=== PATIENT | female | born 1965 | race African-American/Black ===

== ENCOUNTER 2017-07-25 21:14 | Inpatient (IN) | payer MEDICARE, MEDICAID ==
[~2017-07-25] VITALS: Ht 170.2 cm; Wt 97.5 kg
[2017-07-25] MEDS ORDERED: AMIODARONE HCL (50 MG/ ML) 3 ML VIAL IV ONE (21:22)
[2017-07-25] MEDS ORDERED: LORazepam 2MG/ML-1ML VIAL ONE (21:22)
[2017-07-25] MEDS ORDERED: AMIODARONE HCL 150 MG in D5W 5% 100 ML IV ONE ×4 (21:30)
[2017-07-25] MEDS ORDERED: LORazepam 2MG/ML-1ML VIAL IV ONE ×2 (21:30)
[2017-07-25] MEDS ORDERED: AMIODARONE HCL 900 MG in DEXTROSE 500 ML IV SCH (21:32)
[2017-07-25] MEDS ORDERED: SODIUM CHLORIDE 0.9% 500 ML IV ONE ×2 (21:45)
[2017-07-25 21:57] LABS: Hemoglobin 12.7 g/dL (12.2-16.2); Mean Corpuscular Hgb Conc. 33.4 g/dL (32.0-36.0); Mean Corpuscular Volume 92.8 fL (80.0-100.0); Platelet Count (auto) 204 10^3/uL (140-450); Red Cell Distribution Width 15.1 % (11.8-14.3); White Blood Cell 7.1 10^3/uL (4.4-10.8)
[2017-07-25 22:01] LABS: Band Neutrophils % (manual) 0; Basophils % (manual) 0 (0.0-2.0); Blast Cells 0; Metamyelocytes % 0; Myelocytes % 0; Promyelocytes % 0; Reactive Lymphocytes 0
[2017-07-25 22:08] LABS: INR 0.96 (0.9-1.15); Partial Thromboplastin Time 20.9 sec (23.78-33.04); Prothrombin Time 10.3 sec (9.27-12.13)
[2017-07-25 22:09] LABS: Albumin 3.1 g/dL (3.4-5.0); BUN/Creatinine Ratio 14.1; Calcium 9.6 mg/dL (8.5-10.1); Magnesium 1.9 mg/dL (1.6-2.6); Potassium 4.1 mmol/L (3.5-5.1)
[2017-07-25 22:19] LABS: Eosinophils % (manual) 2 (0-7); Lymphocytes % (manual) 32 (10.0-50.0); Monocytes % (manual) 3 (0-12)
[2017-07-25 22:25] LABS: Bilirubin, Total 0.4 mg/dL (0.2-1.0); Total Protein 7.2 g/dL (6.4-8.2)
[2017-07-25] MEDS ORDERED: ASPirin-EC 325mg tab PO ONE (22:45)
[2017-07-26] MEDS ORDERED: MORPHINE SULFATE 4 MG/ML SYR/VIAL IV PRN (02:45)
[2017-07-26] MEDS ORDERED: FUROSEMIDE 20 MG/2 ML VIAL IV ONE (02:45)
[2017-07-26] MEDS ORDERED: ENOXAPARIN SOD 100 MG/1 ML SYRINGE SC ONE (02:45)
[2017-07-26] MEDS ORDERED: NITROGLYCERIN 0.4 MG SL TAB SL PRN (02:45)
[2017-07-26] MEDS ORDERED: ATORVASTATIN 20 MG TAB PO ONE (02:45)
[2017-07-26] MEDS ORDERED: ENOXAPARIN SOD 40 MG/0.4 ML SYRINGE SC SCH (10:00)
[2017-07-26] MEDS: FAMOTIDINE 20 MG TAB PO SCH ×2 (10:43→22:21)
[2017-07-26] MEDS: FUROSEMIDE 40 MG TAB PO SCH (10:43)
[2017-07-26] MEDS: CARVEDILOL 12.5 MG TAB PO SCH ×2 (10:43→22:20)
[2017-07-26] MEDS: ENOXAPARIN SOD 100 MG/1 ML SYRINGE SC SCH ×2 (10:44→22:22)
[2017-07-26] MEDS ORDERED: AMIODARONE HCL 200 MG TAB PO ONE (14:45)
[2017-07-26 15:19] LABS: Alcohol, Urine < 3.0 mg/dL (0-5); Amphetamine Screen, Urine NEGATIVE (NEGATIVE); Barbiturate Scree,Urine NEGATIVE (NEGATIVE); Benzodiazephine Screen, Urine NEGATIVE (NEGATIVE); Cannabinoid Screen, Urine POSITIVE (NEGATIVE); Cocaine Screen, Urine NEGATIVE (NEGATIVE); Opiate Scree,Urine NEGATIVE (NEGATIVE); Phencyclidine Screen, Urine NEGATIVE (NEGATIVE)
[2017-07-26] MEDS: DOXYCYCLINE 100MG/250ML 250 ML IV SCH (16:35)
[2017-07-26 20:00] VITALS: BP 148/96
[2017-07-26 20:29] VITALS: BP 148/96
[2017-07-26] MEDS ORDERED: SPIR25TA89 PO (21:04)
[2017-07-26] MEDS ORDERED: SACU1TAB PO (21:04)
[2017-07-26] MEDS ORDERED: CARV25TA55 PO (21:04)
[2017-07-26] MEDS ORDERED: ALBUAER3 IN (21:10)
[2017-07-26 21:22] LABS: Urine Bacteria NONE SEEN /hpf (None Seen); Urine Blood TRACE /uL (Negative); Urine Mucus FEW (None Seen); Urine Specific Gravity 1.011 (1.001-1.035); Urine WBC 1 /hpf (0 - 5)
[2017-07-26] MEDS: ATORVASTATIN 20 MG TAB PO SCH (22:21)
[2017-07-26] MEDS: MAGNESIUM OXIDE 400 MG TAB PO SCH (22:21)
[2017-07-26 23:00] VITALS: BP 158/101
[2017-07-26 23:30] VITALS: BP 150/101
[2017-07-26] MEDS: ACETAMINOPHEN 325 MG TAB PO PRN (23:42)
[2017-07-26] MEDS ORDERED: AMIO200T33 PO (23:44)
[2017-07-27] VITALS: BP 153/99
[2017-07-27] MEDS ORDERED: cloNIDine HCL 0.1 MG TAB PO PRN (00:45)
[2017-07-27] MEDS: DOXYCYCLINE 100MG/250ML 250 ML IV SCH (03:59)
[2017-07-27 05:17] LABS: Basophils # (auto) 0 uL; Basophils % (auto) 1.5 % (0.0-2.0); Eosinophils # (auto) 0.1 uL; Eosinophils % (auto) 3.8 % (0.0-7.0); Hematocrit 37.8 % (36.0-46.0); Hemoglobin 12.3 g/dL (12.2-16.2); Lymphocytes # (auto) 1.4 uL; Lymphocytes % (auto) 42.7 % (10.0-50.0); Mean Corpuscular Hemoglobin 30.4 pg (28.0-32.0); Mean Corpuscular Hgb Conc. 32.6 g/dL (32.0-36.0); Mean Corpuscular Volume 93.3 fL (80.0-100.0); Monocytes # (auto) 0.5 uL; Monocytes % (auto) 14.4 % (0.0-12.0); Neutrophils # (auto) 1.2 uL; Neutrophils % (auto) 37.6 % (37.0-80.0); Platelet Count (auto) 217 10^3/uL (140-450); Red Blood Cells 4.05 10^6/uL (4.0-5.20); Red Cell Distribution Width 14.7 % (11.8-14.3); White Blood Cell 3.3 10^3/uL (4.4-10.8)
[2017-07-27 05:30] LABS: Albumin 2.8 g/dL (3.4-5.0); Calcium 10.3 mg/dL (8.5-10.1); Potassium 3.8 mmol/L (3.5-5.1)
[2017-07-27 05:32] LABS: BUN/Creatinine Ratio 15.6
[2017-07-27 05:35] LABS: Bilirubin, Total 0.6 mg/dL (0.2-1.0); Total Protein 6.8 g/dL (6.4-8.2)
[2017-07-27 08:00] VITALS: BP 151/96
[2017-07-27] MEDS: cefTRIAXone 1GM/10ml IVPUSH 10 ML IV SCH (09:03)
[2017-07-27] MEDS: FAMOTIDINE 20 MG TAB PO SCH ×2 (09:43→22:23)
[2017-07-27] MEDS: FUROSEMIDE 40 MG TAB PO SCH (09:44)
[2017-07-27] MEDS: MAGNESIUM OXIDE 400 MG TAB PO SCH ×2 (09:44→22:24)
[2017-07-27] MEDS: CARVEDILOL 12.5 MG TAB PO SCH ×2 (09:45→22:25)
[2017-07-27] MEDS ORDERED: LIDOCAINE 2% (LOCAL ANESTH.) PF 5ml SDV ONE (10:17)
[2017-07-27 11:54] VITALS: BP 133/96
[2017-07-27] MEDS ORDERED: ZOLPIDEM TARTRATE 5 MG TAB PO PRN (14:45)
[2017-07-27] MEDS ORDERED: MORPHINE SULFATE 8mg/ml INJ SDV IV PRN (15:00)
[2017-07-27 16:00] VITALS: BP 164/104
[2017-07-27] MEDS: ALPRAZolam 0.25 MG TAB PO PRN (16:38)
[2017-07-27 20:00] VITALS: BP 120/80
[2017-07-27] MEDS: DOXYCYCLINE 100 MG TAB/CAP PO SCH (22:24)
[2017-07-27] MEDS: ATORVASTATIN 20 MG TAB PO SCH (22:24)
[2017-07-27] MEDS: ENALAPRIL MALEATE 2.5 MG TAB PO SCH (22:25)
[2017-07-27 22:49] VITALS: BP 136/98
[2017-07-28 05:39] VITALS: BP 132/84
[2017-07-28 06:01] LABS: Basophils # (auto) 0 uL; Basophils % (auto) 0.1 % (0.0-2.0); Eosinophils # (auto) 0.1 uL; Eosinophils % (auto) 3.3 % (0.0-7.0); Hematocrit 36.6 % (36.0-46.0); Hemoglobin 11.8 g/dL (12.2-16.2); Lymphocytes # (auto) 1.1 uL; Lymphocytes % (auto) 35.5 % (10.0-50.0); Mean Corpuscular Hemoglobin 29.9 pg (28.0-32.0); Mean Corpuscular Hgb Conc. 32.3 g/dL (32.0-36.0); Mean Corpuscular Volume 92.4 fL (80.0-100.0); Monocytes # (auto) 0.4 uL; Monocytes % (auto) 11.3 % (0.0-12.0); Neutrophils # (auto) 1.6 uL; Neutrophils % (auto) 49.8 % (37.0-80.0); Nucleated Red Blood Cells % 0.1 %; Platelet Count (auto) 222 10^3/uL (140-450); Red Blood Cells 3.96 10^6/uL (4.0-5.20); Red Cell Distribution Width 14.9 % (11.8-14.3); White Blood Cell 3.1 10^3/uL (4.4-10.8)
[2017-07-28 06:16] LABS: Potassium 3.6 mmol/L (3.5-5.1)
[2017-07-28 06:23] LABS: Calcium 10.5 mg/dL (8.5-10.1)
[2017-07-28 09:00] VITALS: BP 125/77
[2017-07-28] MEDS: cefTRIAXone 1GM/10ml IVPUSH 10 ML IV SCH (09:34)
[2017-07-28] MEDS: FAMOTIDINE 20 MG TAB PO SCH ×2 (09:35→21:44)
[2017-07-28] MEDS: DOXYCYCLINE 100 MG TAB/CAP PO SCH ×2 (09:36→21:45)
[2017-07-28] MEDS: MAGNESIUM OXIDE 400 MG TAB PO SCH ×2 (09:38→21:44)
[2017-07-28] MEDS: ENOXAPARIN SOD 40 MG/0.4 ML SYRINGE SC SCH (09:39)
[2017-07-28] MEDS: SPIRONOLACTONE 25 MG TAB PO SCH (09:39)
[2017-07-28] MEDS: CARVEDILOL 12.5 MG TAB PO SCH ×2 (09:41→21:44)
[2017-07-28] MEDS: ENALAPRIL MALEATE 2.5 MG TAB PO SCH ×2 (10:00→21:45)
[2017-07-28] MEDS: FUROSEMIDE 40 MG TAB PO SCH (10:00)
[2017-07-28 13:00] VITALS: BP 115/84
[2017-07-28 17:05] VITALS: BP 122/72
[2017-07-28] MEDS: ATORVASTATIN 20 MG TAB PO SCH (21:44)
[2017-07-28] MEDS: ACETAMINOPHEN 325 MG TAB PO PRN (21:45)
[2017-07-28 22:19] VITALS: BP 111/75
[2017-07-29 05:35] VITALS: BP 139/81
[2017-07-29 08:00] VITALS: BP 124/82
[2017-07-29 08:10] LABS: Basophils # (auto) 0 uL; Basophils % (auto) 1.7 % (0.0-2.0); Eosinophils # (auto) 0.1 uL; Eosinophils % (auto) 4.1 % (0.0-7.0); Hematocrit 37.2 % (36.0-46.0); Hemoglobin 12.1 g/dL (12.2-16.2); Lymphocytes # (auto) 1.1 uL; Lymphocytes % (auto) 38.3 % (10.0-50.0); Mean Corpuscular Hgb Conc. 32.5 g/dL (32.0-36.0); Mean Corpuscular Volume 92.3 fL (80.0-100.0); Monocytes # (auto) 0.4 uL; Monocytes % (auto) 12.9 % (0.0-12.0); Neutrophils # (auto) 1.3 uL; Platelet Count (auto) 236 10^3/uL (140-450); Red Blood Cells 4.03 10^6/uL (4.0-5.20)
[2017-07-29 08:28] LABS: BUN/Creatinine Ratio 20.8; Calcium 10.5 mg/dL (8.5-10.1); Potassium 3.8 mmol/L (3.5-5.1)
[2017-07-29] MEDS: cefTRIAXone 1GM/10ml IVPUSH 10 ML IV SCH (09:51)
[2017-07-29] MEDS: SPIRONOLACTONE 25 MG TAB PO SCH (09:56)
[2017-07-29] MEDS: CARVEDILOL 12.5 MG TAB PO SCH ×2 (09:56→22:31)
[2017-07-29] MEDS: MAGNESIUM OXIDE 400 MG TAB PO SCH ×2 (09:56→22:33)
[2017-07-29] MEDS: DOXYCYCLINE 100 MG TAB/CAP PO SCH ×2 (09:56→22:28)
[2017-07-29] MEDS: FAMOTIDINE 20 MG TAB PO SCH ×2 (09:56→22:28)
[2017-07-29] MEDS: ENOXAPARIN SOD 40 MG/0.4 ML SYRINGE SC SCH (09:57)
[2017-07-29] MEDS: ENALAPRIL MALEATE 2.5 MG TAB PO SCH ×2 (10:00→22:32)
[2017-07-29] MEDS: FUROSEMIDE 40 MG TAB PO SCH (10:00)
[2017-07-29 13:09] VITALS: BP 110/82
[2017-07-29 16:43] VITALS: BP 117/79
[2017-07-29 21:51] VITALS: BP 144/88
[2017-07-29] MEDS: ATORVASTATIN 20 MG TAB PO SCH (22:27)
[2017-07-29] MEDS: ALPRAZolam 0.25 MG TAB PO PRN (22:46)
[2017-07-30 04:42] VITALS: BP 137/80
[2017-07-30] MEDS: cefTRIAXone 1GM/10ml IVPUSH 10 ML IV SCH (08:54)
[2017-07-30] MEDS: ENALAPRIL MALEATE 2.5 MG TAB PO SCH ×2 (08:55→22:38)
[2017-07-30] MEDS: DOXYCYCLINE 100 MG TAB/CAP PO SCH ×2 (08:55→22:31)
[2017-07-30] MEDS: FAMOTIDINE 20 MG TAB PO SCH ×2 (08:55→22:30)
[2017-07-30] MEDS: ENOXAPARIN SOD 40 MG/0.4 ML SYRINGE SC SCH (08:55)
[2017-07-30] MEDS: MAGNESIUM OXIDE 400 MG TAB PO SCH ×2 (08:56→22:29)
[2017-07-30] MEDS: FUROSEMIDE 40 MG TAB PO SCH (08:56)
[2017-07-30] MEDS: SPIRONOLACTONE 25 MG TAB PO SCH (08:56)
[2017-07-30] MEDS: CARVEDILOL 12.5 MG TAB PO SCH ×2 (08:56→22:00)
[2017-07-30 09:00] VITALS: BP 132/83
[2017-07-30 13:00] VITALS: BP 106/75
[2017-07-30 17:00] VITALS: BP 125/86
[2017-07-30 21:30] VITALS: BP 111/67
[2017-07-30] MEDS: ATORVASTATIN 20 MG TAB PO SCH (22:31)
[2017-07-31] MEDS: ACETAMINOPHEN 325 MG TAB PO PRN (04:00)
[2017-07-31 04:49] VITALS: BP 109/50
[2017-07-31 09:00] VITALS: BP 135/95
[2017-07-31] MEDS: SPIRONOLACTONE 25 MG TAB PO SCH (09:25)
[2017-07-31] MEDS: FUROSEMIDE 40 MG TAB PO SCH (09:26)
[2017-07-31] MEDS: CARVEDILOL 12.5 MG TAB PO SCH ×2 (09:26→21:37)
[2017-07-31] MEDS: ENALAPRIL MALEATE 2.5 MG TAB PO SCH ×2 (09:27→21:39)
[2017-07-31] MEDS: DOXYCYCLINE 100 MG TAB/CAP PO SCH ×2 (10:00→21:39)
[2017-07-31] MEDS: FAMOTIDINE 20 MG TAB PO SCH ×2 (10:00→21:38)
[2017-07-31] MEDS: MAGNESIUM OXIDE 400 MG TAB PO SCH ×2 (10:00→21:38)
[2017-07-31] MEDS: ENOXAPARIN SOD 40 MG/0.4 ML SYRINGE SC SCH (10:00)
[2017-07-31] MEDS ORDERED: LIDOCAINE 2%HCL (LOCAL ANESTH.) INJ 20ML MDV ONE (10:16)
[2017-07-31] MEDS: cefTRIAXone 1GM/10ml IVPUSH 10 ML IV SCH (10:55)
[2017-07-31] MEDS ORDERED: fentaNYL CITRATE 100 MCG/2 ML VL ONE (11:21)
[2017-07-31] MEDS ORDERED: MIDAZOLAM HCL 1MG/1ML-2 ML VIAL ONE ×3 (11:21→13:08)
[2017-07-31] MEDS ORDERED: VANCOMYCIN 1GM/250ML 250 ML IV ONE (11:53)
[2017-07-31] MEDS ORDERED: VANCOMYCIN HCL 1000 MG VL ONE ×4 (11:53→13:12)
[2017-07-31] MEDS ORDERED: IOHEXOL 350 MG/ML 100ML IJ ONE (12:08)
[2017-07-31] MEDS ORDERED: ONDANSETRON HCL 4 MG/2 ML VIAL IV PRN (14:30)
[2017-07-31] MEDS: MORPHINE SULFATE 8mg/ml INJ SDV IV PRN ×3 (15:00→21:04)
[2017-07-31 17:00] VITALS: BP 123/60
[2017-07-31] MEDS: HYDROcodone-ACET 5/325MG TAB PO PRN ×2 (17:32→21:36)
[2017-07-31] MEDS: ATORVASTATIN 20 MG TAB PO SCH (21:37)
[2017-07-31 22:08] VITALS: BP 117/81
[2017-08-01] MEDS: VANCOMYCIN 1GM/250ML 250 ML IV SCH ×2 (00:16→12:01)
[2017-08-01] MEDS: MORPHINE SULFATE 8mg/ml INJ SDV IV PRN ×2 (00:16→05:25)
[2017-08-01] MEDS: ALPRAZolam 0.25 MG TAB PO PRN (02:15)
[2017-08-01] MEDS: HYDROcodone-ACET 5/325MG TAB PO PRN ×5 (03:36→21:58)
[2017-08-01 05:00] VITALS: BP 94/64
[2017-08-01 06:56] LABS: Calcium 9.9 mg/dL (8.5-10.1); Potassium 4.1 mmol/L (3.5-5.1)
[2017-08-01 06:58] LABS: BUN/Creatinine Ratio 20.9
[2017-08-01 07:24] VITALS: BP 120/79
[2017-08-01] MEDS: MAGNESIUM OXIDE 400 MG TAB PO SCH ×2 (09:03→21:56)
[2017-08-01] MEDS: FAMOTIDINE 20 MG TAB PO SCH ×2 (09:03→21:56)
[2017-08-01] MEDS: cefTRIAXone 1GM/10ml IVPUSH 10 ML IV SCH (09:03)
[2017-08-01] MEDS: DOXYCYCLINE 100 MG TAB/CAP PO SCH ×2 (09:04→21:56)
[2017-08-01] MEDS: ENOXAPARIN SOD 40 MG/0.4 ML SYRINGE SC SCH (10:00)
[2017-08-01] MEDS: FUROSEMIDE 40 MG TAB PO SCH (10:00)
[2017-08-01] MEDS: SPIRONOLACTONE 25 MG TAB PO SCH (10:00)
[2017-08-01] MEDS: CARVEDILOL 12.5 MG TAB PO SCH ×2 (10:00→21:55)
[2017-08-01] MEDS: ENALAPRIL MALEATE 2.5 MG TAB PO SCH ×2 (10:00→21:56)
[2017-08-01] MEDS ORDERED: FURO40TA4 PO (11:27)
[2017-08-01] MEDS ORDERED: DOXY-216 PO (11:27)
[2017-08-01] MEDS ORDERED: ATOR20TA50 PO (11:27)
[2017-08-01 11:53] VITALS: BP 118/72
[2017-08-01 16:15] VITALS: BP 134/78
[2017-08-01] MEDS: ATORVASTATIN 20 MG TAB PO SCH (21:55)
[2017-08-01 22:00] VITALS: BP 122/73
[2017-08-02] MEDS: VANCOMYCIN 1GM/250ML 250 ML IV SCH (00:04)
[2017-08-02] MEDS: HYDROcodone-ACET 5/325MG TAB PO PRN ×2 (02:20→06:28)
[2017-08-02 05:39] VITALS: BP 93/63
[2017-08-02 07:42] LABS: Albumin 3.1 g/dL (3.4-5.0); BUN/Creatinine Ratio 19.4; Bilirubin, Total 0.4 mg/dL (0.2-1.0); Calcium 10.5 mg/dL (8.5-10.1); Potassium 4.1 mmol/L (3.5-5.1); Total Protein 7.1 g/dL (6.4-8.2)
[2017-08-02 08:31] VITALS: BP 104/68
[2017-08-02] MEDS ORDERED: HYDROcodone-ACET 5/325MG TAB PO PRN (08:45)
[2017-08-02] MEDS: DOXYCYCLINE 100 MG TAB/CAP PO SCH (09:49)
[2017-08-02] MEDS: FUROSEMIDE 40 MG TAB PO SCH (09:50)
[2017-08-02] MEDS: FAMOTIDINE 20 MG TAB PO SCH (09:51)
[2017-08-02] MEDS: MAGNESIUM OXIDE 400 MG TAB PO SCH (09:51)
[2017-08-02] MEDS: SPIRONOLACTONE 25 MG TAB PO SCH (09:51)
[2017-08-02] MEDS: ENALAPRIL MALEATE 2.5 MG TAB PO SCH (09:54)
[2017-08-02] MEDS: CARVEDILOL 12.5 MG TAB PO SCH (09:54)
[2017-08-02] MEDS ORDERED: ENOXAPARIN SOD 60 MG/0.6 ML SYRINGE SC SCH (10:00)
[2017-08-02 12:45] VITALS: BP 138/71
== END 2017-08-02 15:10 | disposition home health service (06) | DRG 226 ==
LOC: ER 21:14 → EDBD 21:14 → TELE 21:15 → DOU IN ICU 07-26 19:50 → WEST WING 07-27 21:40 → TELE-WESTW 07-27 21:40
PROVIDERS: ADMIT Nurse Practitioner; ATTEND Internal Medicine
PROC: 0W9B3ZZ Drainage of Left Pleural Cavity, Percutaneous Approach (ICD-10-PCS; 2017-07-27)
PROC: 4B02XTZ Measurement of Cardiac Defibrillator, External Approach (ICD-10-PCS; 2017-07-27)
PROC: 02HK3KZ Insertion of Defibrillator Lead into Right Ventricle, Percutaneous Approach (ICD-10-PCS; principal; 2017-07-31)
PROC: 0JH609Z Insertion of Cardiac Resynchronization Defibrillator Pulse Generator into Chest Subcutaneous Tissue and Fascia, Open Approach (ICD-10-PCS; 2017-07-31)
PROC: 0JPT0PZ Removal of Cardiac Rhythm Related Device from Trunk Subcutaneous Tissue and Fascia, Open Approach (ICD-10-PCS; 2017-07-31)
PROC: 02PA3MZ Removal of Cardiac Lead from Heart, Percutaneous Approach (ICD-10-PCS; 2017-07-31)
DX: T82.111A Breakdown (mechanical) of cardiac pulse generator (battery), initial encounter (principal); I50.43 Acute on chronic combined systolic (congestive) and diastolic (congestive) heart failure; I21.A1 Myocardial infarction type 2; J18.9 Pneumonia, unspecified organism; I47.2 Ventricular tachycardia; J90 Pleural effusion, not elsewhere classified; I42.9 Cardiomyopathy, unspecified; I11.0 Hypertensive heart disease with heart failure; E44.1 Mild protein-calorie malnutrition; T81.30XA Disruption of wound, unspecified, initial encounter; T82.7XXA Infection and inflammatory reaction due to other cardiac and vascular devices, implants and grafts, initial encounter; F12.90 Cannabis use, unspecified, uncomplicated; D72.819 Decreased white blood cell count, unspecified; F17.210 Nicotine dependence, cigarettes, uncomplicated; Y83.8 Other surgical procedures as the cause of abnormal reaction of the patient, or of later complication, without mention of misadventure at the time of the procedure; R79.89 Other specified abnormal findings of blood chemistry; I25.10 Atherosclerotic heart disease of native coronary artery without angina pectoris; I25.2 Old myocardial infarction; Z68.33 Body mass index [BMI] 33.0-33.9, adult; Z95.810 Presence of automatic (implantable) cardiac defibrillator; Y92.89 Other specified places as the place of occurrence of the external cause
CPT/HCPCS: 10022; 36415; 51702; 71045; 76604; 76942; 80048; 80053; 80307; 81001; 83735; 83880; 84443; 84484; 85007; 85025; 85027; 85610; 85730; 87040; 87070; 87081; 87205; 89051; 93005; 93306; 94761; 96365; 96367; 96375; 99152; 99153; 99291; 99292; J2250; J2270; J2405; J3490; J7060

== ENCOUNTER 2017-08-07 07:20 | Emergency (ER) | payer MEDICARE, MEDICAID ==
[~2017-08-07] VITALS: Ht 170.2 cm; Wt 90.7 kg
[~2017-08-07 07:20] MED LIST: ALBUAER3 IN; AMIO200T33 PO; ATOR20TA50 PO; CARV25TA55 PO; DOXY-216 PO; FURO40TA4 PO; SACU1TAB PO; SPIR25TA89 PO
[2017-08-07 14:44] LABS: Basophils # (auto) 0 uL; Basophils % (auto) 0.7 % (0.0-2.0); Eosinophils # (auto) 0.2 uL; Eosinophils % (auto) 2.3 % (0.0-7.0); Hemoglobin 13.4 g/dL (12.2-16.2); Lymphocytes # (auto) 1.1 uL; Lymphocytes % (auto) 16.3 % (10.0-50.0); Mean Corpuscular Hemoglobin 29.8 pg (28.0-32.0); Mean Corpuscular Hgb Conc. 31.9 g/dL (32.0-36.0); Mean Corpuscular Volume 93.4 fL (80.0-100.0); Monocytes # (auto) 0.8 uL; Monocytes % (auto) 11.5 % (0.0-12.0); Neutrophils # (auto) 4.7 uL; Neutrophils % (auto) 69.2 % (37.0-80.0); Nucleated Red Blood Cells % 0.1 %; Platelet Count (auto) 264 10^3/uL (140-450); Red Blood Cells 4.49 10^6/uL (4.0-5.20); Red Cell Distribution Width 14.5 % (11.8-14.3); White Blood Cell 6.7 10^3/uL (4.4-10.8)
[2017-08-07 15:05] LABS: INR 1.01 (0.9-1.15); Partial Thromboplastin Time 27.8 sec (23.78-33.04); Prothrombin Time 10.8 sec (9.27-12.13)
[2017-08-07 15:09] VITALS: BP 154/98
[2017-08-07] MEDS: LIDOCAINE 1% (LOCAL ANESTH.) PF 5ml SDV ID ONE (17:10)
[2017-08-07] MEDS: SODIUM CHLOR 0.9% PF (SALINE LOCK) 10ML VIAL/SYR IV SCH (17:10)
== END 2017-08-07 17:11 | disposition home or self-care (01) ==
LOC: ER 07:20
DX: T82.49XA Other complication of vascular dialysis catheter, initial encounter (principal); I10 Essential (primary) hypertension; I25.2 Old myocardial infarction; F17.210 Nicotine dependence, cigarettes, uncomplicated; Y92.89 Other specified places as the place of occurrence of the external cause
CPT/HCPCS: 36415; 36569; 71045; 85025; 85610; 85730; 99285; C1751; J7050

== ENCOUNTER → 2017-12-05 | Outpatient (CLI) | payer MEDICARE, MEDICAID ==
[~2017-12-05] MED LIST changes: +SPIR25TA8 PO; -SPIR25TA89 PO
== END | disposition home or self-care (01) ==
LOC: Rad HDHVI 09:12
PROVIDERS: ATTEND Internal Medicine Cardiovascular Disease
DX: I31.3 Pericardial effusion (noninflammatory) (principal); I11.0 Hypertensive heart disease with heart failure; I50.9 Heart failure, unspecified; I42.0 Dilated cardiomyopathy
CPT/HCPCS: 93306

== ENCOUNTER → 2018-02-23 | Outpatient (CLI) | payer MEDICARE, MEDICAID ==
[~2018-02-23] VITALS: Ht 170.2 cm; Wt 105.2 kg
[2018-02-23 12:56] LABS: Basophils # (auto) 0.1 uL; Basophils % (auto) 1.3 % (0.0-2.0); Eosinophils # (auto) 0.1 uL; Hematocrit 39.9 % (36.0-46.0); Hemoglobin 12.9 g/dL (12.2-16.2); Lymphocytes # (auto) 1.7 uL; Lymphocytes % (auto) 35.7 % (10.0-50.0); Mean Corpuscular Hemoglobin 30.1 pg (28.0-32.0); Mean Corpuscular Hgb Conc. 32.2 g/dL (32.0-36.0); Mean Corpuscular Volume 93.3 fL (80.0-100.0); Monocytes # (auto) 0.4 uL; Monocytes % (auto) 8.9 % (0.0-12.0); Neutrophils # (auto) 2.4 uL; Neutrophils % (auto) 51.1 % (37.0-80.0); Nucleated Red Blood Cells % 0.2 %; Platelet Count (auto) 153 10^3/uL (140-450); Red Blood Cells 4.28 10^6/uL (4.0-5.20); Red Cell Distribution Width 14.8 % (11.8-14.3); White Blood Cell 4.7 10^3/uL (4.4-10.8)
[2018-02-23 13:05] LABS: Albumin 3.8 g/dL (3.4-5.0); Potassium 4.4 mmol/L (3.5-5.1)
[2018-02-23 13:10] LABS: BUN/Creatinine Ratio 22.1; Bilirubin, Total 0.6 mg/dL (0.2-1.0); Total Protein 7.6 g/dL (6.4-8.2)
[2018-02-23 13:20] LABS: Free T4 (Free Thyroxine) 1.12 ng/dL (0.89-1.76)
[2018-02-23 16:58] LABS: Urine Blood Negative /uL (Negative); Urine Specific Gravity 1.012 (1.001-1.035)
== END | disposition home or self-care (01) ==
LOC: Rad HDHVI 09:29
PROVIDERS: ATTEND Internal Medicine Cardiovascular Disease
DX: I42.0 Dilated cardiomyopathy (principal); I50.23 Acute on chronic systolic (congestive) heart failure; E03.9 Hypothyroidism, unspecified; E55.9 Vitamin D deficiency, unspecified; E11.9 Type 2 diabetes mellitus without complications; D51.9 Vitamin B12 deficiency anemia, unspecified; N39.0 Urinary tract infection, site not specified
CPT/HCPCS: 36415; 78472; 80053; 80061; 81003; 82306; 82607; 83036; 84439; 84443; 85025; 87086; 96374; 96375; A9505

== ENCOUNTER → 2018-06-22 | Outpatient (CLI) | payer MEDICARE, MEDICAID ==
[~2018-06-22] MED LIST changes: +READI-CAT 2 (BARIUM SULF)(VANILLA SMOOTHIE) 450ML ONE
[2018-06-22 12:36] LABS: Basophils # (auto) 0.1 uL; Eosinophils # (auto) 0.1 uL; Eosinophils % (auto) 1.5 % (0.0-7.0); Hematocrit 35.7 % (36.0-46.0); Hemoglobin 11.3 g/dL (12.2-16.2); Lymphocytes # (auto) 0.9 uL; Lymphocytes % (auto) 13.1 % (10.0-50.0); Mean Corpuscular Hemoglobin 29.5 pg (28.0-32.0); Mean Corpuscular Hgb Conc. 31.7 g/dL (32.0-36.0); Monocytes # (auto) 0.3 uL; Monocytes % (auto) 4.5 % (0.0-12.0); Neutrophils # (auto) 5.6 uL; Neutrophils % (auto) 79.9 % (37.0-80.0); Nucleated Red Blood Cells % 0.1 %; Platelet Count (auto) 183 10^3/uL (140-450); Red Blood Cells 3.84 10^6/uL (4.0-5.20); Red Cell Distribution Width 14.6 % (11.8-14.3); White Blood Cell 7.1 10^3/uL (4.4-10.8)
[2018-06-22 12:47] LABS: Potassium 4.4 mmol/L (3.5-5.1); Urine Blood Negative /uL (Negative); Urine Specific Gravity 1.006 (1.001-1.035)
[2018-06-22 12:52] LABS: Albumin 3.6 g/dL (3.4-5.0); Calcium 10.6 mg/dL (8.5-10.1)
[2018-06-22 12:58] LABS: BUN/Creatinine Ratio 22.1; Bilirubin, Total 0.6 mg/dL (0.2-1.0); Total Protein 7.5 g/dL (6.4-8.2)
[2018-06-22 13:17] LABS: Free T4 (Free Thyroxine) 1.32 ng/dL (0.89-1.76)
== END | disposition home or self-care (01) ==
LOC: Rad HDHVI 09:07
PROVIDERS: ATTEND Internal Medicine Cardiovascular Disease
DX: N39.0 Urinary tract infection, site not specified (principal); E03.9 Hypothyroidism, unspecified; E55.9 Vitamin D deficiency, unspecified; D51.9 Vitamin B12 deficiency anemia, unspecified; R07.89 Other chest pain; I11.0 Hypertensive heart disease with heart failure; I50.22 Chronic systolic (congestive) heart failure; I70.0 Atherosclerosis of aorta; Z79.899 Other long term (current) drug therapy
CPT/HCPCS: 36415; 74176; 80053; 80061; 81003; 82306; 82607; 83036; 84439; 84443; 85025; 93306

== ENCOUNTER → 2018-11-09 | Outpatient (CLI) | payer MEDICARE, MEDICAID ==
[~2018-11-09] MED LIST changes: -READI-CAT 2 (BARIUM SULF)(VANILLA SMOOTHIE) 450ML ONE
--- NOTE | 2018-11-09 10:40 | NUR ---
PATIENT SENT FROM DR CHENG A NEW CHF CLINIC PATIENT, NEW PATIENT CHART STARTED. PATIENT EDUCATED ON INFUSION TREATMENT AND BASELINE TESTS, PATIENT VERBALIZED UNDERSTANDING.
[2018-11-09 11:35] VITALS: BP 160/87
--- NOTE | 2018-11-09 11:35 | NUR ---
Discharge Instructions See e-MAR for any mediations given with this visit. Patient education given on disease process. Patient verbalized understanding. Previous labs reviewed. Patient discharged in stable condition with after care instructions and follow up appointment ON MONDAY. NOTE CARDIODYNAMICS PERFORMED BY MIRIAM CASANOVA REVIEWED BY SANKET VALDEZ EKG PERFORMED MIRIAM CASANOVA AND REVIEWED BY SANKET VALDEZ LABS DRAWN
[2018-11-09 15:43] LABS: Basophils # (auto) 0.1 uL; Basophils % (auto) 1.1 % (0.0-2.0); Eosinophils # (auto) 0.1 uL; Eosinophils % (auto) 2.7 % (0.0-7.0); Hemoglobin 13.5 g/dL (12.2-16.2); Lymphocytes # (auto) 1.7 uL; Mean Corpuscular Hemoglobin 29.1 pg (28.0-32.0); Mean Corpuscular Hgb Conc. 31.3 g/dL (32.0-36.0); Mean Corpuscular Volume 92.7 fL (80.0-100.0); Monocytes # (auto) 0.4 uL; Monocytes % (auto) 8.7 % (0.0-12.0); Neutrophils # (auto) 2.8 uL; Neutrophils % (auto) 54.5 % (37.0-80.0); Platelet Count (auto) 236 10^3/uL (140-450); Red Blood Cells 4.64 10^6/uL (4.0-5.20); Red Cell Distribution Width 15.2 % (11.8-14.3); White Blood Cell 5.1 10^3/uL (4.4-10.8)
[2018-11-09 15:56] LABS: Albumin 4.1 g/dL (3.4-5.0); BUN/Creatinine Ratio 21.2; Calcium 9.9 mg/dL (8.5-10.1); Magnesium 2.4 mg/dL (1.6-2.6); Potassium 4.5 mmol/L (3.5-5.1)
[2018-11-09 15:58] LABS: Bilirubin, Total 0.3 mg/dL (0.2-1.0); Total Protein 8.7 g/dL (6.4-8.2)
== END | disposition home or self-care (01) ==
LOC: CHF HDHVI 10:44
PROVIDERS: ATTEND Internal Medicine Cardiovascular Disease
DX: I11.0 Hypertensive heart disease with heart failure (principal); I50.9 Heart failure, unspecified; E83.40 Disorders of magnesium metabolism, unspecified; D64.9 Anemia, unspecified; R94.31 Abnormal electrocardiogram [ECG] [EKG]
CPT/HCPCS: 36415; 80053; 83735; 83880; 85025; 93005; 93701; G0463

== ENCOUNTER → 2018-11-20 | Outpatient (CLI) | payer MEDICARE, MEDICAID ==
[2018-11-20 12:33] LABS: Urine Blood Negative /uL (Negative); Urine Specific Gravity 1.014 (1.001-1.035)
== END | disposition home or self-care (01) ==
LOC: Rad HDHVI 08:42
PROVIDERS: ATTEND Internal Medicine Cardiovascular Disease
DX: I34.0 Nonrheumatic mitral (valve) insufficiency (principal); N39.0 Urinary tract infection, site not specified; I42.0 Dilated cardiomyopathy; I31.3 Pericardial effusion (noninflammatory)
CPT/HCPCS: 81003; 93306

== ENCOUNTER → 2018-12-12 | Outpatient (CLI) | payer MEDICARE, MEDICAID ==
[2018-12-12 09:00] VITALS: BP 172/67
--- NOTE | 2018-12-12 09:00 | NUR ---
IN FOR SCHEDULED INFUSION. PT IS S/P PORT A CATH PLACEMENT. DRSG TO RIGHT NECK DRY AND INTACT, SMALL NOTED 2X2 WITH OCCULSIVE DRESSING ON TOP. RIGHT ANTERIOR CHEST WALL WITH WELL HEALED SURGICAL INCISION AND SLIGHT BRUISE LINE. RIGHT CHEST WALL VERY FLESHY AND PT HAS LARGE BREASTS. ABLE TO PALPATE PORT BUT A LOT OF MOVEMENT NOTED ALSO.
[2018-12-12 09:20] VITALS: BP 113/62
--- NOTE | 2018-12-12 09:30 | NUR ---
RIGHT CHEST PORT ACCESSED WITH STERIL TECHNIQUE ACCORDING TO PROTOCOL. INITIALLY VERY GOOD BLOOD RETURN WITH DARK REGULAR COLOR BLOOD RETURN, AT SAME TIME I WAS HOLDING HUMPHREY NEEDLE IN PLACE WITH STERILE GLOVE. DRESSING APPLIED, ATTEMPTING TO MAINTAIN SAME PLACEMENT AND PRESSURE ON HUMPHREY NEEDLE. ONCE DRESSING IN PLAVE BLOOD RETURN DECREASED AND CHANGED TO LIGHT PINK COLOR.
--- NOTE | 2018-12-12 09:40 | NUR ---
DRESSING REMOVED. ATTEMPT TO DRAW FROM SAME HUMPHREY, UNABLE TO VERIFY PLACEMENT. HUMPHREY REMOVED (20 GAUGE 3/4 INCH). NO OTHER HUMPHREY AVAILABLE AT THIS TIME. RE-ACCESS AND PLACEMENT CONFIRMED. HEPARINIZED. DEFER TREATMENT UNTIL A LONGER HUMPHREY IS AVAILABLE FOR INFUSION. PT TO RETURN IN 2 DAYS FOR DOBUTAMINE INFUSION. DISCHARGED TO SELF CARE IN NO DISTRESS OR DISCOMFORT.
[2018-12-12 09:50] VITALS: BP 113/60
--- NOTE | 2018-12-12 10:00 | NUR ---
educated in office by callie light rn on vitamin d deficiency and given vitamin d spray to start taking. repeat back instructions obtained.
== END | disposition home or self-care (01) ==
LOC: CHF HDHVI 08:37
PROVIDERS: ATTEND Internal Medicine Cardiovascular Disease
DX: Z45.2 Encounter for adjustment and management of vascular access device (principal); I11.0 Hypertensive heart disease with heart failure; I50.22 Chronic systolic (congestive) heart failure; I48.91 Unspecified atrial fibrillation; Z79.899 Other long term (current) drug therapy
CPT/HCPCS: G0463; J1642; 96523

== ENCOUNTER → 2018-12-14 | Outpatient (CLI) | payer MEDICARE, MEDICAID ==
[2018-12-14] VITALS (8 sets, daily range): BP systolic 124–148; BP diastolic 51–78
[~2018-12-14] MED LIST changes: +DOBUTamine 1000MCG/ML 250 ML IV ONE
--- NOTE | 2018-12-14 09:00 | NUR ---
ATTEMPTED TO ACCESS RIGHT CHEST PORT. UNABLE TO ACCESS DUE TO FLIMSY MOVEMENT AND FLESHY AREA AROUND PORT. 2 HUMPHREY NEEDLES USED AND STERILE TECHNIQUE MAINTAINED. REFER TO A SECOND RN FOR ACCESS.
--- NOTE | 2018-12-14 09:10 | NUR ---
Kenia Cath Insertion 20 gauge Kenia Cath inserted using sterile technique in the R upper chest with occlusive dressing over laureano needle. Patient tolerated procedure well. Ordered labs drawn and sent. See e-MAR for medications given during this visit.
--- NOTE | 2018-12-14 10:45 | NUR ---
RETURNED FROM DR APPOINTMENT. AMBULATED WELL. RIGHT CHEST PORT HUMPHREY NEEDEL FLUSHED WITH SALINE AND BLOOD RETURN AND PLACEMENT VERIFIED. RESUME DOBUTAMINE GTT.
[2018-12-14 12:04] LABS: Basophils # (auto) 0.1 uL; Basophils % (auto) 1.1 % (0.0-2.0); Eosinophils # (auto) 0.1 uL; Eosinophils % (auto) 3.1 % (0.0-7.0); Hematocrit 34.2 % (36.0-46.0); Hemoglobin 11.1 g/dL (12.2-16.2); Lymphocytes # (auto) 1.2 uL; Lymphocytes % (auto) 24.7 % (10.0-50.0); Mean Corpuscular Hemoglobin 29.9 pg (28.0-32.0); Mean Corpuscular Hgb Conc. 32.3 g/dL (32.0-36.0); Mean Corpuscular Volume 92.5 fL (80.0-100.0); Monocytes # (auto) 0.4 uL; Monocytes % (auto) 8.4 % (0.0-12.0); Neutrophils # (auto) 2.9 uL; Neutrophils % (auto) 62.7 % (37.0-80.0); Platelet Count (auto) 188 10^3/uL (140-450); Red Cell Distribution Width 16.1 % (11.8-14.3); White Blood Cell 4.7 10^3/uL (4.4-10.8)
[2018-12-14 12:09] LABS: Albumin 3.2 g/dL (3.4-5.0); Calcium 9.7 mg/dL (8.5-10.1); Potassium 4.4 mmol/L (3.5-5.1)
[2018-12-14 12:13] LABS: BUN/Creatinine Ratio 16.7; Bilirubin, Total 0.3 mg/dL (0.2-1.0); Total Protein 6.9 g/dL (6.4-8.2)
--- NOTE | 2018-12-14 13:10 | NUR ---
Kenia Cath Removal Fernandez needle D/C'd after Heparin flush per protocol. See e-MAR for medications given during this visit. Sterile occlusive dressing to site. Patient tolerated procedure well. Site benign post infusion.
--- NOTE | 2018-12-14 13:13 | NUR ---
CHF CLINIC Discharge Instructions See e-MAR for any mediations given with this visit. Patient education given on disease process. Patient verbalized understanding. Previous labs reviewed. Patient discharged in stable condition with after care instructions and follow up appointment. NOTE DOBUTAMINE [id number] APPT [id number] ADMIN BY SANKET VALDEZ HEPARIN ADMIN BY SANKET VALDEZ
== END | disposition home or self-care (01) ==
LOC: CHF HDHVI 08:34
PROVIDERS: ATTEND Internal Medicine Cardiovascular Disease
DX: I11.0 Hypertensive heart disease with heart failure (principal); I50.22 Chronic systolic (congestive) heart failure; I48.91 Unspecified atrial fibrillation; D64.9 Anemia, unspecified; K90.9 Intestinal malabsorption, unspecified; Z79.899 Other long term (current) drug therapy
CPT/HCPCS: 36415; 80053; 82306; 83036; 83735; 83880; 84439; 85025; 96365; 96366; G0463; J1250; J1642

== ENCOUNTER → 2018-12-26 | Outpatient (CLI) | payer MEDICARE, MEDICAID ==
[2018-12-26] VITALS (9 sets, daily range): BP systolic 117–134; BP diastolic 47–73
[~2018-12-26] VITALS: Ht 30.5 cm; Wt 124.7 kg
--- NOTE | 2018-12-26 08:15 | NUR ---
Clinic Provider Clinic Provider UPDATED with PT STATUS ORDERS received and carried out. Dobutamine gtt started at {3}mcg/kg/hr per MD order.
--- NOTE | 2018-12-26 08:15 | NUR ---
CHF PT ARRIVED AT [facility] FOR WEEKLY DOBUTAMINE THERAPY , A/O X4 0 DISTRESS VSS
--- NOTE | 2018-12-26 08:50 | NUR ---
Kenia Cath Insertion 20 gauge Kenia Cath inserted using sterile technique in the upper chest with occlusive dressing over laureano needle. Patient tolerated procedure well. Ordered labs drawn and sent. See e-MAR for medications given during this visit.
[2018-12-26 11:50] LABS: Basophils # (auto) 0.1 uL; Basophils % (auto) 1.3 % (0.0-2.0); Eosinophils # (auto) 0.1 uL; Eosinophils % (auto) 3.2 % (0.0-7.0); Hemoglobin 11.1 g/dL (12.2-16.2); Lymphocytes # (auto) 1.4 uL; Lymphocytes % (auto) 36.7 % (10.0-50.0); Mean Corpuscular Hemoglobin 29.1 pg (28.0-32.0); Mean Corpuscular Hgb Conc. 31.6 g/dL (32.0-36.0); Mean Corpuscular Volume 92.1 fL (80.0-100.0); Monocytes # (auto) 0.4 uL; Monocytes % (auto) 9.8 % (0.0-12.0); Neutrophils # (auto) 1.8 uL; Nucleated Red Blood Cells % 0.1 %; Platelet Count (auto) 209 10^3/uL (140-450); Red Cell Distribution Width 16.2 % (11.8-14.3); White Blood Cell 3.7 10^3/uL (4.4-10.8)
[2018-12-26 12:12] LABS: Albumin 3.3 g/dL (3.4-5.0); Calcium 10.1 mg/dL (8.5-10.1); Magnesium 2.2 mg/dL (1.6-2.6); Potassium 4.4 mmol/L (3.5-5.1)
--- NOTE | 2018-12-26 12:12 | NUR ---
Discharge Instructions See e-MAR for any mediations given with this visit. Patient education given on disease process. Patient verbalized understanding. Previous labs reviewed. Patient discharged in stable condition with after care instructions and follow up appointment. medications DOBUTAMINE DRIP [id number] HEPARIN IVP
[2018-12-26 12:21] LABS: BUN/Creatinine Ratio 17.7; Bilirubin, Total 0.3 mg/dL (0.2-1.0)
== END | disposition home or self-care (01) ==
LOC: CHF HDHVI 08:19
PROVIDERS: ATTEND Internal Medicine Cardiovascular Disease
DX: I11.0 Hypertensive heart disease with heart failure (principal); I50.22 Chronic systolic (congestive) heart failure; I48.91 Unspecified atrial fibrillation; E83.40 Disorders of magnesium metabolism, unspecified; D64.9 Anemia, unspecified; Z79.899 Other long term (current) drug therapy
CPT/HCPCS: 36415; 80053; 83735; 83880; 85025; 96365; 96366; G0463; J1250; J1642

== ENCOUNTER → 2018-12-28 | Outpatient (CLI) | payer MEDICARE, MEDICAID ==
[2018-12-28] MEDS: DOBUTamine 1000MCG/ML 250 ML IV SCH ×2 (08:20→08:50)
--- NOTE | 2018-12-28 08:30 | NUR ---
Kenia Cath Insertion 20 gauge Kenia Cath inserted by Sean VALDEZ using sterile technique in the upper chest with occlusive dressing over laureano needle . Patient tolerated procedure well. Ordered labs drawn and sent. See e-MAR for medications given during this visit.
[2018-12-28 12:13] VITALS: BP 107/60
--- NOTE | 2018-12-28 12:13 | NUR ---
CHF CLINIC Discharge Instructions See e-MAR for any mediations given with this visit. Patient education given on disease process. Patient verbalized understanding. Previous labs reviewed. Patient discharged in stable condition with after care instructions and follow up appointment. NOTE DOBUTAMINE [id number] ADMIN BY ENEDINA VALDEZ. HEPARIN ADMIN BY SANKET VALDEZ.
== END | disposition home or self-care (01) ==
LOC: CHF HDHVI 08:18
PROVIDERS: ATTEND Internal Medicine Cardiovascular Disease
DX: I11.0 Hypertensive heart disease with heart failure (principal); I50.9 Heart failure, unspecified; I48.91 Unspecified atrial fibrillation; I25.10 Atherosclerotic heart disease of native coronary artery without angina pectoris; J45.909 Unspecified asthma, uncomplicated; I50.22 Chronic systolic (congestive) heart failure; Z79.899 Other long term (current) drug therapy
CPT/HCPCS: 96365; 96366; G0463; J1250; J1642

== ENCOUNTER → 2019-01-02 | Outpatient (CLI) | payer MEDICARE, MEDICAID ==
[2019-01-02] VITALS (9 sets, daily range): BP systolic 91–125; BP diastolic 44–80
--- NOTE | 2019-01-02 11:57 | NUR ---
Discharge Instructions See e-MAR for any mediations given with this visit. Patient education given on disease process. Patient verbalized understanding. Previous labs reviewed. Patient discharged in stable condition with after care instructions and follow up appointment. MEDICATIONS DOBUTAMINE DRIP [id number] HEPARIN IVP
[2019-01-02 12:39] LABS: Basophils # (auto) 0 uL; Basophils % (auto) 1.1 % (0.0-2.0); Eosinophils # (auto) 0.2 uL; Eosinophils % (auto) 4.4 % (0.0-7.0); Hematocrit 34.1 % (36.0-46.0); Hemoglobin 11.3 g/dL (12.2-16.2); Lymphocytes # (auto) 1.3 uL; Lymphocytes % (auto) 35.6 % (10.0-50.0); Mean Corpuscular Hemoglobin 30.3 pg (28.0-32.0); Mean Corpuscular Hgb Conc. 33.1 g/dL (32.0-36.0); Mean Corpuscular Volume 91.4 fL (80.0-100.0); Monocytes # (auto) 0.3 uL; Monocytes % (auto) 9.5 % (0.0-12.0); Neutrophils # (auto) 1.8 uL; Neutrophils % (auto) 49.4 % (37.0-80.0); Platelet Count (auto) 181 10^3/uL (140-450); Red Blood Cells 3.73 10^6/uL (4.0-5.20); Red Cell Distribution Width 16.3 % (11.8-14.3); White Blood Cell 3.6 10^3/uL (4.4-10.8)
[2019-01-02 12:52] LABS: Albumin 3.4 g/dL (3.4-5.0); BUN/Creatinine Ratio 17.7; Calcium 9.4 mg/dL (8.5-10.1); Potassium 4.1 mmol/L (3.5-5.1)
[2019-01-02 13:08] LABS: Bilirubin, Total 0.2 mg/dL (0.2-1.0)
== END | disposition home or self-care (01) ==
LOC: CHF HDHVI 08:27
PROVIDERS: ATTEND Internal Medicine Cardiovascular Disease
DX: I11.0 Hypertensive heart disease with heart failure (principal); I50.22 Chronic systolic (congestive) heart failure; I25.10 Atherosclerotic heart disease of native coronary artery without angina pectoris; I48.91 Unspecified atrial fibrillation; D64.9 Anemia, unspecified; J45.909 Unspecified asthma, uncomplicated; Z79.899 Other long term (current) drug therapy
CPT/HCPCS: 36415; 80053; 83735; 83880; 85025; 96365; 96366; G0463; J1250; J1642

== ENCOUNTER → 2019-01-09 | Outpatient (CLI) | payer MEDICARE, MEDICAID ==
[2019-01-09] VITALS (9 sets, daily range): BP systolic 99–123; BP diastolic 47–65
[~2019-01-09] VITALS: Ht 30.5 cm; Wt 125.2 kg
[~2019-01-09] MED LIST changes: +BUMETANIDE 1mg/4ml VIAL (0.25mg/ml) ONE; +BUMETANIDE 2.5mg/10ml (0.25 mg/ml) INJ IV ONE; +POTASSIUM CHL 10 Meq TABLET PO ONE
--- NOTE | 2019-01-09 08:30 | NUR ---
Kenia Cath Insertion 20 gauge Kenia Cath inserted BY VENKATA VALDEZ using sterile technique in the R upper chest with occlusive dressing over laureano needle. Patient tolerated procedure well. Ordered labs drawn and sent. See e-MAR for medications given during this visit.
--- NOTE | 2019-01-09 12:10 | NUR ---
Discharge Instructions See e-MAR for any mediations given with this visit. Patient education given on disease process. Patient verbalized understanding. Previous labs reviewed. Patient discharged in stable condition with after care instructions and follow up appointment. NOTE DOBUTAMINE DRIP 4MCG/KG/MIN 0900-1201PM. TOLERATED BY PATIENT WELL. ADMINISTERED BUMEX IVP AND P.O. POTASSIUM BY VENKATA VALDEZ. PORT-A-CATH D/C' D PER PROTOCOL HEPARIN FLUSHED PRIOR TO NEEDLE REMOVAL. APPLIED GAUZE AND TEGADERM TO SITE. NO BLEEDING NOTED AT THIS TIME.
[2019-01-09 12:15] LABS: Potassium 4.6 mmol/L (3.5-5.1)
== END | disposition home or self-care (01) ==
LOC: CHF HDHVI 08:32
PROVIDERS: ATTEND Internal Medicine Cardiovascular Disease
DX: I11.0 Hypertensive heart disease with heart failure (principal); I50.22 Chronic systolic (congestive) heart failure; I25.10 Atherosclerotic heart disease of native coronary artery without angina pectoris; I48.91 Unspecified atrial fibrillation; E87.6 Hypokalemia; R94.4 Abnormal results of kidney function studies; R60.9 Edema, unspecified; J45.909 Unspecified asthma, uncomplicated; Z79.899 Other long term (current) drug therapy
CPT/HCPCS: 36415; 82565; 83880; 84132; 84520; 96365; 96366; 96375; G0463; J1250; J1642; J3490

== ENCOUNTER → 2019-01-11 | Outpatient (CLI) | payer MEDICARE, MEDICAID ==
[2019-01-11] VITALS (9 sets, daily range): BP systolic 110–133; BP diastolic 47–71
[~2019-01-11] MED LIST changes: -BUMETANIDE 1mg/4ml VIAL (0.25mg/ml) ONE; -BUMETANIDE 2.5mg/10ml (0.25 mg/ml) INJ IV ONE; -POTASSIUM CHL 10 Meq TABLET PO ONE
--- NOTE | 2019-01-11 08:45 | NUR ---
IV insertion IV access obtained, via clean sterile technique by inserting 20 gauge catheter at after attempt(s). IV secured properly. No trauma to site. Patient tolerated procedure well. IV ACCESS STARTED BY SANKET VALDEZ. Addendum: 01/11/19 at 1207 by MIRIAM ALEJANDRO RN port-a-cath insertion
--- NOTE | 2019-01-11 08:45 | NUR ---
Kenia Cath Insertion 20 gauge Kenia Cath inserted by Savannah VALDEZ using sterile technique in the upper chest with occlusive dressing over laureano needle. Patient tolerated procedure well. Ordered labs drawn and sent. See e-MAR for medications given during this visit.
--- NOTE | 2019-01-11 11:55 | NUR ---
Kenia Cath Removal Fernandez needle D/C'd BY MIRIAM VALDEZ after Heparin flush per protocol. See e-MAR for medications given during this visit. Sterile occlusive dressing to site. Patient tolerated procedure well. Site benign post infusion.
--- NOTE | 2019-01-11 12:00 | NUR ---
CHF Clinic Discharge Instructions See e-MAR for any mediations given with this visit. Patient education given on disease process. Patient verbalized understanding. Previous labs reviewed. Patient discharged in stable condition with after care instructions and follow up appointment. NOTE DOBUTAMINE [id number] ADMIN BY SANKET VALDEZ HEPARIN ADMIN BY MIRIAM VALDEZ
== END | disposition home or self-care (01) ==
LOC: CHF HDHVI 08:34
PROVIDERS: ATTEND Internal Medicine Cardiovascular Disease
DX: I11.0 Hypertensive heart disease with heart failure (principal); I50.22 Chronic systolic (congestive) heart failure; I25.10 Atherosclerotic heart disease of native coronary artery without angina pectoris; I25.2 Old myocardial infarction; I48.91 Unspecified atrial fibrillation; F17.210 Nicotine dependence, cigarettes, uncomplicated; E78.00 Pure hypercholesterolemia, unspecified; J45.909 Unspecified asthma, uncomplicated; R60.9 Edema, unspecified; Z79.899 Other long term (current) drug therapy; Z95.0 Presence of cardiac pacemaker
CPT/HCPCS: 96365; 96366; G0463; J1250; J1642

== ENCOUNTER → 2019-01-18 | Outpatient (CLI) | payer MEDICARE, MEDICAID ==
[2019-01-18 08:40] VITALS: BP 110/59
[2019-01-18 09:30] VITALS: BP 110/48
[2019-01-18 10:20] VITALS: BP 102/57
[2019-01-18 11:00] VITALS: BP 109/63
[2019-01-18 11:50] VITALS: BP 109/63
--- NOTE | 2019-01-18 11:50 | NUR ---
CHF CLINIC Discharge Instructions See e-MAR for any mediations given with this visit. Patient education given on disease process. Patient verbalized understanding. Previous labs reviewed. Patient discharged in stable condition with after care instructions and follow up appointment. NOTE DOBUTAMINE [id number] ADMIN BY SANKET VALDEZ. HEPARIN ADMIN BY SANKET VALDEZ.
== END | disposition home or self-care (01) ==
LOC: CHF HDHVI 08:22
PROVIDERS: ATTEND Internal Medicine Cardiovascular Disease
DX: I11.0 Hypertensive heart disease with heart failure (principal); I50.22 Chronic systolic (congestive) heart failure; R53.83 Other fatigue; I25.10 Atherosclerotic heart disease of native coronary artery without angina pectoris; I48.91 Unspecified atrial fibrillation; I25.2 Old myocardial infarction; J45.909 Unspecified asthma, uncomplicated; F17.200 Nicotine dependence, unspecified, uncomplicated; E78.00 Pure hypercholesterolemia, unspecified; Z95.0 Presence of cardiac pacemaker; Z79.899 Other long term (current) drug therapy
CPT/HCPCS: 93701; 96365; 96366; G0463; J1250; J1642

== ENCOUNTER → 2019-01-23 | Outpatient (CLI) | payer MEDICARE, MEDICAID ==
[2019-01-23] VITALS (8 sets, daily range): BP systolic 106–145; BP diastolic 53–66
[2019-01-23 10:07] LABS: Basophils # (auto) 0.1 uL; Basophils % (auto) 1.4 % (0.0-2.0); Eosinophils # (auto) 0.2 uL; Eosinophils % (auto) 4.6 % (0.0-7.0); Hematocrit 32.6 % (36.0-46.0); Hemoglobin 10.5 g/dL (12.2-16.2); Lymphocytes # (auto) 1.1 uL; Lymphocytes % (auto) 24.2 % (10.0-50.0); Mean Corpuscular Hemoglobin 29.4 pg (28.0-32.0); Mean Corpuscular Hgb Conc. 32.3 g/dL (32.0-36.0); Mean Corpuscular Volume 90.9 fL (80.0-100.0); Monocytes # (auto) 0.5 uL; Monocytes % (auto) 10.9 % (0.0-12.0); Neutrophils # (auto) 2.7 uL; Neutrophils % (auto) 58.9 % (37.0-80.0); Platelet Count (auto) 178 10^3/uL (140-450); Red Blood Cells 3.59 10^6/uL (4.0-5.20); Red Cell Distribution Width 16.1 % (11.8-14.3); White Blood Cell 4.7 10^3/uL (4.4-10.8)
[2019-01-23 10:12] LABS: BUN/Creatinine Ratio 21.5; Calcium 9.2 mg/dL (8.5-10.1); Magnesium 2.1 mg/dL (1.6-2.6); Potassium 4.5 mmol/L (3.5-5.1)
--- NOTE | 2019-01-23 12:10 | NUR ---
CHF CLINIC Discharge Instructions See e-MAR for any mediations given with this visit. Patient education given on disease process. Patient verbalized understanding. Previous labs reviewed. Patient discharged in stable condition with after care instructions and follow up appointment. NOTE DOBUTAMINE [id number] ADMIN BY SANKET VALDEZ. HEPARIN ADMIN BY CRISTÓBAL VALDEZ.
== END | disposition home or self-care (01) ==
LOC: CHF HDHVI 08:17
PROVIDERS: ATTEND Internal Medicine Cardiovascular Disease
DX: I11.0 Hypertensive heart disease with heart failure (principal); I50.22 Chronic systolic (congestive) heart failure; I25.10 Atherosclerotic heart disease of native coronary artery without angina pectoris; I25.2 Old myocardial infarction; I48.91 Unspecified atrial fibrillation; E78.5 Hyperlipidemia, unspecified; D64.9 Anemia, unspecified; E78.00 Pure hypercholesterolemia, unspecified; J45.909 Unspecified asthma, uncomplicated; F17.210 Nicotine dependence, cigarettes, uncomplicated; Z79.899 Other long term (current) drug therapy
CPT/HCPCS: 36415; 80048; 83735; 83880; 85025; 96365; 96366; G0463; J1250; J1642

== ENCOUNTER → 2019-01-25 | Outpatient (CLI) | payer MEDICARE, MEDICAID ==
[2019-01-25] VITALS (8 sets, daily range): BP systolic 98–142; BP diastolic 50–65
[~2019-01-25] VITALS: Ht 170.2 cm; Wt 128.6 kg
[~2019-01-25] MED LIST changes: +BUMETANIDE 1mg/4ml VIAL (0.25mg/ml) ONE; +BUMETANIDE 2.5mg/10ml (0.25 mg/ml) INJ IV ONE; +CYANOCOBALAMIN (B-12) 1000 MCG/1 ML VIAL IM ONE; +CYANOCOBALAMIN (B-12) 1000 MCG/1 ML VIAL ONE; +POTASSIUM CHL 10 Meq TABLET PO ONE
--- NOTE | 2019-01-25 12:40 | NUR ---
Discharge Instructions See e-MAR for any mediations given with this visit. Patient education given on disease process. Patient verbalized understanding. Previous labs reviewed. Patient discharged in stable condition with after care instructions and follow up appointment. Note DOBUTAMINE [id number] ADMIN BY SANKET VALDEZ. BUMEX IVP ADMIN BY SANKET VALDEZ.. B12 IM L DELTOID ADMIN BY MIRIAM CASANOVA. HEPARIN ADMIN BY SANKET VALDEZ. POTASSIUM PO ADMIN BY SANKET VALDEZ.
== END | disposition home or self-care (01) ==
LOC: CHF HDHVI 08:34
PROVIDERS: ATTEND Internal Medicine Cardiovascular Disease
DX: I11.0 Hypertensive heart disease with heart failure (principal); I50.22 Chronic systolic (congestive) heart failure; I25.10 Atherosclerotic heart disease of native coronary artery without angina pectoris; I48.91 Unspecified atrial fibrillation; I25.2 Old myocardial infarction; E78.5 Hyperlipidemia, unspecified; F17.210 Nicotine dependence, cigarettes, uncomplicated; E66.01 Morbid (severe) obesity due to excess calories; E78.00 Pure hypercholesterolemia, unspecified; J45.909 Unspecified asthma, uncomplicated; Z79.899 Other long term (current) drug therapy
CPT/HCPCS: 96365; 96366; 96372; 96375; G0463; J1250; J1642; J3420; J3490

== ENCOUNTER → 2019-01-30 | Outpatient (CLI) | payer MEDICARE, MEDICAID ==
[2019-01-30] VITALS (9 sets, daily range): BP systolic 100–136; BP diastolic 51–73
[~2019-01-30] MED LIST changes: -BUMETANIDE 1mg/4ml VIAL (0.25mg/ml) ONE; -BUMETANIDE 2.5mg/10ml (0.25 mg/ml) INJ IV ONE; -CYANOCOBALAMIN (B-12) 1000 MCG/1 ML VIAL IM ONE; -CYANOCOBALAMIN (B-12) 1000 MCG/1 ML VIAL ONE; -POTASSIUM CHL 10 Meq TABLET PO ONE
--- NOTE | 2019-01-30 08:49 | NUR ---
CHF PT ARRIVED AT THE CHF CLINIC FOR TX AND EVAL. PT A/O X 3 0 DISTRESS VSS.
--- NOTE | 2019-01-30 12:20 | NUR ---
Discharge Instructions See e-MAR for any mediations given with this visit. Patient education given on disease process. Patient verbalized understanding. Previous labs reviewed. Patient discharged in stable condition with after care instructions and follow up appointment. MEDICATIONS DOBUTAMINE DRIP [id number] HEPARIN IVP
== END | disposition home or self-care (01) ==
LOC: CHF HDHVI 08:51
PROVIDERS: ATTEND Internal Medicine Cardiovascular Disease
DX: I11.0 Hypertensive heart disease with heart failure (principal); I50.22 Chronic systolic (congestive) heart failure; I25.10 Atherosclerotic heart disease of native coronary artery without angina pectoris; I25.2 Old myocardial infarction; I48.91 Unspecified atrial fibrillation; E78.00 Pure hypercholesterolemia, unspecified; E78.5 Hyperlipidemia, unspecified; J45.909 Unspecified asthma, uncomplicated; E66.01 Morbid (severe) obesity due to excess calories; Z79.899 Other long term (current) drug therapy; Z87.891 Personal history of nicotine dependence
CPT/HCPCS: 96365; 96366; G0463; J1250; J1642

== ENCOUNTER → 2019-02-08 | Outpatient (CLI) | payer MEDICARE, MEDICAID ==
[~2019-02-08] VITALS: Ht 30.5 cm; Wt 127.8 kg
[2019-02-08] VITALS (11 sets, daily range): BP systolic 97–142; BP diastolic 48–57
[~2019-02-08] MED LIST changes: +DOBUTamine 1000MCG/ML 250 ML IV SCH
--- NOTE | 2019-02-08 08:30 | NUR ---
Kenia Cath Insertion [20] gauge Kenia Cath inserted using sterile technique in the [R] upper chest with occlusive dressing over laureano needle. Patient tolerated procedure well. Ordered labs drawn and sent. See e-MAR for medications given during this visit.
[2019-02-08 11:40] LABS: Basophils # (auto) 0 uL; Basophils % (auto) 1.3 % (0.0-2.0); Eosinophils # (auto) 0.2 uL; Eosinophils % (auto) 4.3 % (0.0-7.0); Hematocrit 33.6 % (36.0-46.0); Hemoglobin 10.8 g/dL (12.2-16.2); Lymphocytes # (auto) 1.3 uL; Mean Corpuscular Hemoglobin 29.6 pg (28.0-32.0); Mean Corpuscular Hgb Conc. 32.2 g/dL (32.0-36.0); Mean Corpuscular Volume 91.8 fL (80.0-100.0); Monocytes # (auto) 0.4 uL; Neutrophils # (auto) 1.8 uL; Neutrophils % (auto) 48.4 % (37.0-80.0); Platelet Count (auto) 182 10^3/uL (140-450); Red Blood Cells 3.65 10^6/uL (4.0-5.20); White Blood Cell 3.6 10^3/uL (4.4-10.8)
[2019-02-08 11:49] LABS: BUN/Creatinine Ratio 21.3; Magnesium 2.3 mg/dL (1.6-2.6); Potassium 4.5 mmol/L (3.5-5.1)
--- NOTE | 2019-02-08 12:05 | NUR ---
CHF CLINIC Discharge Instructions See e-MAR for any mediations given with this visit. Patient education given on disease process. Patient verbalized understanding. Previous labs reviewed. Patient discharged in stable condition with after care instructions and follow up appointment. NOTE DOBUTAMINE [id number] ADMIN BY MIRIAM VALDEZ HEPARIN IVP X1 ADMIN BY MIRIAM VALDEZ
== END | disposition home or self-care (01) ==
LOC: CHF HDHVI 08:21
PROVIDERS: ATTEND Internal Medicine Cardiovascular Disease
DX: I11.0 Hypertensive heart disease with heart failure (principal); I50.22 Chronic systolic (congestive) heart failure; R53.83 Other fatigue; I25.10 Atherosclerotic heart disease of native coronary artery without angina pectoris; I48.91 Unspecified atrial fibrillation; I25.2 Old myocardial infarction; J45.909 Unspecified asthma, uncomplicated; E83.40 Disorders of magnesium metabolism, unspecified; E78.5 Hyperlipidemia, unspecified; E66.01 Morbid (severe) obesity due to excess calories; E78.00 Pure hypercholesterolemia, unspecified; Z79.899 Other long term (current) drug therapy; Z87.891 Personal history of nicotine dependence
CPT/HCPCS: 36415; 80048; 83735; 83880; 85025; 96365; 96366; G0463; J1250; J1642

== ENCOUNTER → 2019-02-13 | Outpatient (CLI) | payer MEDICARE, MEDICAID ==
[~2019-02-13] VITALS: Ht 30.5 cm; Wt 127.9 kg
[2019-02-13] VITALS (9 sets, daily range): BP systolic 86–117; BP diastolic 41–64
[~2019-02-13] MED LIST changes: -DOBUTamine 1000MCG/ML 250 ML IV SCH
--- NOTE | 2019-02-13 08:05 | NUR ---
Clinic Provider Clinic Provider UPDATED ON pt STATUS new orders received and carried out. Dobutamine gtt started at {4}mcg/kg/hr per MD order.
--- NOTE | 2019-02-13 08:20 | NUR ---
Kenia Cath Insertion 2O gauge Kenia Cath inserted using sterile technique in the upper chest with occlusive dressing over laureano needle. Patient tolerated procedure well. Ordered labs drawn and sent. See e-MAR for medications given during this visit. STARTED BY ENEDINA VALDEZ
--- NOTE | 2019-02-13 08:30 | NUR ---
CHF PT A/O X 4 0 DISTRESS VSS. PT HERE FOR TX AND WEEKLY FOLLOW UP. Addendum: 02/13/19 at 0915 by FLYNN STOUT RN [place] PT ARRIVED TO THE CLINIC AT 0805
--- NOTE | 2019-02-13 11:35 | NUR ---
Kenia Cath Removal Fernandez needle D/C'd after Heparin flush per protocol. See e-MAR for medications given during this visit. Sterile occlusive dressing to site. Patient tolerated procedure well. Site benign post infusion. MEDICATIONS DOBUTAMINE DRIP [id number] HEPARIN IVP
[2019-02-13 14:55] LABS: Basophils # (auto) 0 uL; Basophils % (auto) 1.1 % (0.0-2.0); Eosinophils # (auto) 0.1 uL; Eosinophils % (auto) 3.8 % (0.0-7.0); Hematocrit 32.7 % (36.0-46.0); Hemoglobin 10.8 g/dL (12.2-16.2); Lymphocytes # (auto) 1.4 uL; Lymphocytes % (auto) 36.7 % (10.0-50.0); Mean Corpuscular Hemoglobin 30.3 pg (28.0-32.0); Mean Corpuscular Volume 91.8 fL (80.0-100.0); Monocytes # (auto) 0.4 uL; Monocytes % (auto) 9.2 % (0.0-12.0); Neutrophils # (auto) 1.9 uL; Neutrophils % (auto) 49.2 % (37.0-80.0); Nucleated Red Blood Cells % 0.3 %; Platelet Count (auto) 172 10^3/uL (140-450); Red Blood Cells 3.56 10^6/uL (4.0-5.20); Red Cell Distribution Width 15.5 % (11.8-14.3); White Blood Cell 3.8 10^3/uL (4.4-10.8)
[2019-02-13 15:01] LABS: Magnesium 2.1 mg/dL (1.6-2.6); Potassium 4.8 mmol/L (3.5-5.1)
== END | disposition home or self-care (01) ==
LOC: CHF HDHVI 08:10
PROVIDERS: ATTEND Internal Medicine Cardiovascular Disease
DX: I11.0 Hypertensive heart disease with heart failure (principal); I50.22 Chronic systolic (congestive) heart failure; I25.10 Atherosclerotic heart disease of native coronary artery without angina pectoris; I25.2 Old myocardial infarction; D64.9 Anemia, unspecified; I48.91 Unspecified atrial fibrillation; J44.9 Chronic obstructive pulmonary disease, unspecified; E78.00 Pure hypercholesterolemia, unspecified; E83.40 Disorders of magnesium metabolism, unspecified; E78.5 Hyperlipidemia, unspecified; E66.01 Morbid (severe) obesity due to excess calories; Z79.899 Other long term (current) drug therapy; Z87.891 Personal history of nicotine dependence
CPT/HCPCS: 36415; 82565; 83735; 83880; 84132; 84520; 85025; 96365; 96366; G0463; J1250; J1642

== ENCOUNTER → 2019-02-15 | Outpatient (CLI) | payer MEDICARE, MEDICAID ==
[2019-02-15] VITALS (10 sets, daily range): BP systolic 91–137; BP diastolic 37–81
[~2019-02-15] MED LIST changes: -DOXY-216 PO; +DOXY-286 PO
--- NOTE | 2019-02-15 11:58 | NUR ---
Kenia Cath Removal Fernandez needle D/C'd after Heparin flush per protocol. See e-MAR for medications given during this visit. Sterile occlusive dressing to site. Patient tolerated procedure well. Site benign post infusion. Addendum: 02/15/19 at 1218 by MIRIAM ALEJANDRO RN D/C'D BY ENEDINA VALDEZ
--- NOTE | 2019-02-15 12:00 | NUR ---
[facility] Discharge Instructions See e-MAR for any mediations given with this visit. Patient education given on disease process. Patient verbalized understanding. Previous labs reviewed. Patient discharged in stable condition with after care instructions and follow up appointment. NOTES DOBUTAMINE [id number] ADMIN BY MIRIAM VALDEZ HEPARIN IVP X1 ADMIN BY ENEDINA VALDEZ PT PROVIDED WITH VIT D PLUS SPRAY AND INSTRUCTED REGARDING PROPER USE/SPRAYS PER DAY BY SANKET VALDEZ.
== END | disposition home or self-care (01) ==
LOC: CHF HDHVI 08:16
PROVIDERS: ATTEND Internal Medicine Cardiovascular Disease
DX: I11.0 Hypertensive heart disease with heart failure (principal); I50.22 Chronic systolic (congestive) heart failure; I25.10 Atherosclerotic heart disease of native coronary artery without angina pectoris; J44.9 Chronic obstructive pulmonary disease, unspecified; E78.5 Hyperlipidemia, unspecified; E66.01 Morbid (severe) obesity due to excess calories; E78.00 Pure hypercholesterolemia, unspecified; Z95.0 Presence of cardiac pacemaker; Z79.899 Other long term (current) drug therapy; Z87.891 Personal history of nicotine dependence
CPT/HCPCS: 96365; 96366; G0463; J1250; J1642

== ENCOUNTER → 2019-02-20 | Outpatient (CLI) | payer MEDICARE, MEDICAID ==
[~2019-02-20] VITALS: Ht 30.5 cm; Wt 130.2 kg
[2019-02-20] VITALS (9 sets, daily range): BP systolic 115–128; BP diastolic 50–77
--- NOTE | 2019-02-20 08:38 | NUR ---
Kenia Cath Insertion [20] gauge Kenia Cath inserted by Savannah VALDEZ using sterile technique in the [R] upper chest with occlusive dressing over laureano needle. Patient tolerated procedure well. Ordered labs drawn and sent. See e-MAR for medications given during this visit.
[2019-02-20 11:56] LABS: Basophils # (auto) 0.1 uL; Basophils % (auto) 1.2 % (0.0-2.0); Eosinophils # (auto) 0.2 uL; Eosinophils % (auto) 3.4 % (0.0-7.0); Hematocrit 33.6 % (36.0-46.0); Hemoglobin 10.8 g/dL (12.2-16.2); Lymphocytes # (auto) 1.5 uL; Lymphocytes % (auto) 31.4 % (10.0-50.0); Mean Corpuscular Hemoglobin 29.2 pg (28.0-32.0); Mean Corpuscular Hgb Conc. 32.1 g/dL (32.0-36.0); Mean Corpuscular Volume 91.1 fL (80.0-100.0); Monocytes # (auto) 0.4 uL; Monocytes % (auto) 8.2 % (0.0-12.0); Neutrophils # (auto) 2.7 uL; Neutrophils % (auto) 55.8 % (37.0-80.0); Nucleated Red Blood Cells % 0.1 %; Platelet Count (auto) 189 10^3/uL (140-450); Red Blood Cells 3.69 10^6/uL (4.0-5.20); Red Cell Distribution Width 15.7 % (11.8-14.3); White Blood Cell 4.9 10^3/uL (4.4-10.8)
--- NOTE | 2019-02-20 11:58 | NUR ---
Kenia Cath Removal Fernandez needle D/C'd by this RN after Heparin flush per protocol. See e-MAR for medications given during this visit. Sterile occlusive dressing to site. Patient tolerated procedure well. Site benign post infusion.
--- NOTE | 2019-02-20 12:00 | NUR ---
CHF CLINIC Discharge Instructions See e-MAR for any mediations given with this visit. Patient education given on disease process. Patient verbalized understanding. Previous labs reviewed. Patient discharged in stable condition with after care instructions and follow up appointment. NOTES DOBUTAMINE [id number] ADMIN BY SANKET VALDEZ HEPARIN IVP VIA PORT-A-CATH ADMIN BY MIRIAM VALDEZ
[2019-02-20 12:18] LABS: BUN/Creatinine Ratio 19.5; Calcium 9.3 mg/dL (8.5-10.1); Magnesium 2.1 mg/dL (1.6-2.6)
== END | disposition home or self-care (01) ==
LOC: CHF HDHVI 08:37
PROVIDERS: ATTEND Internal Medicine Cardiovascular Disease
DX: I11.0 Hypertensive heart disease with heart failure (principal); I50.22 Chronic systolic (congestive) heart failure; I48.91 Unspecified atrial fibrillation; I25.10 Atherosclerotic heart disease of native coronary artery without angina pectoris; I25.2 Old myocardial infarction; D64.9 Anemia, unspecified; J44.9 Chronic obstructive pulmonary disease, unspecified; E78.5 Hyperlipidemia, unspecified; E66.01 Morbid (severe) obesity due to excess calories; Z79.899 Other long term (current) drug therapy; Z87.891 Personal history of nicotine dependence
CPT/HCPCS: 36415; 80048; 83735; 83880; 85025; 96365; 96366; G0463; J1250; J1642

== ENCOUNTER → 2019-02-22 | Outpatient (CLI) | payer MEDICARE, MEDICAID ==
[2019-02-22] VITALS (10 sets, daily range): BP systolic 112–150; BP diastolic 43–63
[~2019-02-22] MED LIST changes: +CYANOCOBALAMIN (B-12) 1000 MCG/1 ML VIAL IM ONE; +CYANOCOBALAMIN (B-12) 1000 MCG/1 ML VIAL ONE
--- NOTE | 2019-02-22 09:00 | NUR ---
Kenia Cath Insertion [20] gauge Kenia Cath inserted using sterile technique in the [R] upper chest after 3 attempts. Site covered with occlusive dressing over laureano needle. Patient tolerated procedure well. Ordered labs drawn and sent. See e-MAR for medications given during this visit.
--- NOTE | 2019-02-22 13:10 | NUR ---
[facility]F CLINIC Discharge Instructions See e-MAR for any mediations given with this visit. Patient education given on disease process. Patient verbalized understanding. Previous labs reviewed. Patient discharged in stable condition with after care instructions and follow up appointment. NOTES DOBUTAMINE IV [id number] ADMIN BY SANKET VALDEZ VITAMIN B12 IM RIGHT DELTOID ADMIN BY MIRIAM VALDEZ HEPARIN IVP VIA PORT-A-CATH ADMIN BY MIRIAM VALDEZ
== END | disposition home or self-care (01) ==
LOC: CHF HDHVI 08:56
PROVIDERS: ATTEND Internal Medicine Cardiovascular Disease
DX: I11.0 Hypertensive heart disease with heart failure (principal); I50.22 Chronic systolic (congestive) heart failure; I48.91 Unspecified atrial fibrillation; I25.10 Atherosclerotic heart disease of native coronary artery without angina pectoris; I25.2 Old myocardial infarction; R53.83 Other fatigue; J44.9 Chronic obstructive pulmonary disease, unspecified; E78.5 Hyperlipidemia, unspecified; E66.01 Morbid (severe) obesity due to excess calories; E78.00 Pure hypercholesterolemia, unspecified; Z87.891 Personal history of nicotine dependence; Z79.899 Other long term (current) drug therapy
CPT/HCPCS: 96365; 96366; 96372; G0463; J1250; J1642; J3420

== ENCOUNTER → 2019-03-05 | Outpatient (CLI) | payer MEDICARE, MEDICAID ==
[2019-03-05] VITALS (8 sets, daily range): BP systolic 96–134; BP diastolic 49–83
[~2019-03-05] MED LIST changes: -CYANOCOBALAMIN (B-12) 1000 MCG/1 ML VIAL IM ONE; -CYANOCOBALAMIN (B-12) 1000 MCG/1 ML VIAL ONE
--- NOTE | 2019-03-05 08:00 | NUR ---
CHF CHF WEEKLY THERAPY, VSS 0 DISTRESS, A/O X 4 0 DISTRESS
--- NOTE | 2019-03-05 08:06 | NUR ---
ECHO PT TO BACK OFFICE FOR ECHOCARDIOGRAM
--- NOTE | 2019-03-05 08:45 | NUR ---
Kenia Cath Insertion 20 gauge Kenia Cath inserted using sterile technique in the upper chest with occlusive dressing over laureano needle. Patient tolerated procedure well. Ordered labs drawn and sent. See e-MAR for medications given during this visit. PLACED BY NISREEN VALDEZ
--- NOTE | 2019-03-05 12:06 | NUR ---
Discharge Instructions See e-MAR for any mediations given with this visit. Patient education given on disease process. Patient verbalized understanding. Previous labs reviewed. Patient discharged in stable condition with after care instructions and follow up appointment. MEDICATIONS DOBUTAMINE DRIP [id number] HEPARIN IVP
[2019-03-05 12:08] LABS: Calcium 10.3 mg/dL (8.5-10.1); Potassium 4.5 mmol/L (3.5-5.1)
[2019-03-05 12:11] LABS: BUN/Creatinine Ratio 22.6; Magnesium 1.9 mg/dL (1.6-2.6)
== END | disposition home or self-care (01) ==
LOC: Rad HDHVI 08:04
PROVIDERS: ATTEND Internal Medicine Cardiovascular Disease
DX: I11.0 Hypertensive heart disease with heart failure (principal); I50.33 Acute on chronic diastolic (congestive) heart failure; I25.10 Atherosclerotic heart disease of native coronary artery without angina pectoris; I48.91 Unspecified atrial fibrillation; I42.0 Dilated cardiomyopathy; I25.2 Old myocardial infarction; J44.9 Chronic obstructive pulmonary disease, unspecified; E78.5 Hyperlipidemia, unspecified; E66.01 Morbid (severe) obesity due to excess calories; E78.00 Pure hypercholesterolemia, unspecified; Z79.899 Other long term (current) drug therapy; Z87.891 Personal history of nicotine dependence
CPT/HCPCS: 36415; 80048; 83735; 83880; 93306; 96365; 96366; G0463; J1250; J1642

== ENCOUNTER → 2019-03-13 | Outpatient (CLI) | payer MEDICARE, MEDICAID ==
[~2019-03-13] VITALS: Ht 30.5 cm; Wt 128.8 kg
[2019-03-13] VITALS (9 sets, daily range): BP systolic 100–149; BP diastolic 50–77
[2019-03-13 12:13] LABS: Potassium 4.3 mmol/L (3.5-5.1)
[2019-03-13 12:21] LABS: Albumin 3.5 g/dL (3.4-5.0); Bilirubin, Total 0.3 mg/dL (0.2-1.0); Calcium 9.9 mg/dL (8.5-10.1); Total Protein 7.5 g/dL (6.4-8.2)
== END | disposition home or self-care (01) ==
LOC: CHF HDHVI 08:16
PROVIDERS: ATTEND Internal Medicine Cardiovascular Disease
DX: I11.0 Hypertensive heart disease with heart failure (principal); I50.42 Chronic combined systolic (congestive) and diastolic (congestive) heart failure; I25.10 Atherosclerotic heart disease of native coronary artery without angina pectoris; J44.9 Chronic obstructive pulmonary disease, unspecified; I25.2 Old myocardial infarction; I42.0 Dilated cardiomyopathy; I48.91 Unspecified atrial fibrillation; R53.83 Other fatigue; E78.00 Pure hypercholesterolemia, unspecified; E78.5 Hyperlipidemia, unspecified; E66.01 Morbid (severe) obesity due to excess calories; Z79.899 Other long term (current) drug therapy; Z87.891 Personal history of nicotine dependence
CPT/HCPCS: 36415; 80053; 83735; 83880; 96365; 96366; G0463; J1250; J1642

== ENCOUNTER → 2019-03-20 | Outpatient (CLI) | payer MEDICARE, MEDICAID ==
[2019-03-20] VITALS (9 sets, daily range): BP systolic 101–122; BP diastolic 46–69
[~2019-03-20] VITALS: Ht 30.5 cm; Wt 130.7 kg
[~2019-03-20] MED LIST changes: +CYANOCOBALAMIN (B-12) 1000 MCG/1 ML VIAL ONE; +DOBUTamine 1000MCG/ML 250 ML IV SCH
[2019-03-20 12:17] LABS: Basophils # (auto) 0 uL; Basophils % (auto) 0.8 % (0.0-2.0); Eosinophils # (auto) 0.2 uL; Eosinophils % (auto) 3.7 % (0.0-7.0); Hematocrit 32.4 % (36.0-46.0); Hemoglobin 10.6 g/dL (12.2-16.2); Lymphocytes # (auto) 1.3 uL; Lymphocytes % (auto) 30.8 % (10.0-50.0); Mean Corpuscular Hemoglobin 30.1 pg (28.0-32.0); Mean Corpuscular Hgb Conc. 32.6 g/dL (32.0-36.0); Mean Corpuscular Volume 92.1 fL (80.0-100.0); Monocytes # (auto) 0.4 uL; Monocytes % (auto) 10.3 % (0.0-12.0); Neutrophils # (auto) 2.2 uL; Neutrophils % (auto) 54.4 % (37.0-80.0); Nucleated Red Blood Cells % 0.1 %; Platelet Count (auto) 176 10^3/uL (140-450); Red Blood Cells 3.52 10^6/uL (4.0-5.20); Red Cell Distribution Width 15.4 % (11.8-14.3); White Blood Cell 4.1 10^3/uL (4.4-10.8)
[2019-03-20 12:22] LABS: Potassium 4.7 mmol/L (3.5-5.1)
[2019-03-20 12:30] LABS: BUN/Creatinine Ratio 19.5; Calcium 10.2 mg/dL (8.5-10.1); Magnesium 2.2 mg/dL (1.6-2.6)
--- NOTE | 2019-03-20 12:30 | NUR ---
[facility]F CLINIC Discharge Instructions See e-MAR for any mediations given with this visit. Patient education given on disease process. Patient verbalized understanding. Previous labs reviewed. Patient discharged in stable condition with after care instructions and follow up appointment. NOTE DOBUTAMINE [id number] ADMIN BY SANKET VALDEZ HEPARIN ADMIN BY FLYNN VALDEZ B12 IM R DELTOID ADMIN BY FLORENTIN VALDEZ
== END | disposition home or self-care (01) ==
LOC: CHF HDHVI 08:44
PROVIDERS: ATTEND Internal Medicine Cardiovascular Disease
DX: I11.0 Hypertensive heart disease with heart failure (principal); I50.42 Chronic combined systolic (congestive) and diastolic (congestive) heart failure; I25.10 Atherosclerotic heart disease of native coronary artery without angina pectoris; I48.91 Unspecified atrial fibrillation; I25.2 Old myocardial infarction; J44.9 Chronic obstructive pulmonary disease, unspecified; E78.5 Hyperlipidemia, unspecified; E78.00 Pure hypercholesterolemia, unspecified; E66.01 Morbid (severe) obesity due to excess calories; Z79.899 Other long term (current) drug therapy; Z87.891 Personal history of nicotine dependence
CPT/HCPCS: 36415; 80048; 83735; 83880; 85025; 93701; 96365; 96366; 96372; G0463; J1250; J1642; J3420

== ENCOUNTER → 2019-03-27 | Outpatient (CLI) | payer MEDICARE, MEDICAID ==
[2019-03-27] VITALS (9 sets, daily range): BP systolic 103–142; BP diastolic 51–72
[~2019-03-27] MED LIST changes: +CYANOCOBALAMIN (B-12) 1000 MCG/1 ML VIAL IM ONE; -DOBUTamine 1000MCG/ML 250 ML IV SCH
--- NOTE | 2019-03-27 08:30 | NUR ---
PT. TO CHF CLINIC FOR DOBUTAMINE INFUSION PER DR. CHENG . WT. DOWN 3 PLUS POUNDS AND PT. STATES SHE IS FEELING BETTER SINCE LAST TX. THOUGH BNP WAS UP. ORDERS RECEIVED AND CARRIED OUT. SEE NSG ASSESS.
--- NOTE | 2019-03-27 08:40 | NUR ---
MEDS:DOBUTAMINE STARTED AT 5 MCG/KG/MIN PER MD ORDER. PT. HAS BEEN TOLERATING 4 MCG IN PRIOR TX,AND WITH ELEVATED BNP AND STABLE B/P, ORDER FOR INCREASE RATE RECEIVED AND CARRIED OUT.
--- NOTE | 2019-03-27 08:50 | NUR ---
MEDS:PT. MEDICATED WITH VIT. B12 1000MCG IM LFT DELT. PER MD ORDER.
--- NOTE | 2019-03-27 09:47 | NUR ---
MEDS: DOBUTREX DOWN TO 4 MCG/KG/MIN PER MD ORDER. VSS
--- NOTE | 2019-03-27 10:15 | NUR ---
PT. TO AND FROM BR WITHOUT ASSIST. MEDS. RESUMED. VSS.
--- NOTE | 2019-03-27 11:00 | NUR ---
[employer] AT CHAIRSIDE FOR ICD INTERROGATION. NO SIGNIFICANT CHANGES NOTED PER TECH.
--- NOTE | 2019-03-27 11:47 | NUR ---
MEDS: HEPARIN 500 UNITS IVP GIVEN AFTER MEDS DC'D PER ORDER.
[2019-03-27 11:48] LABS: Basophils # (auto) 0 uL; Basophils % (auto) 1.2 % (0.0-2.0); Eosinophils # (auto) 0.1 uL; Eosinophils % (auto) 4.9 % (0.0-7.0); Hematocrit 33.3 % (36.0-46.0); Hemoglobin 10.7 g/dL (12.2-16.2); Lymphocytes # (auto) 1.1 uL; Lymphocytes % (auto) 34.9 % (10.0-50.0); Mean Corpuscular Hemoglobin 29.3 pg (28.0-32.0); Mean Corpuscular Hgb Conc. 32.1 g/dL (32.0-36.0); Mean Corpuscular Volume 91.2 fL (80.0-100.0); Monocytes # (auto) 0.3 uL; Monocytes % (auto) 11.3 % (0.0-12.0); Neutrophils # (auto) 1.4 uL; Neutrophils % (auto) 47.7 % (37.0-80.0); Nucleated Red Blood Cells % 0.1 %; Platelet Count (auto) 174 10^3/uL (140-450); Red Blood Cells 3.65 10^6/uL (4.0-5.20); Red Cell Distribution Width 15.4 % (11.8-14.3)
--- NOTE | 2019-03-27 11:59 | NUR ---
Discharge Instructions See e-MAR for any mediations given with this visit. Patient education given on disease process. Patient verbalized understanding. Previous labs reviewed. Patient discharged in stable condition with after care instructions and follow up appointment.
[2019-03-27 12:15] LABS: Potassium 4.6 mmol/L (3.5-5.1)
[2019-03-27 12:30] LABS: BUN/Creatinine Ratio 18.8; Magnesium 2.2 mg/dL (1.6-2.6)
== END | disposition home or self-care (01) ==
LOC: CHF HDHVI 08:23
PROVIDERS: ATTEND Internal Medicine Cardiovascular Disease
DX: I11.0 Hypertensive heart disease with heart failure (principal); I50.84 End stage heart failure; I50.42 Chronic combined systolic (congestive) and diastolic (congestive) heart failure; D64.9 Anemia, unspecified; I25.10 Atherosclerotic heart disease of native coronary artery without angina pectoris; J44.9 Chronic obstructive pulmonary disease, unspecified; E78.5 Hyperlipidemia, unspecified; E66.01 Morbid (severe) obesity due to excess calories; I25.2 Old myocardial infarction; E78.00 Pure hypercholesterolemia, unspecified; I48.91 Unspecified atrial fibrillation; Z95.0 Presence of cardiac pacemaker; Z79.899 Other long term (current) drug therapy; Z87.891 Personal history of nicotine dependence
CPT/HCPCS: 36415; 80048; 83735; 83880; 85025; 96365; 96366; 96372; G0463; J1250; J1642; J3420

== ENCOUNTER → 2019-04-03 | Outpatient (CLI) | payer MEDICARE, MEDICAID ==
[~2019-04-03] VITALS: Ht 30.5 cm; Wt 129.6 kg
[2019-04-03] VITALS (9 sets, daily range): BP systolic 102–130; BP diastolic 47–63
[~2019-04-03] MED LIST changes: -CYANOCOBALAMIN (B-12) 1000 MCG/1 ML VIAL IM ONE; -CYANOCOBALAMIN (B-12) 1000 MCG/1 ML VIAL ONE
--- NOTE | 2019-04-03 08:15 | NUR ---
Kenia Cath Insertion 20 gauge Kenia Cath inserted by Sean VALDEZ using sterile technique in the R upper chest with occlusive dressing over laureano needle. Patient tolerated procedure well. Ordered labs drawn and sent. See e-MAR for medications given during this visit.
--- NOTE | 2019-04-03 12:25 | NUR ---
CHF CLINIC Discharge Instructions See e-MAR for any mediations given with this visit. Patient education given on disease process. Patient verbalized understanding. Previous labs reviewed. Patient discharged in stable condition with after care instructions and follow up appointment. NOTE DOBUTAMINE [id number] ADMIN BY ENEDINA VALDEZ HEPARIN ADMIN BY SANKET VALDEZ
== END | disposition home or self-care (01) ==
LOC: CHF HDHVI 08:14
PROVIDERS: ATTEND Internal Medicine Cardiovascular Disease
DX: I11.0 Hypertensive heart disease with heart failure (principal); I50.42 Chronic combined systolic (congestive) and diastolic (congestive) heart failure; I50.84 End stage heart failure; I25.10 Atherosclerotic heart disease of native coronary artery without angina pectoris; I25.2 Old myocardial infarction; I48.91 Unspecified atrial fibrillation; J44.9 Chronic obstructive pulmonary disease, unspecified; E78.00 Pure hypercholesterolemia, unspecified; R53.83 Other fatigue; E78.5 Hyperlipidemia, unspecified; E66.01 Morbid (severe) obesity due to excess calories; Z79.899 Other long term (current) drug therapy; Z87.891 Personal history of nicotine dependence
CPT/HCPCS: 96365; 96366; G0463; J1250; J1642

== ENCOUNTER → 2019-04-05 | Outpatient (CLI) | payer MEDICARE, MEDICAID ==
[2019-04-05] VITALS (10 sets, daily range): BP systolic 98–123; BP diastolic 37–59
--- NOTE | 2019-04-05 08:45 | NUR ---
Kenia Cath Insertion [20] gauge Kenia Cath inserted using sterile technique in the [RUC] upper chest with occlusive dressing over laureano needle. Patient tolerated procedure well. Ordered labs drawn and sent. See e-MAR for medications given during this visit.
--- NOTE | 2019-04-05 12:30 | NUR ---
[facility]F CLINIC Discharge Instructions See e-MAR for any mediations given with this visit. Patient education given on disease process. Patient verbalized understanding. Previous labs reviewed. Patient discharged in stable condition with after care instructions and follow up appointment. NOTES DOBUTAMINE IV [id number] ADMIN BY MIRIAM VALDEZ HEPARIN IVP VIA PORT-A-CATH ADMIN BY MIRIAM VALDEZ
== END | disposition home or self-care (01) ==
LOC: CHF HDHVI 08:41
PROVIDERS: ATTEND Internal Medicine Cardiovascular Disease
DX: I11.0 Hypertensive heart disease with heart failure (principal); I50.23 Acute on chronic systolic (congestive) heart failure; I50.84 End stage heart failure; J44.9 Chronic obstructive pulmonary disease, unspecified; I25.10 Atherosclerotic heart disease of native coronary artery without angina pectoris; I48.91 Unspecified atrial fibrillation; I25.2 Old myocardial infarction; E78.5 Hyperlipidemia, unspecified; E78.00 Pure hypercholesterolemia, unspecified; E66.01 Morbid (severe) obesity due to excess calories; Z79.899 Other long term (current) drug therapy; Z87.891 Personal history of nicotine dependence
CPT/HCPCS: 83880; 96365; 96366; G0463; J1250; J1642

== ENCOUNTER → 2019-04-12 | Outpatient (CLI) | payer MEDICARE, MEDICAID ==
[2019-04-12] VITALS (11 sets, daily range): BP systolic 93–132; BP diastolic 40–74
--- NOTE | 2019-04-12 08:35 | NUR ---
Kenia Cath Insertion [20] gauge Kenia Cath inserted using sterile technique in the [RIGHT] upper chest with occlusive dressing over laureano needle. Patient tolerated procedure well. Ordered labs drawn and sent. See e-MAR for medications given during this visit.
--- NOTE | 2019-04-12 11:57 | NUR ---
[facility]F CLINIC Discharge Instructions See e-MAR for any mediations given with this visit. Patient education given on disease process. Patient verbalized understanding. Previous labs reviewed. Patient discharged in stable condition with after care instructions and follow up appointment. NOTES DOBUTAMINE IV [id number] ADMIN BY MIRIAM VALDEZ HEPARIN IVP VIA PORT-A-CATH ADMIN BY MIRIAM VALDEZ
[2019-04-12 12:34] LABS: Calcium 9.6 mg/dL (8.5-10.1); Magnesium 2.3 mg/dL (1.6-2.6); Potassium 4.6 mmol/L (3.5-5.1)
[2019-04-12 12:36] LABS: BUN/Creatinine Ratio 30.5
== END | disposition home or self-care (01) ==
LOC: CHF HDHVI 08:30
PROVIDERS: ATTEND Internal Medicine Cardiovascular Disease
DX: I11.0 Hypertensive heart disease with heart failure (principal); I50.42 Chronic combined systolic (congestive) and diastolic (congestive) heart failure; I50.84 End stage heart failure; J44.9 Chronic obstructive pulmonary disease, unspecified; I25.10 Atherosclerotic heart disease of native coronary artery without angina pectoris; I25.2 Old myocardial infarction; I48.91 Unspecified atrial fibrillation; E78.5 Hyperlipidemia, unspecified; E78.00 Pure hypercholesterolemia, unspecified; E66.01 Morbid (severe) obesity due to excess calories; Z79.899 Other long term (current) drug therapy; Z87.891 Personal history of nicotine dependence
CPT/HCPCS: 36415; 80048; 83735; 83880; 96365; 96366; G0463; J1250; J1642

== ENCOUNTER → 2019-04-24 | Outpatient (CLI) | payer MEDICARE, MEDICAID ==
[2019-04-24] VITALS (9 sets, daily range): BP systolic 100–146; BP diastolic 45–88
[~2019-04-24] MED LIST changes: +CYANOCOBALAMIN (B-12) 1000 MCG/1 ML VIAL ONE; +CYANOCOBALAMIN (B-12) 1000 MCG/1 ML VIAL SUBCUT ONE
--- NOTE | 2019-04-24 08:18 | NUR ---
PT IN FOR SCHEDULED TREATMENT, ORDERS RECEIVED ENTERED. SEE INITIAL ASSESSMENT
--- NOTE | 2019-04-24 08:45 | NUR ---
Kenia Cath Insertion 20 gauge Kenia Cath inserted using sterile technique in the upper chest with occlusive dressing over laureano needle. Patient tolerated procedure well. Ordered labs drawn and sent. See e-MAR for medications given during this visit. NOTE INSERTED BY SANKET VALDEZ
--- NOTE | 2019-04-24 11:55 | NUR ---
Kenia Cath Removal Fernandez needle D/C'd after Heparin flush per protocol. See e-MAR for medications given during this visit. Sterile occlusive dressing to site. Patient tolerated procedure well. Site benign post infusion. NOTE REMOVED BY IVANA VALDEZ
--- NOTE | 2019-04-24 12:01 | NUR ---
Discharge Instructions See e-MAR for any mediations given with this visit. Patient education given on disease process. Patient verbalized understanding. Previous labs reviewed. Patient discharged in stable condition with after care instructions and follow up appointment ON 04/26/19 NOTE DOBUTAMINE [id number] HEPARIN 500 UNIT VIT B12 IM R DELTOID
[2019-04-24 12:23] LABS: Albumin 3.2 g/dL (3.4-5.0); Basophils # (auto) 0 uL; Basophils % (auto) 0.9 % (0.0-2.0); Calcium 9.8 mg/dL (8.5-10.1); Eosinophils # (auto) 0.2 uL; Eosinophils % (auto) 3.7 % (0.0-7.0); Hemoglobin 10.5 g/dL (12.2-16.2); Lymphocytes # (auto) 1.2 uL; Mean Corpuscular Hemoglobin 29.6 pg (28.0-32.0); Mean Corpuscular Hgb Conc. 32.9 g/dL (32.0-36.0); Mean Corpuscular Volume 90.1 fL (80.0-100.0); Monocytes # (auto) 0.4 uL; Monocytes % (auto) 9.5 % (0.0-12.0); Neutrophils # (auto) 2.4 uL; Neutrophils % (auto) 56.9 % (37.0-80.0); Platelet Count (auto) 177 10^3/uL (140-450); Potassium 4.4 mmol/L (3.5-5.1); Red Blood Cells 3.55 10^6/uL (4.0-5.20); Red Cell Distribution Width 15.8 % (11.8-14.3); White Blood Cell 4.2 10^3/uL (4.4-10.8)
[2019-04-24 12:28] LABS: BUN/Creatinine Ratio 23.5; Bilirubin, Total 0.3 mg/dL (0.2-1.0); Magnesium 2.4 mg/dL (1.6-2.6); Total Protein 6.8 g/dL (6.4-8.2)
== END | disposition home or self-care (01) ==
LOC: CHF HDHVI 08:41
PROVIDERS: ATTEND Internal Medicine Cardiovascular Disease
DX: I11.0 Hypertensive heart disease with heart failure (principal); I50.42 Chronic combined systolic (congestive) and diastolic (congestive) heart failure; I50.84 End stage heart failure; I25.10 Atherosclerotic heart disease of native coronary artery without angina pectoris; I25.2 Old myocardial infarction; I48.91 Unspecified atrial fibrillation; R53.83 Other fatigue; J44.9 Chronic obstructive pulmonary disease, unspecified; E78.5 Hyperlipidemia, unspecified; E78.00 Pure hypercholesterolemia, unspecified; E66.01 Morbid (severe) obesity due to excess calories; Z79.899 Other long term (current) drug therapy
CPT/HCPCS: 36415; 80053; 83735; 83880; 85025; 96365; 96366; 96372; G0463; J1250; J1642; J3420

== ENCOUNTER → 2019-04-26 | Outpatient (CLI) | payer MEDICARE, MEDICAID ==
[~2019-04-26] VITALS: Ht 165.1 cm; Wt 130.2 kg
[~2019-04-26] MED LIST changes: -CYANOCOBALAMIN (B-12) 1000 MCG/1 ML VIAL ONE; -CYANOCOBALAMIN (B-12) 1000 MCG/1 ML VIAL SUBCUT ONE
--- NOTE | 2019-04-26 08:30 | NUR ---
CHF PT ARRIVED TO CLINIC FOR WEEKLY INOTROPIC THERAPY. A/O X 4 0 DISTRESS.. WT IS UP 0.6 PT TOLERATING CURRENT THERAPY SEE NURSING ASSESSMENT FOR FURTHER DETAILS
--- NOTE | 2019-04-26 08:59 | NUR ---
DOBUTAMINE DRIP STARTED AT 5 MCG/KG/MIN NON TITRATING PER MD ORDER
--- NOTE | 2019-04-26 10:00 | NUR ---
PT TOLERATING DOBUTAMINE DRIP VSS A/O X 4
[2019-04-26 12:10] VITALS: BP 110/70
--- NOTE | 2019-04-26 12:10 | NUR ---
Discharge Instructions See e-MAR for any mediations given with this visit. Patient education given on disease process. Patient verbalized understanding. Previous labs reviewed. Patient discharged in stable condition with after care instructions and follow up appointment. MEDICATIONS DOBUTAMINE DRIP [id number] HEPARIN IVP
== END | disposition home or self-care (01) ==
LOC: CHF HDHVI 08:35
PROVIDERS: ATTEND Internal Medicine Cardiovascular Disease
DX: I11.0 Hypertensive heart disease with heart failure (principal); I50.42 Chronic combined systolic (congestive) and diastolic (congestive) heart failure; I50.84 End stage heart failure; R53.83 Other fatigue; I25.10 Atherosclerotic heart disease of native coronary artery without angina pectoris; I42.8 Other cardiomyopathies; I48.91 Unspecified atrial fibrillation; I25.2 Old myocardial infarction; J44.9 Chronic obstructive pulmonary disease, unspecified; E78.5 Hyperlipidemia, unspecified; E66.01 Morbid (severe) obesity due to excess calories; E78.00 Pure hypercholesterolemia, unspecified; Z79.899 Other long term (current) drug therapy; Z87.891 Personal history of nicotine dependence
CPT/HCPCS: 96365; 96366; G0463; J1250; J1642

== ENCOUNTER → 2019-05-01 | Outpatient (CLI) | payer MEDICARE, MEDICAID ==
[2019-05-01] VITALS (9 sets, daily range): BP systolic 96–126; BP diastolic 47–66
== END | disposition home or self-care (01) ==
LOC: CHF HDHVI 08:19
PROVIDERS: ATTEND Internal Medicine Cardiovascular Disease
DX: I11.0 Hypertensive heart disease with heart failure (principal); I50.42 Chronic combined systolic (congestive) and diastolic (congestive) heart failure; I50.84 End stage heart failure; I25.10 Atherosclerotic heart disease of native coronary artery without angina pectoris; I48.91 Unspecified atrial fibrillation; I25.2 Old myocardial infarction; I42.8 Other cardiomyopathies; J44.9 Chronic obstructive pulmonary disease, unspecified; R53.83 Other fatigue; E78.5 Hyperlipidemia, unspecified; E78.00 Pure hypercholesterolemia, unspecified; E66.01 Morbid (severe) obesity due to excess calories; Z95.0 Presence of cardiac pacemaker; Z79.899 Other long term (current) drug therapy; Z87.891 Personal history of nicotine dependence
CPT/HCPCS: 96365; 96366; G0463; J1250; J1642

== ENCOUNTER → 2019-05-03 | Outpatient (CLI) | payer MEDICARE, MEDICAID ==
[2019-05-03] VITALS (11 sets, daily range): BP systolic 92–123; BP diastolic 45–74
[~2019-05-03] VITALS: Ht 30.5 cm; Wt 131.2 kg
[~2019-05-03] MED LIST changes: +CYANOCOBALAMIN (B-12) 1000 MCG/1 ML VIAL IM ONE; +CYANOCOBALAMIN (B-12) 1000 MCG/1 ML VIAL ONE
== END | disposition home or self-care (01) ==
LOC: CHF HDHVI 08:17
PROVIDERS: ATTEND Internal Medicine Cardiovascular Disease
DX: I11.0 Hypertensive heart disease with heart failure (principal); I50.42 Chronic combined systolic (congestive) and diastolic (congestive) heart failure; I50.84 End stage heart failure; R53.83 Other fatigue; I25.10 Atherosclerotic heart disease of native coronary artery without angina pectoris; I42.8 Other cardiomyopathies; I25.2 Old myocardial infarction; I48.91 Unspecified atrial fibrillation; D64.9 Anemia, unspecified; J44.9 Chronic obstructive pulmonary disease, unspecified; Z79.899 Other long term (current) drug therapy; Z87.891 Personal history of nicotine dependence
CPT/HCPCS: 96365; 96366; 96372; G0463; J1250; J1642; J3420

== ENCOUNTER → 2019-05-08 | Outpatient (CLI) | payer MEDICARE, MEDICAID ==
[~2019-05-08] MED LIST changes: -CYANOCOBALAMIN (B-12) 1000 MCG/1 ML VIAL IM ONE; -CYANOCOBALAMIN (B-12) 1000 MCG/1 ML VIAL ONE
--- NOTE | 2019-05-08 09:15 | NUR ---
CHF PT ARRIVED TO THE CHF CLINIC FOR WEEKLY DOBUTAMINE INFUSION. A/O X4 VSS. PT HAD A 7.4 LB WT GAIN SINCE LAST APPOINTMENT ON 04/24/19. HAD DISCUSSION WITH PT ABOUT WT GAIN, PT STATES HER EATING HABITS MAY HAVE CONTRIBUTED TO THE WT GAIN. EDUCATED ON DIET AND DAILY WT.
--- NOTE | 2019-05-08 09:30 | NUR ---
Kenia Cath Insertion 20 gauge Kenia Cath inserted using sterile technique in the R upper chest with occlusive dressing over laureano needle. Patient tolerated procedure well. See e-MAR for medications given during this visit. NOTE INSERTED BY SANKET VALDEZ
[2019-05-08 09:45] VITALS: BP 120/55
[2019-05-08 10:00] VITALS: BP 109/48
[2019-05-08 10:15] VITALS: BP 106/36
[2019-05-08 10:30] VITALS: BP 105/49
--- NOTE | 2019-05-08 11:25 | NUR ---
PT INFUSION WAS PAUSED AND STERILE CAP PLACED ON HAYDEE CATH HUB. PT WAS ESCORTED TO THE BACK OFFICE FOR HER APPOINTMENT WITH MD. CARRILLO
--- NOTE | 2019-05-08 12:37 | NUR ---
PT WAS ESCORTED BACK TO CLINIC TO CONTINUE DOBUTAMINE INFUSION. PT PLACED BACK ON DRIP WITH VSS
--- NOTE | 2019-05-08 13:53 | NUR ---
Kenia Cath Removal Fernandez needle D/C'd after Heparin flush per protocol. See e-MAR for medications given during this visit. Sterile occlusive dressing to site. Patient tolerated procedure well. Site benign post infusion. NOTE REMOVED BY MCKAY VALDEZ
[2019-05-08 14:01] VITALS: BP 120/64
--- NOTE | 2019-05-08 14:01 | NUR ---
Discharge Instructions See e-MAR for any mediations given with this visit. Patient education given on disease process. Patient verbalized understanding. Previous labs reviewed. Patient discharged in stable condition with after care instructions and follow up appointment ON MONDAY NOTE DOBUTAMINE DRIP [id number] BY SANKET VALDEZ HEPARIN IVP BY MCKAY VALDEZ
== END | disposition home or self-care (01) ==
LOC: CHF HDHVI 09:14
PROVIDERS: ATTEND Internal Medicine Cardiovascular Disease
DX: I11.0 Hypertensive heart disease with heart failure (principal); I50.42 Chronic combined systolic (congestive) and diastolic (congestive) heart failure; I50.84 End stage heart failure; I25.10 Atherosclerotic heart disease of native coronary artery without angina pectoris; J44.9 Chronic obstructive pulmonary disease, unspecified; I25.2 Old myocardial infarction; I42.8 Other cardiomyopathies; I48.91 Unspecified atrial fibrillation; R53.83 Other fatigue; E78.5 Hyperlipidemia, unspecified; E78.00 Pure hypercholesterolemia, unspecified; E66.01 Morbid (severe) obesity due to excess calories; Z87.891 Personal history of nicotine dependence; Z79.899 Other long term (current) drug therapy
CPT/HCPCS: 96365; 96366; G0463; J1250; J1642

== ENCOUNTER → 2019-05-15 | Outpatient (CLI) | payer MEDICARE, MEDICAID ==
[2019-05-15] VITALS (8 sets, daily range): BP systolic 107–127; BP diastolic 47–71
[~2019-05-15] MED LIST changes: +CYANOCOBALAMIN (B-12) 1000 MCG/1 ML VIAL IM ONE; +CYANOCOBALAMIN (B-12) 1000 MCG/1 ML VIAL ONE
== END | disposition home or self-care (01) ==
LOC: CHF HDHVI 09:05
PROVIDERS: ATTEND Internal Medicine Cardiovascular Disease
DX: I11.0 Hypertensive heart disease with heart failure (principal); I50.42 Chronic combined systolic (congestive) and diastolic (congestive) heart failure; I50.84 End stage heart failure; R53.83 Other fatigue; I25.2 Old myocardial infarction; I42.8 Other cardiomyopathies; I48.91 Unspecified atrial fibrillation; I25.10 Atherosclerotic heart disease of native coronary artery without angina pectoris; J44.9 Chronic obstructive pulmonary disease, unspecified; D64.9 Anemia, unspecified; E78.5 Hyperlipidemia, unspecified; E78.00 Pure hypercholesterolemia, unspecified; E66.01 Morbid (severe) obesity due to excess calories; Z87.891 Personal history of nicotine dependence
CPT/HCPCS: 96365; 96366; 96372; G0463; J1250; J1642; J3420

== ENCOUNTER → 2019-05-17 | Outpatient (CLI) | payer MEDICARE, MEDICAID ==
[~2019-05-17] VITALS: Ht 30.5 cm; Wt 131.2 kg
[2019-05-17] VITALS (9 sets, daily range): BP systolic 98–116; BP diastolic 45–73
[~2019-05-17] MED LIST changes: -CYANOCOBALAMIN (B-12) 1000 MCG/1 ML VIAL IM ONE; -CYANOCOBALAMIN (B-12) 1000 MCG/1 ML VIAL ONE
--- NOTE | 2019-05-17 08:30 | NUR ---
CHF PT ARRIVED TO THE [facility] FOR WEEKLY DOBUTAMINE INFUSION PER MD ORDER. A/O X4 VSS. PT STATES NO CHANGE SINCE LAST TREATMENT.
--- NOTE | 2019-05-17 08:50 | NUR ---
Kenia Cath Insertion 20 gauge Kenia Cath inserted using sterile technique in the R upper chest with occlusive dressing over lauraeno needle. Patient tolerated procedure well. Ordered labs drawn and sent. See e-MAR for medications given during this visit. NOTE INSERTED BY SANKET VADLEZ
--- NOTE | 2019-05-17 08:53 | NUR ---
DOBUTAMINE DRIP STARTED AT 5 MCG/KG/MIN. VSS. WILL CONTINUE TO MONITOR
--- NOTE | 2019-05-17 10:04 | NUR ---
PT TOLERATING DOBUTAMINE DRIP. INFUSION SITE BENIGN. VSS. WILL CONTINUE TO MONITOR
[2019-05-17 11:15] LABS: Basophils # (auto) 0 10 ^3/uL (0-0.2); Basophils % (auto) 0.6 % (0.0-2.0); Eosinophils # (auto) 0.2 10 ^3/uL (0-0.8); Eosinophils % (auto) 3.8 % (0.0-7.0); Hematocrit 32.6 % (36.0-46.0); Hemoglobin 10.6 g/dL (12.2-16.2); Lymphocytes # (auto) 1.5 10 ^3/uL (0.4-5.4); Lymphocytes % (auto) 33.9 % (10.0-50.0); Mean Corpuscular Hemoglobin 29.2 pg (28.0-32.0); Mean Corpuscular Hgb Conc. 32.4 g/dL (32.0-36.0); Mean Corpuscular Volume 90.1 fL (80.0-100.0); Monocytes # (auto) 0.5 10 ^3/uL (0-1.3); Monocytes % (auto) 10.5 % (0.0-12.0); Neutrophils # (auto) 2.2 10 ^3/uL (1.6-8.6); Neutrophils % (auto) 51.2 % (37.0-80.0); Nucleated Red Blood Cells % 0.1 %; Platelet Count (auto) 172 10^3/uL (140-450); Red Blood Cells 3.62 10^6/uL (4.0-5.20); Red Cell Distribution Width 15.8 % (11.8-14.3); White Blood Cell 4.3 10^3/uL (4.4-10.8)
[2019-05-17 11:26] LABS: Calcium 9.6 mg/dL (8.5-10.1); Magnesium 2.3 mg/dL (1.6-2.6); Potassium 4.7 mmol/L (3.5-5.1)
--- NOTE | 2019-05-17 12:06 | NUR ---
Discharge Instructions See e-MAR for any mediations given with this visit. Patient education given on disease process. Patient verbalized understanding. Previous labs reviewed. Patient discharged in stable condition with after care instructions and follow up appointment. NOTE DOBUTAMINE [id number] ADMIN BY MIGDALIA VALDEZ HEPARIN FLUSH ADMIN BY MCKAY VALDEZ
== END | disposition home or self-care (01) ==
LOC: CHF HDHVI 08:49
PROVIDERS: ATTEND Internal Medicine Cardiovascular Disease
DX: I13.2 Hypertensive heart and chronic kidney disease with heart failure and with stage 5 chronic kidney disease, or end stage renal disease (principal); I50.42 Chronic combined systolic (congestive) and diastolic (congestive) heart failure; N18.6 End stage renal disease; J44.9 Chronic obstructive pulmonary disease, unspecified; I25.10 Atherosclerotic heart disease of native coronary artery without angina pectoris; E78.5 Hyperlipidemia, unspecified; I25.2 Old myocardial infarction; E78.00 Pure hypercholesterolemia, unspecified; I48.91 Unspecified atrial fibrillation; Z87.891 Personal history of nicotine dependence; Z95.0 Presence of cardiac pacemaker; Z79.899 Other long term (current) drug therapy
CPT/HCPCS: 36415; 80048; 83735; 83880; 85025; 96365; 96366; G0463; J1250; J1642

== ENCOUNTER → 2019-05-24 | Outpatient (CLI) | payer MEDICARE, MEDICAID ==
[~2019-05-24] VITALS: Ht 165.1 cm; Wt 132.1 kg
[2019-05-24] VITALS (9 sets, daily range): BP systolic 99–126; BP diastolic 50–66
[~2019-05-24] MED LIST changes: +LIDOCAINE 1% HCL (LOCAL ANESTH.) INJ 20ML MDV ONE
--- NOTE | 2019-05-24 08:29 | NUR ---
CHF PT ARRIVED AT CHF FOR INOTROPIC THERAPY. VSS 0 DISTRESS PT A/O X 4
--- NOTE | 2019-05-24 08:29 | NUR ---
Clinic Provider Clinic Provider UPDATED ON pt STATUS new orders received and carried out. Dobutamine gtt started at {5}mcg/kg/hr per MD order.
--- NOTE | 2019-05-24 08:52 | NUR ---
Kenia Cath Insertion 20 gauge Kenia Cath inserted using sterile technique in the R upper chest with occlusive dressing over laureano needle. Patient tolerated procedure well. Ordered labs drawn and sent. See e-MAR for medications given during this visit. PLACED BY KINDRA VALDEZ
--- NOTE | 2019-05-24 08:55 | NUR ---
DOBUTAMINE DRIP STARTED PER MD ORDER
--- NOTE | 2019-05-24 10:56 | NUR ---
PT TOLERATING DOBUTAMINE THERAPY VSS
--- NOTE | 2019-05-24 12:21 | NUR ---
Discharge Instructions See e-MAR for any mediations given with this visit. Patient education given on disease process. Patient verbalized understanding. Previous labs reviewed. Patient discharged in stable condition with after care instructions and follow up appointment. WILL RETURN TO CLINIC NEXT WEEK NOTE DOBUTAMINE IV [id number] ADMIN BY MCKAY VALDEZ HEPARIN IVP ADMIN BY MCKAY VALDEZ
== END | disposition home or self-care (01) ==
LOC: CHF HDHVI 08:35
PROVIDERS: ATTEND Internal Medicine Cardiovascular Disease
DX: I13.2 Hypertensive heart and chronic kidney disease with heart failure and with stage 5 chronic kidney disease, or end stage renal disease (principal); I50.42 Chronic combined systolic (congestive) and diastolic (congestive) heart failure; N18.6 End stage renal disease; I50.84 End stage heart failure; R53.83 Other fatigue; I25.10 Atherosclerotic heart disease of native coronary artery without angina pectoris; I42.8 Other cardiomyopathies; I25.2 Old myocardial infarction; I48.91 Unspecified atrial fibrillation; J44.9 Chronic obstructive pulmonary disease, unspecified; E78.5 Hyperlipidemia, unspecified; E66.01 Morbid (severe) obesity due to excess calories; E78.00 Pure hypercholesterolemia, unspecified; Z79.899 Other long term (current) drug therapy; Z87.891 Personal history of nicotine dependence
CPT/HCPCS: 96365; 96366; G0463; J1250; J1642; J2001

== ENCOUNTER → 2019-05-29 | Outpatient (CLI) | payer MEDICARE, MEDICAID ==
[~2019-05-29] VITALS: Ht 30.5 cm; Wt 133.4 kg
[~2019-05-29] MED LIST changes: +CATHFLO ACTIVASE (ALTEPLASE) 2 MG VIAL IV ONE; -LIDOCAINE 1% HCL (LOCAL ANESTH.) INJ 20ML MDV ONE
[2019-05-29 10:10] VITALS: BP 104/44
[2019-05-29 10:30] VITALS: BP 116/57
[2019-05-29 10:45] VITALS: BP 117/59
[2019-05-29 11:00] VITALS: BP 91/58
[2019-05-29 11:30] VITALS: BP 128/47
[2019-05-29 11:53] LABS: Basophils # (auto) 0.1 10 ^3/uL (0-0.2); Basophils % (auto) 1.2 % (0.0-2.0); Eosinophils # (auto) 0.2 10 ^3/uL (0-0.8); Eosinophils % (auto) 3.1 % (0.0-7.0); Hematocrit 31.6 % (36.0-46.0); Hemoglobin 10.3 g/dL (12.2-16.2); Lymphocytes # (auto) 1.2 10 ^3/uL (0.4-5.4); Lymphocytes % (auto) 24.6 % (10.0-50.0); Mean Corpuscular Hemoglobin 29.2 pg (28.0-32.0); Mean Corpuscular Hgb Conc. 32.5 g/dL (32.0-36.0); Mean Corpuscular Volume 89.9 fL (80.0-100.0); Monocytes # (auto) 0.4 10 ^3/uL (0-1.3); Monocytes % (auto) 8.5 % (0.0-12.0); Neutrophils # (auto) 3.1 10 ^3/uL (1.6-8.6); Neutrophils % (auto) 62.6 % (37.0-80.0); Platelet Count (auto) 168 10^3/uL (140-450); Red Blood Cells 3.52 10^6/uL (4.0-5.20); Red Cell Distribution Width 15.8 % (11.8-14.3)
[2019-05-29 12:14] LABS: Potassium 4.7 mmol/L (3.5-5.1)
[2019-05-29 12:24] LABS: Albumin 3.2 g/dL (3.4-5.0); BUN/Creatinine Ratio 19.6; Bilirubin, Total 0.3 mg/dL (0.2-1.0); Calcium 9.3 mg/dL (8.5-10.1); Magnesium 2.2 mg/dL (1.6-2.6)
[2019-05-29 13:25] VITALS: BP 104/51
== END | disposition home or self-care (01) ==
LOC: CHF HDHVI 08:43
PROVIDERS: ATTEND Internal Medicine Cardiovascular Disease
DX: I13.2 Hypertensive heart and chronic kidney disease with heart failure and with stage 5 chronic kidney disease, or end stage renal disease (principal); I50.42 Chronic combined systolic (congestive) and diastolic (congestive) heart failure; N18.6 End stage renal disease; I50.84 End stage heart failure; I25.10 Atherosclerotic heart disease of native coronary artery without angina pectoris; I25.2 Old myocardial infarction; I48.91 Unspecified atrial fibrillation; I42.8 Other cardiomyopathies; D64.9 Anemia, unspecified; R53.83 Other fatigue; J44.9 Chronic obstructive pulmonary disease, unspecified; E78.5 Hyperlipidemia, unspecified; E66.01 Morbid (severe) obesity due to excess calories; E78.00 Pure hypercholesterolemia, unspecified; Z87.891 Personal history of nicotine dependence; Z79.899 Other long term (current) drug therapy
CPT/HCPCS: 36415; 80053; 83735; 83880; 85025; 96365; 96366; G0463; J1250; J1642; J2997

== ENCOUNTER → 2019-06-07 | Outpatient (CLI) | payer MEDICARE, MEDICAID ==
[2019-06-07] VITALS (7 sets, daily range): BP systolic 94–130; BP diastolic 42–70
[~2019-06-07] MED LIST changes: -CATHFLO ACTIVASE (ALTEPLASE) 2 MG VIAL IV ONE
[2019-06-07 12:41] LABS: Basophils # (auto) 0.1 10 ^3/uL (0-0.2); Basophils % (auto) 1.2 % (0.0-2.0); Eosinophils # (auto) 0.2 10 ^3/uL (0-0.8); Eosinophils % (auto) 3.8 % (0.0-7.0); Hematocrit 31.2 % (36.0-46.0); Hemoglobin 10.3 g/dL (12.2-16.2); Lymphocytes # (auto) 1.6 10 ^3/uL (0.4-5.4); Lymphocytes % (auto) 37.3 % (10.0-50.0); Mean Corpuscular Hemoglobin 29.6 pg (28.0-32.0); Mean Corpuscular Hgb Conc. 33.1 g/dL (32.0-36.0); Mean Corpuscular Volume 89.4 fL (80.0-100.0); Monocytes # (auto) 0.4 10 ^3/uL (0-1.3); Monocytes % (auto) 8.9 % (0.0-12.0); Neutrophils % (auto) 48.8 % (37.0-80.0); Nucleated Red Blood Cells % 0.1 %; Platelet Count (auto) 159 10^3/uL (140-450); Red Blood Cells 3.49 10^6/uL (4.0-5.20); White Blood Cell 4.2 10^3/uL (4.4-10.8)
[2019-06-07 12:50] LABS: Potassium 4.5 mmol/L (3.5-5.1)
== END | disposition home or self-care (01) ==
LOC: CHF HDHVI 08:17
PROVIDERS: ATTEND Internal Medicine Cardiovascular Disease
DX: I13.2 Hypertensive heart and chronic kidney disease with heart failure and with stage 5 chronic kidney disease, or end stage renal disease (principal); I50.42 Chronic combined systolic (congestive) and diastolic (congestive) heart failure; N18.6 End stage renal disease; I50.84 End stage heart failure; I25.10 Atherosclerotic heart disease of native coronary artery without angina pectoris; I48.91 Unspecified atrial fibrillation; I25.2 Old myocardial infarction; I42.8 Other cardiomyopathies; J44.9 Chronic obstructive pulmonary disease, unspecified; E78.00 Pure hypercholesterolemia, unspecified; E78.5 Hyperlipidemia, unspecified; E66.01 Morbid (severe) obesity due to excess calories; Z87.891 Personal history of nicotine dependence; Z79.899 Other long term (current) drug therapy
CPT/HCPCS: 36415; 82565; 83735; 83880; 84132; 84520; 85025; 96365; 96366; G0463; J1250; J1642

== ENCOUNTER → 2019-06-19 | Outpatient (CLI) | payer MEDICARE, MEDICAID ==
[~2019-06-19] VITALS: Ht 30.5 cm; Wt 134.9 kg
[2019-06-19] VITALS (9 sets, daily range): BP systolic 78–123; BP diastolic 39–54
[~2019-06-19] MED LIST changes: +CYANOCOBALAMIN (B-12) 1000 MCG/1 ML VIAL ONE; +CYANOCOBALAMIN (B-12) 1000 MCG/1 ML VIAL SUBCUT ONE; +FUROSEMIDE 40 MG/4 ML VIAL IV ONE; +FUROSEMIDE 40 MG/4 ML VIAL ONE; +METR500T14 PO; +POTASSIUM CHL 10 Meq TABLET PO ONE; +TEMA15CA91 PO
--- NOTE | 2019-06-19 08:05 | NUR ---
CHF PT ARRIVED TO THE CLINIC FOR WEEKLY DOBUTAMINE TREATMENT. PT HAS MISSED PREVIOUS ORDERED TREATMENTS. LAST TREATMENT WAS 06/07/19. PT HAS A 3LB WT GAIN SINCE LAST TREATMENT. A/OX4
--- NOTE | 2019-06-19 09:40 | NUR ---
Kenia Cath Insertion 20 gauge Kenia Cath inserted using sterile technique in the R upper chest with occlusive dressing over laureano needle. Patient tolerated procedure well. Ordered labs drawn and sent. See e-MAR for medications given during this visit. NOTE 2 UNSUCCESSFUL ATTEMPTS BY FLYNN VALDEZ 1 UNSUCCESSFUL ATTEMPT BY MCKAY VALDEZ INSERTED BY SANKET VALDEZ
--- NOTE | 2019-06-19 09:41 | NUR ---
DOBUTAMINE INFUSION STARTED @ 5 MCG/KG/MIN PER MD ORDERS. VSS. WILL CONTINUE TO MONITOR.
[2019-06-19 11:59] LABS: Basophils # (auto) 0 10 ^3/uL (0-0.2); Basophils % (auto) 0.9 % (0.0-2.0); Eosinophils # (auto) 0.1 10 ^3/uL (0-0.8); Eosinophils % (auto) 2.6 % (0.0-7.0); Hematocrit 32.3 % (36.0-46.0); Hemoglobin 10.4 g/dL (12.2-16.2); Lymphocytes # (auto) 1.1 10 ^3/uL (0.4-5.4); Mean Corpuscular Hemoglobin 29.1 pg (28.0-32.0); Mean Corpuscular Hgb Conc. 32.2 g/dL (32.0-36.0); Mean Corpuscular Volume 90.6 fL (80.0-100.0); Monocytes # (auto) 0.4 10 ^3/uL (0-1.3); Monocytes % (auto) 9.5 % (0.0-12.0); Neutrophils # (auto) 2.7 10 ^3/uL (1.6-8.6); Platelet Count (auto) 173 10^3/uL (140-450); Red Blood Cells 3.57 10^6/uL (4.0-5.20); Red Cell Distribution Width 15.9 % (11.8-14.3); White Blood Cell 4.3 10^3/uL (4.4-10.8)
[2019-06-19 12:09] LABS: BUN/Creatinine Ratio 19.3; Calcium 9.3 mg/dL (8.5-10.1); Magnesium 2.3 mg/dL (1.6-2.6); Potassium 4.4 mmol/L (3.5-5.1)
--- NOTE | 2019-06-19 12:55 | NUR ---
SPOKE WITH DR CHENG ABOUT PATIENT WEIGHT GAIN, ORDERS RECEIVED FOR LASIX AND POTASSIUM ENTERED. PATIENT ASKED ABOUT HELP WITH WEIGHT LOSS, DR CHENG MADE AWARE.
--- NOTE | 2019-06-19 12:56 | NUR ---
Referral made for weight loss by Dr Ibarra.
--- NOTE | 2019-06-19 13:10 | NUR ---
CHF CLINIC Discharge Instructions See e-MAR for any mediations given with this visit. Patient education given on disease process. Patient verbalized understanding. Previous labs reviewed. Patient discharged in stable condition with after care instructions and follow up appointment. NOTE DOBUTAMINE [id number] ADMIN BY SANKET VALDEZ. B12 IM L DELTOID ADMIN BY MCKAY VALDEZ. LASIX IVP ADMIN BY SANKET VALDEZ. HEPARIN ADMIN BY SANKET VALDEZ. POTASSIUM PO ADMIN BY SANKET VALDEZ.
== END | disposition home or self-care (01) ==
LOC: CHF HDHVI 08:18
PROVIDERS: ATTEND Internal Medicine Cardiovascular Disease
DX: I13.2 Hypertensive heart and chronic kidney disease with heart failure and with stage 5 chronic kidney disease, or end stage renal disease (principal); I50.42 Chronic combined systolic (congestive) and diastolic (congestive) heart failure; I50.84 End stage heart failure; N18.6 End stage renal disease; R63.5 Abnormal weight gain; J44.9 Chronic obstructive pulmonary disease, unspecified; I42.9 Cardiomyopathy, unspecified; I25.10 Atherosclerotic heart disease of native coronary artery without angina pectoris; E78.5 Hyperlipidemia, unspecified; E78.00 Pure hypercholesterolemia, unspecified; I48.91 Unspecified atrial fibrillation; I25.2 Old myocardial infarction; Z87.891 Personal history of nicotine dependence; Z79.899 Other long term (current) drug therapy; Z95.0 Presence of cardiac pacemaker
CPT/HCPCS: 36415; 80048; 83735; 83880; 85025; 96365; 96366; 96372; 96375; G0463; J1250; J1642; J1940; J3420

== ENCOUNTER → 2019-06-21 | Outpatient (CLI) | payer MEDICARE, MEDICAID ==
[2019-06-21] VITALS (9 sets, daily range): BP systolic 101–132; BP diastolic 45–66
[~2019-06-21] MED LIST changes: -CYANOCOBALAMIN (B-12) 1000 MCG/1 ML VIAL ONE; -CYANOCOBALAMIN (B-12) 1000 MCG/1 ML VIAL SUBCUT ONE; -FUROSEMIDE 40 MG/4 ML VIAL IV ONE; -FUROSEMIDE 40 MG/4 ML VIAL ONE; -METR500T14 PO; -POTASSIUM CHL 10 Meq TABLET PO ONE; -TEMA15CA91 PO
== END | disposition home or self-care (01) ==
LOC: CHF HDHVI 08:21
PROVIDERS: ATTEND Internal Medicine Cardiovascular Disease
DX: I13.2 Hypertensive heart and chronic kidney disease with heart failure and with stage 5 chronic kidney disease, or end stage renal disease (principal); N18.6 End stage renal disease; I50.42 Chronic combined systolic (congestive) and diastolic (congestive) heart failure; I50.84 End stage heart failure; J44.9 Chronic obstructive pulmonary disease, unspecified; I25.10 Atherosclerotic heart disease of native coronary artery without angina pectoris; I48.91 Unspecified atrial fibrillation; I25.2 Old myocardial infarction; I42.8 Other cardiomyopathies; R53.83 Other fatigue; E78.00 Pure hypercholesterolemia, unspecified; E78.5 Hyperlipidemia, unspecified; Z79.899 Other long term (current) drug therapy; Z87.891 Personal history of nicotine dependence
CPT/HCPCS: 96365; 96366; G0463; J1250; J1642

== ENCOUNTER → 2019-06-26 | Outpatient (CLI) | payer MEDICARE, MEDICAID ==
[2019-06-26] VITALS (10 sets, daily range): BP systolic 102–138; BP diastolic 47–72
[~2019-06-26] MED LIST changes: +FUROSEMIDE 40 MG/4 ML VIAL IV ONE; +FUROSEMIDE 40 MG/4 ML VIAL ONE; +POTASSIUM CHL 10 Meq TABLET PO ONE
--- NOTE | 2019-06-26 08:35 | NUR ---
Patient came into clinic for scheduled infusion. Patient AAOx4, breathing even and unlabored, ambulatory.
--- NOTE | 2019-06-26 08:42 | NUR ---
Kenia Cath Insertion 20 gauge Kenia Cath inserted using sterile technique in the r upper chest with occlusive dressing over laureano needle. Patient tolerated procedure well. Ordered labs drawn and sent. See e-MAR for medications given during this visit.
--- NOTE | 2019-06-26 10:15 | NUR ---
Patient resting comfortably in chair, breathing even and unlabored.
--- NOTE | 2019-06-26 11:55 | NUR ---
Patient weight up 4lbs, medications given as ordered.
[2019-06-26 12:01] LABS: Basophils # (auto) 0 10 ^3/uL (0-0.2); Basophils % (auto) 0.8 % (0.0-2.0); Eosinophils # (auto) 0.1 10 ^3/uL (0-0.8); Hematocrit 33.4 % (36.0-46.0); Hemoglobin 10.5 g/dL (12.2-16.2); Lymphocytes # (auto) 1.2 10 ^3/uL (0.4-5.4); Lymphocytes % (auto) 26.3 % (10.0-50.0); Mean Corpuscular Hemoglobin 28.3 pg (28.0-32.0); Mean Corpuscular Hgb Conc. 31.4 g/dL (32.0-36.0); Mean Corpuscular Volume 90.1 fL (80.0-100.0); Monocytes # (auto) 0.4 10 ^3/uL (0-1.3); Monocytes % (auto) 8.5 % (0.0-12.0); Neutrophils # (auto) 2.9 10 ^3/uL (1.6-8.6); Neutrophils % (auto) 61.4 % (37.0-80.0); Nucleated Red Blood Cells % 0.1 %; Platelet Count (auto) 204 10^3/uL (140-450); Red Blood Cells 3.71 10^6/uL (4.0-5.20); White Blood Cell 4.7 10^3/uL (4.4-10.8)
[2019-06-26 12:10] LABS: BUN/Creatinine Ratio 17.8; Calcium 9.8 mg/dL (8.5-10.1); Magnesium 2.3 mg/dL (1.6-2.6); Potassium 4.3 mmol/L (3.5-5.1)
--- NOTE | 2019-06-26 12:20 | NUR ---
CHF Clinic Discharge Instructions See e-MAR for any mediations given with this visit. Patient education given on disease process. Patient verbalized understanding. Previous labs reviewed. Patient discharged in stable condition with after care instructions and follow up appointment. Note Dobutamine admin by Savannah VALDEZ Lasix IVP admin by Savannah VALDEZ POtassium PO admin by Savannah VALDEZ Heparin admin by Savannah VALDEZ Addendum: 06/26/19 at 1645 by Savannah Magaña RN RN Dobutamine infusion [id number]
== END | disposition home or self-care (01) ==
LOC: CHF HDHVI 08:38
PROVIDERS: ATTEND Internal Medicine Cardiovascular Disease
DX: I13.2 Hypertensive heart and chronic kidney disease with heart failure and with stage 5 chronic kidney disease, or end stage renal disease (principal); I50.42 Chronic combined systolic (congestive) and diastolic (congestive) heart failure; N18.6 End stage renal disease; J44.9 Chronic obstructive pulmonary disease, unspecified; E78.5 Hyperlipidemia, unspecified; E78.00 Pure hypercholesterolemia, unspecified; E66.01 Morbid (severe) obesity due to excess calories; Z79.899 Other long term (current) drug therapy; Z87.891 Personal history of nicotine dependence
CPT/HCPCS: 36415; 80048; 83735; 83880; 85025; 96365; 96366; 96375; G0463; J1250; J1642; J1940

== ENCOUNTER → 2019-06-28 | Outpatient (CLI) | payer MEDICARE, MEDICAID ==
[~2019-06-28] VITALS: Ht 30.5 cm; Wt 133.9 kg
[2019-06-28] VITALS (9 sets, daily range): BP systolic 99–124; BP diastolic 37–64
[~2019-06-28] MED LIST changes: +CYANOCOBALAMIN (B-12) 1000 MCG/1 ML VIAL IM ONE; +CYANOCOBALAMIN (B-12) 1000 MCG/1 ML VIAL ONE
== END | disposition home or self-care (01) ==
LOC: CHF HDHVI 08:30
PROVIDERS: ATTEND Internal Medicine Cardiovascular Disease
DX: I13.2 Hypertensive heart and chronic kidney disease with heart failure and with stage 5 chronic kidney disease, or end stage renal disease (principal); I50.42 Chronic combined systolic (congestive) and diastolic (congestive) heart failure; N18.6 End stage renal disease; I50.84 End stage heart failure; I25.10 Atherosclerotic heart disease of native coronary artery without angina pectoris; J44.9 Chronic obstructive pulmonary disease, unspecified; I48.91 Unspecified atrial fibrillation; I25.2 Old myocardial infarction; I42.8 Other cardiomyopathies; E66.01 Morbid (severe) obesity due to excess calories; R53.83 Other fatigue; E78.5 Hyperlipidemia, unspecified; E78.00 Pure hypercholesterolemia, unspecified; Z79.899 Other long term (current) drug therapy; Z87.891 Personal history of nicotine dependence
CPT/HCPCS: 96365; 96366; 96372; 96375; G0463; J1250; J1642; J1940; J3420

== ENCOUNTER → 2019-07-03 | Outpatient (CLI) | payer MEDICARE, MEDICAID ==
[2019-07-03] VITALS (8 sets, daily range): BP systolic 98–140; BP diastolic 42–73
[~2019-07-03] MED LIST changes: -CYANOCOBALAMIN (B-12) 1000 MCG/1 ML VIAL IM ONE; -CYANOCOBALAMIN (B-12) 1000 MCG/1 ML VIAL ONE; -FUROSEMIDE 40 MG/4 ML VIAL IV ONE; -FUROSEMIDE 40 MG/4 ML VIAL ONE; -POTASSIUM CHL 10 Meq TABLET PO ONE
--- NOTE | 2019-07-03 08:38 | NUR ---
CHF PT ARRIVED TO THE CHF CLINIC FOR WEEKLY DOBUTAMINE INFUSION PER MD ORDERS. A/O X4. 2LB WT LOSS SINCE LAST VISIT ON 06/28/19
--- NOTE | 2019-07-03 09:05 | NUR ---
Kenia Cath Insertion 20 gauge Kenia Cath inserted using sterile technique in the R upper chest with occlusive dressing over laureano needle. Patient tolerated procedure well. See e-MAR for medications given during this visit. NOTE INSERTED BY ENEDINA VALDEZ
--- NOTE | 2019-07-03 09:10 | NUR ---
DOBUTAMINE INFUSION STARTED @ 5 MCG/KG/MIN PER MD ORDERS. VSS. WILL CONTINUE TO MONITOR.
--- NOTE | 2019-07-03 10:24 | NUR ---
PT TOLERATING DOBUTAMINE INFUSION. INFUSION SITE BENIGN. VSS. WILL CONTINUE TO MONITOR.
--- NOTE | 2019-07-03 12:26 | NUR ---
Kenia Cath Removal Fernandez needle D/C'd after Heparin flush per protocol. See e-MAR for medications given during this visit. Sterile occlusive dressing to site. Patient tolerated procedure well. Site benign post infusion. NOTE REMOVED BY NISREEN VALDEZ
--- NOTE | 2019-07-03 12:30 | NUR ---
Discharge Instructions See e-MAR for any mediations given with this visit. Patient education given on disease process. Patient verbalized understanding. Previous labs reviewed. Patient discharged in stable condition with after care instructions and follow up appointment. WILL RETURN TO CLINIC MONDAY FOR NEXT DOBUTAMINE TREATMENT PER [place] [id number] ADMIN BY ENEDINA VALDEZ HEPARIN IVP ADMIN BY NISREEN VALDEZ
== END | disposition home or self-care (01) ==
LOC: CHF HDHVI 08:36
PROVIDERS: ATTEND Internal Medicine Cardiovascular Disease
DX: I13.2 Hypertensive heart and chronic kidney disease with heart failure and with stage 5 chronic kidney disease, or end stage renal disease (principal); I50.42 Chronic combined systolic (congestive) and diastolic (congestive) heart failure; E78.5 Hyperlipidemia, unspecified; R53.83 Other fatigue; N18.6 End stage renal disease; I50.84 End stage heart failure; I25.10 Atherosclerotic heart disease of native coronary artery without angina pectoris; J44.9 Chronic obstructive pulmonary disease, unspecified; E66.9 Obesity, unspecified; I25.2 Old myocardial infarction; E78.00 Pure hypercholesterolemia, unspecified; I48.91 Unspecified atrial fibrillation; Z79.899 Other long term (current) drug therapy; Z87.891 Personal history of nicotine dependence; Z95.0 Presence of cardiac pacemaker
CPT/HCPCS: 94618; 96365; 96366; G0463; J1250; J1642; 96360

== ENCOUNTER → 2019-07-05 | Outpatient (CLI) | payer MEDICARE, MEDICAID ==
[2019-07-05] VITALS (9 sets, daily range): BP systolic 107–154; BP diastolic 51–69
== END | disposition home or self-care (01) ==
LOC: CHF HDHVI 08:20
PROVIDERS: ATTEND Internal Medicine Cardiovascular Disease
DX: I13.2 Hypertensive heart and chronic kidney disease with heart failure and with stage 5 chronic kidney disease, or end stage renal disease (principal); I50.42 Chronic combined systolic (congestive) and diastolic (congestive) heart failure; N18.6 End stage renal disease; I50.84 End stage heart failure; I25.10 Atherosclerotic heart disease of native coronary artery without angina pectoris; I48.91 Unspecified atrial fibrillation; I25.2 Old myocardial infarction; I42.8 Other cardiomyopathies; J44.9 Chronic obstructive pulmonary disease, unspecified; R53.83 Other fatigue; E78.5 Hyperlipidemia, unspecified; E66.01 Morbid (severe) obesity due to excess calories; E78.00 Pure hypercholesterolemia, unspecified; Z79.899 Other long term (current) drug therapy
CPT/HCPCS: 83880; 96365; 96366; G0463; J1250; J1642

== ENCOUNTER → 2019-07-10 | Outpatient (CLI) | payer MEDICARE, MEDICAID ==
[2019-07-10] VITALS (8 sets, daily range): BP systolic 88–140; BP diastolic 48–66
[~2019-07-10] MED LIST changes: +MIDAZOLAM HCL 1MG/1ML-2 ML VIAL ONE; +VANCOMYCIN HCL 1000 MG VL ONE; +fentaNYL CITRATE 100 MCG/2 ML VL ONE
--- NOTE | 2019-07-10 07:55 | NUR ---
CHF PT ARRIVED TO THE CHF CLINIC FOR WEEKLY DOBUTAMINE INFUSION PER MD ORDER. A/O X4. PT HAD NO WT GAIN SINCE LAST VISIT ON 07/05/19.
--- NOTE | 2019-07-10 08:30 | NUR ---
Kenia Cath Insertion 20 gauge Kenia Cath inserted using sterile technique in the R upper chest with occlusive dressing over laureano needle. Patient tolerated procedure well. Ordered labs drawn and sent. See e-MAR for medications given during this visit. NOTE 1 NON SUCCESSFUL ATTEMPT BY MCKAY VALDEZ INSERTED BY ENEDINA VALDEZ
--- NOTE | 2019-07-10 08:35 | NUR ---
DOBUTAMINE INFUSION STARTED @ 5 MCG/KG/MIN PER MD ORDERS. VSS. WILL CONTINUE TO MONITOR.
--- NOTE | 2019-07-10 11:01 | NUR ---
PT TOLERATING DOBUTAMINE INFUSION. VSS. WILL CONTINUE TO MONITOR. Addendum: 07/10/19 at 1130 by MCKAY GREENBERG RN RN AL INFUSION SITE BENIGN
--- NOTE | 2019-07-10 11:49 | NUR ---
Discharge Instructions See e-MAR for any mediations given with this visit. Patient education given on disease process. Patient verbalized understanding. Previous labs reviewed. Patient discharged in stable condition with after care instructions and follow up appointment. PT WILL RETURN TO THE CLINIC ON MONDAY PER MD ORDERS. NOTE DOBUTAMINE IV [id number] ADMIN BY EENDINA VALDEZ HEPARIN IVP ADMIN BY MCKAY VALDEZ
[2019-07-10 12:04] LABS: Basophils # (auto) 0.1 10 ^3/uL (0-0.2); Basophils % (auto) 1.5 % (0.0-2.0); Eosinophils # (auto) 0.2 10 ^3/uL (0-0.8); Hematocrit 32.8 % (36.0-46.0); Hemoglobin 10.3 g/dL (12.2-16.2); Lymphocytes # (auto) 1.3 10 ^3/uL (0.4-5.4); Lymphocytes % (auto) 28.4 % (10.0-50.0); Mean Corpuscular Hemoglobin 28.3 pg (28.0-32.0); Mean Corpuscular Hgb Conc. 31.5 g/dL (32.0-36.0); Mean Corpuscular Volume 89.9 fL (80.0-100.0); Monocytes # (auto) 0.4 10 ^3/uL (0-1.3); Monocytes % (auto) 9.6 % (0.0-12.0); Neutrophils # (auto) 2.5 10 ^3/uL (1.6-8.6); Neutrophils % (auto) 56.5 % (37.0-80.0); Nucleated Red Blood Cells % 0.1 %; Platelet Count (auto) 195 10^3/uL (140-450); Red Blood Cells 3.65 10^6/uL (4.0-5.20); Red Cell Distribution Width 16.1 % (11.8-14.3); White Blood Cell 4.5 10^3/uL (4.4-10.8)
[2019-07-10 12:20] LABS: BUN/Creatinine Ratio 16.2; Calcium 9.5 mg/dL (8.5-10.1); Magnesium 2.4 mg/dL (1.6-2.6); Potassium 4.2 mmol/L (3.5-5.1)
== END | disposition home or self-care (01) ==
LOC: CHF HDHVI 08:16
PROVIDERS: ATTEND Internal Medicine Cardiovascular Disease
DX: I13.2 Hypertensive heart and chronic kidney disease with heart failure and with stage 5 chronic kidney disease, or end stage renal disease (principal); I50.42 Chronic combined systolic (congestive) and diastolic (congestive) heart failure; N18.6 End stage renal disease; I50.84 End stage heart failure; R53.83 Other fatigue; I42.8 Other cardiomyopathies; I25.10 Atherosclerotic heart disease of native coronary artery without angina pectoris; I48.91 Unspecified atrial fibrillation; J44.9 Chronic obstructive pulmonary disease, unspecified; K90.9 Intestinal malabsorption, unspecified; E78.5 Hyperlipidemia, unspecified; E78.00 Pure hypercholesterolemia, unspecified; E66.01 Morbid (severe) obesity due to excess calories; Z79.899 Other long term (current) drug therapy
CPT/HCPCS: 36415; 80048; 82306; 83735; 83880; 85025; 96365; 96366; G0463; J1250; J1642

== ENCOUNTER → 2019-07-12 | Outpatient (CLI) | payer MEDICARE, MEDICAID ==
[~2019-07-12] MED LIST changes: -MIDAZOLAM HCL 1MG/1ML-2 ML VIAL ONE; -VANCOMYCIN HCL 1000 MG VL ONE; -fentaNYL CITRATE 100 MCG/2 ML VL ONE
--- NOTE | 2019-07-12 08:00 | NUR ---
Patient into clinic for scheduled treatment. Pt AAOx4, ambulatory, breathing even and unlabored.
[2019-07-12 08:37] VITALS: BP 80/60
--- NOTE | 2019-07-12 08:37 | NUR ---
DOBUTAMINE INFUSION STARTED @ 5MCG/KG/MIN PER MD ORDERS. VSS. WILL CONTINUE TO MONITOR.
[2019-07-12 08:45] VITALS: BP 132/69
[2019-07-12 09:00] VITALS: BP 118/68
[2019-07-12 09:15] VITALS: BP 123/63
[2019-07-12 09:30] VITALS: BP 117/61
--- NOTE | 2019-07-12 10:52 | NUR ---
PT TOLERATING DOBUTAMINE INFUSION. VSS. WILL CONTINUE TO MONITOR.
[2019-07-12 11:44] VITALS: BP 111/66
--- NOTE | 2019-07-12 11:44 | NUR ---
Discharge Instructions See e-MAR for any mediations given with this visit. Patient education given on disease process. Patient verbalized understanding. Previous labs reviewed. Patient discharged in stable condition with after care instructions and follow up appointment. WILL RETURN TO CLINIC ON MON FOR NEXT TREATMENT PER MD ORDERS. [place] IV [id number] ADMIN BY FLYNN VALDEZ HEPARIN IVP ADMIN BY FLYNN VALDEZ
== END | disposition home or self-care (01) ==
LOC: CHF HDHVI 08:07
PROVIDERS: ATTEND Internal Medicine Cardiovascular Disease
DX: I13.2 Hypertensive heart and chronic kidney disease with heart failure and with stage 5 chronic kidney disease, or end stage renal disease (principal); I50.42 Chronic combined systolic (congestive) and diastolic (congestive) heart failure; N18.6 End stage renal disease; I50.84 End stage heart failure; R53.83 Other fatigue; I25.10 Atherosclerotic heart disease of native coronary artery without angina pectoris; I48.91 Unspecified atrial fibrillation; I42.8 Other cardiomyopathies; I25.2 Old myocardial infarction; J44.9 Chronic obstructive pulmonary disease, unspecified; E78.5 Hyperlipidemia, unspecified; E66.01 Morbid (severe) obesity due to excess calories; Z79.899 Other long term (current) drug therapy; Z87.891 Personal history of nicotine dependence
CPT/HCPCS: 96365; 96366; G0463; J1250; J1642

== ENCOUNTER → 2019-07-17 | Outpatient (CLI) | payer MEDICARE, MEDICAID ==
[~2019-07-17] VITALS: Ht 30.5 cm; Wt 130.9 kg
[2019-07-17] VITALS (9 sets, daily range): BP systolic 115–128; BP diastolic 45–64
--- NOTE | 2019-07-17 07:55 | NUR ---
CHF PT ARRIVED TO THE CHF CLINIC FOR WEEKLY DOBUTAMINE INFUSION PER MD ORDERS. A/O X4. PT HAS A DECREASE IN WEIGHT BY 4LBS SINCE LAST VISIT ON 07/12/19.
--- NOTE | 2019-07-17 08:07 | NUR ---
DOBUTAMINE INFUSION STARTED @ 5MCG/KG/MIN PER MD ORDERS VSS. WILL CONTINUE TO MONITOR.
--- NOTE | 2019-07-17 09:38 | NUR ---
PT TOLERATING DOBUTAMINE INFUSION. INFUSION SITE BENIGN. VSS. WILL CONTINUE TO MONITOR.
--- NOTE | 2019-07-17 11:17 | NUR ---
Discharge Instructions See e-MAR for any mediations given with this visit. Patient education given on disease process. Patient verbalized understanding. Previous labs reviewed. Patient discharged in stable condition with after care instructions and follow up appointment. WILL HAVE CXR DONE TODAY. WILL RETURN TO CLINIC ON MONDAY FOR NEXT TREATMENT PER MD [place]ERS [place] [id number] ADMIN BY MCKAY VALDEZ HEPARIN IVP ADMIN BY MCKAY VALDEZ
== END | disposition home or self-care (01) ==
LOC: CHF HDHVI 07:58
PROVIDERS: ATTEND Internal Medicine Cardiovascular Disease
DX: I13.2 Hypertensive heart and chronic kidney disease with heart failure and with stage 5 chronic kidney disease, or end stage renal disease (principal); I50.42 Chronic combined systolic (congestive) and diastolic (congestive) heart failure; I50.84 End stage heart failure; N18.6 End stage renal disease; I42.9 Cardiomyopathy, unspecified; E66.9 Obesity, unspecified; I25.10 Atherosclerotic heart disease of native coronary artery without angina pectoris; J44.9 Chronic obstructive pulmonary disease, unspecified; E78.5 Hyperlipidemia, unspecified; I25.2 Old myocardial infarction; I48.91 Unspecified atrial fibrillation; E78.00 Pure hypercholesterolemia, unspecified; Z79.899 Other long term (current) drug therapy; Z87.891 Personal history of nicotine dependence; Z95.0 Presence of cardiac pacemaker
CPT/HCPCS: 71046; 96365; 96366; G0463; J1250; J1642

== ENCOUNTER → 2019-07-19 | Outpatient (CLI) | payer MEDICARE, MEDICAID ==
[~2019-07-19] VITALS: Ht 30.5 cm; Wt 131.7 kg
[2019-07-19] VITALS (8 sets, daily range): BP systolic 115–130; BP diastolic 50–70
[~2019-07-19] MED LIST changes: +CYANOCOBALAMIN (B-12) 1000 MCG/1 ML VIAL IM ONE; +CYANOCOBALAMIN (B-12) 1000 MCG/1 ML VIAL ONE
== END | disposition home or self-care (01) ==
LOC: CHF HDHVI 08:24
PROVIDERS: ATTEND Internal Medicine Cardiovascular Disease
DX: I13.2 Hypertensive heart and chronic kidney disease with heart failure and with stage 5 chronic kidney disease, or end stage renal disease (principal); I50.42 Chronic combined systolic (congestive) and diastolic (congestive) heart failure; N18.6 End stage renal disease; I50.84 End stage heart failure; I25.10 Atherosclerotic heart disease of native coronary artery without angina pectoris; R53.83 Other fatigue; I42.8 Other cardiomyopathies; I25.2 Old myocardial infarction; J44.9 Chronic obstructive pulmonary disease, unspecified; E78.5 Hyperlipidemia, unspecified; E78.00 Pure hypercholesterolemia, unspecified; E66.01 Morbid (severe) obesity due to excess calories; Z79.899 Other long term (current) drug therapy; Z87.891 Personal history of nicotine dependence
CPT/HCPCS: 96365; 96366; 96372; G0463; J1250; J1642; J3420

== ENCOUNTER → 2019-07-31 | Outpatient (CLI) | payer MEDICARE, MEDICAID ==
[2019-07-31] VITALS (7 sets, daily range): BP systolic 109–129; BP diastolic 48–64
[~2019-07-31] MED LIST changes: -CYANOCOBALAMIN (B-12) 1000 MCG/1 ML VIAL IM ONE; -CYANOCOBALAMIN (B-12) 1000 MCG/1 ML VIAL ONE
[2019-07-31 11:53] LABS: Basophils # (auto) 0 10 ^3/uL (0-0.2); Basophils % (auto) 1.2 % (0.0-2.0); Eosinophils # (auto) 0.2 10 ^3/uL (0-0.8); Hematocrit 33.6 % (36.0-46.0); Hemoglobin 10.6 g/dL (12.2-16.2); Lymphocytes # (auto) 1.4 10 ^3/uL (0.4-5.4); Lymphocytes % (auto) 31.6 % (10.0-50.0); Mean Corpuscular Hemoglobin 28.1 pg (28.0-32.0); Mean Corpuscular Hgb Conc. 31.5 g/dL (32.0-36.0); Monocytes # (auto) 0.4 10 ^3/uL (0-1.3); Monocytes % (auto) 8.9 % (0.0-12.0); Neutrophils # (auto) 2.3 10 ^3/uL (1.6-8.6); Neutrophils % (auto) 54.3 % (37.0-80.0); Nucleated Red Blood Cells % 0.1 %; Platelet Count (auto) 181 10^3/uL (140-450); Red Blood Cells 3.77 10^6/uL (4.0-5.20); White Blood Cell 4.3 10^3/uL (4.4-10.8)
[2019-07-31 12:06] LABS: BUN/Creatinine Ratio 17.6; Magnesium 2.3 mg/dL (1.6-2.6); Potassium 4.3 mmol/L (3.5-5.1)
== END | disposition home or self-care (01) ==
LOC: CHF HDHVI 08:34
PROVIDERS: ATTEND Internal Medicine Cardiovascular Disease
DX: I13.2 Hypertensive heart and chronic kidney disease with heart failure and with stage 5 chronic kidney disease, or end stage renal disease (principal); I50.42 Chronic combined systolic (congestive) and diastolic (congestive) heart failure; I50.84 End stage heart failure; N18.6 End stage renal disease; I25.2 Old myocardial infarction; E78.5 Hyperlipidemia, unspecified; I25.10 Atherosclerotic heart disease of native coronary artery without angina pectoris; J44.9 Chronic obstructive pulmonary disease, unspecified; E78.00 Pure hypercholesterolemia, unspecified; I48.91 Unspecified atrial fibrillation; Z95.0 Presence of cardiac pacemaker; Z87.891 Personal history of nicotine dependence; Z79.899 Other long term (current) drug therapy
CPT/HCPCS: 36415; 80048; 83735; 83880; 85025; 96365; 96366; G0463; J1250; J1642

== ENCOUNTER → 2019-08-02 | Outpatient (CLI) | payer MEDICARE, MEDICAID ==
[2019-08-02] VITALS (9 sets, daily range): BP systolic 98–129; BP diastolic 41–82
== END | disposition home or self-care (01) ==
LOC: CHF HDHVI 08:13
PROVIDERS: ATTEND Internal Medicine Cardiovascular Disease
DX: I13.2 Hypertensive heart and chronic kidney disease with heart failure and with stage 5 chronic kidney disease, or end stage renal disease (principal); N18.6 End stage renal disease; I50.42 Chronic combined systolic (congestive) and diastolic (congestive) heart failure; I50.84 End stage heart failure; I25.10 Atherosclerotic heart disease of native coronary artery without angina pectoris; I48.91 Unspecified atrial fibrillation; I42.8 Other cardiomyopathies; R53.83 Other fatigue; J44.9 Chronic obstructive pulmonary disease, unspecified; E78.5 Hyperlipidemia, unspecified; I25.2 Old myocardial infarction; E78.00 Pure hypercholesterolemia, unspecified; E66.01 Morbid (severe) obesity due to excess calories; Z79.899 Other long term (current) drug therapy; Z87.891 Personal history of nicotine dependence
CPT/HCPCS: 96365; 96366; G0463; J1250; J1642

== ENCOUNTER → 2019-08-07 | Outpatient (CLI) | payer MEDICARE, MEDICAID ==
[2019-08-07] VITALS (9 sets, daily range): BP systolic 102–115; BP diastolic 42–71
[~2019-08-07] VITALS: Ht 30.5 cm; Wt 129.2 kg
== END | disposition home or self-care (01) ==
LOC: CHF HDHVI 08:27
PROVIDERS: ATTEND Internal Medicine Cardiovascular Disease
DX: I13.2 Hypertensive heart and chronic kidney disease with heart failure and with stage 5 chronic kidney disease, or end stage renal disease (principal); I50.42 Chronic combined systolic (congestive) and diastolic (congestive) heart failure; N18.6 End stage renal disease; I25.10 Atherosclerotic heart disease of native coronary artery without angina pectoris; I25.2 Old myocardial infarction; I48.91 Unspecified atrial fibrillation; J44.9 Chronic obstructive pulmonary disease, unspecified; R53.83 Other fatigue; E78.00 Pure hypercholesterolemia, unspecified; E78.5 Hyperlipidemia, unspecified; E66.01 Morbid (severe) obesity due to excess calories; Z79.899 Other long term (current) drug therapy; Z87.891 Personal history of nicotine dependence; Z95.0 Presence of cardiac pacemaker
CPT/HCPCS: 96365; 96366; G0463; J1250; J1642

== ENCOUNTER → 2019-08-09 | Outpatient (CLI) | payer MEDICARE, MEDICAID ==
[~2019-08-09] MED LIST changes: +CATHFLO ACTIVASE (ALTEPLASE) 2 MG VIAL IV ONE; -DOBUTamine 1000MCG/ML 250 ML IV ONE; +READI-CAT 2 (BARIUM SULF)(VANILLA SMOOTHIE) 450ML ONE; +STERILE WATER 10 ML ONE
--- NOTE | 2019-08-09 08:10 | NUR ---
Patient into clinic for scheduled port maintenance, unable to draw blood from port on last visit. Pt is AAOx4, ambulatory, breathing even and unlabored.
--- NOTE | 2019-08-09 09:15 | NUR ---
Unable to aspirate blood, cathflo to remain dwelling as directed in eMAR for an additional 90min.
--- NOTE | 2019-08-09 10:55 | NUR ---
able to aspirate blood, cathflo and blood drawn and wasted, blood drawn and sent to lab. Port flushed with 20ml NS.
--- NOTE | 2019-08-09 11:00 | NUR ---
Spoke with Dr Ibarra regarding pt complaint of abd cramping and diarrhea. CT with oral contrast ordered.
[2019-08-09 12:06] LABS: Basophils # (auto) 0.1 10 ^3/uL (0-0.2); Basophils % (auto) 1.2 % (0.0-2.0); Eosinophils # (auto) 0.2 10 ^3/uL (0-0.8); Eosinophils % (auto) 3.5 % (0.0-7.0); Hematocrit 32.2 % (36.0-46.0); Hemoglobin 10.4 g/dL (12.2-16.2); Lymphocytes % (auto) 20.2 % (10.0-50.0); Mean Corpuscular Hemoglobin 28.3 pg (28.0-32.0); Mean Corpuscular Hgb Conc. 32.3 g/dL (32.0-36.0); Mean Corpuscular Volume 87.7 fL (80.0-100.0); Monocytes # (auto) 0.4 10 ^3/uL (0-1.3); Monocytes % (auto) 8.3 % (0.0-12.0); Neutrophils # (auto) 3.3 10 ^3/uL (1.6-8.6); Neutrophils % (auto) 66.8 % (37.0-80.0); Nucleated Red Blood Cells % 0.1 %; Platelet Count (auto) 180 10^3/uL (140-450); Red Blood Cells 3.67 10^6/uL (4.0-5.20); Red Cell Distribution Width 15.2 % (11.8-14.3)
[2019-08-09 12:10] LABS: BUN/Creatinine Ratio 20.5; Calcium 9.7 mg/dL (8.5-10.1); Magnesium 2.1 mg/dL (1.6-2.6); Potassium 4.2 mmol/L (3.5-5.1)
--- NOTE | 2019-08-09 12:40 | NUR ---
Dr Ibarra shown CT results, eScript sent for Cipro 500mg BID X5 days to patient pharmacy. Pt also given a probiotic by Sean VALDEZ, per MD order.
--- NOTE | 2019-08-09 13:04 | NUR ---
Kenia Cath Removal Fernandez needle D/C'd by Fadumo VALDEZ after Heparin flush per protocol. See e-MAR for medications given during this visit. Sterile occlusive dressing to site. Patient tolerated procedure well. Site benign post infusion.
[2019-08-09 13:08] VITALS: BP 121/72
--- NOTE | 2019-08-09 13:08 | NUR ---
CHF Clinic Discharge Instructions See e-MAR for any mediations given with this visit. Patient education given on disease process. Patient verbalized understanding. Previous labs reviewed. Patient discharged in stable condition with after care instructions and follow up appointment next Monday. Note Cathflo IVP admin by Sean VALDEZ. Heparin admin by Fadumo VALDEZ.
== END | disposition home or self-care (01) ==
LOC: CHF HDHVI 08:07
PROVIDERS: ATTEND Internal Medicine Cardiovascular Disease
DX: K57.30 Diverticulosis of large intestine without perforation or abscess without bleeding (principal); I51.7 Cardiomegaly; K44.9 Diaphragmatic hernia without obstruction or gangrene; D35.00 Benign neoplasm of unspecified adrenal gland
CPT/HCPCS: 36415; 74176; 80048; 83735; 83880; 85025; 96374; G0463; J1642; J2997

== ENCOUNTER → 2019-08-14 | Outpatient (CLI) | payer MEDICARE, MEDICAID ==
[2019-08-14] VITALS (9 sets, daily range): BP systolic 111–129; BP diastolic 44–70
[~2019-08-14] VITALS: Ht 30.5 cm; Wt 129.4 kg
[~2019-08-14] MED LIST changes: -CATHFLO ACTIVASE (ALTEPLASE) 2 MG VIAL IV ONE; +DOBUTamine 1000MCG/ML 250 ML IV ONE; -READI-CAT 2 (BARIUM SULF)(VANILLA SMOOTHIE) 450ML ONE; -STERILE WATER 10 ML ONE
== END | disposition home or self-care (01) ==
LOC: CHF HDHVI 08:11
PROVIDERS: ATTEND Internal Medicine Cardiovascular Disease
DX: I13.2 Hypertensive heart and chronic kidney disease with heart failure and with stage 5 chronic kidney disease, or end stage renal disease (principal); I50.42 Chronic combined systolic (congestive) and diastolic (congestive) heart failure; N18.6 End stage renal disease; I25.10 Atherosclerotic heart disease of native coronary artery without angina pectoris; I25.2 Old myocardial infarction; I48.91 Unspecified atrial fibrillation; J44.9 Chronic obstructive pulmonary disease, unspecified; E78.00 Pure hypercholesterolemia, unspecified; E66.01 Morbid (severe) obesity due to excess calories; Z79.899 Other long term (current) drug therapy; Z87.891 Personal history of nicotine dependence; Z95.0 Presence of cardiac pacemaker
CPT/HCPCS: 83880; 96365; 96366; G0463; J1250; J1642

== ENCOUNTER → 2019-08-15 | Outpatient (CLI) | payer MEDICARE, MEDICAID ==
[~2019-08-15] MED LIST changes: -DOBUTamine 1000MCG/ML 250 ML IV ONE; +METR500T14 PO; +TEMA15CA91 PO
== END | disposition home or self-care (01) ==
LOC: Rad HDHVI 13:47
PROVIDERS: ATTEND Internal Medicine Cardiovascular Disease
DX: I50.43 Acute on chronic combined systolic (congestive) and diastolic (congestive) heart failure (principal); J44.9 Chronic obstructive pulmonary disease, unspecified; R06.02 Shortness of breath
CPT/HCPCS: 93306

== ENCOUNTER → 2019-08-16 | Outpatient (CLI) | payer MEDICARE, MEDICAID ==
[2019-08-16] VITALS (11 sets, daily range): BP systolic 78–124; BP diastolic 24–72
[~2019-08-16] MED LIST changes: +DOBUTamine 1000MCG/ML 250 ML IV ONE; -METR500T14 PO; -TEMA15CA91 PO
== END | disposition home or self-care (01) ==
LOC: CHF HDHVI 07:57
PROVIDERS: ATTEND Internal Medicine Cardiovascular Disease
DX: I13.2 Hypertensive heart and chronic kidney disease with heart failure and with stage 5 chronic kidney disease, or end stage renal disease (principal); N18.6 End stage renal disease; I50.42 Chronic combined systolic (congestive) and diastolic (congestive) heart failure; R53.83 Other fatigue; I67.2 Cerebral atherosclerosis; I42.8 Other cardiomyopathies; I25.10 Atherosclerotic heart disease of native coronary artery without angina pectoris; I25.2 Old myocardial infarction; I48.91 Unspecified atrial fibrillation; J44.9 Chronic obstructive pulmonary disease, unspecified; E66.01 Morbid (severe) obesity due to excess calories; E78.00 Pure hypercholesterolemia, unspecified; E78.5 Hyperlipidemia, unspecified; Z87.891 Personal history of nicotine dependence; Z79.899 Other long term (current) drug therapy
CPT/HCPCS: 70450; 96365; 96366; G0463; J1250; J1642

== ENCOUNTER → 2019-08-23 | Outpatient (CLI) | payer MEDICARE, MEDICAID ==
[2019-08-23] VITALS (9 sets, daily range): BP systolic 106–133; BP diastolic 43–83
[~2019-08-23] MED LIST changes: +ACETAMINOPHEN 500 MG TAB PO ONE; +CYANOCOBALAMIN (B-12) 1000 MCG/1 ML VIAL IM ONE; +CYANOCOBALAMIN (B-12) 1000 MCG/1 ML VIAL ONE; +METR500T14 PO; +TEMA15CA91 PO
--- NOTE | 2019-08-23 08:33 | NUR ---
PATIENT CAME INTO CLINIC FOR SCHEDULED INFUSION, AAOx4, AMBULATORY, BREATHING AND UNLABORED. PATIENT STATES SHE IS HAVING DIARRHEA, AND NEEDS HER MEDICATIONS REFILLED, WILL UPDATE MD.
--- NOTE | 2019-08-23 10:50 | NUR ---
Patient states that she is having abd pain 5/10. MD aware orders received as entered.
--- NOTE | 2019-08-23 11:30 | NUR ---
Prescriptions Written prescriptions from Dr Ibarra for temazepam and norco given to patient, escript for Flagyl sent into patient preferred pharmacy
--- NOTE | 2019-08-23 12:16 | NUR ---
CHF Clinic Discharge Instructions See e-MAR for any mediations given with this visit. Patient education given on disease process. Patient verbalized understanding. Previous labs reviewed. Patient discharged in stable condition with after care instructions and follow up appointment. Note Dobutamine [id number] admin by Savannah VALDEZ. B12 IM R deltoid admin by Savannah VALDEZ. Tylenol PO admin by Savannah VALDEZ. Heparin admin by Tawana VALDEZ
[2019-08-23 12:29] LABS: Basophils # (auto) 0.1 10 ^3/uL (0-0.2); Basophils % (auto) 1.2 % (0.0-2.0); Eosinophils # (auto) 0.2 10 ^3/uL (0-0.8); Eosinophils % (auto) 3.5 % (0.0-7.0); Hematocrit 33.4 % (36.0-46.0); Hemoglobin 10.7 g/dL (12.2-16.2); Lymphocytes # (auto) 1.4 10 ^3/uL (0.4-5.4); Lymphocytes % (auto) 28.4 % (10.0-50.0); Mean Corpuscular Hemoglobin 28.2 pg (28.0-32.0); Mean Corpuscular Volume 88.1 fL (80.0-100.0); Monocytes # (auto) 0.5 10 ^3/uL (0-1.3); Neutrophils # (auto) 2.9 10 ^3/uL (1.6-8.6); Neutrophils % (auto) 57.9 % (37.0-80.0); Nucleated Red Blood Cells % 0.1 %; Platelet Count (auto) 205 10^3/uL (140-450); Potassium 4.2 mmol/L (3.5-5.1); Red Blood Cells 3.79 10^6/uL (4.0-5.20); Red Cell Distribution Width 15.2 % (11.8-14.3)
[2019-08-23 12:47] LABS: BUN/Creatinine Ratio 14.5; Calcium 9.9 mg/dL (8.5-10.1); Magnesium 2.1 mg/dL (1.6-2.6)
== END | disposition home or self-care (01) ==
LOC: CHF HDHVI 08:31
PROVIDERS: ATTEND Internal Medicine Cardiovascular Disease
DX: I13.2 Hypertensive heart and chronic kidney disease with heart failure and with stage 5 chronic kidney disease, or end stage renal disease (principal); N18.6 End stage renal disease; I50.23 Acute on chronic systolic (congestive) heart failure; I50.84 End stage heart failure; I25.10 Atherosclerotic heart disease of native coronary artery without angina pectoris; I48.91 Unspecified atrial fibrillation; I25.2 Old myocardial infarction; I42.8 Other cardiomyopathies; R53.83 Other fatigue; G47.00 Insomnia, unspecified; D64.9 Anemia, unspecified; E83.40 Disorders of magnesium metabolism, unspecified; J44.9 Chronic obstructive pulmonary disease, unspecified; E78.5 Hyperlipidemia, unspecified; E78.00 Pure hypercholesterolemia, unspecified; E66.01 Morbid (severe) obesity due to excess calories; Z87.891 Personal history of nicotine dependence; Z79.899 Other long term (current) drug therapy; G89.29 Other chronic pain
CPT/HCPCS: 36415; 80048; 83735; 83880; 85025; 96365; 96366; 96372; G0463; J1250; J1642; J3420

== ENCOUNTER → 2019-08-28 | Outpatient (CLI) | payer MEDICARE, MEDICAID ==
[2019-08-28] VITALS (9 sets, daily range): BP systolic 106–132; BP diastolic 46–73
[~2019-08-28] VITALS: Ht 30.5 cm; Wt 129.4 kg
[~2019-08-28] MED LIST changes: -ACETAMINOPHEN 500 MG TAB PO ONE; -CYANOCOBALAMIN (B-12) 1000 MCG/1 ML VIAL IM ONE; -CYANOCOBALAMIN (B-12) 1000 MCG/1 ML VIAL ONE; -METR500T14 PO; -TEMA15CA91 PO
--- NOTE | 2019-08-28 08:15 | NUR ---
PATIENT INTO CLINIC FOR SCHEDULED INFUSION, AAOX4, AMBULATORY, BREATHING EVEN AND UNLABORED. PATIENT STATES THAT AICD WENT OFF 3 TIMES ON MONDAY, PATIENT SCHEDULED FOR APPT WITH MD TODAY.
[2019-08-28 09:47] LABS: BUN/Creatinine Ratio 18.1; Calcium 9.9 mg/dL (8.5-10.1); Potassium 3.7 mmol/L (3.5-5.1)
--- NOTE | 2019-08-28 11:00 | NUR ---
PATIENT TO MD SIDE FOR FOR DR BE.
--- NOTE | 2019-08-28 11:30 | NUR ---
PATIENT CAME BACK FROM APPT.
--- NOTE | 2019-08-28 12:24 | NUR ---
Kenia Cath Removal Fernandez needle D/C'd by Tawana VALDEZ after Heparin flush per protocol. See e-MAR for medications given during this visit. Sterile occlusive dressing to site. Patient tolerated procedure well. Site benign post infusion.
--- NOTE | 2019-08-28 12:30 | NUR ---
CHF CLINIC Discharge Instructions See e-MAR for any mediations given with this visit. Patient education given on disease process. Patient verbalized understanding. Previous labs reviewed. Patient discharged in stable condition with after care instructions and follow up appointment. NOTE DOBUTAMINE [id number], [id number] ADMIN BY ENEDINA VALDEZ. HEPARIN ADMIN BY MCKAY VALDEZ. NEW WRITTEN PRESCRIPTIONS FROM DR CHENG WITH PATIENT ON DC.
== END | disposition home or self-care (01) ==
LOC: CHF HDHVI 08:12
PROVIDERS: ATTEND Internal Medicine Cardiovascular Disease
DX: I13.2 Hypertensive heart and chronic kidney disease with heart failure and with stage 5 chronic kidney disease, or end stage renal disease (principal); N18.6 End stage renal disease; I50.23 Acute on chronic systolic (congestive) heart failure; I50.84 End stage heart failure; E83.40 Disorders of magnesium metabolism, unspecified; I25.10 Atherosclerotic heart disease of native coronary artery without angina pectoris; J44.9 Chronic obstructive pulmonary disease, unspecified; I25.2 Old myocardial infarction; I42.8 Other cardiomyopathies; R53.83 Other fatigue; E78.5 Hyperlipidemia, unspecified; E78.00 Pure hypercholesterolemia, unspecified; G89.29 Other chronic pain; E66.01 Morbid (severe) obesity due to excess calories; Z79.899 Other long term (current) drug therapy; Z87.891 Personal history of nicotine dependence
CPT/HCPCS: 36415; 80048; 83735; 83880; 96365; 96366; G0463; J1250; J1642

== ENCOUNTER → 2019-08-30 | Outpatient (CLI) | payer MEDICARE, MEDICAID ==
[2019-08-30] VITALS (9 sets, daily range): BP systolic 113–146; BP diastolic 51–87
--- NOTE | 2019-08-30 08:05 | NUR ---
CLINIC PT ARRIVED TO THE CHF CLINIC FOR WEEKLY EVAL AND TX. A/OX4. AMBULATORY.
--- NOTE | 2019-08-30 08:14 | NUR ---
DOBUTAMINE IV STARTED @ 3 MCG/KG/MIN PER MD ORDERS. VSS. WILL CONTINUE TO MONITOR
--- NOTE | 2019-08-30 09:42 | NUR ---
PT TOLERATING DOBUTAMINE INFUSION. INFUSION SITE BENIGN. VSS. WILL CONTINUE TO MONITOR.
--- NOTE | 2019-08-30 11:30 | NUR ---
Discharge Instructions See e-MAR for any mediations given with this visit. Patient education given on disease process. Patient verbalized understanding. Previous labs reviewed. Patient discharged in stable condition with after care instructions and follow up appointment. PT TO RETURN TO CLINIC ON MON FOR F/U AND TX PER MD ORDERS. NOTE DOBUTAMINE IV [id number] ADMIN BY MCKAY VALDEZ HEPARIN IVP ADMIN BY MCKAY VALDEZ
== END | disposition home or self-care (01) ==
LOC: CHF HDHVI 08:17
PROVIDERS: ATTEND Internal Medicine Cardiovascular Disease
DX: I13.2 Hypertensive heart and chronic kidney disease with heart failure and with stage 5 chronic kidney disease, or end stage renal disease (principal); N18.6 End stage renal disease; I50.42 Chronic combined systolic (congestive) and diastolic (congestive) heart failure; I50.84 End stage heart failure; I25.2 Old myocardial infarction; I42.8 Other cardiomyopathies; I25.10 Atherosclerotic heart disease of native coronary artery without angina pectoris; I48.91 Unspecified atrial fibrillation; J44.9 Chronic obstructive pulmonary disease, unspecified; E78.5 Hyperlipidemia, unspecified; R53.83 Other fatigue; E66.01 Morbid (severe) obesity due to excess calories; Z79.899 Other long term (current) drug therapy; Z87.891 Personal history of nicotine dependence
CPT/HCPCS: 96365; 96366; G0463; J1250; J1642

== ENCOUNTER → 2019-09-11 | Outpatient (CLI) | payer MEDICARE, MEDICAID ==
[2019-09-11] VITALS (10 sets, daily range): BP systolic 114–140; BP diastolic 51–80
[~2019-09-11] VITALS: Ht 30.5 cm; Wt 128.3 kg
[~2019-09-11] MED LIST changes: +CYANOCOBALAMIN (B-12) 1000 MCG/1 ML VIAL IM ONE; +CYANOCOBALAMIN (B-12) 1000 MCG/1 ML VIAL ONE
--- NOTE | 2019-09-11 08:41 | NUR ---
Patient into clinic for scheduled infusion, AAOx4, ambulatory, breathing even and unlabored. Patient states she has stomach pain and cramping, is feeling tired.
--- NOTE | 2019-09-11 09:00 | NUR ---
Kenia Cath Insertion 20 gauge Kenia Cath inserted using sterile technique in the R upper chest with occlusive dressing over laureano needle. Patient tolerated procedure well. Unable to draw blood, after 3 10ml NS flushes unable to flush, laureano needle DC'd. Will insert new laureano needle.
--- NOTE | 2019-09-11 09:36 | NUR ---
Kenia Cath Insertion 20 gauge 1.0in Kenia Cath inserted using sterile technique in the R upper chest with occlusive dressing over laureano needle. Patient tolerated procedure well. See e-MAR for medications given during this visit.
--- NOTE | 2019-09-11 11:30 | NUR ---
Patient tolerating infusion, up to restroom multiple times.
--- NOTE | 2019-09-11 13:05 | NUR ---
CHF Clinic Discharge Instructions See e-MAR for any mediations given with this visit. Patient education given on disease process. Patient verbalized understanding. Previous labs reviewed. Patient discharged in stable condition with after care instructions and follow up appointment. Note Dobutamine [id number] admin by Savannah VALDEZ. B12 IM L Deltoid admin by Tawana VALDEZ. Heparin admin Tawana VALDEZ.
== END | disposition home or self-care (01) ==
LOC: CHF HDHVI 08:43
PROVIDERS: ATTEND Internal Medicine Cardiovascular Disease
DX: I13.2 Hypertensive heart and chronic kidney disease with heart failure and with stage 5 chronic kidney disease, or end stage renal disease (principal); I50.42 Chronic combined systolic (congestive) and diastolic (congestive) heart failure; I50.84 End stage heart failure; N18.6 End stage renal disease; J44.9 Chronic obstructive pulmonary disease, unspecified; I25.10 Atherosclerotic heart disease of native coronary artery without angina pectoris; E78.5 Hyperlipidemia, unspecified; I25.2 Old myocardial infarction; I48.91 Unspecified atrial fibrillation; E78.00 Pure hypercholesterolemia, unspecified; Z79.899 Other long term (current) drug therapy; Z87.891 Personal history of nicotine dependence
CPT/HCPCS: 96365; 96366; 96372; G0463; J1250; J1642; J3420

== ENCOUNTER → 2019-09-13 | Outpatient (CLI) | payer MEDICARE, MEDICAID ==
[2019-09-13] VITALS (11 sets, daily range): BP systolic 106–146; BP diastolic 44–68
[~2019-09-13] MED LIST changes: -CYANOCOBALAMIN (B-12) 1000 MCG/1 ML VIAL IM ONE; -CYANOCOBALAMIN (B-12) 1000 MCG/1 ML VIAL ONE; +KETOROLAC TROMETH 60MG/2ML VIAL IM ONE; +KETOROLAC TROMETH 60MG/2ML VIAL ONE
[2019-09-13 11:58] LABS: Basophils # (auto) 0 10 ^3/uL (0-0.2); Basophils % (auto) 0.9 % (0.0-2.0); Eosinophils # (auto) 0.2 10 ^3/uL (0-0.8); Eosinophils % (auto) 3.1 % (0.0-7.0); Hematocrit 34.1 % (36.0-46.0); Hemoglobin 10.6 g/dL (12.2-16.2); Lymphocytes # (auto) 1.3 10 ^3/uL (0.4-5.4); Lymphocytes % (auto) 26.3 % (10.0-50.0); Mean Corpuscular Hemoglobin 27.4 pg (28.0-32.0); Mean Corpuscular Volume 88.2 fL (80.0-100.0); Monocytes # (auto) 0.4 10 ^3/uL (0-1.3); Monocytes % (auto) 7.7 % (0.0-12.0); Neutrophils # (auto) 3.2 10 ^3/uL (1.6-8.6); Nucleated Red Blood Cells % 0.1 %; Platelet Count (auto) 185 10^3/uL (140-450); Red Blood Cells 3.87 10^6/uL (4.0-5.20); Red Cell Distribution Width 15.6 % (11.8-14.3); White Blood Cell 5.1 10^3/uL (4.4-10.8)
[2019-09-13 12:08] LABS: Albumin 3.1 g/dL (3.4-5.0); Calcium 9.8 mg/dL (8.5-10.1); Magnesium 2.4 mg/dL (1.6-2.6); Potassium 4.2 mmol/L (3.5-5.1)
[2019-09-13 12:12] LABS: BUN/Creatinine Ratio 14.9; Bilirubin, Total 0.5 mg/dL (0.2-1.0); Total Protein 7.3 g/dL (6.4-8.2)
== END | disposition home or self-care (01) ==
LOC: CHF HDHVI 08:41
PROVIDERS: ATTEND Internal Medicine Cardiovascular Disease
DX: I13.2 Hypertensive heart and chronic kidney disease with heart failure and with stage 5 chronic kidney disease, or end stage renal disease (principal); N18.6 End stage renal disease; I50.23 Acute on chronic systolic (congestive) heart failure; I50.84 End stage heart failure; I25.10 Atherosclerotic heart disease of native coronary artery without angina pectoris; I25.2 Old myocardial infarction; I42.8 Other cardiomyopathies; I48.91 Unspecified atrial fibrillation; D64.9 Anemia, unspecified; E83.40 Disorders of magnesium metabolism, unspecified; J44.9 Chronic obstructive pulmonary disease, unspecified; E78.5 Hyperlipidemia, unspecified; E66.01 Morbid (severe) obesity due to excess calories; R53.83 Other fatigue; E78.00 Pure hypercholesterolemia, unspecified; Z79.899 Other long term (current) drug therapy; Z87.891 Personal history of nicotine dependence
CPT/HCPCS: 36415; 80053; 83735; 83880; 85025; 96365; 96366; 96372; G0463; J1250; J1642; J1885

== ENCOUNTER → 2019-09-18 | Outpatient (CLI) | payer MEDICARE, MEDICAID ==
[2019-09-18] VITALS (9 sets, daily range): BP systolic 109–144; BP diastolic 42–77
[~2019-09-18] VITALS: Ht 30.5 cm; Wt 126.7 kg
== END | disposition home or self-care (01) ==
LOC: CHF HDHVI 09:10
PROVIDERS: ATTEND Internal Medicine Cardiovascular Disease
DX: I13.2 Hypertensive heart and chronic kidney disease with heart failure and with stage 5 chronic kidney disease, or end stage renal disease (principal); I50.42 Chronic combined systolic (congestive) and diastolic (congestive) heart failure; N18.6 End stage renal disease; I50.84 End stage heart failure; R53.83 Other fatigue; I25.10 Atherosclerotic heart disease of native coronary artery without angina pectoris; I48.91 Unspecified atrial fibrillation; I25.2 Old myocardial infarction; I42.8 Other cardiomyopathies; J44.9 Chronic obstructive pulmonary disease, unspecified; E78.5 Hyperlipidemia, unspecified; E78.00 Pure hypercholesterolemia, unspecified; Z79.899 Other long term (current) drug therapy; Z87.891 Personal history of nicotine dependence
CPT/HCPCS: 96365; 96366; 96372; G0463; J1250; J1642; J1885

== ENCOUNTER → 2019-09-20 | Outpatient (CLI) | payer MEDICARE, MEDICAID ==
[2019-09-20] VITALS (10 sets, daily range): BP systolic 96–127; BP diastolic 43–72
[~2019-09-20] VITALS: Ht 30.5 cm; Wt 126.3 kg
[~2019-09-20] MED LIST changes: +DOBUTamine 1000MCG/ML 250 ML IV SCH; -KETOROLAC TROMETH 60MG/2ML VIAL IM ONE; -KETOROLAC TROMETH 60MG/2ML VIAL ONE; +METR500T14 PO; +TEMA15CA91 PO
--- NOTE | 2019-09-20 08:15 | NUR ---
PT ARRIVED TO CHF CLINIC PT ARRIVED TO CHF CLINIC FOR SCHEDULED IV INFUSION. PT IS ALERT AND AWAKE, ON ROOM AIR WITH EVEN AND UNLABORED RESPIRATIONS. NO S/S OF SOB/DISTRESS OR PAIN AT THIS TIME. PT IS AMBULATING WITH SLOW STEADY GAIT. VVS. WILL CARRY OUT MD ORDERS.
--- NOTE | 2019-09-20 08:35 | NUR ---
Kenia Cath Insertion [20] gauge Kenia Cath inserted by this RN using sterile technique in the [R] upper chest with occlusive dressing over laureano needle. Patient tolerated procedure well. Ordered labs drawn and sent. See e-MAR for medications given during this visit.
--- NOTE | 2019-09-20 12:05 | NUR ---
Discharge Instructions See e-MAR for any mediations given with this visit. Patient education given on disease process. Patient verbalized understanding. Previous labs reviewed. Patient discharged in stable condition with after care instructions and follow up appointment. Notes DOBUTAMINE IV [id number] ADMIN BY MIRIAM VALDEZ HEPARIN IVP VIA PORT-A-CATH ADMIN BY MCKAY VALDEZ
== END | disposition home or self-care (01) ==
LOC: CHF HDHVI 08:20
PROVIDERS: ATTEND Internal Medicine Cardiovascular Disease
DX: I13.2 Hypertensive heart and chronic kidney disease with heart failure and with stage 5 chronic kidney disease, or end stage renal disease (principal); N18.6 End stage renal disease; I50.42 Chronic combined systolic (congestive) and diastolic (congestive) heart failure; I50.84 End stage heart failure; I25.10 Atherosclerotic heart disease of native coronary artery without angina pectoris; I42.8 Other cardiomyopathies; I25.2 Old myocardial infarction; J44.9 Chronic obstructive pulmonary disease, unspecified; E78.5 Hyperlipidemia, unspecified; E78.00 Pure hypercholesterolemia, unspecified; G89.29 Other chronic pain; R53.83 Other fatigue; E66.01 Morbid (severe) obesity due to excess calories; Z79.899 Other long term (current) drug therapy; Z87.891 Personal history of nicotine dependence
CPT/HCPCS: 36415; 82565; 83036; 84132; 84520; 96365; 96366; G0463; J1250; J1642

== ENCOUNTER → 2019-09-25 | Outpatient (CLI) | payer MEDICARE, MEDICAID ==
[2019-09-25] VITALS (8 sets, daily range): BP systolic 96–141; BP diastolic 46–71
[~2019-09-25] VITALS: Ht 30.5 cm; Wt 124.8 kg
[~2019-09-25] MED LIST changes: -DOBUTamine 1000MCG/ML 250 ML IV SCH; -METR500T14 PO; -TEMA15CA91 PO
--- NOTE | 2019-09-25 08:15 | NUR ---
CLINIC PT ARRIVED TO THE CHF CLINIC FOR WEEKLY CHF EVAL AND TX. A/OX4, AMBULATORY. BREATHING IS EVEN AND UNLABORED. PT HAS A 1.6LB DECREASE IN WT SINCE LAST VISIT ON 09/20/19
--- NOTE | 2019-09-25 08:40 | NUR ---
Kenia Cath Insertion 20 gauge Kenia Cath inserted using sterile technique in the R upper chest with occlusive dressing over laureano needle. Patient tolerated procedure well. Ordered labs drawn and sent. See e-MAR for medications given during this visit. NOTE INSERTED BY MCKAY VALDEZ
--- NOTE | 2019-09-25 08:48 | NUR ---
DOBUTAMINE IV STARTED @ 5MCG/KG/MIN PER MD ORDERS. VSS. WILL CONTINUE TO MONITOR.
--- NOTE | 2019-09-25 10:42 | NUR ---
PT TOLERATING DOBUTAMINE INFUSION. INFUSION SITE BENIGN. VSS. WILL CONTINUE TO MONITOR.
--- NOTE | 2019-09-25 12:03 | NUR ---
Discharge Instructions See e-MAR for any mediations given with this visit. Patient education given on disease process. Patient verbalized understanding. Previous labs reviewed. Patient discharged in stable condition with after care instructions and follow up appointment ON MON. NOTE DOBUTAMINE IV [id number] ADMIN BY MCKAY VALDEZ HEPARIN IVP ADMIN BY MCKAY VALDEZ
[2019-09-25 12:13] LABS: Basophils # (auto) 0.1 10 ^3/uL (0-0.2); Basophils % (auto) 1.4 % (0.0-2.0); Eosinophils # (auto) 0.2 10 ^3/uL (0-0.8); Hematocrit 34.7 % (36.0-46.0); Hemoglobin 10.9 g/dL (12.2-16.2); Lymphocytes # (auto) 1.5 10 ^3/uL (0.4-5.4); Lymphocytes % (auto) 26.2 % (10.0-50.0); Mean Corpuscular Hemoglobin 27.6 pg (28.0-32.0); Mean Corpuscular Hgb Conc. 31.3 g/dL (32.0-36.0); Monocytes # (auto) 0.5 10 ^3/uL (0-1.3); Monocytes % (auto) 8.7 % (0.0-12.0); Neutrophils # (auto) 3.4 10 ^3/uL (1.6-8.6); Neutrophils % (auto) 60.7 % (37.0-80.0); Nucleated Red Blood Cells % 0.1 %; Platelet Count (auto) 238 10^3/uL (140-450); Red Blood Cells 3.94 10^6/uL (4.0-5.20); Red Cell Distribution Width 15.8 % (11.8-14.3); White Blood Cell 5.5 10^3/uL (4.4-10.8)
[2019-09-25 12:15] LABS: Calcium 10.6 mg/dL (8.5-10.1); Magnesium 2.2 mg/dL (1.6-2.6); Potassium 4.1 mmol/L (3.5-5.1)
[2019-09-25 12:18] LABS: BUN/Creatinine Ratio 15.4
== END | disposition home or self-care (01) ==
LOC: CHF HDHVI 08:17
PROVIDERS: ATTEND Internal Medicine Cardiovascular Disease
DX: I13.2 Hypertensive heart and chronic kidney disease with heart failure and with stage 5 chronic kidney disease, or end stage renal disease (principal); I50.42 Chronic combined systolic (congestive) and diastolic (congestive) heart failure; I50.84 End stage heart failure; N18.6 End stage renal disease; D64.9 Anemia, unspecified; E83.40 Disorders of magnesium metabolism, unspecified; I25.10 Atherosclerotic heart disease of native coronary artery without angina pectoris; J44.9 Chronic obstructive pulmonary disease, unspecified; E78.5 Hyperlipidemia, unspecified; I25.2 Old myocardial infarction; E78.00 Pure hypercholesterolemia, unspecified; I48.91 Unspecified atrial fibrillation; Z79.899 Other long term (current) drug therapy; Z87.891 Personal history of nicotine dependence
CPT/HCPCS: 36415; 80048; 83735; 83880; 85025; 96365; 96366; G0463; J1250; J1642

== ENCOUNTER 2019-10-01 21:26 | Inpatient (IN) | payer MEDICARE, MEDICAID ==
[~2019-10-01] VITALS: Ht 170.2 cm; Wt 136.1 kg
[~2019-10-01 21:26] MED LIST changes: -DOBUTamine 1000MCG/ML 250 ML IV ONE
[2019-10-01 23:55] LABS: Basophils # (auto) 0 10 ^3/uL (0-0.2); Basophils % (auto) 0.2 % (0.0-2.0); Eosinophils # (auto) 0 10 ^3/uL (0-0.8); Eosinophils % (auto) 0.2 % (0.0-7.0); Hematocrit 41.3 % (36.0-46.0); Hemoglobin 13.1 g/dL (12.2-16.2); Lymphocytes # (auto) 0.8 10 ^3/uL (0.4-5.4); Lymphocytes % (auto) 3.6 % (10.0-50.0); Mean Corpuscular Hemoglobin 27.4 pg (28.0-32.0); Mean Corpuscular Hgb Conc. 31.7 g/dL (32.0-36.0); Mean Corpuscular Volume 86.3 fL (80.0-100.0); Monocytes # (auto) 1.1 10 ^3/uL (0-1.3); Monocytes % (auto) 4.8 % (0.0-12.0); Neutrophils # (auto) 20.3 10 ^3/uL (1.6-8.6); Neutrophils % (auto) 91.2 % (37.0-80.0); Nucleated Red Blood Cells % 0.1 %; Platelet Count (auto) 240 10^3/uL (140-450); Red Blood Cells 4.78 10^6/uL (4.0-5.20); Red Cell Distribution Width 15.6 % (11.8-14.3); White Blood Cell 22.3 10^3/uL (4.4-10.8)
[2019-10-02] VITALS (13 sets, daily range): BP systolic 103–185; BP diastolic 64–98
[2019-10-02 00:12] LABS: Urine Bacteria FEW /hpf (None Seen); Urine Blood Negative /uL (Negative); Urine Hyaline Cast MOD /lpf (0 - 2); Urine Mucus FEW (None Seen); Urine Specific Gravity 1.032 (1.001-1.035); Urine WBC 5 /hpf (0 - 5)
[2019-10-02 00:16] LABS: Alanine Aminotransferase 19 U/L (13-56); Albumin 3.1 g/dL (3.4-5.0); Anion Gap 7 (5-15); Aspartate Aminotransferase 15 U/L (15-37); BUN/Creatinine Ratio 16.8; Blood Urea Nitrogen 20 mg/dL (7-18); Calcium 11.7 mg/dL (8.5-10.1); Carbon Dioxide 21 mmol/L (21-32); Chloride 110 mmol/L (98-107); GFR African American 61 mL/min; GFR Non-African American 50 mL/min; Glucose 123 mg/dL (74-106); Lipase 32 U/L (73-393); Potassium 4.5 mmol/L (3.5-5.1); Sodium 138 mmol/L (136-145)
[2019-10-02 00:19] LABS: Alkaline Phosphatase 113 U/L (45-117); Bilirubin, Total 0.7 mg/dL (0.2-1.0); Total Protein 8.6 g/dL (6.4-8.2)
[2019-10-02] MEDS ORDERED: cefTRIAXone 1GM/50ML D5W 50 ML IV ONE (00:45)
[2019-10-02] MEDS ORDERED: HYDROmorphone HCL 2 MG/ML VL IV ONE ×3 (00:45→15:11)
[2019-10-02] MEDS ORDERED: metroNIDAZOLE 500MG/100ML 100 ML IV ONE (00:45)
[2019-10-02] MEDS ORDERED: ONDANSETRON HCL 4 MG/2 ML VIAL IV ONE (00:45)
[2019-10-02] MEDS ORDERED: SODIUM CHLORIDE 0.9% 1,000 ML IV ONE (01:45)
[2019-10-02] MEDS ORDERED: levoFLOXacin 500MG 100 ML IV ONE (06:00)
[2019-10-02] MEDS ORDERED: SODIUM CHLORIDE 0.9% 1,000 ML IV SCH (06:45)
[2019-10-02] MEDS ORDERED: NITROGLYCERIN 0.4 MG SL TAB SL PRN (06:45)
[2019-10-02] MEDS ORDERED: MORPHINE SULF INJ 2 MG/ML SYRINGE 1ML IV PRN (06:45)
[2019-10-02] MEDS ORDERED: ALBUMIN 5% 250 ML IV ONE (06:45)
[2019-10-02] MEDS ORDERED: ONDANSETRON HCL 4 MG/2 ML VIAL IV PRN (06:45)
[2019-10-02] MEDS: levoFLOXacin 500MG 100 ML IV SCH (08:18)
[2019-10-02] MEDS: PANTOPRAZOLE 40 MG/10 ML VIAL INJ IV SCH (09:10)
[2019-10-02] MEDS: MORPHINE SULFATE 4 MG/ML SYR/VIAL IV PRN (09:19)
[2019-10-02] MEDS ORDERED: D5W/SOD CHL 0.45%/KCL 40MEQ 1,000 ML IV ONE (11:00)
[2019-10-02 12:42] LABS: INR 1.17 (0.9-1.15); Partial Thromboplastin Time 30.1 sec (23.64-32.05)
[2019-10-02] MEDS ORDERED: ceFAZolin 1GM/50ML 50 ML IV ONE (13:45)
[2019-10-02] MEDS ORDERED: DexAMETHasone SOD PHOS 10MG/1ML VIAL INJ IV ONE (15:11)
[2019-10-02] MEDS ORDERED: MIDAZOLAM HCL 1MG/1ML-2 ML VIAL IV ONE (15:11)
[2019-10-02] MEDS ORDERED: ETOMIDATE (2MG/ML) 20ML VIAL IV ONE (15:11)
[2019-10-02] MEDS ORDERED: fentaNYL CITRATE 100 MCG/2 ML VL IV ONE (15:11)
[2019-10-02] MEDS ORDERED: fentaNYL CITRATE 250 MCG/5 ML VL IV ONE (15:11)
[2019-10-02] MEDS: NOREPINEPHRINE 8 MG/250ML KIT 250 ML IV SCH (15:15)
[2019-10-02] MEDS ORDERED: HEPARIN SODIUM (PORCINE) 5000 UNITS/ML 1ML VIAL ONE (15:52)
[2019-10-02] MEDS ORDERED: HEPARIN 1,000 UNITS/ml 1ML VIAL ONE (15:53)
[2019-10-02] MEDS ORDERED: MORPHINE SULFATE 4 MG/ML SYR/VIAL IV PRN (17:30)
[2019-10-02] MEDS ORDERED: ePHEDrine SULFATE 50 MG/ML AMP IV PRN (17:30)
[2019-10-02] MEDS ORDERED: HYDROmorphone HCL 2 MG/ML VL IV PRN (17:30)
[2019-10-02] MEDS ORDERED: MIDAZOLAM HCL 1MG/1ML-2 ML VIAL IV PRN (17:30)
[2019-10-02] MEDS ORDERED: ACCU-CHEK COMFORT CURVE STRIP VI ONE (17:30)
[2019-10-02] MEDS ORDERED: LABETALOL HCL 5 MG/ML 4ML SYRINGE IV PRN (17:30)
[2019-10-02] MEDS: fentaNYL Drip 2500mCg/250mlNS 250 ML IV SCH (18:00)
[2019-10-02] MEDS ORDERED: NOREPINEPHRINE 8 MG/250ML KIT 250 ML IV SCH (18:00)
[2019-10-02] MEDS ORDERED: MIDAZOLAM DRIP 50 mg/50mL 50 ML IV ONE (18:20)
[2019-10-02] MEDS ORDERED: fentaNYL Drip 2500mCg/250mlNS 250 ML IV ONE (18:42)
--- NOTE | 2019-10-02 18:50 | NUR ---
Respiratory note: ET TUBE ADVANCED TO 23CM, BILATERAL BS HEARD THROUGH OUT LUNG JEFFRIES, EQUAL CHEST RISE NOTED. WILL CONTINUE TO MONITOR.
--- NOTE | 2019-10-02 18:55 | NUR ---
Respiratory note: SPUTUM SENT TO LAB.
--- NOTE | 2019-10-02 19:04 | NUR ---
Respiratory note: CRITICAL ABG RESULTS, NEW VENT ORDERS. ABG TO FOLLOW IN 1 HR.
--- NOTE | 2019-10-02 19:21 | NUR ---
Respiratory note: NEW VENT ORDERS GIVEN UNDER DR. BARRETT. PT CHANGED TO AC /+50 40%, ABG TO FOLLOW. RN AWARE. Addendum: 10/02/19 at 1924 by AL CHEEK, RT AC /+5 40%
--- NOTE | 2019-10-02 20:13 | NUR ---
Respiratory note: ABG DONE, PT WILL REMAIN ON SAME VENT SETTINGS. WILL CONTINUE TO MONITOR.
--- NOTE | 2019-10-02 21:18 | NUR ---
RT Transport Note: Patient transported to ICU bed 102 with JOSÉ MIGUEL Monte. Patient transported to ICU from PACU on ventilator with previous ordered settings. Patient on classroom monitor with alarms set and audible, ambu-bag/mask connected to 02 tank. Patient arrived to room with no adverse reaction noted. Transport completed without incident.
[2019-10-02] MEDS: metroNIDAZOLE 500MG/100ML 100 ML IV SCH (22:00)
[2019-10-02] MEDS ORDERED: TPN PER PHARMACY 0 ML IV SCH (22:15)
[2019-10-02] MEDS ORDERED: CLINIMIX PER PHARMACY IV NR (23:00)
--- NOTE | 2019-10-02 23:42 | NUR ---
Respiratory note: NEW VENT ORDERS PER DR. QUICK. REPEAT ABG IN AM, VERBAL ORDER GIVEN FOR CPAP TRIAL IN AM, WILL ENDORSE TO DAYSHIFT RT.
[2019-10-03] VITALS (103 sets, daily range): BP systolic 78–155; BP diastolic 48–104
[2019-10-03] MEDS ORDERED: DEXTROSE (50%) 50ML SYRG IV SCH
[2019-10-03] MEDS: MIDAZOLAM DRIP 50 mg/50mL 50 ML IV SCH ×2 (00:44→18:00)
[2019-10-03] MEDS: SODIUM CHLORIDE 0.9% 1,000 ML IV SCH ×2 (00:45→12:31)
[2019-10-03 03:40] LABS: Basophils # (auto) 0 10 ^3/uL (0-0.2); Basophils % (auto) 0.2 % (0.0-2.0); Eosinophils # (auto) 0 10 ^3/uL (0-0.8); Hematocrit 33.7 % (36.0-46.0); Hemoglobin 10.6 g/dL (12.2-16.2); Lymphocytes # (auto) 0.3 10 ^3/uL (0.4-5.4); Lymphocytes % (auto) 1.9 % (10.0-50.0); Mean Corpuscular Hemoglobin 27.7 pg (28.0-32.0); Mean Corpuscular Hgb Conc. 31.4 g/dL (32.0-36.0); Mean Corpuscular Volume 88.3 fL (80.0-100.0); Monocytes # (auto) 0.5 10 ^3/uL (0-1.3); Monocytes % (auto) 3.7 % (0.0-12.0); Neutrophils # (auto) 13.6 10 ^3/uL (1.6-8.6); Neutrophils % (auto) 94.2 % (37.0-80.0); Platelet Count (auto) 185 10^3/uL (140-450); Red Blood Cells 3.82 10^6/uL (4.0-5.20); White Blood Cell 14.5 10^3/uL (4.4-10.8)
[2019-10-03 03:57] LABS: Potassium 5.2 mmol/L (3.5-5.1)
[2019-10-03 04:04] LABS: Albumin 2.2 g/dL (3.4-5.0); BUN/Creatinine Ratio 24.7; Bilirubin, Total 0.6 mg/dL (0.2-1.0); Calcium 10.9 mg/dL (8.5-10.1); Magnesium 1.6 mg/dL (1.6-2.6); Phosphorus 1.6 mg/dL (2.5-4.90); Pre Albumin 4.8 mg/dL (20.0-40.0); Total Protein 6.5 g/dL (6.4-8.2)
[2019-10-03] MEDS: metroNIDAZOLE 500MG/100ML 100 ML IV SCH ×3 (06:00→21:29)
[2019-10-03] MEDS: ACCU-CHEK COMFORT CURVE STRIP VI SCH ×4 (06:00→18:11)
[2019-10-03] MEDS: InsuLIN REG 1unit/0.01ml Soln (100units/ml) SC SCH ×4 (06:35→18:11)
--- NOTE | 2019-10-03 07:50 | NUR ---
INITIAL CONTACT REPORT RECEIVED FROM YUNIEL VALDEZ, CARE ASSUMED. PT OBSERVED RESTING IN BED, NO DISTRESS NOTED. PT INTUBATED ON MECHANICAL VENTILATOR, TOLERATING WELL. OXYGEN SATURATION 100%. PT UNDER SEDATION OF VERSED AND FENTANYL. SEE IV SPREADSHEET. AFEBRILE. RIGHT RADIAL ARTERIAL LINE NOTED. PUPILS REACTIVE TO LIGHT, COUGH AND GAG PRESENT. PHYSICAL ASSESSMENT COMPLETE. LEFT FEMORAL CENTRAL LINE NOTED. COBURN CATHETER PRESENT, PATENT, AND SECURED BELOW BLADDER. SEE SKIN/WOUND ASSESSMENT. JORGE DRAIN PRESENT, INCISION INTACT. BED LOCKED IN LOWEST POSITION, ALARMS IN PLACE. PT ON FREQUENT TURNING SCHEDULE. WILL CONTINUE TO MONITOR.
--- NOTE | 2019-10-03 09:40 | NUR ---
CARES PARTIAL LINEN CHANGE COMPLETE. PT AWAKENS TO STIMULI. PT DOES TRACK AT THIS TIME. NO DISTRESS NOTED. PATIENT MOVING BILATERAL UPPER EXTREMITIES. REACHING FOR ET TUBE. PT INSTRUCTED TO KEEP ARMS DOWN. PT REPOSITIONED ON SIDE. VS REMAINING STABLE AT THIS TIME. PT FALLS ASLEEP WITHOUT STIMULI.
[2019-10-03] MEDS ORDERED: SODIUM PHOSP 40 MEQ in D5W 5% 250 ML IV ONE (10:00)
[2019-10-03] MEDS: levoFLOXacin 500MG 100 ML IV SCH (10:23)
[2019-10-03] MEDS: PANTOPRAZOLE 40 MG/10 ML VIAL INJ IV SCH (10:23)
--- NOTE | 2019-10-03 11:09 | NUR ---
Consult Consider Osmolite 1.2 at a goal rate of 60 ml/hr if pt transitions from TPN to TF Est energy needs 8451-6570 kcal (11-14 kcal/kg BW 129.5kg) Est protein needs 61-92g (1-1.5g/kg IBW 61kg) Will reassess prn. Addendum: 10/03/19 at [address] Amended: Links added.
[2019-10-03] MEDS: MAGNESIUM SULFATE 1GM/100ML 100 ML IV SCH ×2 (11:41→12:49)
--- NOTE | 2019-10-03 11:41 | NUR ---
MAGNESIUM MAGNESIUM REPLACEMENT ORDERED PER PHARMACY PROTOCOL.
--- NOTE | 2019-10-03 13:30 | NUR ---
CONTACT SPOKE WITH PT NOK LISTED. OBTAINED INFORMATION REGARDING HISTORY AND MEDICATIONS.
[2019-10-03] MEDS ORDERED: TEMA15CA91 PO (13:49)
[2019-10-03] MEDS ORDERED: METR500T14 PO (13:49)
[2019-10-03] MEDS: NOREPINEPHRINE 8 MG/250ML KIT 250 ML IV SCH (15:15)
--- NOTE | 2019-10-03 15:30 | NUR ---
ARTERIAL LINE ARTERIAL LINE WAVE FORM DAMPENED. RE-ZERO'D, FLUSHED, AND ARM REPOSITIONED. UNABLE TO WITHDRAWAL BLOOD FROM ARTERIAL LINE AT THIS TIME. WAVE FORM STILL VISIBLE AND CORRELATING.
[2019-10-03] MEDS: PIPERACILLIN-TAZO 4.5GM 100 ML IV SCH ×2 (15:43→21:29)
--- NOTE | 2019-10-03 15:45 | NUR ---
SEDATION SEDATION TITRATED OFF. PT ABLE TO OPEN EYES TO NAME AND RESPOND TO SIMPLE VERBAL COMMAND. PT FALLS ASLEEP SHORTLY AFTER STIMULI. UNABLE TO STAY AWAKE AT THIS TIME.
--- NOTE | 2019-10-03 16:00 | NUR ---
MD UPDATE SPOKE WITH DR. QUICK REGARDING PATIENT STATUS. MD WOULD LIKE TO ATTEMPT CPAP TRIAL. ORDERS PLACED AND SEDATION TITRATED OFF.
--- NOTE | 2019-10-03 16:10 | NUR ---
UPDATE SPOKE WITH REGARDING CPAP TRIAL THIS AFTERNOON. MD STATED HE WOULD PREFER TO ATTEMPT A CPAP TRIAL TOMORROW MORNING. PT HIGH RISK FOR DIFFICULT REINTUBATION IF EXTUBATED THIS EVENING. MD AWARE SEDATION HAS BEEN TITRATED OFF AND PT ABLE TO OPEN EYES AND NOD TO SIMPLE QUESTIONS. PT STILL VERY GROGGY BUT DENYING DISTRESS. WILL PLACE PT BACK ON MILD SEDATION FOR COMFORT. ORDERS PLACED FOR CPAP TRIAL TOMORROW.
[2019-10-03] MEDS: fentaNYL Drip 2500mCg/250mlNS 250 ML IV SCH (16:19)
--- NOTE | 2019-10-03 18:00 | NUR ---
AT BEDSIDE DISCUSSED PT STATUS AND POC WITH DR QUICK. Signed: 10/03/19 at 1818 by ANT HAN SN <Co-Signature Required> Co-Signed: 10/03/19 at 1818 by Dacia Martinez RN
--- NOTE | 2019-10-03 19:28 | NUR ---
Opening Shift Note Assumed care of patient sedated and intubated. Ventilator settings match order. No S/S of distress/SOB or pain. Patient on continuous bedside cardiac monitoring and pulse oximetry. Bed is in lowest position and locked. Will continue to monitor for changes Q1hr and PRN.
[2019-10-03] MEDS ORDERED: SODIUM BICARBONATE 8.4 % INJ 50ML VIAL IV ONE (19:30)
[2019-10-03] MEDS ORDERED: TPN PER PHARMACY IV NR ×9 (20:00)
--- NOTE | 2019-10-03 21:00 | NUR ---
Sedation vacation not performed at this time. MD Dc wants CPAP trial in AM starting at 0700 Addendum: 10/03/19 at 2343 by ANISA LYN RN Amended: Links added.
--- NOTE | 2019-10-03 21:38 | NUR ---
Spoke to patient's daughter after confirming password and gave her a brief update on patient's condition.
[2019-10-04] VITALS (61 sets, daily range): BP systolic 87–176; BP diastolic 45–117
[2019-10-04] MEDS: ACCU-CHEK COMFORT CURVE STRIP VI SCH ×5 (00:28→23:42)
[2019-10-04] MEDS: InsuLIN REG 1unit/0.01ml Soln (100units/ml) SC SCH ×5 (00:33→23:43)
[2019-10-04] MEDS: SODIUM CHLORIDE 0.9% 1,000 ML IV SCH ×3 (00:34→23:49)
--- NOTE | 2019-10-04 01:14 | NUR ---
Patient had 10 beat run of ventricular tachycardia before pacemaker intervenes and reset heart rate to paced rhythm at 63. BP: 122/57, RR: 15, O2 sat: 97%, Temp: 98.2. Will continue to assess.
--- NOTE | 2019-10-04 05:18 | NUR ---
Complete bed bath and linen change performed. Patient tolerated well.
[2019-10-04 05:26] LABS: Basophils # (auto) 0 10 ^3/uL (0-0.2); Basophils % (auto) 0.1 % (0.0-2.0); Eosinophils # (auto) 0 10 ^3/uL (0-0.8); Eosinophils % (auto) 0.1 % (0.0-7.0); Hematocrit 27.1 % (36.0-46.0); Hemoglobin 8.7 g/dL (12.2-16.2); Lymphocytes # (auto) 0.7 10 ^3/uL (0.4-5.4); Lymphocytes % (auto) 5.8 % (10.0-50.0); Mean Corpuscular Hemoglobin 27.9 pg (28.0-32.0); Mean Corpuscular Hgb Conc. 32.2 g/dL (32.0-36.0); Mean Corpuscular Volume 86.8 fL (80.0-100.0); Monocytes # (auto) 0.6 10 ^3/uL (0-1.3); Neutrophils # (auto) 10.2 10 ^3/uL (1.6-8.6); Nucleated Red Blood Cells % 0.1 %; Platelet Count (auto) 139 10^3/uL (140-450); Red Blood Cells 3.13 10^6/uL (4.0-5.20); White Blood Cell 11.5 10^3/uL (4.4-10.8)
[2019-10-04 05:36] LABS: Albumin 1.8 g/dL (3.4-5.0); Magnesium 1.9 mg/dL (1.6-2.6); Potassium 3.6 mmol/L (3.5-5.1)
[2019-10-04 05:39] LABS: BUN/Creatinine Ratio 23.1; Bilirubin, Total 0.4 mg/dL (0.2-1.0); Phosphorus 2.1 mg/dL (2.5-4.90); Total Protein 5.3 g/dL (6.4-8.2)
--- NOTE | 2019-10-04 06:15 | NUR ---
Patient's sedation decreased to Versed 2 mg/hr and Fentanyl 25 mcg/min in preparation fro CPAP trial. Will continue to assess.
[2019-10-04] MEDS: metroNIDAZOLE 500MG/100ML 100 ML IV SCH ×3 (06:26→21:33)
[2019-10-04] MEDS: PIPERACILLIN-TAZO 4.5GM 100 ML IV SCH ×3 (06:26→21:33)
--- NOTE | 2019-10-04 07:14 | NUR ---
Report given to day shift RN. Patient exhibiting no signs of SOB or distress.
--- NOTE | 2019-10-04 09:44 | NUR ---
PATIENTS NIECE CALLED FOR UPDATE PROVIDED PASSWORD. UPDATED ON PATIENTS STATUS AND PLAN OF CARE. ADDRESSED QUESTIONS
--- NOTE | 2019-10-04 10:05 | NUR ---
INITIATED CPAP TRIAL PT IS MORE AWAKE, UNABLE TO OPEN EYES, BUT SHAKES HEAD TO ANSWER QUESTIONS AND ABLE TO FOLLOW SIMPLE COMMANDS. INITIATED CPAP TRIAL ORDERED. PT TOLERATING FAIRLY, TACHYPNEIC WITH RR 30-35, BUT VITAL SIGNS STABLE. HR 89, SPO2 97%, BP 149/89. PT ATTEMPTING TO LIFT HANDS UP TOWARDS ETT AND SEEMS AGITATED, BUT NO S/S OF DISTRESS NOTED. MITTENS IN PLACE. RN AT BEDSIDE, AWARE OF CHANGES. ABG AND WEANING PARAMETERS TO FOLLOW IN ONE HOUR. WILL CONTINUE TO MONITOR.
[2019-10-04] MEDS: PANTOPRAZOLE 40 MG/10 ML VIAL INJ IV SCH (11:00)
[2019-10-04] MEDS: levoFLOXacin 500MG 100 ML IV SCH (11:00)
--- NOTE | 2019-10-04 11:12 | NUR ---
Called Dr. Miller with ABG results and weaning parameters on CPAP. Orders received to extubate to cool aerosol mask, orders read back and verified. Will notify
--- NOTE | 2019-10-04 11:25 | NUR ---
EXTUBATED Extubated pt with JOSÉ MIGUEL Araujo at bedside. Pt extubated to cool aerosol mask FIO2 35%, pt tolerating well. HR 93, RR 16, SPO2 96%, BP 167/75. Breath sounds bilateral rhonchi, clearing with pt's strong cough, no stridor noted. No s/s of distress.
--- NOTE | 2019-10-04 11:36 | NUR ---
assessment Patient is a 53 year old female who is on a vent. I tried to call the number in the chart and it was the wrong number. I have spoken with Gayle VALDEZ and she will get a good number for family for me. Will re-assess later when patient is extubated or I get a good family name and number. Addendum: 10/04/19 at 1538 by Morena DASILVA Amended: Links added.
[2019-10-04] MEDS ORDERED: POTASSIUM PHOSPHATE 44 MEQ in D5W 5% 250 ML IV ONE (13:00)
--- NOTE | 2019-10-04 13:04 | NUR ---
SPOKE WITH DR BARRETT- INFORMED PATIENT PULLED NG AWARE AND STATED NOT TO PLACED ANOTHER NG, BUT TO KEEP PATIENT STRICT NPO
[2019-10-04] MEDS ORDERED: NOREPINEPHRINE 8 MG/250ML KIT 250 ML IV SCH (13:45)
--- NOTE | 2019-10-04 14:05 | NUR ---
PATIENTS SISTER THERESA CALLED FOR UPDATE PROVIDED PASSWORD. UPDATED ON CURRENT STATUS AND PLAN OF CARE.
--- NOTE | 2019-10-04 14:29 | NUR ---
PATIENT REMOVED RADIAL ARTERIAL LINE PRESSURE DRESSING APPLIED. PATIENT COOPERATIVE HOWEVER HAS MOMENTS OF CONFUSION. STATED SHE DIDN'T KNOW SHE REMOVED ARTERIAL LINE. BED IN LOW POSITION AND WITHIN VIEW OF NURSES STATION.
--- NOTE | 2019-10-04 16:25 | NUR ---
BED ASSIGNMENT GIVEN 219A, REPORT GIVEN TO COVERING RN TERESA ( COVERING FOR SUMMER RN) PATIENT WILL BE TRANSPORTED ON HOSPITAL BED WITH ALL BELONGINGS. CONNECTED TO PORTABLE TELE BOX AND PORTABLE OXYGEN
--- NOTE | 2019-10-04 16:34 | NUR ---
UPDATED CONTACT INFO- PER CONSENT IN CHART ROBERTO- DTR- [phone] / [phone] [facility]- [phone]
--- NOTE | 2019-10-04 17:00 | NUR ---
Telemetry admit from ER CHARISSE AGRAWAL admitted to Telemetry unit after SBAR received. Patient oriented to JEWEL TIWARI RN primary RN, unit, room, bed. Patient now on continuous telemetry monitoring, tele box # 40 and telemetry reading on arrival to unit is sinus rhythm 82. Patient placed on bedside oxygen 2L NC. Bed in low and locked position, call light within reach. Bed alarm of for safety. Will continue to monitor Q1 hour and PRN.
--- NOTE | 2019-10-04 18:50 | NUR ---
Dr. Miller at bedside Assessing patient. No new orders received. Will continue to monitor Q1 hour and PRN.
--- NOTE | 2019-10-04 19:05 | NUR ---
Closing Note Report given to car changer RN. No signs or symptoms of distress noted at this time.
--- NOTE | 2019-10-04 19:35 | NUR ---
Opening Shift Note Assumed care of patient, AOX3. No S/S of distress/SOB or pain. Fall and safety precautions and in place. Call light within reach. Instructed on POC and to call for assist PRN, patient verbalized understanding and in agreement. Will continue to monitor for changes Q1hr and PRN.
[2019-10-04] MEDS ORDERED: TPN PER PHARMACY IV NR ×10 (20:00)
[2019-10-04] MEDS ORDERED: PIPERACILLIN-TAZO 4.5GM 200 ML IV ONE (21:19)
[2019-10-04] MEDS: MORPHINE SULFATE 4 MG/ML SYR/VIAL IV PRN (21:39)
[2019-10-05] MEDS: MORPHINE SULFATE 4 MG/ML SYR/VIAL IV PRN ×4 (03:48→19:57)
[2019-10-05 05:00] VITALS: BP 118/78
[2019-10-05] MEDS: PIPERACILLIN-TAZO 4.5GM 100 ML IV SCH ×3 (05:03→21:17)
[2019-10-05] MEDS: ACCU-CHEK COMFORT CURVE STRIP VI SCH ×4 (05:19→23:38)
[2019-10-05] MEDS: InsuLIN REG 1unit/0.01ml Soln (100units/ml) SC SCH ×4 (05:19→23:38)
[2019-10-05] MEDS: metroNIDAZOLE 500MG/100ML 100 ML IV SCH ×3 (06:25→21:16)
[2019-10-05] MEDS: SODIUM CHLORIDE 0.9% 1,000 ML IV SCH ×2 (06:25→23:21)
--- NOTE | 2019-10-05 07:40 | NUR ---
Opening Shift Note Assumed care of patient, AOX4. No S/S of distress/SOB, reports 7/10 abdominal pain, will medicate accordingly. Plan of care discussed and encouraged to call for assistance prn. Fall and safety precautions in place. Call light and phone within reach. TPN infusing at 65ml/hr. Will continue to monitor for changes Q1hr and PRN.
[2019-10-05 09:00] VITALS: BP 122/61
--- NOTE | 2019-10-05 09:00 | NUR ---
Dr. Dc at bedside, discussed plan of care with patient. assessed incision site. Per MD, Ok to remove abdominal dressing.
[2019-10-05] MEDS: PANTOPRAZOLE 40 MG/10 ML VIAL INJ IV SCH (09:03)
[2019-10-05] MEDS: levoFLOXacin 500MG 100 ML IV SCH (09:03)
[2019-10-05 11:57] LABS: Potassium 3.3 mmol/L (3.5-5.1)
[2019-10-05 12:04] LABS: Albumin 1.7 g/dL (3.4-5.0); BUN/Creatinine Ratio 28.1; Bilirubin, Total 0.3 mg/dL (0.2-1.0); Calcium 8.8 mg/dL (8.5-10.1); Phosphorus 2.5 mg/dL (2.5-4.90); Total Protein 5.1 g/dL (6.4-8.2)
[2019-10-05 13:00] VITALS: BP 107/60
[2019-10-05] MEDS: POTASSIUM CHL 20MEQ/100ML 100 ML IV ONE ×2 (13:08→13:39)
[2019-10-05] MEDS ORDERED: POTASSIUM PHOSP 22MEQ(15MMOLE) in NS 100 ML IV ONE (14:00)
[2019-10-05 17:00] VITALS: BP 99/68
--- NOTE | 2019-10-05 19:40 | NUR ---
Opening Shift Note Assumed care of patient, AOX4. No S/S of distress/SOB or pain. Fall and safety precautions and in place. Call light within reach and able to use. Instructed on POC and to call for assist PRN, patient verbalized understanding and in agreement. Will continue to monitor for changes Q1hr and PRN.
[2019-10-05] MEDS ORDERED: TPN PER PHARMACY IV NR ×10 (20:00)
[2019-10-05] MEDS ORDERED: PIPERACILLIN-TAZO 4.5GM 200 ML IV ONE (20:49)
[2019-10-05 21:56] VITALS: BP 103/59
[2019-10-06] MEDS: MORPHINE SULFATE 4 MG/ML SYR/VIAL IV PRN ×4 (02:12→20:08)
[2019-10-06 05:00] VITALS: BP 102/56
[2019-10-06] MEDS: metroNIDAZOLE 500MG/100ML 100 ML IV SCH ×3 (05:24→21:24)
[2019-10-06] MEDS: PIPERACILLIN-TAZO 4.5GM 100 ML IV SCH ×3 (05:29→21:24)
[2019-10-06] MEDS: InsuLIN REG 1unit/0.01ml Soln (100units/ml) SC SCH ×4 (05:29→23:08)
[2019-10-06] MEDS: ACCU-CHEK COMFORT CURVE STRIP VI SCH ×4 (05:29→23:06)
--- NOTE | 2019-10-06 05:43 | NUR ---
JORGE OUTPUT TOTAL JORGE DRAIN OUTPUT 45ML OF SANGUINOUS FLUID. BULB TO SUCTION, FREE OF KINKS/OBSTRUCTION. WILL CONTINUE TO MONITOR.
[2019-10-06] MEDS: SODIUM CHLORIDE 0.9% 1,000 ML IV SCH ×2 (05:56→22:53)
[2019-10-06 06:30] LABS: Potassium 3.7 mmol/L (3.5-5.1)
[2019-10-06 06:36] LABS: Albumin 1.6 g/dL (3.4-5.0); Bilirubin, Total 0.3 mg/dL (0.2-1.0); Calcium 8.9 mg/dL (8.5-10.1); Magnesium 2.1 mg/dL (1.6-2.6); Phosphorus 2.7 mg/dL (2.5-4.90); Total Protein 4.9 g/dL (6.4-8.2)
--- NOTE | 2019-10-06 06:42 | NUR ---
STAINING MACHINE OPERATOR ALARM STAINING MACHINE OPERATOR CALLS STATING PATIENT MIGHT HAVE EXPERIENCED NONSUSTAINED VTACH, POSSIBLY AFIB WITH RVR. PATIENT IS IN NO DISTRESS, PATIENT DENIES SYMPTOMS OF ABNORMALITY. STAINING MACHINE OPERATOR STATES SHE WILL SEND RHYTHM STRIP. WILL CONTINUE TO MONITOR.
--- NOTE | 2019-10-06 07:05 | NUR ---
EKG OBTAINED EKG OBTAINED AND PLACED IN CHART, READS ATRIAL-SENSED VENTRICULAR-PACED RHYTHM AT 64 BPM. NO TELE STRIP RECEIVED FROM [employer], CHECKED AND RECHECKED BULLET THREE TIMES. SPOKE TO [employer] AT THIS TIME ON THE PHONE AND TECH STATED SHE SENT STRIP, HOWEVER WILL RECHECK TO SEE IF IT WAS SENT TO WRONG UNIT. PATIENT IS NOT CURRENTLY IN STATED ABNORMAL RHYTHM. REPORT GIVEN TO DAY SHIFT RN. NOTIFIED DAY SHIFT RN AT THIS TIME OF LATEST UPDATES.
--- NOTE | 2019-10-06 07:25 | NUR ---
Opening Shift Note Assumed care of patient, AOX4, awake and resting comfortably in bed. No S/S of distress/SOB, denies pain at this time. Plan of care discussed and encouraged to call for assistance prn. Fall and safety precautions in place. Call light and phone within reach. TPN infusing at 65ml/hr. Will continue to monitor for changes Q1hr and PRN.
[2019-10-06 08:44] LABS: Eosinophils # (auto) 0.4 10 ^3/uL (0-0.8); Hemoglobin 8.3 g/dL (12.2-16.2)
[2019-10-06 08:46] LABS: Basophils # (auto) 0 10 ^3/uL (0-0.2); Basophils % (auto) 0.4 % (0.0-2.0); Eosinophils % (auto) 5.2 % (0.0-7.0); Hematocrit 25.5 % (36.0-46.0); Lymphocytes % (auto) 12.7 % (10.0-50.0); Mean Corpuscular Hemoglobin 28.3 pg (28.0-32.0); Mean Corpuscular Hgb Conc. 32.4 g/dL (32.0-36.0); Mean Corpuscular Volume 87.3 fL (80.0-100.0); Monocytes # (auto) 0.9 10 ^3/uL (0-1.3); Monocytes % (auto) 11.3 % (0.0-12.0); Neutrophils # (auto) 5.5 10 ^3/uL (1.6-8.6); Neutrophils % (auto) 70.4 % (37.0-80.0); Platelet Count (auto) 103 10^3/uL (140-450); Red Blood Cells 2.92 10^6/uL (4.0-5.20); Red Cell Distribution Width 16.3 % (11.8-14.3); White Blood Cell 7.8 10^3/uL (4.4-10.8)
[2019-10-06 09:00] VITALS: BP 108/62
[2019-10-06] MEDS ORDERED: EPOETIN ALFA 10,000 UNIT/1 ML VIAL SC ONE (09:00)
--- NOTE | 2019-10-06 09:40 | NUR ---
DR. CHENG AT BEDSIDE, DISCUSSED PLAN OF CARE WITH PATIENT. PER DR. CHENG, PATIENT TO BE [facility] ONCE COVID-19 TEST RESULT IS NEGATIVE. PER MD, DO NOT WORRY ABOUT GIVING PATIENT HER BP MEDICATIONS. MD MADE AWARE OF UNSUSTAINED V-TACH PER RESIDENTIAL CARE FACILITY MANAGER, REPORTED BY NOC SHIFT RN. NO NEW ORDERS.
[2019-10-06] MEDS: levoFLOXacin 500MG 100 ML IV SCH (09:56)
[2019-10-06] MEDS: PANTOPRAZOLE 40 MG/10 ML VIAL INJ IV SCH (09:56)
--- NOTE | 2019-10-06 10:00 | NUR ---
PER PATIENT, SHE IS REFUSING THE RECOMMENDATION TO GO TO [facility]. PER PATIENT SHE HAS A HOME AND FAMILY TO HELP HER.
--- NOTE | 2019-10-06 12:33 | NUR ---
Nutrition Followup Notes Pt wt is 135.9 kg Pt was sleeping with no relatives at bedside when rounded this morning, with no distress. Pt is NPO on TPN @ 69 ml/hr, providing 1450 kcals, 100g protein, and 1050 NPCs. Pt with adequate energy intake from PN support as it meets 80% to 102% of est caloric needs. Protein intake from PN support is adequate as it meets 109% to 164% of est protein needs. Will continue to monitor PO status, skin status, pertinent labs and weight trends. Will f/u in 2-3 days. Consider Osmolite 1.2 at a goal rate of 60 ml/hr if pt transitions from TPN to TF Est energy needs 2887-0167 kcal (11-14 kcal/kg BW 129.5kg) Est protein needs 61-92g (1-1.5g/kg IBW 61kg) Will reassess prn. LABS: Gluc 109 H, Alb 1.6 L GI: Pt had no BM today per RN doc. BS: 14 mod risk. Refer to wound assessment report for full details. PES: Obesity r/t caloric intake in excess of needs aeb pt BMI is 44.7kg/m2 Malnutrition related to morbid BMI> or equal to 40 Malnutrition related to morbid obesity Yes Comments 1) Continue to monitor npo status, labs, skin 2) Refer pt to OPD on DC 3) Continue current plan of care
[2019-10-06 13:00] VITALS: BP 121/65
--- NOTE | 2019-10-06 13:48 | NUR ---
MADE TRUMPET PLAYER LETICIA AWARE THAT PATIENT IS REFUSING SOC SERVICES.
--- NOTE | 2019-10-06 16:04 | NUR ---
PATIENT OBSERVED SITTING UP IN CHAIR WITH PHYSICAL THERAPIST ASSISTANCE.
[2019-10-06 17:00] VITALS: BP 119/67
--- NOTE | 2019-10-06 18:20 | NUR ---
DAY SHIFT JORGE OUTPUT TOTAL JORGE DRAIN OUTPUT 135ML OF SANGUINOUS FLUID. BULB TO SUCTION, FREE OF KINKS OR OBSTRUCTION.
--- NOTE | 2019-10-06 19:40 | NUR ---
Opening Shift Note Assumed care of patient, AOX4. No S/S of distress/SOB, or pain. Plan of care discussed and encouraged to call for assistance prn, patient verbalized understanding and in agreement. Fall and safety precautions in place. Call light within reach and able to use. Will continue to monitor for changes Q1hr and PRN.
[2019-10-06] MEDS ORDERED: TPN PER PHARMACY IV NR ×10 (20:00)
[2019-10-06 22:09] VITALS: BP 111/66
[2019-10-07] MEDS: MORPHINE SULFATE 4 MG/ML SYR/VIAL IV PRN ×2 (03:51→10:04)
[2019-10-07 04:51] VITALS: BP 135/81
[2019-10-07] MEDS: metroNIDAZOLE 500MG/100ML 100 ML IV SCH (05:13)
[2019-10-07] MEDS: PIPERACILLIN-TAZO 4.5GM 100 ML IV SCH ×3 (05:14→22:27)
[2019-10-07] MEDS: ACCU-CHEK COMFORT CURVE STRIP VI SCH ×3 (05:14→17:21)
[2019-10-07] MEDS: InsuLIN REG 1unit/0.01ml Soln (100units/ml) SC SCH ×3 (05:15→17:21)
[2019-10-07] MEDS: SODIUM CHLORIDE 0.9% 1,000 ML IV SCH (05:28)
--- NOTE | 2019-10-07 07:00 | NUR ---
JORGE DRAIN 95ML REMOVED FROM JORGE DRAIN OF SANGUINOUS FLUID. BULB TO SUCTION.
[2019-10-07 09:00] VITALS: BP 124/76
--- NOTE | 2019-10-07 09:45 | NUR ---
COOLING MEASURES/TEMP 100.7 ROOM COOLED DOWN AND EXTRA BLANKETS REMOVED, NO C/O CHILLS OR ANY OTHER DISCOMFORT, CONT TO CLOSELY MONITOR
[2019-10-07] MEDS: levoFLOXacin 500MG 100 ML IV SCH (10:04)
[2019-10-07] MEDS: PANTOPRAZOLE 40 MG/10 ML VIAL INJ IV SCH (10:04)
[2019-10-07 10:23] LABS: Albumin 1.8 g/dL (3.4-5.0); Calcium 10.2 mg/dL (8.5-10.1); Potassium 4.1 mmol/L (3.5-5.1)
[2019-10-07 10:27] LABS: BUN/Creatinine Ratio 29.5; Bilirubin, Total 0.4 mg/dL (0.2-1.0); Phosphorus 2.1 mg/dL (2.5-4.90); Total Protein 5.4 g/dL (6.4-8.2)
[2019-10-07 13:00] VITALS: BP 145/72
[2019-10-07] MEDS ORDERED: SODIUM PHOSP 40 MEQ in D5W 5% 250 ML IV ONE ×2 (13:00→16:00)
--- NOTE | 2019-10-07 16:15 | NUR ---
TEMP 103 UPON ROUNDING PT STATES " I FEEL WARM", CHECKED ORAL TEMP AND TEMP WAS 103, BLANKETS REMOVED, ROOM COOLED DOWN AND ICE PACKS APPLIED TO BILATERAL UNDER ARMS, MESSAGED DR CHENG AND DR BARRETT, VS TAKEN 135/72, P 108, O2 96% ON 2L VIA NC, RR 20, AWAITING MD CALL BACK
--- NOTE | 2019-10-07 16:54 | NUR ---
CALLED BACK NEW ORDERS RECEIVED, CONT CARE
[2019-10-07 17:00] VITALS: BP 132/83
--- NOTE | 2019-10-07 17:25 | NUR ---
PT UNABLE TO USE INCENTIVE SPIROMETER R/T WEAKNESS, STATES " I CAN TRY TOMORROW", CONT CARE
[2019-10-07] MEDS: ACETAMINOPHEN 325 MG RECT SUPP PR PRN (17:45)
--- NOTE | 2019-10-07 18:00 | NUR ---
URINE SPECIMEN COLLECTED AND SENT TO LAB FOR CULTURE
--- NOTE | 2019-10-07 18:48 | NUR ---
TEMP 102.5, CONT WITH COOLING MEASURES DR CHENG NOTIFIED, CONT CARE
--- NOTE | 2019-10-07 19:00 | NUR ---
ENDORSED PT CARE TO NIGHT JOSÉ MIGUEL POTTER
[2019-10-07] MEDS ORDERED: SODIUM CHLORIDE 0.9% 1,000 ML IV SCH (19:59)
[2019-10-07] MEDS ORDERED: TPN PER PHARMACY IV NR ×10 (20:00)
--- NOTE | 2019-10-07 20:00 | NUR ---
RECEIVED PATIENT FROM DAY SHIFT RN. PATIENT RESTING IN BED. NO S/S OF DISTRESS NOTED. DENIED PAIN FOR NOW. REPOSITIONED PATIENT, PATIENT TOLERATED WELL. JENNIFER C/I ON ABD AND OPEN TO AIR. NO S/S OF INFECTION NOTED. CENTRAL LINE ON LEFT FEMORAL WITH TPN. HAYDEE CATH ACCESSED WITH IVF, JORGE DRAIN IN PLACE, COBURN CATH IN PLACE DRAINING TO GRAVITY. ENCOURAGED PATIENT TO PRACTICE ON IS EVERY HOUR, PATIENT VERBALIZED UNDERSTANDING. SCD ON. POC INSTRUCTED AND ENCOURAGED PATIENT TO CALL FOR AUDIOLOGY TECHNICIAN IF NEEDED. BED IN LOWEST POSITION WITH SIDE RAILS UP X 2. CALL MILIAN WITHIN REACH. ALARM ON. CONTINUE TO MONITOR FOR CHANGES Q1H AND PRN.
--- NOTE | 2019-10-07 20:05 | NUR ---
A PILL (TEMAZEPAM) FOUND ON PATIENT'S BED WHEN TURNING PATIENT. PATIENT DENIED AND STATED SHE DID NOT KNOW WHERE THE MEDICATION FROM. MEDICATION DISCARDED WITNESSED BY LOIDA VALDEZ. EDUCATED PATIENT ON MEDICATION SAFETY, SIDE EFFECTS ON DOUBLE DOSAGE OF MEDICATIONS, AND MAKE SURE NO HOME MEDICATION TO BE TAKEN IN THE HOSPITAL. PATIENT VERBALIZED UNDERSTANDING. CONTINUE TO MONITOR.
[2019-10-07 21:16] LABS: Basophils # (auto) 0.1 10 ^3/uL (0-0.2); Basophils % (auto) 0.7 % (0.0-2.0); Eosinophils # (auto) 0.1 10 ^3/uL (0-0.8); Eosinophils % (auto) 1.5 % (0.0-7.0); Hematocrit 31.2 % (36.0-46.0); Lymphocytes # (auto) 0.6 10 ^3/uL (0.4-5.4); Lymphocytes % (auto) 7.4 % (10.0-50.0); Mean Corpuscular Hemoglobin 27.7 pg (28.0-32.0); Mean Corpuscular Volume 86.6 fL (80.0-100.0); Monocytes # (auto) 0.7 10 ^3/uL (0-1.3); Neutrophils # (auto) 6.7 10 ^3/uL (1.6-8.6); Neutrophils % (auto) 82.4 % (37.0-80.0); Platelet Count (auto) 134 10^3/uL (140-450); White Blood Cell 8.2 10^3/uL (4.4-10.8)
[2019-10-07 21:32] LABS: Albumin 1.9 g/dL (3.4-5.0); Calcium 9.7 mg/dL (8.5-10.1); Potassium 4.2 mmol/L (3.5-5.1)
[2019-10-07 21:35] LABS: BUN/Creatinine Ratio 24.1; Bilirubin, Total 0.4 mg/dL (0.2-1.0); Total Protein 5.7 g/dL (6.4-8.2)
--- NOTE | 2019-10-07 21:53 | NUR ---
REASSESSED TEMP 102, COOLING MEASURE AND ICE PACKS CONTINUED. CONTINUE TO MONITOR.
[2019-10-07 22:00] VITALS: BP 162/98
--- NOTE | 2019-10-07 22:25 | NUR ---
REPOSITIONED PATIENT. PATIENT TOLERATED WELL. CONTINUE CARE.
--- NOTE | 2019-10-07 23:00 | NUR ---
DURING PATIENT ROUND, NOTED A PILL (SLEEPING PILL TEMAZEPAM) ON THE FLOOR, PATIENT DENIED SHE HAD THIS MEDICATION, BUT A "[employer]" SAFETY LID NOTED ON PATIENT'S BEDSIDE TABLE. PATIENT DENIED AND STATED SHE DID NOT KNOW WHY THE SAFETY LID ON THE TABLE. PATIENT'S PURSE ON THE TABLE, PATIENT DENIED ANY HOME MEDICATION IN HER PURSE. T\\MCKAY Lockett RN AT BEDSIDE AT THIS TIME WITH THIS PRIMARY NURSE WOULD LIKE TO CHECK PATIENT'S PURSE TO MAKE SURE PATIENT DID NOT HAVE HER OWN MEDICATION. PATIENT REFUSED AND STATED " STAY AWAY TO MY PURSE". CHARGE NURSE DYLAN REPORTED. CONTINUE TO MONITOR.
--- NOTE | 2019-10-08 00:10 | NUR ---
TEMP 103.2, CALLED ER TO SENT TYLENOL SUPP, WAITING FOR MEDICATION. CONTINUE TO MONITOR.
[2019-10-08] MEDS ORDERED: ACETAMINOPHEN 650 MG RECT SUPP PR ONE (00:15)
[2019-10-08] MEDS: ACCU-CHEK COMFORT CURVE STRIP VI SCH ×4 (00:20→17:17)
[2019-10-08] MEDS: InsuLIN REG 1unit/0.01ml Soln (100units/ml) SC SCH ×4 (00:20→17:17)
--- NOTE | 2019-10-08 00:20 | NUR ---
ACCU-CHECK, BS 142. INSULIN GIVEN ORDERED. CONTINUE TO MONITOR.
[2019-10-08] MEDS: ACETAMINOPHEN 325 MG RECT SUPP PR PRN ×2 (00:44→07:16)
--- NOTE | 2019-10-08 00:45 | NUR ---
MEDICATED PATIENT FOR TEMP 103.2, CONTINUE COOLING MEASURE AND ICE PACKS, CONTINUE TO MONITOR.
--- NOTE | 2019-10-08 01:40 | NUR ---
REASSESSED TEMP, 102.5, COOLING MEASURE CONTINUED. FOUND PATIENT TOOK OFF ICE PACKS, INSTRUCTED PATIENT TO KEEP ICE PACKS TO LOWER THE TEMP. PATIENT VERBALIZED UNDERSTANDING. CONTINUE TO MONITOR.
--- NOTE | 2019-10-08 02:20 | NUR ---
REPOSITIONED PATIENT. PATIENT TOLERATED WELL. CONTINUE CARE.
--- NOTE | 2019-10-08 04:13 | NUR ---
REPOSITIONED PATIENT. PATIENT TOLERATED WELL. CONTINUE CARE.
[2019-10-08 05:00] VITALS: BP 123/66
--- NOTE | 2019-10-08 05:55 | NUR ---
PATIENT TEMP 102.5, CALLED ER TO SEND MEDICATION. PATIENT KEPT REMOVING ICE PACKS. REINSTRUCTED PATIENT TO KEEP ICE PACKS ON. COOLING MEASURE CONTINUED. CONTINUE TO MONITOR.
[2019-10-08] MEDS: PIPERACILLIN-TAZO 4.5GM 100 ML IV SCH ×3 (06:12→22:27)
--- NOTE | 2019-10-08 06:13 | NUR ---
ACCU-CHECK, BS 182. INSULIN GIVEN ORDERED. PATIENT HAD BM. CLEANED PATIENT. PARTIAL LINEN CHANGED. PATIENT TOLERATED WELL. REPOSITIONED PATIENT. CONTINUE TO MONITOR.
--- NOTE | 2019-10-08 06:30 | NUR ---
CALLED PHARMACY FOR TYLENOL SUPP SINCE ER DID NOT SEND THE MEDICATION. PHARMACY WILL SEND IT WILFREDO. CONTINUE TO MONITOR.
--- NOTE | 2019-10-08 07:16 | NUR ---
MEDICATED PATIENT FOR FEVER 102.5. PATIENT HAD BM, CLEANED PATIENT, TOTAL LINEN CHANGED. PATIENT TOLERATED WELL. CONTINUE TO MONITOR.
[2019-10-08 07:23] LABS: Calcium 9.3 mg/dL (8.5-10.1); Magnesium 1.9 mg/dL (1.6-2.6); Potassium 3.9 mmol/L (3.5-5.1)
[2019-10-08 07:26] LABS: Bilirubin, Total 0.4 mg/dL (0.2-1.0); Phosphorus 2.4 mg/dL (2.5-4.90); Total Protein 5.6 g/dL (6.4-8.2)
--- NOTE | 2019-10-08 07:30 | NUR ---
Opening Shift Note Assumed care of patient, awake and alert and oriented x4. No S/S of distress/SOB or pain reported at this time, On 2L via NC, Report received from Dea VALDEZ and current temperature is 102 but was medicated with Tylenol suppository, patient was noted to have extra blankets but removed, ice packs to underarms, Kenia cath to right upper chest site patent and benign, no redness or swelling noted . Instructed on POC and to call for assist PRN, call light within reach, bed alarm on and SCD's reapplied, JORGE drain patent and draining serosanguineous drainage, anterior mid abdomen 34 well approximated florian was noted, no swelling, redness, foul odor noted, gage patent and draining via gravity, will continue to monitor for changes Q1hr and PRN.
[2019-10-08 09:00] VITALS: BP 132/65
--- NOTE | 2019-10-08 09:35 | NUR ---
3 LUMEN CENTRAL LINE REMOVED TO LEFT GROIN AFTER MD ORDER WAS RECEIVED CATHETER TIP INTACT, PRESSURE DRESSING APPLIED, CATHETER TIP SENT FOR CULTURE, CONT CARE
[2019-10-08] MEDS: PANTOPRAZOLE 40 MG/10 ML VIAL INJ IV SCH (10:33)
--- NOTE | 2019-10-08 10:34 | NUR ---
TEMP 99.6, EXTRA BLANKETS CONTINUES TO BE OFF, ROOM CONTINUES TO BE COOLED DOWN AND NO C/O OF CHILLS OR ANY OTHER DISCOMFORT REPORTED BY PT, CALL LIGHT WITHIN REACH, CONT CARE
[2019-10-08 11:13] LABS: INR 1.3 (0.9-1.15)
--- NOTE | 2019-10-08 11:33 | NUR ---
assessment Patient is a 53 year old female who is alert and oriented. Patient informed me prior to admission she resided with family and was independent. Patient informed me she wants to return home on discharge and her daughter Kaity will transport her home. Patient had no need for DME or oxygen prior to admission. Patients PCP is Dr Ibarra. Patient will need home health for PT and a fww on discharge. I informed patient she has a right to speak to a social work administrator regarding all care. I informed patient she has a right to participate in any and all discharge planning. Patient does not have a POA and advanced directive. I have offered patient information on POA and advanced directives. I informed the patient the advantages and benefits of having an Advanced Directive. Patient verbalized understanding and agreed to discharge plan home. Addendum: 10/08/19 at 1136 by Morena DASILVA Amended: Links added.
--- NOTE | 2019-10-08 11:45 | NUR ---
Nutrition Followup Notes Pt wt is 136.1 kg Pt was sleeping with no relatives at bedside when rounded this morning, with no distress. Pt is NPO on TPN @ 81 ml/hr to provide 1600 kcal, 120g of protein, 1120 NCP. This provides 88-112% of energy needs and 130-197% of protein needs. Pt with a new TPN order for 85 ml to provide 1640 kcal, 130g of protein. Consider Osmolite 1.2 at a goal rate of 60 ml/hr if pt transitions from TPN to TF Est energy needs 5734-7907 kcal (11-14 kcal/kg BW 129.5kg) Est protein needs 61-92g (1-1.5g/kg IBW 61kg) Will reassess prn. LABS: GLUC 176H, Alb 2.0L GI: Pt had no BM today per RN doc. BS: 13 mod risk. Refer to wound assessment report for full details. PES: Obesity r/t caloric intake in excess of needs aeb pt BMI is 44.7kg/m2 Malnutrition related to morbid BMI> or equal to 40 Malnutrition related to morbid obesity Yes Comments: 1) Continue to monitor npo status, labs, skin 2) Refer pt to OPD on DC 3) Continue current plan of care Continue with TPN to meet >75% of needs f/u 2-3 days
--- NOTE | 2019-10-08 12:00 | NUR ---
PICC LINE CONSULT Consulted with Dr Ibarra regarding PICC line placement d/t pt currently having a Kenia-cath to right chest, and pacemaker to left chest. He states okay to access Kenia-cath for TPN administration and to cancel PICC line.
[2019-10-08 13:00] VITALS: BP 123/76
--- NOTE | 2019-10-08 14:03 | NUR ---
/DR BARRETT SPOKE WITH DR BARRETT,, UPDATED ON PT STATUS, PT REPORTED HAVING A LOOSE LARGE BM, NEW ORDERS RECEIVED AND PT MAY ADVANCE DIET TO CLEAR LIQUID, MD ALSO AWARE LATEST TEMP 99.6, CONT CARE
--- NOTE | 2019-10-08 14:35 | NUR ---
ACTIVITY PT AMBULATING, WITH PHYSICAL THERAPY USING FWW, NO C/O CP, SOB, OR ANY OTHER DISCOMFORT, CONT CARE
--- NOTE | 2019-10-08 15:10 | NUR ---
INCENTIVE SPIROMETER PT OOB TO CHAIR, PT INSTRUCTED TO USE IS, ABLE TO RETURN DEMONSTRATION AND RAISE IS TO 500-750, REPEATED FOR 10 TIMES, PT INSTRUCTED TO USE IS Q1HR WA, CONT CARE
--- NOTE | 2019-10-08 16:10 | NUR ---
ST 160'S PT WAS AMBULATING AT THIS TIME WITH PHYSICAL THERAPY FROM BATHROOM TO BED, ASSESSED PT AND NO C/O CP, DIZZINESS OR SOB, PT RETURNED TO BED, STAYED AT BEDSIDE, VS TAKEN, 02 APPLIED @ 2L VIA NC, @ 1615 PROSPER WALKED IN
--- NOTE | 2019-10-08 16:15 | NUR ---
AT BEDSIDE DR CHENG AT BEDSIDE, DISCUSSING POC, MD AWARE PT WAS AMBULATING FROM BATHROOM WITH PHYSICAL THERAPY AND HR HAD INCREASED TO 160, NO HR 105, VS 131/79, O2 ON 2L VIA NC 96%, TEMP 98.4, MD STATES " THATS OKAY' NEW ORDERS RECEIVED TO CONT ACTIVITY AND DC TPN, CONT CARE
[2019-10-08 17:00] VITALS: BP 131/79
--- NOTE | 2019-10-08 19:40 | NUR ---
RECEIVED PATIENT FROM DAY SHIFT RN. PATIENT RESTING IN BED. NO S/S OF DISTRESS NOTED. DENIED PAIN FOR NOW. REPOSITIONED PATIENT, PATIENT TOLERATED WELL. JENNIFER C/I ON ABD AND OPEN TO AIR. NO S/S OF INFECTION NOTED. JORGE DRAIN IN PLACE WITH SEROSANGUINEOUS OUTPUT, COBURN CATH IN PLACE DRAINING TO GRAVITY. ENCOURAGED PATIENT TO PRACTICE ON IS EVERY HOUR, PATIENT VERBALIZED UNDERSTANDING. SCD ON. POC INSTRUCTED AND ENCOURAGED PATIENT TO CALL FOR TITLE I INSTRUCTIONAL ASSISTANT IF NEEDED. BED IN LOWEST POSITION WITH SIDE RAILS UP X 2. CALL MILIAN WITHIN REACH. ALARM ON. CONTINUE TO MONITOR FOR CHANGES Q1H AND PRN.
[2019-10-08] MEDS ORDERED: TPN PER PHARMACY IV NR ×10 (20:00)
--- NOTE | 2019-10-08 21:15 | NUR ---
REPOSITIONED PATIENT. PATIENT TOLERATED WELL. CONTINUE CARE.
[2019-10-08 22:18] VITALS: BP 117/66
[2019-10-09] MEDS: InsuLIN REG 1unit/0.01ml Soln (100units/ml) SC SCH ×2 (00:21→06:00)
[2019-10-09] MEDS: ACCU-CHEK COMFORT CURVE STRIP VI SCH ×2 (00:21→06:02)
[2019-10-09] MEDS: MORPHINE SULFATE 4 MG/ML SYR/VIAL IV PRN ×4 (00:22→22:45)
--- NOTE | 2019-10-09 00:22 | NUR ---
ACCU-CHECK, BS 146. INSULIN GIVEN ORDERED. PATIENT HAD BM, CLEANED PATIENT. TOTAL LINEN AND PATIENT GOWN CHANGED. REPOSITIONED PATIENT. PATIENT TOLERATED WELL. BUT C/O PAIN @ 09/12, MEDICATED PATIENT ORDERED.
--- NOTE | 2019-10-09 00:50 | NUR ---
REASSESSED PAIN 05/13, CONTINUE TO MONITOR.
--- NOTE | 2019-10-09 02:08 | NUR ---
REPOSITIONED PATIENT. PATIENT TOLERATED WELL. CONTINUE CARE.
--- NOTE | 2019-10-09 04:03 | NUR ---
REPOSITIONED PATIENT. PATIENT TOLERATED WELL. CONTINUE CARE.
[2019-10-09 05:10] VITALS: BP 92/62
[2019-10-09] MEDS: PIPERACILLIN-TAZO 4.5GM 100 ML IV SCH ×3 (06:02→21:39)
--- NOTE | 2019-10-09 06:03 | NUR ---
ACCU-CHECK, BS 112. NO COVERAGE. REPOSITIONED PATIENT. PATIENT TOLERATED WELL. C/O PAIN @ 09/12, MEDICATED PATIENT ORDERED.
--- NOTE | 2019-10-09 08:00 | NUR ---
OPENING SHIFT NOTE ASSUMED CARE OF PATIENT AWAKE AND ALERT. NO S/S OF DISTRESS NOTED OR COMPLAINTS OF PAIN. PATIENT UPDATED ON POC FOR THE DAY AND ALL QUESTIONS ANSWERED. BED IS IN LOWEST, LOCKED POSITION WITH SIDE RAILS UP X2 AND CALL LIGHT WITHIN REACH. WILL CONTINUE TO MONITOR Q1H AND PRN.
[2019-10-09 08:28] VITALS: BP 136/70
[2019-10-09] MEDS ORDERED: guaiFENesin 200 MG/10 ML UD PO PRN (08:45)
[2019-10-09] MEDS: PANTOPRAZOLE 40 MG/10 ML VIAL INJ IV SCH (10:00)
[2019-10-09 12:53] VITALS: BP 122/74
--- NOTE | 2019-10-09 14:42 | NUR ---
D/C Planning Regarding social service consult for home health with Glenna johnson for wound Care. Patient is on service with [facility] and would like to resume service with agency. Faxed clinical information to [facility]. Per Concepción with agency they will resume service for patient within 24-48hrs upon d/c day.
[2019-10-09 17:10] VITALS: BP 109/60
[2019-10-09 22:00] VITALS: BP 134/91
[2019-10-10 05:00] VITALS: BP 104/61
--- NOTE | 2019-10-10 05:10 | NUR ---
15ml of serosanguineous fluid pulled from minnie drain
[2019-10-10] MEDS: PIPERACILLIN-TAZO 4.5GM 100 ML IV SCH (05:56)
--- NOTE | 2019-10-10 05:56 | NUR ---
PT'S ZOSYN MEDICATION LEAKING. BAG WASTED AT THIS TIME AND SECOND IV BAG PULLED. WILL CONTINUE TO MONITOR.
--- NOTE | 2019-10-10 08:00 | NUR ---
OPENING SHIFT NOTE ASSUMED CARE OF PATIENT AWAKE AND ALERT. NO S/S OF DISTRESS NOTED. PATIENT HAS A COMPLAINT OF 7/10 ABDOMINAL PAIN, WILL MEDICATE PER MD ORDER AND MAR. PATIENT UPDATED ON POC FOR THE DAY AND ALL QUESTIONS ANSWERED. BED IS IN LOWEST, LOCKED POSITION WITH SIDE RAILS UP X2 AND CALL LIGHT WITHIN REACH. WILL CONTINUE TO MONITOR Q1H AND PRN.
[2019-10-10] MEDS: MORPHINE SULFATE 4 MG/ML SYR/VIAL IV PRN ×2 (09:03→22:20)
[2019-10-10] MEDS: PANTOPRAZOLE 40 MG/10 ML VIAL INJ IV SCH (09:04)
[2019-10-10 09:17] VITALS: BP 107/60
--- NOTE | 2019-10-10 12:42 | NUR ---
Nutrition Followup Notes Pt wt is 136.1 kg Pt was sleeping with no relatives at bedside when rounded this morning, with no distress. Pt diet advanced to clear liquid diet 10/07 per MD order. Pt with 50% and 75% po intake 10/08 per RN note. Continue to advance diet as medically feasible. Will monitor po intake and tolerance of intake. Est energy needs 3050-0674 kcal (11-14 kcal/kg BW 129.5kg) Est protein needs 61-92g (1-1.5g/kg IBW 61kg) Will reassess prn. LABS: GLUC 112H, Alb 2.0L GI: Pt had 1 BM 10/09 per RN doc. BS: 17 mod risk. Refer to wound assessment report for full details. PES: Obesity r/t caloric intake in excess of needs aeb pt BMI is 44.7kg/m2 Malnutrition related to morbid BMI> or equal to 40 Malnutrition related to morbid obesity Yes Comments: 1) Continue to monitor po status, labs, skin 2) Refer pt to OPD on DC 3) Continue current plan of care Continue to advance diet as medically feasible f/u 2-3 days
[2019-10-10 13:00] VITALS: BP 98/62
[2019-10-10] MEDS ORDERED: TEMAZEPAM 15 MG CAP PO PRN (14:45)
--- NOTE | 2019-10-10 14:45 | NUR ---
AT BEDSIDE DR CHENG AT BEDSIDE UPDATING PATIENT ON POC. PATIENT VERBALIZED UNDERSTANDING.
[2019-10-10 17:10] VITALS: BP 150/64
--- NOTE | 2019-10-10 17:12 | NUR ---
Gage catheter dc'd Order to discontinue gage catheter. Gage dc'd with clean technique following deflation of balloon. Patient tolerated well with no complaints of pain. Continue care.
--- NOTE | 2019-10-10 18:00 | NUR ---
AT BEDSIDE DR QUICK AT BEDSIDE ROUNDING ON PATIENT.
--- NOTE | 2019-10-10 20:14 | NUR ---
Opening Shift Note Assumed care of patient, awake and alert. No S/S of distress/SOB or pain. Instructed on POC and to call for assist PRN, will continue to monitor for changes Q1hr and PRN. Bed locked in lowest position, side rails up x 3, HOB elevated at least 30 degrees and call light is within reach.
--- NOTE | 2019-10-10 21:16 | NUR ---
EKG PERFORMED Patient had a run of VTACH while being re positioned in bed. EKG performed showing Sinus Rhythm.
[2019-10-10 22:00] VITALS: BP 107/68
[2019-10-11] MEDS: MORPHINE SULFATE 4 MG/ML SYR/VIAL IV PRN ×2 (03:35→10:45)
--- NOTE | 2019-10-11 04:00 | NUR ---
30ml of serosanguineous fluid pulled from minnie drain
[2019-10-11 05:00] VITALS: BP 122/80
--- NOTE | 2019-10-11 07:13 | NUR ---
CLOSING SHIFT NOTE Endorsed care to day shift RN
[2019-10-11 09:00] VITALS: BP 123/71
--- NOTE | 2019-10-11 10:00 | NUR ---
D/C Planning Regarding social service consult to arrange transportation. Faxed transportation form request to [facility] requesting for a 12:30 order picker time via [employer]. Per Fouzia with [facility], transportation has been arranged with [employer] at 12:30 [phone]. Informed JOSÉ MIGUEL Funes.
[2019-10-11] MEDS: PANTOPRAZOLE 40 MG/10 ML VIAL INJ IV SCH (11:54)
--- NOTE | 2019-10-11 14:39 | NUR ---
PATIENT TRANSPORTED AT 1400 WITH [facility]. PER RELIEF JOSÉ MIGUEL CRUZ, NO DISTRESS NOTED AT TIME OF DEPARTURE. ACCESS TO PORT A CATH DISCONTINUED AND TELE BOX DISCONNECTED AND SENT TO ICU.
== END 2019-10-11 14:00 | disposition home health service (06) | DRG 853 ==
LOC: ER 21:30 → TELE 21:31 → ICU WEST 10-02 21:05 → TELE-CENTR 10-04 17:05
PROVIDERS: ADMIT Nurse Practitioner; ATTEND Internal Medicine Cardiovascular Disease
PROC: 0DTF0ZZ Resection of Right Large Intestine, Open Approach (ICD-10-PCS; 2019-10-02)
PROC: 0BH17EZ Insertion of Endotracheal Airway into Trachea, Via Natural or Artificial Opening (ICD-10-PCS; 2019-10-02)
PROC: 5A1945Z Respiratory Ventilation, 24-96 Consecutive Hours (ICD-10-PCS; principal; 2019-10-02 15:35)
DX: A41.9 Sepsis, unspecified organism (principal); K55.049 Acute infarction of large intestine, extent unspecified; K65.9 Peritonitis, unspecified; R57.1 Hypovolemic shock; I50.23 Acute on chronic systolic (congestive) heart failure; J96.00 Acute respiratory failure, unspecified whether with hypoxia or hypercapnia; I42.0 Dilated cardiomyopathy; K56.609 Unspecified intestinal obstruction, unspecified as to partial versus complete obstruction; Z68.42 Body mass index [BMI] 45.0-49.9, adult; E44.0 Moderate protein-calorie malnutrition; R64 Cachexia; K63.89 Other specified diseases of intestine; D72.823 Leukemoid reaction; E66.01 Morbid (severe) obesity due to excess calories; E78.5 Hyperlipidemia, unspecified; G47.30 Sleep apnea, unspecified; Z95.810 Presence of automatic (implantable) cardiac defibrillator; I11.0 Hypertensive heart disease with heart failure; I25.2 Old myocardial infarction; F17.210 Nicotine dependence, cigarettes, uncomplicated; Z83.3 Family history of diabetes mellitus; Z82.49 Family history of ischemic heart disease and other diseases of the circulatory system; Z98.84 Bariatric surgery status
CPT/HCPCS: 36415; 36600; 71045; 74176; 76604; 80053; 81001; 82040; 82805; 82962; 83605; 83690; 83735; 83880; 84100; 84478; 85025; 85610; 85730; 86850; 86900; 86901; 87040; 87070; 87077; 87081; 87086; 87186; 87205; 93005; 94002; 94003; 94640; 96361; 96365; 96368; 96375; 96376; 97110; 97116; 97530; A4618; C9113; G0378; J0690; J0696; J0885; J1100; J1642; J1815; J1956; J2250; J2405; J2543; J3480; J3490; J7060

== ENCOUNTER → 2019-10-25 | Outpatient (CLI) | payer MEDICARE, MEDICAID ==
[~2019-10-25] VITALS: Ht 30.5 cm; Wt 123.4 kg
[2019-10-25] VITALS (11 sets, daily range): BP systolic 80–125; BP diastolic 33–75
[~2019-10-25] MED LIST changes: -AMIO200T33 PO; -CARV25TA55 PO; +CYANOCOBALAMIN (B-12) 1000 MCG/1 ML VIAL IM ONE; +CYANOCOBALAMIN (B-12) 1000 MCG/1 ML VIAL ONE; +DOBUTamine 1000MCG/ML 250 ML IV ONE; +METR500T14 PO; -SACU1TAB PO; +SODIUM CHLORIDE 0.9% 1,000 ML IV ONE; -SPIR25TA8 PO; +TEMA15CA91 PO
--- NOTE | 2019-10-25 08:00 | NUR ---
CLINIC PT ARRIVED TO THE CHF CLINIC FOR WEEKLY CHF EVAL AND TX PER MD ORDERS. A/OX4, AMBULATORY WITH WALKER. ACCOMPANIED BY DAUGHTER. THE PT IS POST HOSPITAL ADMISSION FOR BOWEL NECROSIS. THE PT DENIES ANY PAIN AT THIS TIME. WT HAS DECREASED 5.7 LBS FROM LAST VISIT ON 10/26/19. THE PT IS SCHEDULED FOR CHECK UP WITH MD CHENG TODAY.
--- NOTE | 2019-10-25 08:11 | NUR ---
Kenia Cath Insertion 20 gauge Kenia Cath inserted using sterile technique in the R upper chest with occlusive dressing over laureano needle. Patient tolerated procedure well. Ordered labs drawn and sent. See e-MAR for medications given during this visit. NOTE INSERTED BY ENEDINA VALDEZ
--- NOTE | 2019-10-25 08:19 | NUR ---
DOBUTAMINE IV STARTED @ 5MCG/KG/MIN PER MD ORDERS. VSS. WILL CONTINUE TO MONITOR.
--- NOTE | 2019-10-25 08:45 | NUR ---
PT HAS C/O NOT FEELING TOO WELL, LIGHTHEADED AND NAUSEA. HR INCREASED TO 104. DOBUTAMINE INFUSION STOPPED TO MONITOR PT PER MD ORDERS. WILL CONTINUE TO MONITOR.
--- NOTE | 2019-10-25 09:54 | NUR ---
PT STARTED ON NS @100ML/HR B/P 80/36. PT IS ASYMPTOMATIC, A/OX4.
--- NOTE | 2019-10-25 12:19 | NUR ---
PT TO BACK OFFICE FOR MD APPOINTMENT WITH [facility]. KRAMER, AMBULATORY WITH WALKER.
[2019-10-25 12:23] LABS: Basophils # (auto) 0 10 ^3/uL (0-0.2); Basophils % (auto) 0.9 % (0.0-2.0); Eosinophils # (auto) 0.3 10 ^3/uL (0-0.8); Eosinophils % (auto) 7.2 % (0.0-7.0); Hematocrit 30.3 % (36.0-46.0); Hemoglobin 9.6 g/dL (12.2-16.2); Lymphocytes # (auto) 1.3 10 ^3/uL (0.4-5.4); Lymphocytes % (auto) 28.8 % (10.0-50.0); Mean Corpuscular Hemoglobin 27.6 pg (28.0-32.0); Mean Corpuscular Hgb Conc. 31.8 g/dL (32.0-36.0); Mean Corpuscular Volume 86.7 fL (80.0-100.0); Monocytes # (auto) 0.4 10 ^3/uL (0-1.3); Monocytes % (auto) 8.8 % (0.0-12.0); Neutrophils # (auto) 2.5 10 ^3/uL (1.6-8.6); Neutrophils % (auto) 54.3 % (37.0-80.0); Platelet Count (auto) 280 10^3/uL (140-450); Red Blood Cells 3.49 10^6/uL (4.0-5.20); Red Cell Distribution Width 17.3 % (11.8-14.3); White Blood Cell 4.6 10^3/uL (4.4-10.8)
--- NOTE | 2019-10-25 12:58 | NUR ---
PT RETURNED TO CLINIC FROM BACK OFFICE WITH ORDERS FOR STAT DOPPLER. A/OX4, AMBULATORY WITH WALKER BUT SOB WITH ACTIVITY. BREATHING IS EVEN AND UNLABORED.
--- NOTE | 2019-10-25 13:04 | NUR ---
Discharge Instructions See e-MAR for any mediations given with this visit. Patient education given on disease process. Patient verbalized understanding. Previous labs reviewed. Patient discharged in stable condition with after care instructions and follow up appointment ON MON. NOTE DOBUTAMINE IV [id number] ADMIN BY ENEDINA VALDEZ NS [id number] ADMIN BY MCKAY VALDEZ HEPARIN IVP ADMIN BY MCKAY VALDEZ VIT B12 IM R DELTOID ADMIN BY ADRIENNE CASANOVA LOT#[id number] EXP 06/26
[2019-10-25 17:31] LABS: Albumin 2.6 g/dL (3.4-5.0); Calcium 10.1 mg/dL (8.5-10.1); Magnesium 1.7 mg/dL (1.6-2.6)
[2019-10-25 17:35] LABS: BUN/Creatinine Ratio 10.8; Bilirubin, Total 0.5 mg/dL (0.2-1.0); Total Protein 6.8 g/dL (6.4-8.2)
== END | disposition home or self-care (01) ==
LOC: CHF HDHVI 08:12
PROVIDERS: ATTEND Internal Medicine Cardiovascular Disease
DX: I13.2 Hypertensive heart and chronic kidney disease with heart failure and with stage 5 chronic kidney disease, or end stage renal disease (principal); I50.23 Acute on chronic systolic (congestive) heart failure; N18.6 End stage renal disease; I50.84 End stage heart failure; R42 Dizziness and giddiness; I25.10 Atherosclerotic heart disease of native coronary artery without angina pectoris; I48.91 Unspecified atrial fibrillation; I25.2 Old myocardial infarction; I42.8 Other cardiomyopathies; R94.4 Abnormal results of kidney function studies; D64.9 Anemia, unspecified; R53.83 Other fatigue; J44.9 Chronic obstructive pulmonary disease, unspecified; E78.5 Hyperlipidemia, unspecified; E44.0 Moderate protein-calorie malnutrition; E78.00 Pure hypercholesterolemia, unspecified; G89.29 Other chronic pain; E66.01 Morbid (severe) obesity due to excess calories; Z68.42 Body mass index [BMI] 45.0-49.9, adult; Z87.891 Personal history of nicotine dependence; Z79.899 Other long term (current) drug therapy; Z95.810 Presence of automatic (implantable) cardiac defibrillator
CPT/HCPCS: 36415; 80053; 83735; 83880; 85025; 96361; 96365; 96372; G0463; J1250; J1642; J3420; J7030; 96366; 96367

== ENCOUNTER → 2019-11-01 | Outpatient (CLI) | payer MEDICARE, MEDICAID ==
[2019-11-01] VITALS (9 sets, daily range): BP systolic 91–112; BP diastolic 40–65
[~2019-11-01] MED LIST changes: -CYANOCOBALAMIN (B-12) 1000 MCG/1 ML VIAL IM ONE; -CYANOCOBALAMIN (B-12) 1000 MCG/1 ML VIAL ONE; +POTASSIUM CHL 10 Meq TABLET PO ONE; +POTASSIUM CHL 20 Meq TABLET PO ONE; -SODIUM CHLORIDE 0.9% 1,000 ML IV ONE
--- NOTE | 2019-11-01 08:30 | NUR ---
CLINIC PT ARRIVED TO THE CHF CLINIC FOR WEEKLY CHF EVAL AND TX. A/OX4, AMBULATORY WITH WALKER AND ASSISTANCE BY DAUGHTER. PT HAS A 6.3 LB WT LOSS SINCE LAST VISIT ON 10/25/19. 1+ EDEMA TO THE L LOWER EXTREMITY.
--- NOTE | 2019-11-01 08:54 | NUR ---
DOBUTAMINE IV STARTED @ 3 MCG/KG/MIN PER MD ORDERS, VSS, WILL CONTINUE TO MONITOR.
--- NOTE | 2019-11-01 10:35 | NUR ---
PT TOLERATING DOBUTAMINE INFUSION. PORT SITE BENIGN. VSS. WILL CONTINUE TO MONITOR,
--- NOTE | 2019-11-01 11:45 | NUR ---
K+ 3.4 AWARE NEW ORDERS RECEIVED AND CARRIED OUT SEE EMAR
--- NOTE | 2019-11-01 12:31 | NUR ---
Discharge Instructions See e-MAR for any mediations given with this visit. Patient education given on disease process. Patient verbalized understanding. Previous labs reviewed. Patient discharged in stable condition with after care instructions and follow up appointment ON MON. NOTE DOBUTAMINE IV [id number] ADMIN BY MCKAY VALDEZ HEPARIN IVP ADMIN BY MCKAY VALDEZ K+ PO ADMIN BY MCKAY VALDEZ
== END | disposition home or self-care (01) ==
LOC: CHF HDHVI 08:32
PROVIDERS: ATTEND Internal Medicine Cardiovascular Disease
DX: I13.2 Hypertensive heart and chronic kidney disease with heart failure and with stage 5 chronic kidney disease, or end stage renal disease (principal); I50.33 Acute on chronic diastolic (congestive) heart failure; N18.6 End stage renal disease; I50.84 End stage heart failure; R53.83 Other fatigue; I25.10 Atherosclerotic heart disease of native coronary artery without angina pectoris; I25.2 Old myocardial infarction; I42.8 Other cardiomyopathies; J44.9 Chronic obstructive pulmonary disease, unspecified; E78.5 Hyperlipidemia, unspecified; E78.00 Pure hypercholesterolemia, unspecified; E44.0 Moderate protein-calorie malnutrition; G89.29 Other chronic pain; E66.01 Morbid (severe) obesity due to excess calories; Z68.42 Body mass index [BMI] 45.0-49.9, adult; Z87.891 Personal history of nicotine dependence; Z95.810 Presence of automatic (implantable) cardiac defibrillator; Z79.899 Other long term (current) drug therapy
CPT/HCPCS: 36415; 84132; 96365; 96366; G0463; J1250; J1642

== ENCOUNTER → 2019-11-06 | Outpatient (CLI) | payer MEDICARE, MEDICAID ==
[2019-11-06] VITALS (9 sets, daily range): BP systolic 99–116; BP diastolic 48–68
[~2019-11-06] MED LIST changes: +CATHFLO ACTIVASE (ALTEPLASE) 2 MG VIAL IV ONE; +CYANOCOBALAMIN (B-12) 1000 MCG/1 ML VIAL IM ONE; +CYANOCOBALAMIN (B-12) 1000 MCG/1 ML VIAL ONE; -POTASSIUM CHL 10 Meq TABLET PO ONE; -POTASSIUM CHL 20 Meq TABLET PO ONE; +STERILE WATER 10 ML ONE
--- NOTE | 2019-11-06 08:30 | NUR ---
CLINIC PT ARRIVED TO THE CHF CLINIC FOR WEEKLY CHF EVAL AND TX PER MD ORDERS. A/OX4, AMBULATORY WITH WALKER AND ASSISTANCE BY DAUGHTER. PT C/O PAIN 5/10 IN STOMACH WHERE JENNIFER AND DRAIN WERE REMOVED YESTERDAY. ABD ASSESSED WOUND LOOKS GOOD, DRESSING IN RLQ IS DRY AND INTACT NO ODOR NO SIGNS OF INFECTION. PT ADVISED TO LEAVE DRESSING IN PLACE FOR SHOWER UNTIL IT FALLS OFF.
--- NOTE | 2019-11-06 08:40 | NUR ---
Kenia Cath Insertion 20 gauge Kenia Cath inserted using sterile technique in the R upper chest with occlusive dressing over laureano needle. Patient tolerated procedure well. NO BLOOD RETURN PRESENT. See e-MAR for medications given during this visit.
--- NOTE | 2019-11-06 09:53 | NUR ---
PORT ASSESSED AFTER CATHFLO. BLOOD RETURN PRESENT. LABS DRAWN AND SENT STAT. PORT FLUSHED WITH 10ML 0.9%NS
--- NOTE | 2019-11-06 10:01 | NUR ---
DOBUTAMINE IV STARTED @ 3MCG/KG/MIN PER MD ORDERS. VSS. WILL CONTINUE TO MONITOR.
[2019-11-06 11:03] LABS: Basophils # (auto) 0.1 10 ^3/uL (0-0.2); Basophils % (auto) 0.6 % (0.0-2.0); Eosinophils # (auto) 0.1 10 ^3/uL (0-0.8); Eosinophils % (auto) 0.8 % (0.0-7.0); Hematocrit 29.7 % (36.0-46.0); Hemoglobin 9.5 g/dL (12.2-16.2); Lymphocytes # (auto) 0.9 10 ^3/uL (0.4-5.4); Lymphocytes % (auto) 10.1 % (10.0-50.0); Mean Corpuscular Hemoglobin 28.5 pg (28.0-32.0); Mean Corpuscular Hgb Conc. 31.8 g/dL (32.0-36.0); Mean Corpuscular Volume 89.5 fL (80.0-100.0); Monocytes # (auto) 0.8 10 ^3/uL (0-1.3); Monocytes % (auto) 8.3 % (0.0-12.0); Neutrophils # (auto) 7.3 10 ^3/uL (1.6-8.6); Neutrophils % (auto) 80.2 % (37.0-80.0); Platelet Count (auto) 264 10^3/uL (140-450); Red Blood Cells 3.32 10^6/uL (4.0-5.20); Red Cell Distribution Width 17.8 % (11.8-14.3); White Blood Cell 9.1 10^3/uL (4.4-10.8)
[2019-11-06 11:10] LABS: Albumin 2.3 g/dL (3.4-5.0); Calcium 10.4 mg/dL (8.5-10.1); Potassium 4.3 mmol/L (3.5-5.1)
[2019-11-06 11:13] LABS: Bilirubin, Total 0.5 mg/dL (0.2-1.0); Total Protein 6.1 g/dL (6.4-8.2)
--- NOTE | 2019-11-06 11:40 | NUR ---
PT TOLERATING DOBUTAMINE INFUSION. PORT SITE BENIGN. VSS. WILL CONTINUE TO MONITOR
--- NOTE | 2019-11-06 13:10 | NUR ---
Discharge Instructions See e-MAR for any mediations given with this visit. Patient education given on disease process. Patient verbalized understanding. Previous labs reviewed. Patient discharged in stable condition with after care instructions and follow up appointment TODAY IN CLINIC. NOTE DOBUTAMINE IV [id number] ADMIN BY MCKAY VALDEZ HEPARIN IVP ADMIN BY MCKAY VALDEZ CATHFLO IVP ADMIN BY ENEDINA VALDEZ VIT B12 IM ADMIN BY ЕКАТЕРИНА VALDEZ
== END | disposition home or self-care (01) ==
LOC: CHF HDHVI 08:40
PROVIDERS: ATTEND Internal Medicine Cardiovascular Disease
DX: I13.2 Hypertensive heart and chronic kidney disease with heart failure and with stage 5 chronic kidney disease, or end stage renal disease (principal); I50.23 Acute on chronic systolic (congestive) heart failure; N18.6 End stage renal disease; I50.84 End stage heart failure; I25.10 Atherosclerotic heart disease of native coronary artery without angina pectoris; I25.2 Old myocardial infarction; I42.8 Other cardiomyopathies; I48.91 Unspecified atrial fibrillation; D64.9 Anemia, unspecified; E83.40 Disorders of magnesium metabolism, unspecified; R53.83 Other fatigue; I82.409 Acute embolism and thrombosis of unspecified deep veins of unspecified lower extremity; J44.9 Chronic obstructive pulmonary disease, unspecified; E78.5 Hyperlipidemia, unspecified; E43 Unspecified severe protein-calorie malnutrition; E66.01 Morbid (severe) obesity due to excess calories; E78.00 Pure hypercholesterolemia, unspecified; Z79.899 Other long term (current) drug therapy; Z87.891 Personal history of nicotine dependence; Z95.810 Presence of automatic (implantable) cardiac defibrillator
CPT/HCPCS: 36415; 80053; 83735; 83880; 85025; 96365; 96366; 96372; 96375; G0463; J1250; J1642; J2997; J3420

== ENCOUNTER → 2019-11-15 | Outpatient (CLI) | payer MEDICARE, MEDICAID ==
[2019-11-15] VITALS (9 sets, daily range): BP systolic 81–133; BP diastolic 44–76
[~2019-11-15] MED LIST changes: -CATHFLO ACTIVASE (ALTEPLASE) 2 MG VIAL IV ONE; -CYANOCOBALAMIN (B-12) 1000 MCG/1 ML VIAL IM ONE; -CYANOCOBALAMIN (B-12) 1000 MCG/1 ML VIAL ONE; -STERILE WATER 10 ML ONE
[2019-11-15 12:36] LABS: Basophils # (auto) 0 10 ^3/uL (0-0.2); Basophils % (auto) 0.9 % (0.0-2.0); Eosinophils # (auto) 0.2 10 ^3/uL (0-0.8); Eosinophils % (auto) 3.1 % (0.0-7.0); Hematocrit 32.7 % (36.0-46.0); Hemoglobin 10.3 g/dL (12.2-16.2); Lymphocytes # (auto) 1.1 10 ^3/uL (0.4-5.4); Lymphocytes % (auto) 22.8 % (10.0-50.0); Mean Corpuscular Hemoglobin 27.6 pg (28.0-32.0); Mean Corpuscular Hgb Conc. 31.4 g/dL (32.0-36.0); Mean Corpuscular Volume 87.9 fL (80.0-100.0); Monocytes # (auto) 0.3 10 ^3/uL (0-1.3); Neutrophils # (auto) 3.3 10 ^3/uL (1.6-8.6); Neutrophils % (auto) 66.2 % (37.0-80.0); Nucleated Red Blood Cells % 0.1 %; Platelet Count (auto) 339 10^3/uL (140-450); Red Blood Cells 3.72 10^6/uL (4.0-5.20); Red Cell Distribution Width 17.2 % (11.8-14.3)
[2019-11-15 12:46] LABS: Calcium 10.7 mg/dL (8.5-10.1); Potassium 4.1 mmol/L (3.5-5.1)
[2019-11-15 12:48] LABS: BUN/Creatinine Ratio 11.5
== END | disposition home or self-care (01) ==
LOC: CHF HDHVI 08:11
PROVIDERS: ATTEND Internal Medicine Cardiovascular Disease
DX: I13.2 Hypertensive heart and chronic kidney disease with heart failure and with stage 5 chronic kidney disease, or end stage renal disease (principal); N18.6 End stage renal disease; I50.23 Acute on chronic systolic (congestive) heart failure; I50.84 End stage heart failure; R53.83 Other fatigue; I25.10 Atherosclerotic heart disease of native coronary artery without angina pectoris; I25.2 Old myocardial infarction; I42.8 Other cardiomyopathies; I48.91 Unspecified atrial fibrillation; J44.9 Chronic obstructive pulmonary disease, unspecified; E78.5 Hyperlipidemia, unspecified; E78.00 Pure hypercholesterolemia, unspecified; G89.29 Other chronic pain; E43 Unspecified severe protein-calorie malnutrition; E66.01 Morbid (severe) obesity due to excess calories; Z68.42 Body mass index [BMI] 45.0-49.9, adult; Z79.899 Other long term (current) drug therapy; Z87.891 Personal history of nicotine dependence; Z95.810 Presence of automatic (implantable) cardiac defibrillator
CPT/HCPCS: 36415; 80048; 80162; 82306; 82607; 83880; 85025; 96365; 96366; G0463; J1250; J1642

== ENCOUNTER → 2019-11-20 | Outpatient (CLI) | payer MEDICARE, MEDICAID ==
[2019-11-20] VITALS (9 sets, daily range): BP systolic 83–110; BP diastolic 30–56
--- NOTE | 2019-11-20 08:20 | NUR ---
PATIENT INTO CLINIC FOR SCHEDULED INFUSION, AAOX4, AMBULATORY, BREATHING EVEN AND UNLABORED. PATIENT STATED SHE FEELS GOOD, SAYS SHE STARTED TAKING DIGOXIN ABOUT A MONTH AGO. PATIENT IS DOWN 5LBS SINCE LAST VISIT, HAS PORTACATH AND AICD.
--- NOTE | 2019-11-20 08:49 | NUR ---
Kenia Cath Insertion 20 gauge 0.75 inch Kenia Cath inserted using sterile technique in the R upper chest with occlusive dressing over laureano needle. Patient tolerated procedure well. Ordered labs drawn and sent. See e-MAR for medications given during this visit.
--- NOTE | 2019-11-20 10:00 | NUR ---
Patient talking with other patients, watching TV, AAOx4, will continue to monitor.
--- NOTE | 2019-11-20 12:00 | NUR ---
Discharge Instructions See e-MAR for any mediations given with this visit. Patient education given on disease process. Patient verbalized understanding. Previous labs reviewed. Patient discharged in stable condition with after care instructions and follow up appointment. Note Dobutamine [id number] admin by Savannah VALDEZ Heparin admin by Tawana VALDEZ
[2019-11-20 12:23] LABS: Potassium 3.7 mmol/L (3.5-5.1)
== END | disposition home or self-care (01) ==
LOC: CHF HDHVI 08:12
PROVIDERS: ATTEND Internal Medicine Cardiovascular Disease
DX: I42.0 Dilated cardiomyopathy (principal); I13.2 Hypertensive heart and chronic kidney disease with heart failure and with stage 5 chronic kidney disease, or end stage renal disease; I50.23 Acute on chronic systolic (congestive) heart failure; N18.6 End stage renal disease; I50.84 End stage heart failure; R53.83 Other fatigue; R53.1 Weakness; F41.9 Anxiety disorder, unspecified; I25.10 Atherosclerotic heart disease of native coronary artery without angina pectoris; I82.409 Acute embolism and thrombosis of unspecified deep veins of unspecified lower extremity; I48.91 Unspecified atrial fibrillation; I25.2 Old myocardial infarction; J44.9 Chronic obstructive pulmonary disease, unspecified; E78.5 Hyperlipidemia, unspecified; G89.29 Other chronic pain; E78.00 Pure hypercholesterolemia, unspecified; E43 Unspecified severe protein-calorie malnutrition; E66.01 Morbid (severe) obesity due to excess calories; Z68.42 Body mass index [BMI] 45.0-49.9, adult; Z79.899 Other long term (current) drug therapy; Z87.891 Personal history of nicotine dependence; Z95.810 Presence of automatic (implantable) cardiac defibrillator; Z90.49 Acquired absence of other specified parts of digestive tract
CPT/HCPCS: 36415; 80162; 82565; 84132; 84520; 96365; 96366; G0463; J1250; J1642

== ENCOUNTER → 2019-11-29 | Outpatient (CLI) | payer MEDICARE, MEDICAID ==
[2019-11-29] VITALS (11 sets, daily range): BP systolic 74–100; BP diastolic 37–59
[~2019-11-29] VITALS: Ht 30.5 cm; Wt 112.2 kg
[~2019-11-29] MED LIST changes: +CYANOCOBALAMIN (B-12) 1000 MCG/1 ML VIAL IM ONE; +CYANOCOBALAMIN (B-12) 1000 MCG/1 ML VIAL ONE; +READI-CAT 2 (BARIUM SULF)(VANILLA SMOOTHIE) 450ML ONE; +SODIUM CHLORIDE 0.9% 250 ML IV ONE
[2019-11-29 09:50] LABS: Basophils # (auto) 0.1 10 ^3/uL (0-0.2); Basophils % (auto) 1.5 % (0.0-2.0); Eosinophils # (auto) 0.2 10 ^3/uL (0-0.8); Eosinophils % (auto) 4.1 % (0.0-7.0); Hematocrit 33.4 % (36.0-46.0); Hemoglobin 10.7 g/dL (12.2-16.2); Lymphocytes # (auto) 1.3 10 ^3/uL (0.4-5.4); Lymphocytes % (auto) 25.8 % (10.0-50.0); Mean Corpuscular Hemoglobin 28.7 pg (28.0-32.0); Mean Corpuscular Hgb Conc. 32.2 g/dL (32.0-36.0); Mean Corpuscular Volume 89.2 fL (80.0-100.0); Monocytes # (auto) 0.4 10 ^3/uL (0-1.3); Monocytes % (auto) 8.3 % (0.0-12.0); Neutrophils % (auto) 60.3 % (37.0-80.0); Nucleated Red Blood Cells % 0.1 %; Platelet Count (auto) 258 10^3/uL (140-450); Red Blood Cells 3.74 10^6/uL (4.0-5.20); Red Cell Distribution Width 17.2 % (11.8-14.3)
[2019-11-29 10:23] LABS: Calcium 10.6 mg/dL (8.5-10.1); Magnesium 2.1 mg/dL (1.6-2.6); Potassium 3.6 mmol/L (3.5-5.1)
[2019-11-29 10:25] LABS: BUN/Creatinine Ratio 12.9
== END | disposition home or self-care (01) ==
LOC: CHF HDHVI 08:13
PROVIDERS: ATTEND Internal Medicine Cardiovascular Disease
DX: I13.2 Hypertensive heart and chronic kidney disease with heart failure and with stage 5 chronic kidney disease, or end stage renal disease (principal); N18.6 End stage renal disease; I50.23 Acute on chronic systolic (congestive) heart failure; I50.84 End stage heart failure; R53.83 Other fatigue; F41.9 Anxiety disorder, unspecified; I25.10 Atherosclerotic heart disease of native coronary artery without angina pectoris; I25.2 Old myocardial infarction; I48.91 Unspecified atrial fibrillation; I42.8 Other cardiomyopathies; J44.9 Chronic obstructive pulmonary disease, unspecified; E78.5 Hyperlipidemia, unspecified; G89.29 Other chronic pain; E78.00 Pure hypercholesterolemia, unspecified; E43 Unspecified severe protein-calorie malnutrition; E66.01 Morbid (severe) obesity due to excess calories; Z68.42 Body mass index [BMI] 45.0-49.9, adult; Z79.899 Other long term (current) drug therapy; Z87.891 Personal history of nicotine dependence; Z95.810 Presence of automatic (implantable) cardiac defibrillator; Z90.49 Acquired absence of other specified parts of digestive tract
CPT/HCPCS: 36415; 74176; 80048; 83735; 83880; 85025; 96361; 96365; 96372; G0463; J1250; J1642; J3420; J7050

== ENCOUNTER → 2019-12-06 | Outpatient (CLI) | payer MEDICARE, MEDICAID ==
[2019-12-06] VITALS (9 sets, daily range): BP systolic 73–102; BP diastolic 26–62
[~2019-12-06] MED LIST changes: -CYANOCOBALAMIN (B-12) 1000 MCG/1 ML VIAL IM ONE; -CYANOCOBALAMIN (B-12) 1000 MCG/1 ML VIAL ONE; -READI-CAT 2 (BARIUM SULF)(VANILLA SMOOTHIE) 450ML ONE
--- NOTE | 2019-12-06 08:16 | NUR ---
PATIENT INTO CLINIC FOR SCHEDULED APPT. PATIENT AAOx4, AMBULATORY, BREATHING EVEN AND UNLABORED, PATIENT WEIGHT DOWN 4LBS IN ONE WEEK.
--- NOTE | 2019-12-06 09:00 | NUR ---
DUNCAN BASHIR RN UNABLE TO ACCESS PORT AFTER 3 ATTEMPTS, PATIENTS PORT MOVES FROM RECENT WEIGHT LOSS.
--- NOTE | 2019-12-06 11:00 | NUR ---
SPOKE WITH DR CHENG REGARDING PATIENT BP AND WEIGHT LOSS, COREG DECREASED TO 12.5MG BID AND WRITTEN PRESCRIPTIONS FOR NORCO AND RESTORIL GIVEN TO PATIENT
--- NOTE | 2019-12-06 11:30 | NUR ---
SENT ESCRIPT FOR ALBUTEROL INHALER REFILL TO PT PREFERRED PHARMACY.
--- NOTE | 2019-12-06 12:15 | NUR ---
Discharge Instructions See e-MAR for any mediations given with this visit. Patient education given on disease process. Patient verbalized understanding. Previous labs reviewed. Patient discharged in stable condition with after care instructions and follow up appointment. NOTE DOBUTAMINE [id number] ADMIN BY SANKET VALDEZ. NS [id number] ADMIN BY SANKET VALDEZ. HEPARIN ADMIN BY MCKAY VALDEZ.
[2019-12-06 12:37] LABS: Calcium 10.6 mg/dL (8.5-10.1); Potassium 3.2 mmol/L (3.5-5.1)
[2019-12-06 12:39] LABS: BUN/Creatinine Ratio 13.5
[2019-12-06 12:46] LABS: Basophils # (auto) 0.1 10 ^3/uL (0-0.2); Basophils % (auto) 1.1 % (0.0-2.0); Eosinophils # (auto) 0.1 10 ^3/uL (0-0.8); Eosinophils % (auto) 3.1 % (0.0-7.0); Hematocrit 32.9 % (36.0-46.0); Hemoglobin 10.6 g/dL (12.2-16.2); Lymphocytes # (auto) 1.7 10 ^3/uL (0.4-5.4); Lymphocytes % (auto) 35.4 % (10.0-50.0); Mean Corpuscular Hemoglobin 27.7 pg (28.0-32.0); Mean Corpuscular Hgb Conc. 32.1 g/dL (32.0-36.0); Mean Corpuscular Volume 86.3 fL (80.0-100.0); Monocytes # (auto) 0.3 10 ^3/uL (0-1.3); Monocytes % (auto) 6.6 % (0.0-12.0); Neutrophils # (auto) 2.6 10 ^3/uL (1.6-8.6); Neutrophils % (auto) 53.8 % (37.0-80.0); Nucleated Red Blood Cells % 0.3 %; Platelet Count (auto) 237 10^3/uL (140-450); Red Blood Cells 3.81 10^6/uL (4.0-5.20); Red Cell Distribution Width 16.8 % (11.8-14.3); White Blood Cell 4.8 10^3/uL (4.4-10.8)
== END | disposition home or self-care (01) ==
LOC: CHF HDHVI 08:29
PROVIDERS: ATTEND Internal Medicine Cardiovascular Disease
DX: I13.2 Hypertensive heart and chronic kidney disease with heart failure and with stage 5 chronic kidney disease, or end stage renal disease (principal); I50.23 Acute on chronic systolic (congestive) heart failure; N18.6 End stage renal disease; I50.84 End stage heart failure; R53.83 Other fatigue; R53.1 Weakness; E86.0 Dehydration; I25.10 Atherosclerotic heart disease of native coronary artery without angina pectoris; I48.91 Unspecified atrial fibrillation; I25.2 Old myocardial infarction; I42.8 Other cardiomyopathies; J44.9 Chronic obstructive pulmonary disease, unspecified; F41.9 Anxiety disorder, unspecified; E78.5 Hyperlipidemia, unspecified; G89.29 Other chronic pain; E78.00 Pure hypercholesterolemia, unspecified; E43 Unspecified severe protein-calorie malnutrition; E66.01 Morbid (severe) obesity due to excess calories; Z68.42 Body mass index [BMI] 45.0-49.9, adult; Z87.891 Personal history of nicotine dependence; Z95.810 Presence of automatic (implantable) cardiac defibrillator; Z90.49 Acquired absence of other specified parts of digestive tract; Z79.899 Other long term (current) drug therapy
CPT/HCPCS: 36415; 80048; 83735; 83880; 85025; 96365; 96366; G0463; J1250; J1642; J7050; 96368

== ENCOUNTER → 2019-12-11 | Outpatient (CLI) | payer MEDICARE, MEDICAID ==
[2019-12-11] VITALS (10 sets, daily range): BP systolic 78–104; BP diastolic 40–64
[~2019-12-11] MED LIST changes: -SODIUM CHLORIDE 0.9% 250 ML IV ONE; +SODIUM CHLORIDE 0.9% 500 ML IV ONE
[2019-12-11 10:22] LABS: Basophils # (auto) 0.1 10 ^3/uL (0-0.2); Basophils % (auto) 1.5 % (0.0-2.0); Eosinophils # (auto) 0.2 10 ^3/uL (0-0.8); Eosinophils % (auto) 3.8 % (0.0-7.0); Hematocrit 34.4 % (36.0-46.0); Lymphocytes # (auto) 1.3 10 ^3/uL (0.4-5.4); Lymphocytes % (auto) 30.8 % (10.0-50.0); Mean Corpuscular Hgb Conc. 31.9 g/dL (32.0-36.0); Mean Corpuscular Volume 87.7 fL (80.0-100.0); Monocytes # (auto) 0.3 10 ^3/uL (0-1.3); Monocytes % (auto) 8.2 % (0.0-12.0); Neutrophils # (auto) 2.3 10 ^3/uL (1.6-8.6); Neutrophils % (auto) 55.7 % (37.0-80.0); Nucleated Red Blood Cells % 0.3 %; Platelet Count (auto) 213 10^3/uL (140-450); Red Blood Cells 3.93 10^6/uL (4.0-5.20); Red Cell Distribution Width 17.3 % (11.8-14.3); White Blood Cell 4.2 10^3/uL (4.4-10.8)
[2019-12-11 10:43] LABS: Albumin 2.7 g/dL (3.4-5.0); Calcium 10.6 mg/dL (8.5-10.1); Potassium 3.3 mmol/L (3.5-5.1)
[2019-12-11 10:45] LABS: BUN/Creatinine Ratio 15.1; Bilirubin, Total 0.5 mg/dL (0.2-1.0); Total Protein 6.5 g/dL (6.4-8.2)
== END | disposition home or self-care (01) ==
LOC: CHF HDHVI 08:30
PROVIDERS: ATTEND Internal Medicine Cardiovascular Disease
DX: I13.2 Hypertensive heart and chronic kidney disease with heart failure and with stage 5 chronic kidney disease, or end stage renal disease (principal); I50.23 Acute on chronic systolic (congestive) heart failure; N18.6 End stage renal disease; E86.0 Dehydration; I25.10 Atherosclerotic heart disease of native coronary artery without angina pectoris; I25.2 Old myocardial infarction; I48.91 Unspecified atrial fibrillation; J44.9 Chronic obstructive pulmonary disease, unspecified; E78.5 Hyperlipidemia, unspecified; E78.00 Pure hypercholesterolemia, unspecified; F41.9 Anxiety disorder, unspecified; E66.01 Morbid (severe) obesity due to excess calories; Z68.42 Body mass index [BMI] 45.0-49.9, adult; Z95.810 Presence of automatic (implantable) cardiac defibrillator; Z90.49 Acquired absence of other specified parts of digestive tract; Z87.891 Personal history of nicotine dependence; Z79.899 Other long term (current) drug therapy
CPT/HCPCS: 36415; 80053; 83735; 83880; 84443; 85025; 96361; 96365; 96366; G0463; J1250; J1642; J7040; 96368

== ENCOUNTER → 2019-12-13 | Outpatient (CLI) | payer MEDICARE, MEDICAID ==
[2019-12-13] VITALS (12 sets, daily range): BP systolic 80–148; BP diastolic 44–81
[~2019-12-13] MED LIST changes: +SODIUM CHLORIDE 0.9% 250 ML IV ONE; -SODIUM CHLORIDE 0.9% 500 ML IV ONE
--- NOTE | 2019-12-13 08:02 | NUR ---
PT ARRIVED TO CHF CLINIC PT ARRIVED TO CHF CLINIC FOR CHF EVAL AND TX. PT IS ALERT AND AWAKE, ON ROOM AIR WITH EVEN AND UNLABORED RESPIRATIONS. PT IS AMBULATORY WITH STEADY SLOW GAIT. NO S/S OF DISTRESS/SOB OR PAIN. WILL CARRY OUT MD ORDERS.
--- NOTE | 2019-12-13 08:16 | NUR ---
Kenia Cath Insertion 20 gauge Kenia Cath inserted using sterile technique in the R upper chest with occlusive dressing over laureano needle. Patient tolerated procedure well. Ordered labs drawn and sent. See e-MAR for medications given during this visit. Addendum: 12/13/19 at 0851 by MIRIAM ALEJANDRO RN Port accessed by Tawana VALDEZ
--- NOTE | 2019-12-13 08:19 | NUR ---
MEDICATION ADMINISTERED DOBUTAMINE GTT STARTED PER MD ORDERS. PATIENT TOLERATING WELL. WILL CONTINUE TO MONITOR.
--- NOTE | 2019-12-13 08:38 | NUR ---
BLOOD PRESSURE STARTING TO DECREASE BLOOD PRESSURE STARTING TO DECREASE BP 93/52 HR 94. NS STARTED PER MD ORDERS. PATIENT REMAINS ASYMPTOMATIC, WILL CONTINUE TO MONITOR.
--- NOTE | 2019-12-13 11:45 | NUR ---
Kenia Cath Removal Fernandez needle D/C'd after Heparin flush per protocol by this RN. See e-MAR for medications given during this visit. Sterile occlusive dressing to site. Patient tolerated procedure well. Site benign post infusion.
--- NOTE | 2019-12-13 11:50 | NUR ---
Discharge Instructions See e-MAR for any mediations given with this visit. Patient education given on disease process. Patient verbalized understanding. Previous labs reviewed. Patient is alert and awake with even and unlabored respirations. No S/S of SOB/distress or pain noted Patient's BP remains stable. Patient discharged in stable condition with after care instructions and follow up appointment. NOTES DOBUTAMINE IV [id number] ADMIN BY MCKAY VALDEZ NS IV [id number] ADMIN BY MIRIAM VALDEZ HEPARIN IVP VIA PORT-A-CATH ADMIN BY MIRIAM VALDEZ
== END | disposition home or self-care (01) ==
LOC: CHF HDHVI 08:14
PROVIDERS: ATTEND Internal Medicine Cardiovascular Disease
DX: I13.2 Hypertensive heart and chronic kidney disease with heart failure and with stage 5 chronic kidney disease, or end stage renal disease (principal); I50.23 Acute on chronic systolic (congestive) heart failure; N18.6 End stage renal disease; I50.84 End stage heart failure; E86.0 Dehydration; I25.10 Atherosclerotic heart disease of native coronary artery without angina pectoris; I48.91 Unspecified atrial fibrillation; I25.2 Old myocardial infarction; I42.8 Other cardiomyopathies; J44.9 Chronic obstructive pulmonary disease, unspecified; E43 Unspecified severe protein-calorie malnutrition; E78.5 Hyperlipidemia, unspecified; F41.9 Anxiety disorder, unspecified; E78.00 Pure hypercholesterolemia, unspecified; G89.29 Other chronic pain; E66.01 Morbid (severe) obesity due to excess calories; Z68.42 Body mass index [BMI] 45.0-49.9, adult; Z79.899 Other long term (current) drug therapy; Z87.891 Personal history of nicotine dependence; Z95.810 Presence of automatic (implantable) cardiac defibrillator; Z90.49 Acquired absence of other specified parts of digestive tract
CPT/HCPCS: 96365; 96366; G0463; J1250; J1642; J7050; 96368

== ENCOUNTER → 2019-12-18 | Outpatient (CLI) | payer MEDICARE, MEDICAID ==
[2019-12-18] VITALS (10 sets, daily range): BP systolic 89–118; BP diastolic 49–83
[~2019-12-18] VITALS: Ht 30.5 cm; Wt 109.7 kg
[~2019-12-18] MED LIST changes: -SODIUM CHLORIDE 0.9% 250 ML IV ONE
--- NOTE | 2019-12-18 08:15 | NUR ---
PT ARRIVED TO CHF CLINIC PT ARRIVED TO CHF CLINIC FOR CHF TX AND EVAL. PT IS ALERT AND AWAKE WITH EVEN AND UNLABORED RESPIRATIONS. PT IS AMBULATORY WITH WALKER. NO S/S OF SOB/DISTRESS OR PAIN NOTED. WILL CARRY OUT MD ORDERS.
--- NOTE | 2019-12-18 08:22 | NUR ---
Kenia Cath Insertion [20] gauge Kenia Cath inserted by zi VALDEZ using sterile technique in the [R] upper chest with occlusive dressing over alureano needle. Patient tolerated procedure well. Ordered labs drawn and sent. See e-MAR for medications given during this visit. Will carry out MD orders.
--- NOTE | 2019-12-18 08:26 | NUR ---
ORDER DOBUTAMINE IV STARTED PER MD ORDERS. WILL CONTINUE TO MONITOR Q1H AND PRN.
--- NOTE | 2019-12-18 11:33 | NUR ---
Kenia Cath Removal Fernandez needle D/C'd BY MCKAY VALDEZ after Heparin flush per protocol. See e-MAR for medications given during this visit. Sterile occlusive dressing to site. Patient tolerated procedure well. Site benign post infusion.
--- NOTE | 2019-12-18 11:35 | NUR ---
CHF Discharge Instructions See e-MAR for any mediations given with this visit. Patient education given on disease process. Patient verbalized understanding. Previous labs reviewed. Patient discharged in stable condition, VSS, with after care instructions and follow up appointment. NOTES DOBUTAMINE IV [id number] ADMIN BY MCKAY VALDEZ HEPARIN IVP VIA PORT-A-CATH ADMIN BY MCKAY VALDEZ
[2019-12-18 12:17] LABS: Calcium 10.4 mg/dL (8.5-10.1); Magnesium 1.9 mg/dL (1.6-2.6); Potassium 3.7 mmol/L (3.5-5.1)
[2019-12-18 12:19] LABS: BUN/Creatinine Ratio 12.3
== END | disposition home or self-care (01) ==
LOC: CHF HDHVI 08:21
PROVIDERS: ATTEND Internal Medicine Cardiovascular Disease
DX: I13.2 Hypertensive heart and chronic kidney disease with heart failure and with stage 5 chronic kidney disease, or end stage renal disease (principal); I50.23 Acute on chronic systolic (congestive) heart failure; N18.6 End stage renal disease; I50.84 End stage heart failure; R53.83 Other fatigue; R53.1 Weakness; I25.10 Atherosclerotic heart disease of native coronary artery without angina pectoris; I48.91 Unspecified atrial fibrillation; I25.2 Old myocardial infarction; I42.8 Other cardiomyopathies; J44.9 Chronic obstructive pulmonary disease, unspecified; F41.9 Anxiety disorder, unspecified; E78.5 Hyperlipidemia, unspecified; E78.00 Pure hypercholesterolemia, unspecified; E43 Unspecified severe protein-calorie malnutrition; E66.01 Morbid (severe) obesity due to excess calories; Z68.42 Body mass index [BMI] 45.0-49.9, adult; Z79.899 Other long term (current) drug therapy; Z87.891 Personal history of nicotine dependence; Z90.49 Acquired absence of other specified parts of digestive tract; Z95.810 Presence of automatic (implantable) cardiac defibrillator
CPT/HCPCS: 36415; 80048; 83735; 83880; 96365; 96366; G0463; J1250; J1642

== ENCOUNTER → 2019-12-27 | Outpatient (CLI) | payer MEDICARE, MEDICAID ==
[2019-12-27] VITALS (10 sets, daily range): BP systolic 91–124; BP diastolic 38–72
[~2019-12-27] MED LIST changes: +CYANOCOBALAMIN (B-12) 1000 MCG/1 ML VIAL IM ONE; +CYANOCOBALAMIN (B-12) 1000 MCG/1 ML VIAL ONE
--- NOTE | 2019-12-27 08:09 | NUR ---
PT ARRIVED TO CHF CLINIC PT ARRIVED TO CHF CLINIC FOR EVALUATION AND TREATMENT OF CHF. PATIENT ALERT AND AWAKE WITH EVEN AND UNLABORED RESPIRATIONS. NO S/S OF DISTRESS.SOB OR PAIN NOTED. WILL CARRY OUT MD ORDERS.
--- NOTE | 2019-12-27 08:32 | NUR ---
Kenia Cath Insertion [20] gauge Kenia Cath inserted by this RN using sterile technique in the [r] upper chest with occlusive dressing over laureano needle. Patient tolerated procedure well. Ordered labs drawn and sent. See e-MAR for medications given during this visit.
--- NOTE | 2019-12-27 08:37 | NUR ---
DOBUTAMINE IV STARTED PER MD ORDERS. WILL CONTINUE TO MONITOR.
--- NOTE | 2019-12-27 11:55 | NUR ---
CHF CLINIC Discharge Instructions See e-MAR for any mediations given with this visit. Patient education given on disease process. Patient verbalized understanding. Previous labs reviewed. Patient discharged in stable condition with after care instructions and follow up appointment. NOTES DOBUTAMINE IV [id number] ADMIN BY MIRIAM VALDEZ VIT B12 IM RIGHT DELTOID, ADMIN BY MIRIAM VALDEZ HEPARIN IVP VIA PORT-A-CATH, ADMIN BY MIRIAM VALDEZ
[2019-12-27 11:56] LABS: Potassium 3.3 mmol/L (3.5-5.1)
[2019-12-27 11:57] LABS: Basophils # (auto) 0.1 10 ^3/uL (0-0.2); Basophils % (auto) 1.6 % (0.0-2.0); Eosinophils # (auto) 0.1 10 ^3/uL (0-0.8); Eosinophils % (auto) 2.7 % (0.0-7.0); Hemoglobin 10.8 g/dL (12.2-16.2); Lymphocytes # (auto) 1.4 10 ^3/uL (0.4-5.4); Lymphocytes % (auto) 31.8 % (10.0-50.0); Mean Corpuscular Hemoglobin 27.6 pg (28.0-32.0); Mean Corpuscular Hgb Conc. 31.9 g/dL (32.0-36.0); Mean Corpuscular Volume 86.4 fL (80.0-100.0); Monocytes # (auto) 0.4 10 ^3/uL (0-1.3); Monocytes % (auto) 9.2 % (0.0-12.0); Neutrophils # (auto) 2.5 10 ^3/uL (1.6-8.6); Neutrophils % (auto) 54.7 % (37.0-80.0); Nucleated Red Blood Cells % 0.1 %; Platelet Count (auto) 193 10^3/uL (140-450); Red Blood Cells 3.93 10^6/uL (4.0-5.20); Red Cell Distribution Width 17.1 % (11.8-14.3); White Blood Cell 4.5 10^3/uL (4.4-10.8)
[2019-12-27 12:00] LABS: BUN/Creatinine Ratio 14.5; Calcium 10.3 mg/dL (8.5-10.1)
== END | disposition home or self-care (01) ==
LOC: CHF HDHVI 08:20
PROVIDERS: ATTEND Internal Medicine Cardiovascular Disease
DX: I13.2 Hypertensive heart and chronic kidney disease with heart failure and with stage 5 chronic kidney disease, or end stage renal disease (principal); I50.23 Acute on chronic systolic (congestive) heart failure; N18.6 End stage renal disease; I50.84 End stage heart failure; I95.9 Hypotension, unspecified; R53.83 Other fatigue; F41.9 Anxiety disorder, unspecified; I25.10 Atherosclerotic heart disease of native coronary artery without angina pectoris; I48.91 Unspecified atrial fibrillation; I25.2 Old myocardial infarction; I42.8 Other cardiomyopathies; J44.9 Chronic obstructive pulmonary disease, unspecified; E78.5 Hyperlipidemia, unspecified; G89.29 Other chronic pain; E78.00 Pure hypercholesterolemia, unspecified; E43 Unspecified severe protein-calorie malnutrition; E66.01 Morbid (severe) obesity due to excess calories; Z68.42 Body mass index [BMI] 45.0-49.9, adult; Z79.899 Other long term (current) drug therapy; Z95.810 Presence of automatic (implantable) cardiac defibrillator; Z90.49 Acquired absence of other specified parts of digestive tract
CPT/HCPCS: 36415; 80048; 83735; 83880; 85025; 96365; 96366; 96372; G0463; J1250; J1642; J3420

== ENCOUNTER → 2020-01-01 | Outpatient (CLI) | payer MEDICARE, MEDICAID ==
[2020-01-01] VITALS (9 sets, daily range): BP systolic 81–114; BP diastolic 43–64
[~2020-01-01] MED LIST changes: -CYANOCOBALAMIN (B-12) 1000 MCG/1 ML VIAL IM ONE; -CYANOCOBALAMIN (B-12) 1000 MCG/1 ML VIAL ONE
--- NOTE | 2020-01-01 08:25 | NUR ---
CLINIC PT ARRIVED TO THE CHF CLINIC FOR SCHEDULED WEEKLY CHF EVAL AND TX. A/OX4, AMBULATORY WITH WALKER, BREATHING IS EVEN AND UNLABORED.
--- NOTE | 2020-01-01 08:41 | NUR ---
DOBUTAMINE IV STARTED @ 3 MCG/KG/MIN PER MD ORDERS, VSS, WILL CONTINUE TO MONITOR.
--- NOTE | 2020-01-01 10:05 | NUR ---
PT TOLERATING DOBUTAMINE INFUSION, PORT SITE BENIGN, VSS, WILL CONTINUE TO MONITOR.
--- NOTE | 2020-01-01 11:50 | NUR ---
Discharge Instructions See e-MAR for any mediations given with this visit. Patient education given on disease process. Patient verbalized understanding. Previous labs reviewed. Patient discharged in stable condition with after care instructions and follow up appointment ON MONDAY. NOTE DOBUTAMINE IV [id number] ADMIN BY MCKAY VALDEZ HEPARIN IVP ADMIN BY MCKAY VALDEZ
[2020-01-01 12:31] LABS: Anion Gap 6 (5-15); BUN/Creatinine Ratio 14.9; Blood Urea Nitrogen 10 mg/dL (7-18); Calcium 9.8 mg/dL (8.5-10.1); Carbon Dioxide 23 mmol/L (21-32); Chloride 114 mmol/L (98-107); GFR African American 117 mL/min; GFR Non-African American 97 mL/min; Glucose 85 mg/dL (74-106); Potassium 3.7 mmol/L (3.5-5.1); Sodium 143 mmol/L (136-145)
[2020-01-01 12:38] LABS: Basophils # (auto) 0.1 10 ^3/uL (0-0.2); Basophils % (auto) 1.7 % (0.0-2.0); Eosinophils # (auto) 0.1 10 ^3/uL (0-0.8); Eosinophils % (auto) 2.9 % (0.0-7.0); Hemoglobin 10.8 g/dL (12.2-16.2); Lymphocytes # (auto) 1.4 10 ^3/uL (0.4-5.4); Lymphocytes % (auto) 27.7 % (10.0-50.0); Mean Corpuscular Hemoglobin 28.3 pg (28.0-32.0); Mean Corpuscular Hgb Conc. 32.9 g/dL (32.0-36.0); Monocytes # (auto) 0.4 10 ^3/uL (0-1.3); Neutrophils # (auto) 3.1 10 ^3/uL (1.6-8.6); Neutrophils % (auto) 59.7 % (37.0-80.0); Platelet Count (auto) 198 10^3/uL (140-450); Red Blood Cells 3.83 10^6/uL (4.0-5.20); Red Cell Distribution Width 17.6 % (11.8-14.3); White Blood Cell 5.1 10^3/uL (4.4-10.8)
== END | disposition home or self-care (01) ==
LOC: CHF HDHVI 08:28
PROVIDERS: ATTEND Internal Medicine Cardiovascular Disease
DX: I13.2 Hypertensive heart and chronic kidney disease with heart failure and with stage 5 chronic kidney disease, or end stage renal disease (principal); I50.23 Acute on chronic systolic (congestive) heart failure; I50.84 End stage heart failure; N18.6 End stage renal disease; F41.9 Anxiety disorder, unspecified; I25.10 Atherosclerotic heart disease of native coronary artery without angina pectoris; I42.8 Other cardiomyopathies; I48.91 Unspecified atrial fibrillation; R53.83 Other fatigue; J44.9 Chronic obstructive pulmonary disease, unspecified; E78.5 Hyperlipidemia, unspecified; E78.00 Pure hypercholesterolemia, unspecified; E43 Unspecified severe protein-calorie malnutrition; E66.01 Morbid (severe) obesity due to excess calories; Z68.42 Body mass index [BMI] 45.0-49.9, adult; Z79.899 Other long term (current) drug therapy; Z95.810 Presence of automatic (implantable) cardiac defibrillator; Z87.891 Personal history of nicotine dependence; Z90.49 Acquired absence of other specified parts of digestive tract
CPT/HCPCS: 36415; 80048; 83735; 83880; 85025; 96365; 96366; G0463; J1250; J1642

== ENCOUNTER → 2020-01-10 | Outpatient (CLI) | payer MEDICARE, MEDICAID ==
[2020-01-10] VITALS (9 sets, daily range): BP systolic 101–146; BP diastolic 50–86
[2020-01-10 12:06] LABS: Hematocrit 32.8 % (36.0-46.0); Hemoglobin 10.7 g/dL (12.2-16.2); Mean Corpuscular Hemoglobin 27.8 pg (28.0-32.0); Mean Corpuscular Hgb Conc. 32.7 g/dL (32.0-36.0); Mean Corpuscular Volume 85.2 fL (80.0-100.0); Platelet Count (auto) 228 10^3/uL (140-450); Red Blood Cells 3.85 10^6/uL (4.0-5.20); Red Cell Distribution Width 18.1 % (11.8-14.3); White Blood Cell 4.9 10^3/uL (4.4-10.8)
[2020-01-10 12:17] LABS: Potassium 3.8 mmol/L (3.5-5.1)
[2020-01-10 12:31] LABS: Band Neutrophils % (manual) 0; Basophils % (manual) 0 (0.0-2.0); Blast Cells 0; Eosinophils % (manual) 0 (0-7); Metamyelocytes % 0; Myelocytes % 0; Promyelocytes % 0; Reactive Lymphocytes 0
[2020-01-10 12:51] LABS: Lymphocytes % (manual) 26 (10.0-50.0); Monocytes % (manual) 10 (0-12)
[2020-01-10 13:11] LABS: BUN/Creatinine Ratio 11.8; Magnesium 2.1 mg/dL (1.6-2.6)
== END | disposition home or self-care (01) ==
LOC: CHF HDHVI 08:33
PROVIDERS: ATTEND Internal Medicine Cardiovascular Disease
DX: I13.2 Hypertensive heart and chronic kidney disease with heart failure and with stage 5 chronic kidney disease, or end stage renal disease (principal); N18.6 End stage renal disease; I50.23 Acute on chronic systolic (congestive) heart failure; I50.84 End stage heart failure; R53.83 Other fatigue; R10.9 Unspecified abdominal pain; I25.10 Atherosclerotic heart disease of native coronary artery without angina pectoris; I25.2 Old myocardial infarction; I48.91 Unspecified atrial fibrillation; I42.8 Other cardiomyopathies; J44.9 Chronic obstructive pulmonary disease, unspecified; E78.5 Hyperlipidemia, unspecified; F41.9 Anxiety disorder, unspecified; E78.00 Pure hypercholesterolemia, unspecified; G89.29 Other chronic pain; E66.01 Morbid (severe) obesity due to excess calories; Z68.42 Body mass index [BMI] 45.0-49.9, adult; Z79.899 Other long term (current) drug therapy; Z87.891 Personal history of nicotine dependence; Z90.49 Acquired absence of other specified parts of digestive tract; Z95.810 Presence of automatic (implantable) cardiac defibrillator
CPT/HCPCS: 36415; 80048; 83735; 83880; 85007; 85027; 96365; 96366; G0463; J1250; J1642

== ENCOUNTER → 2020-01-15 | Outpatient (CLI) | payer MEDICARE, MEDICAID ==
[2020-01-15] VITALS (11 sets, daily range): BP systolic 71–104; BP diastolic 43–63
[~2020-01-15] VITALS: Ht 30.5 cm; Wt 106.7 kg
[~2020-01-15] MED LIST changes: +POTASSIUM EFFERVESENT TAB 25 MEQ ONE; +POTASSIUM EFFERVESENT TAB 25 MEQ PO ONE; +SODIUM CHLORIDE 0.9% 250 ML IV ONE
[2020-01-15 12:11] LABS: Eosinophils # (auto) 0.1 10 ^3/uL (0-0.8); Hemoglobin 10.9 g/dL (12.2-16.2); Nucleated Red Blood Cells % 0.1 %; White Blood Cell 4.6 10^3/uL (4.4-10.8)
[2020-01-15 12:13] LABS: Albumin 2.5 g/dL (3.4-5.0); Basophils # (auto) 0 10 ^3/uL (0-0.2); Eosinophils % (auto) 2.6 % (0.0-7.0); Hematocrit 34.2 % (36.0-46.0); Lymphocytes # (auto) 2.2 10 ^3/uL (0.4-5.4); Lymphocytes % (auto) 47.3 % (10.0-50.0); Magnesium 1.8 mg/dL (1.6-2.6); Mean Corpuscular Hemoglobin 27.2 pg (28.0-32.0); Mean Corpuscular Hgb Conc. 31.9 g/dL (32.0-36.0); Mean Corpuscular Volume 85.3 fL (80.0-100.0); Monocytes # (auto) 0.4 10 ^3/uL (0-1.3); Monocytes % (auto) 7.9 % (0.0-12.0); Neutrophils # (auto) 1.9 10 ^3/uL (1.6-8.6); Neutrophils % (auto) 41.2 % (37.0-80.0); Platelet Count (auto) 239 10^3/uL (140-450); Potassium 3.3 mmol/L (3.5-5.1); Red Blood Cells 4.01 10^6/uL (4.0-5.20); Red Cell Distribution Width 18.3 % (11.8-14.3)
[2020-01-15 12:16] LABS: BUN/Creatinine Ratio 10.3; Bilirubin, Total 0.6 mg/dL (0.2-1.0); Total Protein 6.4 g/dL (6.4-8.2)
== END | disposition home or self-care (01) ==
LOC: CHF HDHVI 08:16
PROVIDERS: ATTEND Internal Medicine Cardiovascular Disease
DX: I13.2 Hypertensive heart and chronic kidney disease with heart failure and with stage 5 chronic kidney disease, or end stage renal disease (principal); N18.6 End stage renal disease; I50.23 Acute on chronic systolic (congestive) heart failure; I50.84 End stage heart failure; R53.83 Other fatigue; R10.9 Unspecified abdominal pain; I25.10 Atherosclerotic heart disease of native coronary artery without angina pectoris; I48.91 Unspecified atrial fibrillation; I25.2 Old myocardial infarction; I42.8 Other cardiomyopathies; F41.9 Anxiety disorder, unspecified; J44.9 Chronic obstructive pulmonary disease, unspecified; G89.29 Other chronic pain; E78.5 Hyperlipidemia, unspecified; E78.00 Pure hypercholesterolemia, unspecified; E43 Unspecified severe protein-calorie malnutrition; E66.01 Morbid (severe) obesity due to excess calories; Z68.42 Body mass index [BMI] 45.0-49.9, adult; Z95.810 Presence of automatic (implantable) cardiac defibrillator; Z79.899 Other long term (current) drug therapy; Z85.810 Personal history of malignant neoplasm of tongue; Z90.49 Acquired absence of other specified parts of digestive tract; Z87.891 Personal history of nicotine dependence
CPT/HCPCS: 36415; 80053; 83735; 83880; 85025; 96365; 96366; G0463; J1250; J1642; J7050; 96367

== ENCOUNTER → 2020-01-22 | Outpatient (CLI) | payer MEDICARE, MEDICAID ==
[~2020-01-22] VITALS: Ht 30.5 cm; Wt 105.9 kg
[2020-01-22] VITALS (9 sets, daily range): BP systolic 87–97; BP diastolic 41–60
[~2020-01-22] MED LIST changes: +CYANOCOBALAMIN (B-12) 1000 MCG/1 ML VIAL IM ONE; +CYANOCOBALAMIN (B-12) 1000 MCG/1 ML VIAL ONE; -POTASSIUM EFFERVESENT TAB 25 MEQ ONE; -POTASSIUM EFFERVESENT TAB 25 MEQ PO ONE; -SODIUM CHLORIDE 0.9% 250 ML IV ONE
[2020-01-22 12:21] LABS: Hematocrit 32.2 % (36.0-46.0); Hemoglobin 10.4 g/dL (12.2-16.2); Mean Corpuscular Hemoglobin 27.6 pg (28.0-32.0); Mean Corpuscular Hgb Conc. 32.4 g/dL (32.0-36.0); Mean Corpuscular Volume 85.2 fL (80.0-100.0); Platelet Count (auto) 204 10^3/uL (140-450); Red Blood Cells 3.78 10^6/uL (4.0-5.20); Red Cell Distribution Width 18.3 % (11.8-14.3); White Blood Cell 5.2 10^3/uL (4.4-10.8)
[2020-01-22 12:28] LABS: Basophils % (manual) 0 (0.0-2.0); Blast Cells 0; Metamyelocytes % 0; Myelocytes % 0; Promyelocytes % 0; Reactive Lymphocytes 0
[2020-01-22 12:29] LABS: BUN/Creatinine Ratio 11.4; Calcium 10.1 mg/dL (8.5-10.1); Magnesium 1.9 mg/dL (1.6-2.6); Potassium 3.3 mmol/L (3.5-5.1)
[2020-01-22 13:04] LABS: Band Neutrophils % (manual) 1; Eosinophils % (manual) 3 (0-7); Lymphocytes % (manual) 35 (10.0-50.0); Monocytes % (manual) 7 (0-12)
== END | disposition home or self-care (01) ==
LOC: CHF HDHVI 09:24
PROVIDERS: ATTEND Internal Medicine Cardiovascular Disease
DX: I13.2 Hypertensive heart and chronic kidney disease with heart failure and with stage 5 chronic kidney disease, or end stage renal disease (principal); I50.23 Acute on chronic systolic (congestive) heart failure; N18.6 End stage renal disease; I50.84 End stage heart failure; R53.83 Other fatigue; R10.9 Unspecified abdominal pain; I42.8 Other cardiomyopathies; I25.10 Atherosclerotic heart disease of native coronary artery without angina pectoris; I48.91 Unspecified atrial fibrillation; I25.2 Old myocardial infarction; J44.9 Chronic obstructive pulmonary disease, unspecified; F41.9 Anxiety disorder, unspecified; E78.5 Hyperlipidemia, unspecified; G89.29 Other chronic pain; E78.00 Pure hypercholesterolemia, unspecified; E43 Unspecified severe protein-calorie malnutrition; E66.01 Morbid (severe) obesity due to excess calories; Z68.42 Body mass index [BMI] 45.0-49.9, adult; Z79.899 Other long term (current) drug therapy; Z87.891 Personal history of nicotine dependence; Z90.49 Acquired absence of other specified parts of digestive tract
CPT/HCPCS: 36415; 80048; 83735; 83880; 85007; 85027; 96365; 96366; 96372; G0463; J1250; J1642; J3420

== ENCOUNTER → 2020-01-24 | Outpatient (CLI) | payer MEDICARE, MEDICAID ==
[~2020-01-24] VITALS: Ht 30.5 cm; Wt 106.4 kg
[2020-01-24] VITALS (10 sets, daily range): BP systolic 82–125; BP diastolic 46–71
[~2020-01-24] MED LIST changes: -CYANOCOBALAMIN (B-12) 1000 MCG/1 ML VIAL IM ONE; -CYANOCOBALAMIN (B-12) 1000 MCG/1 ML VIAL ONE; +MAGNESIUM SULFATE 1GM/100ML 200 ML IV ONE
--- NOTE | 2020-01-24 08:05 | NUR ---
PT ARRIVED TO CHF CLINIC PT ARRIVED TO CHF CLINIC FOR SCHEDULED EVALUATION AND TREATMENT. PT ALERT AND AWAKE WITH EVEN AND UNLABORED RESPIRATIONS. NO S/S OF DISTRESS OR SOB NOTES. PT AMBULATING WITH SLOW STEADY GAIT. VSS. WILL CARRY OUT MD ORDERS.
--- NOTE | 2020-01-24 08:15 | NUR ---
SCHEDULED DOBUTAMINE INFUSION STARTED. PT TOLERATING WELL. WILL CONTINUE TO MONITOR.
[2020-01-24] MEDS: MAGNESIUM SULFATE 1GM/100ML 100 ML IV SCH ×2 (08:20→09:30)
--- NOTE | 2020-01-24 11:22 | NUR ---
Kenia Cath Removal Fernandez needle D/C'd after Heparin flush per protocol. See e-MAR for medications given during this visit. Sterile occlusive dressing to site. Patient tolerated procedure well. Site benign post infusion. Will carry out D/C.
--- NOTE | 2020-01-24 11:30 | NUR ---
CHF CLINIC Discharge Instructions See e-MAR for any mediations given with this visit. Patient education given on disease process. Patient verbalized understanding. Previous labs reviewed. VSS. Patient discharged in stable condition with after care instructions and follow up appointment. NOTES DOBUTAMINE IV [id number] ADMIN BY MCKAY VALDEZ MAGNESIUM IV ADMIN BY MCKAY VALDEZ / MIRIAM VALDEZ HEPARIN IVP VIA PORT-A-CATH ADMIN BY MCKAY VALDEZ
== END | disposition home or self-care (01) ==
LOC: CHF HDHVI 08:02
PROVIDERS: ATTEND Internal Medicine Cardiovascular Disease
DX: I13.2 Hypertensive heart and chronic kidney disease with heart failure and with stage 5 chronic kidney disease, or end stage renal disease (principal); N18.6 End stage renal disease; I50.23 Acute on chronic systolic (congestive) heart failure; I50.84 End stage heart failure; R53.83 Other fatigue; I42.8 Other cardiomyopathies; F41.9 Anxiety disorder, unspecified; I25.10 Atherosclerotic heart disease of native coronary artery without angina pectoris; I48.91 Unspecified atrial fibrillation; I25.2 Old myocardial infarction; E43 Unspecified severe protein-calorie malnutrition; J44.9 Chronic obstructive pulmonary disease, unspecified; E78.00 Pure hypercholesterolemia, unspecified; E78.5 Hyperlipidemia, unspecified; E66.01 Morbid (severe) obesity due to excess calories; Z68.42 Body mass index [BMI] 45.0-49.9, adult; Z95.810 Presence of automatic (implantable) cardiac defibrillator; Z90.49 Acquired absence of other specified parts of digestive tract
CPT/HCPCS: 36415; 83880; 84132; 96365; 96366; 96368; G0463; J1250; J1642; J3475

== ENCOUNTER → 2020-01-29 | Outpatient (CLI) | payer MEDICARE, MEDICAID ==
[~2020-01-29] VITALS: Ht 30.5 cm; Wt 106.2 kg
[2020-01-29] VITALS (9 sets, daily range): BP systolic 81–109; BP diastolic 38–63
[~2020-01-29] MED LIST changes: +MAGNESIUM SULFATE 1GM/100ML 100 ML IV ONE
--- NOTE | 2020-01-29 08:08 | NUR ---
CLINIC PT ARRIVED TO THE CHF CLINIC FOR SCHEDULED WEEKLY CHF EVAL AND TX, A/OX4, AMBULATORY WITH WALKER, BREATHING IS EVEN AND UNLABORED. PT HAS A 1.2LB WT DECREASE SINCE LAST VISIT ON 01/24/20
--- NOTE | 2020-01-29 08:26 | NUR ---
DOBUTAMINE IV STARTED @ 3MCG/KG/MIN PER MD ORDERS, VSS, WILL CONTINUE TO MONITOR.
--- NOTE | 2020-01-29 10:24 | NUR ---
PT TOLERATING DOBUTAMINE, B/P IS A LITTLE LOW, PT IS ASYMPTOMATIC, PORT SITE BENIGN, WILL CONTINUE TO MONITOR.
--- NOTE | 2020-01-29 12:01 | NUR ---
Discharge Instructions See e-MAR for any mediations given with this visit. Patient education given on disease process. Patient verbalized understanding. Previous labs reviewed. Patient discharged in stable condition with after care instructions and follow up appointment ON MON. NOTE DOBUTAMINE IV [id number] ADMIN [place] [id number] ADMIN BY MCKAY VALDEZ HEPARIN IVP ADMIN BY MCKAY VALDEZ
[2020-01-29 12:13] LABS: Hematocrit 33.6 % (36.0-46.0); Hemoglobin 10.8 g/dL (12.2-16.2); Mean Corpuscular Hemoglobin 27.5 pg (28.0-32.0); Mean Corpuscular Hgb Conc. 32.2 g/dL (32.0-36.0); Mean Corpuscular Volume 85.4 fL (80.0-100.0); Platelet Count (auto) 216 10^3/uL (140-450); Red Blood Cells 3.93 10^6/uL (4.0-5.20); Red Cell Distribution Width 19.1 % (11.8-14.3); White Blood Cell 5.2 10^3/uL (4.4-10.8)
[2020-01-29 12:26] LABS: BUN/Creatinine Ratio 11.8; Calcium 10.8 mg/dL (8.5-10.1); Magnesium 2.2 mg/dL (1.6-2.6)
[2020-01-29 12:28] LABS: Band Neutrophils % (manual) 0
[2020-01-29 12:29] LABS: Basophils % (manual) 0 (0.0-2.0); Blast Cells 0; Metamyelocytes % 0; Myelocytes % 0; Promyelocytes % 0; Reactive Lymphocytes 0
[2020-01-29 13:21] LABS: Eosinophils % (manual) 3 (0-7); Lymphocytes % (manual) 30 (10.0-50.0); Monocytes % (manual) 8 (0-12)
== END | disposition home or self-care (01) ==
LOC: CHF HDHVI 08:14
PROVIDERS: ATTEND Internal Medicine Cardiovascular Disease
DX: I13.2 Hypertensive heart and chronic kidney disease with heart failure and with stage 5 chronic kidney disease, or end stage renal disease (principal); N18.6 End stage renal disease; I50.23 Acute on chronic systolic (congestive) heart failure; I50.84 End stage heart failure; R53.83 Other fatigue; E83.42 Hypomagnesemia; F41.9 Anxiety disorder, unspecified; I25.10 Atherosclerotic heart disease of native coronary artery without angina pectoris; I48.91 Unspecified atrial fibrillation; I25.2 Old myocardial infarction; I42.8 Other cardiomyopathies; J44.9 Chronic obstructive pulmonary disease, unspecified; E78.5 Hyperlipidemia, unspecified; E78.00 Pure hypercholesterolemia, unspecified; E43 Unspecified severe protein-calorie malnutrition; G89.29 Other chronic pain; E66.01 Morbid (severe) obesity due to excess calories; Z87.891 Personal history of nicotine dependence; Z95.810 Presence of automatic (implantable) cardiac defibrillator; Z90.49 Acquired absence of other specified parts of digestive tract; Z68.42 Body mass index [BMI] 45.0-49.9, adult
CPT/HCPCS: 36415; 80048; 83735; 83880; 85007; 85027; 96365; 96366; 96368; G0463; J1250; J1642; J3475

== ENCOUNTER → 2020-02-05 | Outpatient (CLI) | payer MEDICARE, MEDICAID ==
[~2020-02-05] VITALS: Ht 30.5 cm; Wt 104.8 kg
[2020-02-05] VITALS (10 sets, daily range): BP systolic 97–148; BP diastolic 59–90
[~2020-02-05] MED LIST changes: -MAGNESIUM SULFATE 1GM/100ML 100 ML IV ONE; -MAGNESIUM SULFATE 1GM/100ML 200 ML IV ONE
--- NOTE | 2020-02-05 08:09 | NUR ---
CLINIC PT ARRIVED TO THE CHF CLINIC FOR SCHEDULED WEEKLY CHF EVAL AND TX, A/OX4, AMBULATORY WITH WALKER, BREATHING IS EVEN AND UNLABORED. PT STATED THAT HER AICD SHOCKED HER ONCE ON MONDAY. PRIOR TO THE SHOCK SHE WAS FEELING LIGHTHEADED. PT HAS A 2.1LB WT DECREASE SINCE LAST VISIT ON 01/29/20
--- NOTE | 2020-02-05 08:18 | NUR ---
Kenia Cath Insertion 20 gauge Kenia Cath inserted using sterile technique in the R upper chest with occlusive dressing over laureano needle. Patient tolerated procedure well. Ordered labs drawn and sent STAT. See e-MAR for medications given during this visit. NOTE INSERTED BY MCKAY VALDEZ
--- NOTE | 2020-02-05 08:22 | NUR ---
DOBUTAMINE IV STARTED @ 3MCG/KG/MIN PER MD ORDERS, VSS, WILL CONTINUE TO MONITOR.
--- NOTE | 2020-02-05 09:30 | NUR ---
PATIENT IN CHAIR COVERED WITH BLANKETS, WILL CONTINUE TO MONITOR.
[2020-02-05 09:31] LABS: Albumin 2.6 g/dL (3.4-5.0); BUN/Creatinine Ratio 13.4; Potassium 4.1 mmol/L (3.5-5.1)
[2020-02-05 09:34] LABS: Bilirubin, Total 0.4 mg/dL (0.2-1.0)
[2020-02-05 10:19] LABS: Hematocrit 33.3 % (36.0-46.0); Hemoglobin 10.6 g/dL (12.2-16.2); Mean Corpuscular Hemoglobin 27.1 pg (28.0-32.0); Mean Corpuscular Volume 84.9 fL (80.0-100.0); Platelet Count (auto) 271 10^3/uL (140-450); Red Blood Cells 3.92 10^6/uL (4.0-5.20); Red Cell Distribution Width 19.3 % (11.8-14.3); White Blood Cell 6.3 10^3/uL (4.4-10.8)
[2020-02-05 10:22] LABS: Basophils % (manual) 0 (0.0-2.0); Blast Cells 0; Myelocytes % 0; Promyelocytes % 0; Reactive Lymphocytes 0
--- NOTE | 2020-02-05 11:50 | NUR ---
Kenai Cath Removal Fernandez needle D/C'd by Sean VALDEZ after Heparin flush per protocol. See e-MAR for medications given during this visit. Sterile occlusive dressing to site. Patient tolerated procedure well. Site benign post infusion.
--- NOTE | 2020-02-05 12:00 | NUR ---
Discharge Instructions See e-MAR for any mediations given with this visit. Patient education given on disease process. Patient verbalized understanding. Previous labs reviewed. Patient discharged in stable condition with after care instructions and follow up appointment. NOTE DOBUTAMINE [id number] ADMIN BY MCKAY VALDEZ. HEPARIN ADMIN BY ENEDINA VALDEZ.
[2020-02-05 13:03] LABS: Band Neutrophils % (manual) 1; Eosinophils % (manual) 5 (0-7); Lymphocytes % (manual) 30 (10.0-50.0); Metamyelocytes % 2; Monocytes % (manual) 7 (0-12)
== END | disposition home or self-care (01) ==
LOC: CHF HDHVI 08:17
PROVIDERS: ATTEND Internal Medicine Cardiovascular Disease
DX: I13.2 Hypertensive heart and chronic kidney disease with heart failure and with stage 5 chronic kidney disease, or end stage renal disease (principal); N18.6 End stage renal disease; I50.23 Acute on chronic systolic (congestive) heart failure; I50.84 End stage heart failure; R53.83 Other fatigue; I25.10 Atherosclerotic heart disease of native coronary artery without angina pectoris; I48.91 Unspecified atrial fibrillation; I25.2 Old myocardial infarction; I42.8 Other cardiomyopathies; E83.40 Disorders of magnesium metabolism, unspecified; D64.9 Anemia, unspecified; E78.00 Pure hypercholesterolemia, unspecified; F41.9 Anxiety disorder, unspecified; J44.9 Chronic obstructive pulmonary disease, unspecified; G89.29 Other chronic pain; E78.5 Hyperlipidemia, unspecified; E43 Unspecified severe protein-calorie malnutrition; E66.01 Morbid (severe) obesity due to excess calories; Z68.42 Body mass index [BMI] 45.0-49.9, adult; Z87.891 Personal history of nicotine dependence; Z95.810 Presence of automatic (implantable) cardiac defibrillator; Z90.49 Acquired absence of other specified parts of digestive tract
CPT/HCPCS: 36415; 80053; 83735; 83880; 85007; 85027; 96365; 96366; G0463; J1250; J1642

== ENCOUNTER → 2020-02-07 | Outpatient (CLI) | payer MEDICARE, MEDICAID ==
[2020-02-07] VITALS (10 sets, daily range): BP systolic 105–148; BP diastolic 66–89
--- NOTE | 2020-02-07 08:14 | NUR ---
CLINIC PT ARRIVED TO THE CHF CLINIC FOR WEEKLY SCHEDULED CHF EVAL AND TX, A/OX4, AMBULATORY WITH WALKER, BREATHING IS EVEN AND UNLABORED.
--- NOTE | 2020-02-07 08:34 | NUR ---
Kenia Cath Insertion 20 gauge Kenia Cath inserted using sterile technique in the R upper chest with occlusive dressing over laureano needle. Patient tolerated procedure well. See e-MAR for medications given during this visit. NOTE INSERTED BY MCKAY VALDEZ
--- NOTE | 2020-02-07 08:36 | NUR ---
DOBUTAMINE IV STARTED @ 3MCG/KG/MIN PER MD ORDERS, VSS, WILL CONTINUE TO MONITOR.
--- NOTE | 2020-02-07 10:10 | NUR ---
PT TOLERATING DOBUTAMINE INFUSION, PORT SITE BENIGN, VSS, WILL CONTINUE TO MONITOR.
--- NOTE | 2020-02-07 11:48 | NUR ---
Discharge Instructions See e-MAR for any mediations given with this visit. Patient education given on disease process. Patient verbalized understanding. Previous labs reviewed. Patient discharged in stable condition with after care instructions and follow up appointment ON MON. NOTE DOBUTAMINE IV [id number] ADMIN BY MCKAY VALDEZ HEPARIN IVP ADMIN BY MCKAY VALDEZ
== END | disposition home or self-care (01) ==
LOC: CHF HDHVI 08:18
PROVIDERS: ATTEND Internal Medicine Cardiovascular Disease
DX: I13.2 Hypertensive heart and chronic kidney disease with heart failure and with stage 5 chronic kidney disease, or end stage renal disease (principal); N18.6 End stage renal disease; I50.23 Acute on chronic systolic (congestive) heart failure; I50.84 End stage heart failure; F41.9 Anxiety disorder, unspecified; I25.10 Atherosclerotic heart disease of native coronary artery without angina pectoris; I48.91 Unspecified atrial fibrillation; I25.2 Old myocardial infarction; I42.8 Other cardiomyopathies; J44.9 Chronic obstructive pulmonary disease, unspecified; E78.5 Hyperlipidemia, unspecified; G89.29 Other chronic pain; R53.83 Other fatigue; E78.00 Pure hypercholesterolemia, unspecified; E43 Unspecified severe protein-calorie malnutrition; E66.01 Morbid (severe) obesity due to excess calories; Z68.42 Body mass index [BMI] 45.0-49.9, adult; Z90.49 Acquired absence of other specified parts of digestive tract; Z85.810 Personal history of malignant neoplasm of tongue; Z79.899 Other long term (current) drug therapy
CPT/HCPCS: 96365; 96366; G0463; J1250; J1642

== ENCOUNTER → 2020-02-12 | Outpatient (CLI) | payer MEDICARE, MEDICAID ==
[2020-02-12] VITALS (9 sets, daily range): BP systolic 91–111; BP diastolic 50–78
[~2020-02-12] VITALS: Ht 30.5 cm; Wt 103.6 kg
[~2020-02-12] MED LIST changes: +MAGNESIUM OXIDE 400 MG TAB ONE; +MAGNESIUM OXIDE 400 MG TAB PO ONE
[2020-02-12 09:42] LABS: Magnesium 2.1 mg/dL (1.6-2.6)
== END | disposition home or self-care (01) ==
LOC: CHF HDHVI 08:29
PROVIDERS: ATTEND Internal Medicine Cardiovascular Disease
DX: I13.2 Hypertensive heart and chronic kidney disease with heart failure and with stage 5 chronic kidney disease, or end stage renal disease (principal); I50.23 Acute on chronic systolic (congestive) heart failure; N18.6 End stage renal disease; E83.40 Disorders of magnesium metabolism, unspecified; I25.10 Atherosclerotic heart disease of native coronary artery without angina pectoris; I25.2 Old myocardial infarction; E78.5 Hyperlipidemia, unspecified; I48.91 Unspecified atrial fibrillation; I42.8 Other cardiomyopathies; E78.00 Pure hypercholesterolemia, unspecified; J44.9 Chronic obstructive pulmonary disease, unspecified; G89.29 Other chronic pain; E66.01 Morbid (severe) obesity due to excess calories; Z68.42 Body mass index [BMI] 45.0-49.9, adult; Z90.49 Acquired absence of other specified parts of digestive tract; Z79.899 Other long term (current) drug therapy; Z85.810 Personal history of malignant neoplasm of tongue; Z87.891 Personal history of nicotine dependence
CPT/HCPCS: 36415; 82565; 83735; 83880; 84132; 84520; 96365; 96366; G0463; J1250; J1642

== ENCOUNTER → 2020-02-26 | Outpatient (CLI) | payer MEDICARE, MEDICAID ==
[~2020-02-26] VITALS: Ht 30.5 cm; Wt 103.2 kg
[2020-02-26] VITALS (10 sets, daily range): BP systolic 90–119; BP diastolic 50–77
[~2020-02-26] MED LIST changes: +CYANOCOBALAMIN (B-12) 1000 MCG/1 ML VIAL IM ONE; +CYANOCOBALAMIN (B-12) 1000 MCG/1 ML VIAL ONE; -MAGNESIUM OXIDE 400 MG TAB ONE; -MAGNESIUM OXIDE 400 MG TAB PO ONE
[2020-02-26 09:29] LABS: BUN/Creatinine Ratio 15.7; Calcium 10.3 mg/dL (8.5-10.1)
== END | disposition home or self-care (01) ==
LOC: CHF HDHVI 08:18
PROVIDERS: ATTEND Internal Medicine Cardiovascular Disease
DX: I13.2 Hypertensive heart and chronic kidney disease with heart failure and with stage 5 chronic kidney disease, or end stage renal disease (principal); N18.6 End stage renal disease; I50.23 Acute on chronic systolic (congestive) heart failure; I50.84 End stage heart failure; R53.83 Other fatigue; I25.10 Atherosclerotic heart disease of native coronary artery without angina pectoris; I48.91 Unspecified atrial fibrillation; I25.2 Old myocardial infarction; I42.8 Other cardiomyopathies; F41.9 Anxiety disorder, unspecified; J44.9 Chronic obstructive pulmonary disease, unspecified; E78.5 Hyperlipidemia, unspecified; E43 Unspecified severe protein-calorie malnutrition; E66.01 Morbid (severe) obesity due to excess calories; Z68.42 Body mass index [BMI] 45.0-49.9, adult; Z95.810 Presence of automatic (implantable) cardiac defibrillator; Z79.899 Other long term (current) drug therapy; Z85.810 Personal history of malignant neoplasm of tongue; Z90.49 Acquired absence of other specified parts of digestive tract; Z87.891 Personal history of nicotine dependence
CPT/HCPCS: 36415; 80048; 83735; 83880; 96365; 96366; 96372; G0463; J1250; J1642; J3420

== ENCOUNTER → 2020-03-04 | Outpatient (CLI) | payer MEDICARE, MEDICAID ==
[2020-03-04] VITALS (9 sets, daily range): BP systolic 93–117; BP diastolic 50–69
[~2020-03-04] VITALS: Ht 30.5 cm; Wt 102.5 kg
[~2020-03-04] MED LIST changes: -CYANOCOBALAMIN (B-12) 1000 MCG/1 ML VIAL IM ONE; -CYANOCOBALAMIN (B-12) 1000 MCG/1 ML VIAL ONE
[2020-03-04 10:12] LABS: Magnesium 2.1 mg/dL (1.6-2.6)
[2020-03-04 11:11] LABS: Hematocrit 30.7 % (36.0-46.0); Mean Corpuscular Hemoglobin 27.9 pg (28.0-32.0); Mean Corpuscular Hgb Conc. 32.5 g/dL (32.0-36.0); Mean Corpuscular Volume 85.8 fL (80.0-100.0); Platelet Count (auto) 192 10^3/uL (140-450); Red Blood Cells 3.58 10^6/uL (4.0-5.20); Red Cell Distribution Width 18.9 % (11.8-14.3); White Blood Cell 5.1 10^3/uL (4.4-10.8)
[2020-03-04 11:20] LABS: Band Neutrophils % (manual) 0; Basophils % (manual) 0 (0.0-2.0); Blast Cells 0; Metamyelocytes % 0; Myelocytes % 0; Promyelocytes % 0; Reactive Lymphocytes 0
[2020-03-04 12:39] LABS: Eosinophils % (manual) 5 (0-7); Lymphocytes % (manual) 32 (10.0-50.0); Monocytes % (manual) 6 (0-12)
== END | disposition home or self-care (01) ==
LOC: CHF HDHVI 08:34
PROVIDERS: ATTEND Internal Medicine Cardiovascular Disease
DX: I13.2 Hypertensive heart and chronic kidney disease with heart failure and with stage 5 chronic kidney disease, or end stage renal disease (principal); N18.6 End stage renal disease; I50.23 Acute on chronic systolic (congestive) heart failure; I50.84 End stage heart failure; R53.83 Other fatigue; I25.10 Atherosclerotic heart disease of native coronary artery without angina pectoris; I48.91 Unspecified atrial fibrillation; I25.2 Old myocardial infarction; I42.8 Other cardiomyopathies; J44.9 Chronic obstructive pulmonary disease, unspecified; E78.5 Hyperlipidemia, unspecified; G89.29 Other chronic pain; E78.00 Pure hypercholesterolemia, unspecified; F41.9 Anxiety disorder, unspecified; E43 Unspecified severe protein-calorie malnutrition; E66.01 Morbid (severe) obesity due to excess calories; Z68.42 Body mass index [BMI] 45.0-49.9, adult; Z79.899 Other long term (current) drug therapy; Z85.810 Personal history of malignant neoplasm of tongue; Z87.891 Personal history of nicotine dependence; Z90.49 Acquired absence of other specified parts of digestive tract; Z95.810 Presence of automatic (implantable) cardiac defibrillator
CPT/HCPCS: 36415; 82306; 83735; 83880; 84295; 85007; 85027; 96365; 96366; G0463; J1250; J1642

== ENCOUNTER → 2020-03-13 | Outpatient (CLI) | payer MEDICARE, MEDICAID ==
[2020-03-13] VITALS (9 sets, daily range): BP systolic 90–106; BP diastolic 50–61
[2020-03-13 12:15] LABS: Hematocrit 30.9 % (36.0-46.0); Hemoglobin 10.3 g/dL (12.2-16.2); Mean Corpuscular Hemoglobin 28.8 pg (28.0-32.0); Mean Corpuscular Hgb Conc. 33.5 g/dL (32.0-36.0); Mean Corpuscular Volume 85.9 fL (80.0-100.0); Platelet Count (auto) 214 10^3/uL (140-450); Red Blood Cells 3.59 10^6/uL (4.0-5.20); Red Cell Distribution Width 18.2 % (11.8-14.3); White Blood Cell 4.6 10^3/uL (4.4-10.8)
[2020-03-13 12:24] LABS: Potassium 3.9 mmol/L (3.5-5.1)
[2020-03-13 12:28] LABS: Band Neutrophils % (manual) 0; Basophils % (manual) 0 (0.0-2.0); Blast Cells 0; Metamyelocytes % 0; Myelocytes % 0; Promyelocytes % 0; Reactive Lymphocytes 0
[2020-03-13 12:40] LABS: Albumin 2.5 g/dL (3.4-5.0); Bilirubin, Total 0.4 mg/dL (0.2-1.0); Magnesium 1.9 mg/dL (1.6-2.6); Total Protein 6.4 g/dL (6.4-8.2)
[2020-03-13 13:50] LABS: Eosinophils % (manual) 4 (0-7); Lymphocytes % (manual) 45 (10.0-50.0); Monocytes % (manual) 9 (0-12)
== END | disposition home or self-care (01) ==
LOC: CHF HDHVI 08:32
PROVIDERS: ATTEND Internal Medicine Cardiovascular Disease
DX: I13.2 Hypertensive heart and chronic kidney disease with heart failure and with stage 5 chronic kidney disease, or end stage renal disease (principal); N18.6 End stage renal disease; I50.23 Acute on chronic systolic (congestive) heart failure; I50.84 End stage heart failure; R53.83 Other fatigue; F41.9 Anxiety disorder, unspecified; I25.10 Atherosclerotic heart disease of native coronary artery without angina pectoris; I48.91 Unspecified atrial fibrillation; I25.2 Old myocardial infarction; I42.8 Other cardiomyopathies; J44.9 Chronic obstructive pulmonary disease, unspecified; E78.5 Hyperlipidemia, unspecified; G89.29 Other chronic pain; E78.00 Pure hypercholesterolemia, unspecified; E43 Unspecified severe protein-calorie malnutrition; E66.01 Morbid (severe) obesity due to excess calories; Z68.42 Body mass index [BMI] 45.0-49.9, adult; Z79.899 Other long term (current) drug therapy; Z85.810 Personal history of malignant neoplasm of tongue; Z87.891 Personal history of nicotine dependence; Z90.49 Acquired absence of other specified parts of digestive tract
CPT/HCPCS: 36415; 80053; 83735; 83880; 85007; 85027; 96365; 96366; G0463; J1250; J1642

== ENCOUNTER → 2020-03-18 | Outpatient (CLI) | payer MEDICARE, MEDICAID ==
[~2020-03-18] VITALS: Ht 30.5 cm; Wt 101.4 kg
[2020-03-18] VITALS (9 sets, daily range): BP systolic 85–114; BP diastolic 36–74
[~2020-03-18] MED LIST changes: +ONDANSETRON HCL 4 MG/2 ML VIAL IV ONE; +ONDANSETRON HCL 4 MG/2 ML VIAL ONE
[2020-03-18 11:35] LABS: Hematocrit 29.5 % (36.0-46.0); Hemoglobin 9.7 g/dL (12.2-16.2); Mean Corpuscular Hemoglobin 28.3 pg (28.0-32.0); Mean Corpuscular Hgb Conc. 32.9 g/dL (32.0-36.0); Mean Corpuscular Volume 86.2 fL (80.0-100.0); Platelet Count (auto) 194 10^3/uL (140-450); Red Blood Cells 3.42 10^6/uL (4.0-5.20); Red Cell Distribution Width 18.1 % (11.8-14.3); White Blood Cell 4.9 10^3/uL (4.4-10.8)
[2020-03-18 11:55] LABS: Basophils % (manual) 0 (0.0-2.0); Blast Cells 0; Metamyelocytes % 0; Myelocytes % 0; Promyelocytes % 0; Reactive Lymphocytes 0
[2020-03-18 11:56] LABS: BUN/Creatinine Ratio 16.7; Calcium 9.7 mg/dL (8.5-10.1); Magnesium 2.2 mg/dL (1.6-2.6); Potassium 3.6 mmol/L (3.5-5.1)
[2020-03-18 13:07] LABS: Band Neutrophils % (manual) 1; Eosinophils % (manual) 4 (0-7); Lymphocytes % (manual) 59 (10.0-50.0); Monocytes % (manual) 7 (0-12)
== END | disposition home or self-care (01) ==
LOC: CHF HDHVI 08:21
PROVIDERS: ATTEND Internal Medicine Cardiovascular Disease
DX: I13.2 Hypertensive heart and chronic kidney disease with heart failure and with stage 5 chronic kidney disease, or end stage renal disease (principal); I50.23 Acute on chronic systolic (congestive) heart failure; N18.6 End stage renal disease; R53.83 Other fatigue; I25.10 Atherosclerotic heart disease of native coronary artery without angina pectoris; I25.2 Old myocardial infarction; I48.91 Unspecified atrial fibrillation; J44.9 Chronic obstructive pulmonary disease, unspecified; E78.5 Hyperlipidemia, unspecified; E78.00 Pure hypercholesterolemia, unspecified; F41.9 Anxiety disorder, unspecified; E66.01 Morbid (severe) obesity due to excess calories; Z68.42 Body mass index [BMI] 45.0-49.9, adult; Z87.891 Personal history of nicotine dependence; Z79.899 Other long term (current) drug therapy; Z90.49 Acquired absence of other specified parts of digestive tract; Z95.810 Presence of automatic (implantable) cardiac defibrillator
CPT/HCPCS: 36415; 80048; 83735; 83880; 85007; 85027; 96365; 96366; 96375; G0463; J1250; J1642; J2405

== ENCOUNTER → 2020-03-20 | Outpatient (CLI) | payer MEDICARE, MEDICAID ==
[2020-03-20] VITALS (9 sets, daily range): BP systolic 90–117; BP diastolic 45–63
[~2020-03-20] MED LIST changes: -ONDANSETRON HCL 4 MG/2 ML VIAL IV ONE; -ONDANSETRON HCL 4 MG/2 ML VIAL ONE
== END | disposition home or self-care (01) ==
LOC: CHF HDHVI 08:18
PROVIDERS: ATTEND Internal Medicine Cardiovascular Disease
DX: I13.2 Hypertensive heart and chronic kidney disease with heart failure and with stage 5 chronic kidney disease, or end stage renal disease (principal); I50.23 Acute on chronic systolic (congestive) heart failure; I50.84 End stage heart failure; N18.6 End stage renal disease; I48.91 Unspecified atrial fibrillation; R53.83 Other fatigue; I25.10 Atherosclerotic heart disease of native coronary artery without angina pectoris; I25.2 Old myocardial infarction; F41.9 Anxiety disorder, unspecified; J44.9 Chronic obstructive pulmonary disease, unspecified; E78.5 Hyperlipidemia, unspecified; E78.00 Pure hypercholesterolemia, unspecified; E43 Unspecified severe protein-calorie malnutrition; E66.01 Morbid (severe) obesity due to excess calories; Z68.42 Body mass index [BMI] 45.0-49.9, adult; Z79.899 Other long term (current) drug therapy; Z90.49 Acquired absence of other specified parts of digestive tract; Z87.891 Personal history of nicotine dependence
CPT/HCPCS: 36415; 80162; 96365; 96366; G0463; J1250; J1642

== ENCOUNTER → 2020-03-23 | Outpatient (CLI) | payer MEDICARE, MEDICAID ==
[~2020-03-23] VITALS: Ht 30.5 cm; Wt 101.3 kg
[~2020-03-23] MED LIST changes: +CYANOCOBALAMIN (B-12) 1000 MCG/1 ML VIAL IM ONE; +CYANOCOBALAMIN (B-12) 1000 MCG/1 ML VIAL ONE; -DOBUTamine 1000MCG/ML 250 ML IV ONE; +MAGNESIUM OXIDE 400 MG TAB ONE; +MAGNESIUM OXIDE 400 MG TAB PO ONE; +POTASSIUM CHL 10 Meq TABLET PO ONE; +POTASSIUM CHL 20 Meq TABLET PO ONE; +SODIUM CHLORIDE 0.9% 250 ML IV ONE; +TEMA15CA2 PO; -TEMA15CA91 PO
[2020-03-23 09:36] VITALS: BP 83/54
[2020-03-23 09:39] LABS: Hematocrit 30.1 % (36.0-46.0); Hemoglobin 9.8 g/dL (12.2-16.2); Mean Corpuscular Hemoglobin 28.3 pg (28.0-32.0); Mean Corpuscular Hgb Conc. 32.6 g/dL (32.0-36.0); Mean Corpuscular Volume 86.8 fL (80.0-100.0); Platelet Count (auto) 219 10^3/uL (140-450); Red Blood Cells 3.46 10^6/uL (4.0-5.20); Red Cell Distribution Width 17.9 % (11.8-14.3); White Blood Cell 5.1 10^3/uL (4.4-10.8)
[2020-03-23 09:48] LABS: Basophils % (manual) 0 (0.0-2.0); Blast Cells 0; Promyelocytes % 0; Reactive Lymphocytes 0
[2020-03-23 09:54] LABS: Calcium 9.4 mg/dL (8.5-10.1); Magnesium 1.9 mg/dL (1.6-2.6); Potassium 3.5 mmol/L (3.5-5.1)
[2020-03-23 10:00] VITALS: BP 113/66
[2020-03-23 10:30] VITALS: BP 112/74
[2020-03-23 11:00] VITALS: BP 105/53
[2020-03-23 11:03] LABS: Band Neutrophils % (manual) 3; Eosinophils % (manual) 4 (0-7); Lymphocytes % (manual) 42 (10.0-50.0); Metamyelocytes % 2; Monocytes % (manual) 7 (0-12); Myelocytes % 2
[2020-03-23 11:30] VITALS: BP 99/69
[2020-03-23 12:01] VITALS: BP 103/52
== END | disposition home or self-care (01) ==
LOC: Rad HDHVI 08:54
PROVIDERS: ATTEND Internal Medicine Cardiovascular Disease
DX: I13.2 Hypertensive heart and chronic kidney disease with heart failure and with stage 5 chronic kidney disease, or end stage renal disease (principal); I50.43 Acute on chronic combined systolic (congestive) and diastolic (congestive) heart failure; N18.6 End stage renal disease; I42.0 Dilated cardiomyopathy; R53.83 Other fatigue; T82.897A Other specified complication of cardiac prosthetic devices, implants and grafts, initial encounter; I25.10 Atherosclerotic heart disease of native coronary artery without angina pectoris; I48.91 Unspecified atrial fibrillation; I95.89 Other hypotension; I25.2 Old myocardial infarction; I42.8 Other cardiomyopathies; J44.9 Chronic obstructive pulmonary disease, unspecified; F41.9 Anxiety disorder, unspecified; E78.5 Hyperlipidemia, unspecified; G89.29 Other chronic pain; E78.00 Pure hypercholesterolemia, unspecified; E43 Unspecified severe protein-calorie malnutrition; E66.01 Morbid (severe) obesity due to excess calories; Z68.42 Body mass index [BMI] 45.0-49.9, adult; Z87.891 Personal history of nicotine dependence; Z79.899 Other long term (current) drug therapy; Z95.810 Presence of automatic (implantable) cardiac defibrillator; Z90.49 Acquired absence of other specified parts of digestive tract
CPT/HCPCS: 36415; 80048; 83735; 83880; 85007; 85027; 93005; 93306; 96360; 96361; 96372; G0463; J1642; J3420

== ENCOUNTER → 2020-03-25 | Outpatient (CLI) | payer MEDICARE, MEDICAID ==
[2020-03-25] VITALS (8 sets, daily range): BP systolic 83–107; BP diastolic 29–64
[~2020-03-25] VITALS: Ht 30.5 cm; Wt 103.3 kg
[~2020-03-25] MED LIST changes: +CATHFLO ACTIVASE (ALTEPLASE) 2 MG VIAL IV ONE; -CYANOCOBALAMIN (B-12) 1000 MCG/1 ML VIAL IM ONE; -CYANOCOBALAMIN (B-12) 1000 MCG/1 ML VIAL ONE; +DOBUTamine 1000MCG/ML 250 ML IV ONE; -MAGNESIUM OXIDE 400 MG TAB ONE; -MAGNESIUM OXIDE 400 MG TAB PO ONE; -POTASSIUM CHL 10 Meq TABLET PO ONE; -POTASSIUM CHL 20 Meq TABLET PO ONE; +STERILE WATER 10 ML ONE
[2020-03-25 11:28] LABS: Basophils # (auto) 0.1 10 ^3/uL (0-0.2); Basophils % (auto) 1.2 % (0.0-2.0); Eosinophils # (auto) 0.1 10 ^3/uL (0-0.8); Eosinophils % (auto) 3.2 % (0.0-7.0); Hematocrit 27.4 % (36.0-46.0); Hemoglobin 9.1 g/dL (12.2-16.2); Lymphocytes % (auto) 42.7 % (10.0-50.0); Mean Corpuscular Hgb Conc. 33.3 g/dL (32.0-36.0); Monocytes # (auto) 0.3 10 ^3/uL (0-1.3); Monocytes % (auto) 7.2 % (0.0-12.0); Neutrophils # (auto) 2.1 10 ^3/uL (1.6-8.6); Neutrophils % (auto) 45.7 % (37.0-80.0); Nucleated Red Blood Cells % 0.2 %; Platelet Count (auto) 221 10^3/uL (140-450); Red Blood Cells 3.15 10^6/uL (4.0-5.20); Red Cell Distribution Width 17.2 % (11.8-14.3); White Blood Cell 4.7 10^3/uL (4.4-10.8)
[2020-03-25 11:41] LABS: Potassium 3.9 mmol/L (3.5-5.1)
== END | disposition home or self-care (01) ==
LOC: CHF HDHVI 08:19
PROVIDERS: ATTEND Internal Medicine Cardiovascular Disease
DX: I13.2 Hypertensive heart and chronic kidney disease with heart failure and with stage 5 chronic kidney disease, or end stage renal disease (principal); I50.23 Acute on chronic systolic (congestive) heart failure; N18.6 End stage renal disease; I25.10 Atherosclerotic heart disease of native coronary artery without angina pectoris; I25.2 Old myocardial infarction; I42.8 Other cardiomyopathies; I48.91 Unspecified atrial fibrillation; J44.9 Chronic obstructive pulmonary disease, unspecified; E78.5 Hyperlipidemia, unspecified; E78.00 Pure hypercholesterolemia, unspecified; F41.9 Anxiety disorder, unspecified; G89.29 Other chronic pain; E66.01 Morbid (severe) obesity due to excess calories; Z68.42 Body mass index [BMI] 45.0-49.9, adult; Z87.891 Personal history of nicotine dependence; Z79.899 Other long term (current) drug therapy; Z90.49 Acquired absence of other specified parts of digestive tract; Z95.810 Presence of automatic (implantable) cardiac defibrillator; Z85.810 Personal history of malignant neoplasm of tongue; Z45.2 Encounter for adjustment and management of vascular access device
CPT/HCPCS: 36415; 36593; 82565; 83735; 83880; 84132; 84520; 85025; 96365; 96366; G0463; J1250; J1642; J2997; J7050; 96361; 96375

== ENCOUNTER → 2020-04-08 | Outpatient (CLI) | payer MEDICARE, MEDICAID ==
[~2020-04-08] MED LIST changes: -CATHFLO ACTIVASE (ALTEPLASE) 2 MG VIAL IV ONE; -DOBUTamine 1000MCG/ML 250 ML IV ONE; -SODIUM CHLORIDE 0.9% 250 ML IV ONE; +SODIUM CHLORIDE 0.9% 500 ML IV ONE; -STERILE WATER 10 ML ONE
[2020-04-08 08:31] VITALS: BP 100/45
[2020-04-08 09:00] VITALS: BP 96/33
[2020-04-08 11:18] VITALS: BP 92/49
[2020-04-08 12:00] LABS: Basophils # (auto) 0 10 ^3/uL (0-0.2); Eosinophils # (auto) 0.1 10 ^3/uL (0-0.8); Eosinophils % (auto) 2.8 % (0.0-7.0); Hemoglobin 9.8 g/dL (12.2-16.2); Lymphocytes # (auto) 1.9 10 ^3/uL (0.4-5.4); Mean Corpuscular Hemoglobin 28.7 pg (28.0-32.0); Mean Corpuscular Hgb Conc. 32.5 g/dL (32.0-36.0); Mean Corpuscular Volume 88.2 fL (80.0-100.0); Monocytes # (auto) 0.3 10 ^3/uL (0-1.3); Monocytes % (auto) 7.1 % (0.0-12.0); Neutrophils # (auto) 1.8 10 ^3/uL (1.6-8.6); Neutrophils % (auto) 43.1 % (37.0-80.0); Nucleated Red Blood Cells % 0.1 %; Platelet Count (auto) 257 10^3/uL (140-450); Red Cell Distribution Width 17.4 % (11.8-14.3); White Blood Cell 4.1 10^3/uL (4.4-10.8)
[2020-04-08 12:13] LABS: Potassium 4.2 mmol/L (3.5-5.1)
[2020-04-08 12:20] LABS: BUN/Creatinine Ratio 12.6; Calcium 9.4 mg/dL (8.5-10.1)
== END | disposition home or self-care (01) ==
LOC: CHF HDHVI 08:31
PROVIDERS: ATTEND Internal Medicine Cardiovascular Disease
DX: I13.2 Hypertensive heart and chronic kidney disease with heart failure and with stage 5 chronic kidney disease, or end stage renal disease (principal); I50.23 Acute on chronic systolic (congestive) heart failure; N18.6 End stage renal disease; I95.9 Hypotension, unspecified; D64.9 Anemia, unspecified; R53.83 Other fatigue; F41.9 Anxiety disorder, unspecified; I25.10 Atherosclerotic heart disease of native coronary artery without angina pectoris; I48.91 Unspecified atrial fibrillation; I25.2 Old myocardial infarction; I42.8 Other cardiomyopathies; J44.9 Chronic obstructive pulmonary disease, unspecified; E78.5 Hyperlipidemia, unspecified; E78.00 Pure hypercholesterolemia, unspecified; E43 Unspecified severe protein-calorie malnutrition; E66.01 Morbid (severe) obesity due to excess calories; Z79.899 Other long term (current) drug therapy; Z85.810 Personal history of malignant neoplasm of tongue; Z87.891 Personal history of nicotine dependence; Z90.49 Acquired absence of other specified parts of digestive tract; Z95.810 Presence of automatic (implantable) cardiac defibrillator; Z68.42 Body mass index [BMI] 45.0-49.9, adult
CPT/HCPCS: 36415; 80048; 83735; 83880; 85025; 96360; 96361; G0463; J1642; J7040; 96366

== ENCOUNTER → 2020-04-22 | Outpatient (CLI) | payer MEDICARE, MEDICAID ==
[~2020-04-22] VITALS: Ht 30.5 cm; Wt 102.1 kg
[~2020-04-22] MED LIST changes: +CYANOCOBALAMIN (B-12) 1000 MCG/1 ML VIAL IM ONE; +CYANOCOBALAMIN (B-12) 1000 MCG/1 ML VIAL ONE; +SODIUM CHLORIDE 0.9% 250 ML IV ONE; -SODIUM CHLORIDE 0.9% 500 ML IV ONE; +SODIUM FERR GLUC 62.5MG/5ML 125 MG in SODIUM CHL 0.9% 100 ML IV ONE; +SODIUM FERRIC GLUC CPLEX 62.5MG/5ML VIAL IV ONE
[2020-04-22 08:25] VITALS: BP 126/75
[2020-04-22 10:35] VITALS: BP 94/55
[2020-04-22 11:02] VITALS: BP 96/55
[2020-04-22 11:27] LABS: Basophils # (auto) 0 10 ^3/uL (0-0.2); Basophils % (auto) 0.7 % (0.0-2.0); Eosinophils # (auto) 0.1 10 ^3/uL (0-0.8); Eosinophils % (auto) 3.3 % (0.0-7.0); Hematocrit 28.5 % (36.0-46.0); Hemoglobin 9.3 g/dL (12.2-16.2); Lymphocytes # (auto) 1.7 10 ^3/uL (0.4-5.4); Lymphocytes % (auto) 40.1 % (10.0-50.0); Mean Corpuscular Hemoglobin 28.6 pg (28.0-32.0); Mean Corpuscular Hgb Conc. 32.7 g/dL (32.0-36.0); Mean Corpuscular Volume 87.7 fL (80.0-100.0); Monocytes # (auto) 0.3 10 ^3/uL (0-1.3); Monocytes % (auto) 6.8 % (0.0-12.0); Neutrophils # (auto) 2.1 10 ^3/uL (1.6-8.6); Neutrophils % (auto) 49.1 % (37.0-80.0); Nucleated Red Blood Cells % 0.1 %; Platelet Count (auto) 284 10^3/uL (140-450); Red Blood Cells 3.25 10^6/uL (4.0-5.20); Red Cell Distribution Width 16.6 % (11.8-14.3); White Blood Cell 4.3 10^3/uL (4.4-10.8)
[2020-04-22 11:44] LABS: Magnesium 2.1 mg/dL (1.6-2.6); Potassium 4.3 mmol/L (3.5-5.1)
== END | disposition home or self-care (01) ==
LOC: CHF HDHVI 08:36
PROVIDERS: ATTEND Internal Medicine Cardiovascular Disease
DX: D64.9 Anemia, unspecified (principal); I13.2 Hypertensive heart and chronic kidney disease with heart failure and with stage 5 chronic kidney disease, or end stage renal disease; E11.22 Type 2 diabetes mellitus with diabetic chronic kidney disease; I50.42 Chronic combined systolic (congestive) and diastolic (congestive) heart failure; I50.84 End stage heart failure; N18.6 End stage renal disease; F41.9 Anxiety disorder, unspecified; I25.10 Atherosclerotic heart disease of native coronary artery without angina pectoris; J44.9 Chronic obstructive pulmonary disease, unspecified; E78.5 Hyperlipidemia, unspecified; I25.2 Old myocardial infarction; E78.00 Pure hypercholesterolemia, unspecified; I48.91 Unspecified atrial fibrillation; Z90.49 Acquired absence of other specified parts of digestive tract; Z79.899 Other long term (current) drug therapy; Z95.810 Presence of automatic (implantable) cardiac defibrillator; Z87.891 Personal history of nicotine dependence
CPT/HCPCS: 36415; 83735; 83880; 84132; 85025; 96361; 96365; 96372; G0463; J1642; J2916; J3420; J7050

== ENCOUNTER → 2020-05-06 | Outpatient (CLI) | payer MEDICARE, MEDICAID ==
[~2020-05-06] MED LIST changes: -SODIUM CHLORIDE 0.9% 250 ML IV ONE
[2020-05-06 08:50] VITALS: BP 106/60
[2020-05-06 10:00] VITALS: BP 108/61
[2020-05-06 11:52] LABS: Basophils # (auto) 0.1 10 ^3/uL (0-0.2); Basophils % (auto) 1.9 % (0.0-2.0); Eosinophils # (auto) 0.2 10 ^3/uL (0-0.8); Eosinophils % (auto) 3.8 % (0.0-7.0); Hematocrit 28.5 % (36.0-46.0); Hemoglobin 9.3 g/dL (12.2-16.2); Lymphocytes # (auto) 1.5 10 ^3/uL (0.4-5.4); Lymphocytes % (auto) 28.6 % (10.0-50.0); Mean Corpuscular Hgb Conc. 32.4 g/dL (32.0-36.0); Mean Corpuscular Volume 89.4 fL (80.0-100.0); Monocytes # (auto) 0.4 10 ^3/uL (0-1.3); Monocytes % (auto) 7.3 % (0.0-12.0); Neutrophils # (auto) 3.1 10 ^3/uL (1.6-8.6); Neutrophils % (auto) 58.4 % (37.0-80.0); Platelet Count (auto) 252 10^3/uL (140-450); Red Blood Cells 3.19 10^6/uL (4.0-5.20); Red Cell Distribution Width 17.6 % (11.8-14.3); White Blood Cell 5.3 10^3/uL (4.4-10.8)
[2020-05-06 11:55] LABS: Magnesium 1.9 mg/dL (1.6-2.6); Potassium 4.3 mmol/L (3.5-5.1)
== END | disposition home or self-care (01) ==
LOC: CHF HDHVI 08:17
PROVIDERS: ATTEND Internal Medicine Cardiovascular Disease
DX: D50.9 Iron deficiency anemia, unspecified (principal); D51.9 Vitamin B12 deficiency anemia, unspecified; R53.83 Other fatigue; I13.2 Hypertensive heart and chronic kidney disease with heart failure and with stage 5 chronic kidney disease, or end stage renal disease; E11.22 Type 2 diabetes mellitus with diabetic chronic kidney disease; I50.42 Chronic combined systolic (congestive) and diastolic (congestive) heart failure; N18.6 End stage renal disease; I25.10 Atherosclerotic heart disease of native coronary artery without angina pectoris; I25.2 Old myocardial infarction; I42.0 Dilated cardiomyopathy; I48.91 Unspecified atrial fibrillation; J44.9 Chronic obstructive pulmonary disease, unspecified; E78.5 Hyperlipidemia, unspecified; E78.00 Pure hypercholesterolemia, unspecified; E66.01 Morbid (severe) obesity due to excess calories; Z68.42 Body mass index [BMI] 45.0-49.9, adult; Z87.891 Personal history of nicotine dependence; Z95.810 Presence of automatic (implantable) cardiac defibrillator; Z79.899 Other long term (current) drug therapy
CPT/HCPCS: 36415; 83735; 83880; 84132; 85025; 96365; 96372; G0463; J1642; J2916; J3420

== ENCOUNTER → 2020-05-20 | Outpatient (CLI) | payer MEDICARE, MEDICAID ==
[2020-05-20 09:00] VITALS: BP 108/50
[2020-05-20 09:30] VITALS: BP 100/63
[2020-05-20 12:05] LABS: Basophils # (auto) 0.1 10 ^3/uL (0-0.2); Basophils % (auto) 1.3 % (0.0-2.0); Eosinophils # (auto) 0.1 10 ^3/uL (0-0.8); Eosinophils % (auto) 2.2 % (0.0-7.0); Hemoglobin 9.5 g/dL (12.2-16.2); Lymphocytes # (auto) 1.7 10 ^3/uL (0.4-5.4); Lymphocytes % (auto) 34.4 % (10.0-50.0); Mean Corpuscular Hemoglobin 29.2 pg (28.0-32.0); Mean Corpuscular Hgb Conc. 32.9 g/dL (32.0-36.0); Mean Corpuscular Volume 88.9 fL (80.0-100.0); Monocytes # (auto) 0.4 10 ^3/uL (0-1.3); Neutrophils # (auto) 2.7 10 ^3/uL (1.6-8.6); Neutrophils % (auto) 54.1 % (37.0-80.0); Platelet Count (auto) 245 10^3/uL (140-450); Red Blood Cells 3.27 10^6/uL (4.0-5.20); Red Cell Distribution Width 16.5 % (11.8-14.3); White Blood Cell 4.9 10^3/uL (4.4-10.8)
[2020-05-20 12:34] LABS: Potassium 4.1 mmol/L (3.5-5.1)
[2020-05-20 12:42] LABS: Albumin 2.7 g/dL (3.4-5.0); BUN/Creatinine Ratio 17.3; Bilirubin, Total 0.4 mg/dL (0.2-1.0); Calcium 10.3 mg/dL (8.5-10.1); Total Protein 6.8 g/dL (6.4-8.2)
== END | disposition home or self-care (01) ==
LOC: CHF HDHVI 08:21
PROVIDERS: ATTEND Internal Medicine Cardiovascular Disease
DX: I13.2 Hypertensive heart and chronic kidney disease with heart failure and with stage 5 chronic kidney disease, or end stage renal disease (principal); E11.22 Type 2 diabetes mellitus with diabetic chronic kidney disease; I50.23 Acute on chronic systolic (congestive) heart failure; I50.84 End stage heart failure; N18.6 End stage renal disease; F41.9 Anxiety disorder, unspecified; I25.10 Atherosclerotic heart disease of native coronary artery without angina pectoris; I48.91 Unspecified atrial fibrillation; J44.9 Chronic obstructive pulmonary disease, unspecified; I25.2 Old myocardial infarction; E78.00 Pure hypercholesterolemia, unspecified; Z79.899 Other long term (current) drug therapy; Z87.891 Personal history of nicotine dependence; Z95.810 Presence of automatic (implantable) cardiac defibrillator; Z90.49 Acquired absence of other specified parts of digestive tract
CPT/HCPCS: 36415; 80053; 83735; 83880; 85025; 96365; 96372; G0463; J1642; J2916; J3420

== ENCOUNTER → 2020-05-27 | Outpatient (CLI) | payer MEDICARE, MEDICAID ==
[~2020-05-27] MED LIST changes: -CYANOCOBALAMIN (B-12) 1000 MCG/1 ML VIAL IM ONE; -CYANOCOBALAMIN (B-12) 1000 MCG/1 ML VIAL ONE; +POTASSIUM CHL 20 Meq TABLET PO ONE
[2020-05-27 09:10] VITALS: BP 130/76
[2020-05-27 09:53] VITALS: BP 99/62
[2020-05-27 12:15] LABS: Basophils # (auto) 0 10 ^3/uL (0-0.2); Basophils % (auto) 0.8 % (0.0-2.0); Eosinophils # (auto) 0.1 10 ^3/uL (0-0.8); Eosinophils % (auto) 2.5 % (0.0-7.0); Hematocrit 30.4 % (36.0-46.0); Hemoglobin 9.8 g/dL (12.2-16.2); Lymphocytes # (auto) 1.7 10 ^3/uL (0.4-5.4); Lymphocytes % (auto) 33.4 % (10.0-50.0); Mean Corpuscular Hemoglobin 28.8 pg (28.0-32.0); Mean Corpuscular Hgb Conc. 32.1 g/dL (32.0-36.0); Mean Corpuscular Volume 89.7 fL (80.0-100.0); Monocytes # (auto) 0.4 10 ^3/uL (0-1.3); Monocytes % (auto) 8.6 % (0.0-12.0); Neutrophils # (auto) 2.7 10 ^3/uL (1.6-8.6); Neutrophils % (auto) 54.7 % (37.0-80.0); Platelet Count (auto) 259 10^3/uL (140-450); Red Blood Cells 3.38 10^6/uL (4.0-5.20); Red Cell Distribution Width 16.6 % (11.8-14.3)
[2020-05-27 12:29] LABS: Calcium 10.4 mg/dL (8.5-10.1); Magnesium 1.9 mg/dL (1.6-2.6); Potassium 4.4 mmol/L (3.5-5.1)
== END | disposition home or self-care (01) ==
LOC: CHF HDHVI 08:29
PROVIDERS: ATTEND Internal Medicine Cardiovascular Disease
DX: D50.9 Iron deficiency anemia, unspecified (principal); I13.2 Hypertensive heart and chronic kidney disease with heart failure and with stage 5 chronic kidney disease, or end stage renal disease; E11.22 Type 2 diabetes mellitus with diabetic chronic kidney disease; I50.23 Acute on chronic systolic (congestive) heart failure; I50.84 End stage heart failure; N18.6 End stage renal disease; F41.9 Anxiety disorder, unspecified; I25.10 Atherosclerotic heart disease of native coronary artery without angina pectoris; I48.91 Unspecified atrial fibrillation; E78.00 Pure hypercholesterolemia, unspecified; J44.9 Chronic obstructive pulmonary disease, unspecified; I25.2 Old myocardial infarction; Z79.899 Other long term (current) drug therapy; Z87.891 Personal history of nicotine dependence; Z95.810 Presence of automatic (implantable) cardiac defibrillator; Z90.49 Acquired absence of other specified parts of digestive tract
CPT/HCPCS: 36415; 80048; 83735; 83880; 85025; 96365; G0463; J1642; J2916

== ENCOUNTER → 2020-06-03 | Outpatient (CLI) | payer MEDICARE, MEDICAID ==
[~2020-06-03] MED LIST changes: +CYANOCOBALAMIN (B-12) 1000 MCG/1 ML VIAL IM ONE; +CYANOCOBALAMIN (B-12) 1000 MCG/1 ML VIAL ONE; +MAGNESIUM SULFATE 1GM/100ML 100 ML IV ONE; -POTASSIUM CHL 20 Meq TABLET PO ONE
[2020-06-03 08:50] VITALS: BP 119/77
[2020-06-03 10:35] VITALS: BP 106/63
[2020-06-03 11:39] LABS: Basophils # (auto) 0.1 10 ^3/uL (0-0.2); Eosinophils # (auto) 0.1 10 ^3/uL (0-0.8); Eosinophils % (auto) 2.7 % (0.0-7.0); Hematocrit 29.7 % (36.0-46.0); Hemoglobin 9.7 g/dL (12.2-16.2); Lymphocytes # (auto) 1.7 10 ^3/uL (0.4-5.4); Lymphocytes % (auto) 31.5 % (10.0-50.0); Mean Corpuscular Hemoglobin 29.1 pg (28.0-32.0); Mean Corpuscular Hgb Conc. 32.5 g/dL (32.0-36.0); Mean Corpuscular Volume 89.7 fL (80.0-100.0); Monocytes # (auto) 0.5 10 ^3/uL (0-1.3); Monocytes % (auto) 10.2 % (0.0-12.0); Neutrophils # (auto) 2.9 10 ^3/uL (1.6-8.6); Neutrophils % (auto) 54.6 % (37.0-80.0); Platelet Count (auto) 241 10^3/uL (140-450); Red Blood Cells 3.31 10^6/uL (4.0-5.20); Red Cell Distribution Width 15.8 % (11.8-14.3); White Blood Cell 5.3 10^3/uL (4.4-10.8)
[2020-06-03 11:51] LABS: BUN/Creatinine Ratio 16.7; Calcium 10.1 mg/dL (8.5-10.1); Magnesium 1.9 mg/dL (1.6-2.6); Potassium 4.2 mmol/L (3.5-5.1)
== END | disposition home or self-care (01) ==
LOC: CHF HDHVI 08:05
PROVIDERS: ATTEND Internal Medicine Cardiovascular Disease
DX: I13.2 Hypertensive heart and chronic kidney disease with heart failure and with stage 5 chronic kidney disease, or end stage renal disease (principal); E11.22 Type 2 diabetes mellitus with diabetic chronic kidney disease; I50.42 Chronic combined systolic (congestive) and diastolic (congestive) heart failure; N18.6 End stage renal disease; E83.42 Hypomagnesemia; F41.9 Anxiety disorder, unspecified; I25.10 Atherosclerotic heart disease of native coronary artery without angina pectoris; I25.2 Old myocardial infarction; I48.91 Unspecified atrial fibrillation; I42.8 Other cardiomyopathies; J44.9 Chronic obstructive pulmonary disease, unspecified; R53.83 Other fatigue; D51.9 Vitamin B12 deficiency anemia, unspecified; E78.00 Pure hypercholesterolemia, unspecified; E66.01 Morbid (severe) obesity due to excess calories; Z87.891 Personal history of nicotine dependence; Z79.899 Other long term (current) drug therapy; Z95.810 Presence of automatic (implantable) cardiac defibrillator; Z68.42 Body mass index [BMI] 45.0-49.9, adult
CPT/HCPCS: 36415; 80048; 83735; 83880; 85025; 96365; 96367; 96372; G0463; J1642; J2916; J3420; J3475

== ENCOUNTER → 2020-06-17 | Outpatient (CLI) | payer MEDICARE, MEDICAID ==
[~2020-06-17] MED LIST changes: -CYANOCOBALAMIN (B-12) 1000 MCG/1 ML VIAL IM ONE; -CYANOCOBALAMIN (B-12) 1000 MCG/1 ML VIAL ONE
[2020-06-17 08:30] VITALS: BP 132/70
[2020-06-17 09:56] LABS: Basophils # (auto) 0.1 10 ^3/uL (0-0.2); Basophils % (auto) 2.3 % (0.0-2.0); Eosinophils # (auto) 0.2 10 ^3/uL (0-0.8); Eosinophils % (auto) 5.3 % (0.0-7.0); Hemoglobin 10.1 g/dL (12.2-16.2); Lymphocytes # (auto) 1.1 10 ^3/uL (0.4-5.4); Lymphocytes % (auto) 24.6 % (10.0-50.0); Mean Corpuscular Hemoglobin 29.1 pg (28.0-32.0); Mean Corpuscular Hgb Conc. 32.6 g/dL (32.0-36.0); Mean Corpuscular Volume 89.4 fL (80.0-100.0); Monocytes # (auto) 0.4 10 ^3/uL (0-1.3); Monocytes % (auto) 8.3 % (0.0-12.0); Neutrophils # (auto) 2.6 10 ^3/uL (1.6-8.6); Neutrophils % (auto) 59.5 % (37.0-80.0); Platelet Count (auto) 226 10^3/uL (140-450); Red Blood Cells 3.47 10^6/uL (4.0-5.20); Red Cell Distribution Width 15.8 % (11.8-14.3); White Blood Cell 4.3 10^3/uL (4.4-10.8)
[2020-06-17 10:14] LABS: BUN/Creatinine Ratio 14.5; Calcium 10.5 mg/dL (8.5-10.1); Potassium 4.2 mmol/L (3.5-5.1)
[2020-06-17 11:56] VITALS: BP 99/62
== END | disposition home or self-care (01) ==
LOC: CHF HDHVI 08:15
PROVIDERS: ATTEND Internal Medicine Cardiovascular Disease
DX: D50.9 Iron deficiency anemia, unspecified (principal); E83.42 Hypomagnesemia; I13.2 Hypertensive heart and chronic kidney disease with heart failure and with stage 5 chronic kidney disease, or end stage renal disease; E11.22 Type 2 diabetes mellitus with diabetic chronic kidney disease; I50.23 Acute on chronic systolic (congestive) heart failure; I50.84 End stage heart failure; N18.6 End stage renal disease; F41.9 Anxiety disorder, unspecified; I25.10 Atherosclerotic heart disease of native coronary artery without angina pectoris; J44.9 Chronic obstructive pulmonary disease, unspecified; I25.2 Old myocardial infarction; E78.00 Pure hypercholesterolemia, unspecified; I48.91 Unspecified atrial fibrillation; Z90.49 Acquired absence of other specified parts of digestive tract; Z79.899 Other long term (current) drug therapy; Z87.891 Personal history of nicotine dependence; Z95.810 Presence of automatic (implantable) cardiac defibrillator
CPT/HCPCS: 36415; 80048; 83735; 83880; 85025; 96365; 96367; G0463; J1642; J2916; J3475

== ENCOUNTER → 2020-06-24 | Outpatient (CLI) | payer MEDICARE, MEDICAID ==
[~2020-06-24] MED LIST changes: +CYANOCOBALAMIN (B-12) 1000 MCG/1 ML VIAL IM ONE; +CYANOCOBALAMIN (B-12) 1000 MCG/1 ML VIAL ONE
[2020-06-24 10:50] VITALS: BP 122/72
[2020-06-24 11:45] LABS: Basophils # (auto) 0.1 10 ^3/uL (0-0.2); Basophils % (auto) 1.7 % (0.0-2.0); Eosinophils # (auto) 0.2 10 ^3/uL (0-0.8); Eosinophils % (auto) 5.3 % (0.0-7.0); Hematocrit 31.5 % (36.0-46.0); Hemoglobin 10.1 g/dL (12.2-16.2); Lymphocytes # (auto) 1.4 10 ^3/uL (0.4-5.4); Lymphocytes % (auto) 29.9 % (10.0-50.0); Mean Corpuscular Hemoglobin 28.8 pg (28.0-32.0); Mean Corpuscular Hgb Conc. 32.1 g/dL (32.0-36.0); Mean Corpuscular Volume 89.8 fL (80.0-100.0); Monocytes # (auto) 0.4 10 ^3/uL (0-1.3); Monocytes % (auto) 8.8 % (0.0-12.0); Neutrophils # (auto) 2.5 10 ^3/uL (1.6-8.6); Neutrophils % (auto) 54.3 % (37.0-80.0); Nucleated Red Blood Cells % 0.1 %; Platelet Count (auto) 208 10^3/uL (140-450); Red Cell Distribution Width 15.5 % (11.8-14.3); White Blood Cell 4.5 10^3/uL (4.4-10.8)
[2020-06-24 12:16] LABS: Magnesium 2.2 mg/dL (1.6-2.6); Potassium 4.5 mmol/L (3.5-5.1)
== END | disposition home or self-care (01) ==
LOC: CHF HDHVI 08:04
PROVIDERS: ATTEND Internal Medicine Cardiovascular Disease
DX: D51.9 Vitamin B12 deficiency anemia, unspecified (principal); E83.42 Hypomagnesemia; D50.9 Iron deficiency anemia, unspecified; R53.83 Other fatigue; I13.2 Hypertensive heart and chronic kidney disease with heart failure and with stage 5 chronic kidney disease, or end stage renal disease; E11.22 Type 2 diabetes mellitus with diabetic chronic kidney disease; I50.42 Chronic combined systolic (congestive) and diastolic (congestive) heart failure; N18.6 End stage renal disease; I25.10 Atherosclerotic heart disease of native coronary artery without angina pectoris; I25.2 Old myocardial infarction; I48.91 Unspecified atrial fibrillation; I42.8 Other cardiomyopathies; J44.9 Chronic obstructive pulmonary disease, unspecified; E78.00 Pure hypercholesterolemia, unspecified; E78.5 Hyperlipidemia, unspecified; F41.9 Anxiety disorder, unspecified; E66.01 Morbid (severe) obesity due to excess calories; Z68.42 Body mass index [BMI] 45.0-49.9, adult; Z90.49 Acquired absence of other specified parts of digestive tract; Z87.891 Personal history of nicotine dependence; Z79.899 Other long term (current) drug therapy
CPT/HCPCS: 36415; 82565; 83735; 83880; 84132; 84520; 85025; 96365; 96367; 96372; G0463; J1642; J2916; J3420; J3475

== ENCOUNTER → 2020-07-01 | Outpatient (CLI) | payer MEDICARE, MEDICAID ==
[~2020-07-01] VITALS: Ht 30.5 cm; Wt 100.9 kg
[~2020-07-01] MED LIST changes: -CYANOCOBALAMIN (B-12) 1000 MCG/1 ML VIAL IM ONE; -CYANOCOBALAMIN (B-12) 1000 MCG/1 ML VIAL ONE; -MAGNESIUM SULFATE 1GM/100ML 100 ML IV ONE
[2020-07-01 09:59] VITALS: BP 140/71
[2020-07-01 11:52] LABS: Basophils # (auto) 0.1 10 ^3/uL (0-0.2); Basophils % (auto) 1.7 % (0.0-2.0); Eosinophils # (auto) 0.2 10 ^3/uL (0-0.8); Eosinophils % (auto) 4.1 % (0.0-7.0); Hematocrit 33.6 % (36.0-46.0); Hemoglobin 10.7 g/dL (12.2-16.2); Lymphocytes # (auto) 1.7 10 ^3/uL (0.4-5.4); Lymphocytes % (auto) 33.8 % (10.0-50.0); Mean Corpuscular Hemoglobin 28.8 pg (28.0-32.0); Mean Corpuscular Hgb Conc. 31.8 g/dL (32.0-36.0); Mean Corpuscular Volume 90.7 fL (80.0-100.0); Monocytes # (auto) 0.5 10 ^3/uL (0-1.3); Monocytes % (auto) 9.2 % (0.0-12.0); Neutrophils # (auto) 2.6 10 ^3/uL (1.6-8.6); Neutrophils % (auto) 51.2 % (37.0-80.0); Platelet Count (auto) 244 10^3/uL (140-450); Red Blood Cells 3.71 10^6/uL (4.0-5.20); Red Cell Distribution Width 15.7 % (11.8-14.3); White Blood Cell 5.2 10^3/uL (4.4-10.8)
[2020-07-01 12:02] LABS: Potassium 4.3 mmol/L (3.5-5.1)
[2020-07-01 12:16] LABS: % Iron Saturation 19.9 % (15-50)
[2020-07-01 12:56] LABS: Magnesium 2.2 mg/dL (1.6-2.6)
== END | disposition home or self-care (01) ==
LOC: CHF HDHVI 08:26
PROVIDERS: ATTEND Internal Medicine Cardiovascular Disease
DX: D51.9 Vitamin B12 deficiency anemia, unspecified (principal); I13.2 Hypertensive heart and chronic kidney disease with heart failure and with stage 5 chronic kidney disease, or end stage renal disease; E11.22 Type 2 diabetes mellitus with diabetic chronic kidney disease; I50.23 Acute on chronic systolic (congestive) heart failure; N18.6 End stage renal disease; D50.9 Iron deficiency anemia, unspecified; I25.10 Atherosclerotic heart disease of native coronary artery without angina pectoris; I25.2 Old myocardial infarction; I48.91 Unspecified atrial fibrillation; I42.8 Other cardiomyopathies; J44.9 Chronic obstructive pulmonary disease, unspecified; E78.5 Hyperlipidemia, unspecified; E78.00 Pure hypercholesterolemia, unspecified; F41.9 Anxiety disorder, unspecified; E66.01 Morbid (severe) obesity due to excess calories; Z68.42 Body mass index [BMI] 45.0-49.9, adult; Z87.891 Personal history of nicotine dependence; Z90.49 Acquired absence of other specified parts of digestive tract; Z79.899 Other long term (current) drug therapy; Z95.810 Presence of automatic (implantable) cardiac defibrillator
CPT/HCPCS: 36415; 82565; 82728; 83540; 83550; 83735; 83880; 84132; 84520; 85025; 96365; G0463; J1642; J2916

== ENCOUNTER → 2020-07-22 | Outpatient (CLI) | payer MEDICARE, MEDICAID ==
[~2020-07-22] VITALS: Ht 30.5 cm; Wt 101.6 kg
[~2020-07-22] MED LIST changes: +CYANOCOBALAMIN (B-12) 1000 MCG/1 ML VIAL IM ONE; +CYANOCOBALAMIN (B-12) 1000 MCG/1 ML VIAL ONE
[2020-07-22 10:07] VITALS: BP 111/64
== END | disposition home or self-care (01) ==
LOC: CHF HDHVI 08:30
PROVIDERS: ATTEND Internal Medicine Cardiovascular Disease
DX: D50.9 Iron deficiency anemia, unspecified (principal); R53.83 Other fatigue; I13.2 Hypertensive heart and chronic kidney disease with heart failure and with stage 5 chronic kidney disease, or end stage renal disease; E11.22 Type 2 diabetes mellitus with diabetic chronic kidney disease; I50.23 Acute on chronic systolic (congestive) heart failure; N18.6 End stage renal disease; I25.10 Atherosclerotic heart disease of native coronary artery without angina pectoris; I25.2 Old myocardial infarction; I42.8 Other cardiomyopathies; I48.91 Unspecified atrial fibrillation; J44.9 Chronic obstructive pulmonary disease, unspecified; E78.00 Pure hypercholesterolemia, unspecified; E78.5 Hyperlipidemia, unspecified; E66.01 Morbid (severe) obesity due to excess calories; Z68.42 Body mass index [BMI] 45.0-49.9, adult; Z95.810 Presence of automatic (implantable) cardiac defibrillator; Z87.891 Personal history of nicotine dependence
CPT/HCPCS: 96365; 96372; G0463; J1642; J2916; J3420

== ENCOUNTER → 2020-09-02 | Outpatient (CLI) | payer MEDICARE, MEDICAID ==
[~2020-09-02] VITALS: Ht 30.5 cm; Wt 0.5 kg
[2020-09-02 10:25] VITALS: BP 126/78
[2020-09-02 12:06] LABS: Basophils # (auto) 0.1 10 ^3/uL (0-0.2); Basophils % (auto) 1.9 % (0.0-2.0); Eosinophils # (auto) 0.1 10 ^3/uL (0-0.8); Eosinophils % (auto) 3.1 % (0.0-7.0); Hematocrit 35.5 % (36.0-46.0); Hemoglobin 11.8 g/dL (12.2-16.2); Lymphocytes # (auto) 1.4 10 ^3/uL (0.4-5.4); Lymphocytes % (auto) 28.4 % (10.0-50.0); Mean Corpuscular Hemoglobin 29.7 pg (28.0-32.0); Mean Corpuscular Hgb Conc. 33.1 g/dL (32.0-36.0); Mean Corpuscular Volume 89.5 fL (80.0-100.0); Monocytes # (auto) 0.4 10 ^3/uL (0-1.3); Monocytes % (auto) 7.5 % (0.0-12.0); Neutrophils # (auto) 2.9 10 ^3/uL (1.6-8.6); Neutrophils % (auto) 59.1 % (37.0-80.0); Red Blood Cells 3.97 10^6/uL (4.0-5.20); Red Cell Distribution Width 14.5 % (11.8-14.3); White Blood Cell 4.9 10^3/uL (4.4-10.8)
[2020-09-02 12:14] LABS: BUN/Creatinine Ratio 14.9; Calcium 10.2 mg/dL (8.5-10.1); Potassium 3.6 mmol/L (3.5-5.1)
== END | disposition home or self-care (01) ==
LOC: CHF HDHVI 08:12
PROVIDERS: ATTEND Internal Medicine Cardiovascular Disease
DX: D50.9 Iron deficiency anemia, unspecified (principal); R53.83 Other fatigue; I13.2 Hypertensive heart and chronic kidney disease with heart failure and with stage 5 chronic kidney disease, or end stage renal disease; E11.22 Type 2 diabetes mellitus with diabetic chronic kidney disease; I50.23 Acute on chronic systolic (congestive) heart failure; N18.6 End stage renal disease; I25.10 Atherosclerotic heart disease of native coronary artery without angina pectoris; I25.2 Old myocardial infarction; I48.91 Unspecified atrial fibrillation; J44.9 Chronic obstructive pulmonary disease, unspecified; E78.00 Pure hypercholesterolemia, unspecified; E78.5 Hyperlipidemia, unspecified; F41.9 Anxiety disorder, unspecified; E66.01 Morbid (severe) obesity due to excess calories; Z68.42 Body mass index [BMI] 45.0-49.9, adult; Z79.899 Other long term (current) drug therapy; Z87.891 Personal history of nicotine dependence; Z95.810 Presence of automatic (implantable) cardiac defibrillator
CPT/HCPCS: 36415; 80048; 83735; 85025; 85049; 96365; 96372; G0463; J1642; J2916; J3420

== ENCOUNTER → 2020-09-16 | Outpatient (CLI) | payer MEDICARE, MEDICAID ==
[~2020-09-16] VITALS: Ht 30.5 cm; Wt 96.9 kg
[~2020-09-16] MED LIST changes: -CYANOCOBALAMIN (B-12) 1000 MCG/1 ML VIAL IM ONE; -CYANOCOBALAMIN (B-12) 1000 MCG/1 ML VIAL ONE
[2020-09-16 10:24] VITALS: BP 117/59
[2020-09-16 11:31] LABS: Basophils # (auto) 0 10 ^3/uL (0-0.2); Basophils % (auto) 1.1 % (0.0-2.0); Eosinophils # (auto) 0.1 10 ^3/uL (0-0.8); Eosinophils % (auto) 3.7 % (0.0-7.0); Hematocrit 36.8 % (36.0-46.0); Hemoglobin 11.6 g/dL (12.2-16.2); Lymphocytes # (auto) 1.1 10 ^3/uL (0.4-5.4); Lymphocytes % (auto) 29.2 % (10.0-50.0); Mean Corpuscular Hemoglobin 28.3 pg (28.0-32.0); Mean Corpuscular Hgb Conc. 31.7 g/dL (32.0-36.0); Mean Corpuscular Volume 89.5 fL (80.0-100.0); Monocytes # (auto) 0.3 10 ^3/uL (0-1.3); Monocytes % (auto) 7.7 % (0.0-12.0); Neutrophils # (auto) 2.2 10 ^3/uL (1.6-8.6); Neutrophils % (auto) 58.3 % (37.0-80.0); Nucleated Red Blood Cells % 0.2 %; Red Blood Cells 4.11 10^6/uL (4.0-5.20); White Blood Cell 3.8 10^3/uL (4.4-10.8)
[2020-09-16 11:55] LABS: BUN/Creatinine Ratio 19.2; Calcium 10.2 mg/dL (8.5-10.1); Magnesium 2.2 mg/dL (1.6-2.6); Potassium 4.2 mmol/L (3.5-5.1)
== END | disposition home or self-care (01) ==
LOC: CHF HDHVI 09:08
PROVIDERS: ATTEND Internal Medicine Cardiovascular Disease
DX: D50.9 Iron deficiency anemia, unspecified (principal); I13.2 Hypertensive heart and chronic kidney disease with heart failure and with stage 5 chronic kidney disease, or end stage renal disease; E11.22 Type 2 diabetes mellitus with diabetic chronic kidney disease; N18.6 End stage renal disease; I25.10 Atherosclerotic heart disease of native coronary artery without angina pectoris; I25.2 Old myocardial infarction; I48.91 Unspecified atrial fibrillation; I42.8 Other cardiomyopathies; J44.9 Chronic obstructive pulmonary disease, unspecified; E78.5 Hyperlipidemia, unspecified; E78.00 Pure hypercholesterolemia, unspecified; F41.9 Anxiety disorder, unspecified; E66.01 Morbid (severe) obesity due to excess calories; Z68.42 Body mass index [BMI] 45.0-49.9, adult; Z95.810 Presence of automatic (implantable) cardiac defibrillator; Z79.899 Other long term (current) drug therapy; Z87.891 Personal history of nicotine dependence; Z90.49 Acquired absence of other specified parts of digestive tract
CPT/HCPCS: 36415; 80048; 83735; 85025; 96365; G0463; J1642; J2916

== ENCOUNTER → 2020-10-14 | Outpatient (CLI) | payer MEDICARE, MEDICAID ==
[~2020-10-14] MED LIST changes: +CYANOCOBALAMIN (B-12) 1000 MCG/1 ML VIAL IM ONE; +CYANOCOBALAMIN (B-12) 1000 MCG/1 ML VIAL ONE
[2020-10-14 09:05] VITALS: BP 93/67
[2020-10-14 10:25] VITALS: BP 108/64
[2020-10-14 11:24] LABS: Basophils # (auto) 0.1 10 ^3/uL (0-0.2); Basophils % (auto) 2.4 % (0.0-2.0); Calcium 10.8 mg/dL (8.5-10.1); Eosinophils # (auto) 0.1 10 ^3/uL (0-0.8); Eosinophils % (auto) 2.3 % (0.0-7.0); Hematocrit 35.7 % (36.0-46.0); Hemoglobin 12.1 g/dL (12.2-16.2); Lymphocytes # (auto) 1.1 10 ^3/uL (0.4-5.4); Lymphocytes % (auto) 24.6 % (10.0-50.0); Mean Corpuscular Hemoglobin 30.6 pg (28.0-32.0); Mean Corpuscular Volume 90.1 fL (80.0-100.0); Monocytes # (auto) 0.3 10 ^3/uL (0-1.3); Neutrophils # (auto) 2.9 10 ^3/uL (1.6-8.6); Neutrophils % (auto) 63.7 % (37.0-80.0); Potassium 4.1 mmol/L (3.5-5.1); Red Blood Cells 3.96 10^6/uL (4.0-5.20); Red Cell Distribution Width 15.4 % (11.8-14.3); White Blood Cell 4.6 10^3/uL (4.4-10.8)
[2020-10-14 11:27] LABS: BUN/Creatinine Ratio 9.7; Magnesium 2.1 mg/dL (1.6-2.6)
== END | disposition home or self-care (01) ==
LOC: CHF HDHVI 09:09
PROVIDERS: ATTEND Internal Medicine Cardiovascular Disease
DX: D50.9 Iron deficiency anemia, unspecified (principal); R53.83 Other fatigue; I13.2 Hypertensive heart and chronic kidney disease with heart failure and with stage 5 chronic kidney disease, or end stage renal disease; E11.22 Type 2 diabetes mellitus with diabetic chronic kidney disease; I50.23 Acute on chronic systolic (congestive) heart failure; N18.6 End stage renal disease; I25.10 Atherosclerotic heart disease of native coronary artery without angina pectoris; I25.2 Old myocardial infarction; I42.8 Other cardiomyopathies; I48.91 Unspecified atrial fibrillation; J44.9 Chronic obstructive pulmonary disease, unspecified; E78.5 Hyperlipidemia, unspecified; E78.00 Pure hypercholesterolemia, unspecified; F41.9 Anxiety disorder, unspecified; E66.01 Morbid (severe) obesity due to excess calories; Z68.42 Body mass index [BMI] 45.0-49.9, adult; Z87.891 Personal history of nicotine dependence; Z95.810 Presence of automatic (implantable) cardiac defibrillator; Z90.49 Acquired absence of other specified parts of digestive tract
CPT/HCPCS: 36415; 80048; 83735; 83880; 85025; 96365; 96372; G0463; J1642; J2916; J3420

== ENCOUNTER → 2020-10-28 | Outpatient (CLI) | payer MEDICARE, MEDICAID ==
[~2020-10-28] MED LIST changes: +IOHEXOL 350 MG/ML 100ML IJ ONE; +READI-CAT 2 (BARIUM SULF)(VANILLA SMOOTHIE) 450ML ONE; -SODIUM FERR GLUC 62.5MG/5ML 125 MG in SODIUM CHL 0.9% 100 ML IV ONE; -SODIUM FERRIC GLUC CPLEX 62.5MG/5ML VIAL IV ONE
[2020-10-28 11:19] LABS: Basophils # (auto) 0.1 10 ^3/uL (0-0.2); Basophils % (auto) 0.9 % (0.0-2.0); Eosinophils # (auto) 0.1 10 ^3/uL (0-0.8); Hematocrit 37.6 % (36.0-46.0); Hemoglobin 12.2 g/dL (12.2-16.2); Lymphocytes # (auto) 1.1 10 ^3/uL (0.4-5.4); Lymphocytes % (auto) 17.7 % (10.0-50.0); Mean Corpuscular Hemoglobin 29.1 pg (28.0-32.0); Mean Corpuscular Hgb Conc. 32.6 g/dL (32.0-36.0); Mean Corpuscular Volume 89.3 fL (80.0-100.0); Monocytes # (auto) 0.4 10 ^3/uL (0-1.3); Monocytes % (auto) 6.5 % (0.0-12.0); Neutrophils # (auto) 4.4 10 ^3/uL (1.6-8.6); Neutrophils % (auto) 72.9 % (37.0-80.0); Red Blood Cells 4.21 10^6/uL (4.0-5.20)
[2020-10-28 11:34] LABS: Potassium 4.2 mmol/L (3.5-5.1)
[2020-10-28 13:05] VITALS: BP 155/82
== END | disposition home or self-care (01) ==
LOC: CHF HDHVI 09:29
PROVIDERS: ATTEND Internal Medicine Cardiovascular Disease
DX: I13.2 Hypertensive heart and chronic kidney disease with heart failure and with stage 5 chronic kidney disease, or end stage renal disease (principal); E11.22 Type 2 diabetes mellitus with diabetic chronic kidney disease; I50.23 Acute on chronic systolic (congestive) heart failure; N18.6 End stage renal disease; I70.0 Atherosclerosis of aorta; I25.10 Atherosclerotic heart disease of native coronary artery without angina pectoris; I48.91 Unspecified atrial fibrillation; J44.9 Chronic obstructive pulmonary disease, unspecified; R53.83 Other fatigue; E78.5 Hyperlipidemia, unspecified; E78.00 Pure hypercholesterolemia, unspecified; F41.9 Anxiety disorder, unspecified; E66.01 Morbid (severe) obesity due to excess calories; Z68.42 Body mass index [BMI] 45.0-49.9, adult; Z79.899 Other long term (current) drug therapy; Z87.891 Personal history of nicotine dependence; Z90.49 Acquired absence of other specified parts of digestive tract; Z95.810 Presence of automatic (implantable) cardiac defibrillator
CPT/HCPCS: 36415; 74177; 82565; 83880; 84132; 84520; 85025; 96372; G0463; J1642; J3420; Q9967

== ENCOUNTER → 2020-11-25 | Outpatient (CLI) | payer MEDICARE, MEDICAID ==
[~2020-11-25] VITALS: Ht 30.5 cm; Wt 92.6 kg
[~2020-11-25] MED LIST changes: -CYANOCOBALAMIN (B-12) 1000 MCG/1 ML VIAL IM ONE; -CYANOCOBALAMIN (B-12) 1000 MCG/1 ML VIAL ONE; -IOHEXOL 350 MG/ML 100ML IJ ONE; +MAGNESIUM OXIDE 400 MG TAB ONE; +MAGNESIUM OXIDE 400 MG TAB PO ONE; +POTASSIUM CHL 10 Meq TABLET PO ONE; -READI-CAT 2 (BARIUM SULF)(VANILLA SMOOTHIE) 450ML ONE; +SODIUM CHLORIDE 0.9% 500 ML IV ONE
[2020-11-25 10:15] VITALS: BP 107/71
[2020-11-25 11:32] LABS: Basophils # (auto) 0 10 ^3/uL (0-0.2); Basophils % (auto) 0.8 % (0.0-2.0); Eosinophils # (auto) 0.1 10 ^3/uL (0-0.8); Eosinophils % (auto) 2.6 % (0.0-7.0); Hematocrit 37.2 % (36.0-46.0); Hemoglobin 11.8 g/dL (12.2-16.2); Lymphocytes # (auto) 1.4 10 ^3/uL (0.4-5.4); Lymphocytes % (auto) 36.4 % (10.0-50.0); Mean Corpuscular Hemoglobin 28.5 pg (28.0-32.0); Mean Corpuscular Hgb Conc. 31.8 g/dL (32.0-36.0); Mean Corpuscular Volume 89.7 fL (80.0-100.0); Monocytes # (auto) 0.4 10 ^3/uL (0-1.3); Monocytes % (auto) 9.4 % (0.0-12.0); Neutrophils % (auto) 50.8 % (37.0-80.0); Nucleated Red Blood Cells % 0.1 %; Red Blood Cells 4.15 10^6/uL (4.0-5.20); Red Cell Distribution Width 17.4 % (11.8-14.3); White Blood Cell 3.9 10^3/uL (4.4-10.8)
[2020-11-25 11:45] LABS: Blood Urea Nitrogen 13 mg/dL (7-18); GFR African American 89 mL/min; GFR Non-African American 73 mL/min; Magnesium 1.9 mg/dL (1.6-2.6); Potassium 3.8 mmol/L (3.5-5.1)
[2020-11-25 12:35] LABS: Anion Gap 10 (5-15); Calcium 10.3 mg/dL (8.5-10.1); Carbon Dioxide 19 mmol/L (21-32); Chloride 113 mmol/L (98-107); Glucose 94 mg/dL (74-106); Sodium 142 mmol/L (136-145)
[2020-11-25 12:56] LABS: BUN/Creatinine Ratio 15.3
[2020-11-25 13:40] VITALS: BP 101/59
== END | disposition home or self-care (01) ==
LOC: CHF HDHVI 09:21
PROVIDERS: ATTEND Internal Medicine Cardiovascular Disease
DX: E86.0 Dehydration (principal); R53.83 Other fatigue; I13.2 Hypertensive heart and chronic kidney disease with heart failure and with stage 5 chronic kidney disease, or end stage renal disease; E11.22 Type 2 diabetes mellitus with diabetic chronic kidney disease; I50.23 Acute on chronic systolic (congestive) heart failure; N18.6 End stage renal disease; I25.10 Atherosclerotic heart disease of native coronary artery without angina pectoris; I25.2 Old myocardial infarction; I42.8 Other cardiomyopathies; I48.91 Unspecified atrial fibrillation; J44.9 Chronic obstructive pulmonary disease, unspecified; E78.00 Pure hypercholesterolemia, unspecified; E78.5 Hyperlipidemia, unspecified; F41.9 Anxiety disorder, unspecified; E66.01 Morbid (severe) obesity due to excess calories; Z68.42 Body mass index [BMI] 45.0-49.9, adult; Z90.49 Acquired absence of other specified parts of digestive tract; Z79.899 Other long term (current) drug therapy; Z95.810 Presence of automatic (implantable) cardiac defibrillator; Z87.891 Personal history of nicotine dependence
CPT/HCPCS: 36415; 80048; 83735; 83880; 85025; 96360; 96361; G0463; J1642; J7040

== ENCOUNTER → 2021-01-20 | Outpatient (CLI) | payer MEDICARE, MEDICAID ==
[~2021-01-20] MED LIST changes: -MAGNESIUM OXIDE 400 MG TAB ONE; -MAGNESIUM OXIDE 400 MG TAB PO ONE; -POTASSIUM CHL 10 Meq TABLET PO ONE; -SODIUM CHLORIDE 0.9% 500 ML IV ONE
[2021-01-20 10:00] VITALS: BP 100/65
[2021-01-20 11:49] LABS: Basophils # (auto) 0.1 10 ^3/uL (0-0.2); Basophils % (auto) 1.6 % (0.0-2.0); Eosinophils # (auto) 0.1 10 ^3/uL (0-0.8); Eosinophils % (auto) 2.4 % (0.0-7.0); Hematocrit 37.2 % (36.0-46.0); Hemoglobin 11.6 g/dL (12.2-16.2); Lymphocytes # (auto) 1.4 10 ^3/uL (0.4-5.4); Lymphocytes % (auto) 34.2 % (10.0-50.0); Mean Corpuscular Hemoglobin 28.6 pg (28.0-32.0); Mean Corpuscular Hgb Conc. 31.2 g/dL (32.0-36.0); Mean Corpuscular Volume 91.9 fL (80.0-100.0); Monocytes # (auto) 0.3 10 ^3/uL (0-1.3); Monocytes % (auto) 7.5 % (0.0-12.0); Neutrophils # (auto) 2.2 10 ^3/uL (1.6-8.6); Neutrophils % (auto) 54.3 % (37.0-80.0); Red Blood Cells 4.05 10^6/uL (4.0-5.20); Red Cell Distribution Width 16.9 % (11.8-14.3); White Blood Cell 4.1 10^3/uL (4.4-10.8)
[2021-01-20 12:10] LABS: Calcium 9.8 mg/dL (8.5-10.1); Magnesium 2.6 mg/dL (1.6-2.6); Potassium 3.9 mmol/L (3.5-5.1)
[2021-01-20 12:13] LABS: BUN/Creatinine Ratio 20.2
== END | disposition home or self-care (01) ==
LOC: CHF HDHVI 08:51
PROVIDERS: ATTEND Internal Medicine Cardiovascular Disease
DX: I13.2 Hypertensive heart and chronic kidney disease with heart failure and with stage 5 chronic kidney disease, or end stage renal disease (principal); E11.22 Type 2 diabetes mellitus with diabetic chronic kidney disease; I50.23 Acute on chronic systolic (congestive) heart failure; N18.6 End stage renal disease; I25.10 Atherosclerotic heart disease of native coronary artery without angina pectoris; I25.2 Old myocardial infarction; I48.91 Unspecified atrial fibrillation; J44.9 Chronic obstructive pulmonary disease, unspecified; E78.5 Hyperlipidemia, unspecified; E78.00 Pure hypercholesterolemia, unspecified; F41.9 Anxiety disorder, unspecified; E66.01 Morbid (severe) obesity due to excess calories; Z68.42 Body mass index [BMI] 45.0-49.9, adult; Z79.899 Other long term (current) drug therapy; Z87.891 Personal history of nicotine dependence; Z90.49 Acquired absence of other specified parts of digestive tract; Z95.810 Presence of automatic (implantable) cardiac defibrillator
CPT/HCPCS: 36415; 80048; 83735; 83880; 85025; G0463; J1642

== ENCOUNTER → 2021-02-10 | Outpatient (CLI) | payer MEDICARE, MEDICAID ==
[~2021-02-10] MED LIST changes: +CYANOCOBALAMIN (B-12) 1000 MCG/1 ML VIAL IM ONE; +CYANOCOBALAMIN (B-12) 1000 MCG/1 ML VIAL ONE
[2021-02-10 10:20] VITALS: BP 139/89
[2021-02-10 11:32] LABS: Basophils # (auto) 0 10 ^3/uL (0-0.2); Basophils % (auto) 0.7 % (0.0-2.0); Eosinophils # (auto) 0.1 10 ^3/uL (0-0.8); Eosinophils % (auto) 3.6 % (0.0-7.0); Hematocrit 36.1 % (36.0-46.0); Hemoglobin 11.4 g/dL (12.2-16.2); Lymphocytes # (auto) 1.5 10 ^3/uL (0.4-5.4); Mean Corpuscular Hemoglobin 29.2 pg (28.0-32.0); Mean Corpuscular Hgb Conc. 31.7 g/dL (32.0-36.0); Mean Corpuscular Volume 92.1 fL (80.0-100.0); Monocytes # (auto) 0.3 10 ^3/uL (0-1.3); Monocytes % (auto) 8.2 % (0.0-12.0); Neutrophils % (auto) 49.5 % (37.0-80.0); Nucleated Red Blood Cells % 0.1 %; Red Blood Cells 3.92 10^6/uL (4.0-5.20); Red Cell Distribution Width 16.5 % (11.8-14.3); White Blood Cell 4.1 10^3/uL (4.4-10.8)
[2021-02-10 11:45] LABS: Potassium 4.1 mmol/L (3.5-5.1)
[2021-02-10 11:52] LABS: Magnesium 2.2 mg/dL (1.6-2.6)
== END | disposition home or self-care (01) ==
LOC: CHF HDHVI 08:54
PROVIDERS: ATTEND Internal Medicine Cardiovascular Disease
DX: I13.2 Hypertensive heart and chronic kidney disease with heart failure and with stage 5 chronic kidney disease, or end stage renal disease (principal); E11.22 Type 2 diabetes mellitus with diabetic chronic kidney disease; I50.23 Acute on chronic systolic (congestive) heart failure; N18.6 End stage renal disease; I25.10 Atherosclerotic heart disease of native coronary artery without angina pectoris; I25.2 Old myocardial infarction; I48.91 Unspecified atrial fibrillation; J44.9 Chronic obstructive pulmonary disease, unspecified; E78.5 Hyperlipidemia, unspecified; E78.00 Pure hypercholesterolemia, unspecified; E66.01 Morbid (severe) obesity due to excess calories; F41.9 Anxiety disorder, unspecified; Z68.42 Body mass index [BMI] 45.0-49.9, adult; Z87.891 Personal history of nicotine dependence; Z95.810 Presence of automatic (implantable) cardiac defibrillator; Z79.899 Other long term (current) drug therapy; Z90.49 Acquired absence of other specified parts of digestive tract
CPT/HCPCS: 36415; 82565; 83735; 83880; 84132; 84520; 85025; 96372; G0463; J1642; J3420

== ENCOUNTER → 2021-02-24 | Outpatient (CLI) | payer MEDICARE, MEDICAID ==
[~2021-02-24] VITALS: Ht 30.5 cm; Wt 89.8 kg
[~2021-02-24] MED LIST changes: -CYANOCOBALAMIN (B-12) 1000 MCG/1 ML VIAL IM ONE; -CYANOCOBALAMIN (B-12) 1000 MCG/1 ML VIAL ONE
[2021-02-24] MEDS: CYANOCOBALAMIN (B-12) 1000 MCG/1 ML VIAL IM ONE (09:58)
[2021-02-24] MEDS: CYANOCOBALAMIN (B-12) 1000 MCG/1 ML VIAL ONE (10:12)
[2021-02-24 10:30] VITALS: BP 139/88
[2021-02-24 11:39] LABS: Basophils # (auto) 0.1 10 ^3/uL (0-0.2); Basophils % (auto) 3.4 % (0.0-2.0); Eosinophils # (auto) 0.1 10 ^3/uL (0-0.8); Hematocrit 37.9 % (36.0-46.0); Lymphocytes # (auto) 1.2 10 ^3/uL (0.4-5.4); Lymphocytes % (auto) 30.6 % (10.0-50.0); Mean Corpuscular Hemoglobin 29.4 pg (28.0-32.0); Mean Corpuscular Hgb Conc. 31.6 g/dL (32.0-36.0); Mean Corpuscular Volume 92.8 fL (80.0-100.0); Monocytes # (auto) 0.3 10 ^3/uL (0-1.3); Monocytes % (auto) 8.5 % (0.0-12.0); Neutrophils # (auto) 2.2 10 ^3/uL (1.6-8.6); Neutrophils % (auto) 54.5 % (37.0-80.0); Nucleated Red Blood Cells % 0.1 %; Red Blood Cells 4.08 10^6/uL (4.0-5.20); Red Cell Distribution Width 15.5 % (11.8-14.3)
[2021-02-24 12:34] LABS: Albumin 2.9 g/dL (3.4-5.0); BUN/Creatinine Ratio 16.7; Bilirubin, Total 0.3 mg/dL (0.2-1.0); Calcium 10.2 mg/dL (8.5-10.1); Magnesium 2.2 mg/dL (1.6-2.6); Total Protein 6.8 g/dL (6.4-8.2)
== END | disposition home or self-care (01) ==
LOC: CHF HDHVI 09:34
PROVIDERS: ATTEND Internal Medicine Cardiovascular Disease
DX: I13.2 Hypertensive heart and chronic kidney disease with heart failure and with stage 5 chronic kidney disease, or end stage renal disease (principal); E11.22 Type 2 diabetes mellitus with diabetic chronic kidney disease; N18.6 End stage renal disease; I50.23 Acute on chronic systolic (congestive) heart failure; F41.9 Anxiety disorder, unspecified; I25.10 Atherosclerotic heart disease of native coronary artery without angina pectoris; J44.9 Chronic obstructive pulmonary disease, unspecified; E78.5 Hyperlipidemia, unspecified; I25.2 Old myocardial infarction; E78.00 Pure hypercholesterolemia, unspecified; I48.91 Unspecified atrial fibrillation; Z99.2 Dependence on renal dialysis; Z79.899 Other long term (current) drug therapy; Z87.891 Personal history of nicotine dependence; Z79.4 Long term (current) use of insulin; Z90.49 Acquired absence of other specified parts of digestive tract
CPT/HCPCS: 36415; 80053; 83735; 83880; 85025; 96372; G0463; J1642; J3420

== ENCOUNTER → 2021-03-10 | Outpatient (CLI) | payer MEDICARE, MEDICAID ==
[~2021-03-10] MED LIST changes: +CYANOCOBALAMIN (B-12) 1000 MCG/1 ML VIAL IM ONE; +CYANOCOBALAMIN (B-12) 1000 MCG/1 ML VIAL ONE
[2021-03-10 09:13] VITALS: BP 117/67
== END | disposition home or self-care (01) ==
LOC: CHF HDHVI 08:53
PROVIDERS: ATTEND Internal Medicine Cardiovascular Disease
DX: I13.2 Hypertensive heart and chronic kidney disease with heart failure and with stage 5 chronic kidney disease, or end stage renal disease (principal); E11.22 Type 2 diabetes mellitus with diabetic chronic kidney disease; I50.23 Acute on chronic systolic (congestive) heart failure; N18.6 End stage renal disease; R53.83 Other fatigue; I25.10 Atherosclerotic heart disease of native coronary artery without angina pectoris; I48.91 Unspecified atrial fibrillation; J44.9 Chronic obstructive pulmonary disease, unspecified; E78.5 Hyperlipidemia, unspecified; E66.01 Morbid (severe) obesity due to excess calories; Z68.42 Body mass index [BMI] 45.0-49.9, adult; E78.00 Pure hypercholesterolemia, unspecified; Z79.4 Long term (current) use of insulin; Z87.891 Personal history of nicotine dependence; Z79.899 Other long term (current) drug therapy; Z99.2 Dependence on renal dialysis; Z95.810 Presence of automatic (implantable) cardiac defibrillator; Z90.49 Acquired absence of other specified parts of digestive tract
CPT/HCPCS: 36415; 82565; 83880; 84132; 84520; 96372; G0463; J1642; J3420

== ENCOUNTER → 2021-03-24 | Outpatient (CLI) | payer MEDICARE, MEDICAID ==
[~2021-03-24] MED LIST changes: -CYANOCOBALAMIN (B-12) 1000 MCG/1 ML VIAL IM ONE; -CYANOCOBALAMIN (B-12) 1000 MCG/1 ML VIAL ONE
[2021-03-24 09:33] VITALS: BP 137/85
[2021-03-24 11:30] LABS: Basophils # (auto) 0.1 10 ^3/uL (0-0.2); Basophils % (auto) 2.7 % (0.0-2.0); Eosinophils # (auto) 0.1 10 ^3/uL (0-0.8); Eosinophils % (auto) 2.6 % (0.0-7.0); Hematocrit 39.9 % (36.0-46.0); Hemoglobin 12.9 g/dL (12.2-16.2); Lymphocytes # (auto) 1.5 10 ^3/uL (0.4-5.4); Lymphocytes % (auto) 41.5 % (10.0-50.0); Mean Corpuscular Hemoglobin 29.5 pg (28.0-32.0); Mean Corpuscular Hgb Conc. 32.4 g/dL (32.0-36.0); Monocytes # (auto) 0.4 10 ^3/uL (0-1.3); Monocytes % (auto) 10.2 % (0.0-12.0); Neutrophils # (auto) 1.5 10 ^3/uL (1.6-8.6); Nucleated Red Blood Cells % 0.1 %; Red Blood Cells 4.39 10^6/uL (4.0-5.20); Red Cell Distribution Width 14.3 % (11.8-14.3); White Blood Cell 3.6 10^3/uL (4.4-10.8)
[2021-03-24 11:39] LABS: Calcium 10.2 mg/dL (8.5-10.1); Magnesium 2.2 mg/dL (1.6-2.6); Potassium 3.7 mmol/L (3.5-5.1)
[2021-03-24 11:47] LABS: BUN/Creatinine Ratio 15.7
== END | disposition home or self-care (01) ==
LOC: CHF HDHVI 08:59
PROVIDERS: ATTEND Internal Medicine Cardiovascular Disease
DX: I11.0 Hypertensive heart disease with heart failure (principal); I50.9 Heart failure, unspecified; R53.83 Other fatigue; D64.9 Anemia, unspecified; R63.4 Abnormal weight loss
CPT/HCPCS: 36415; 80048; 83735; 83880; 85025; G0463; J1642

== ENCOUNTER → 2021-05-12 | Outpatient (CLI) | payer MEDICARE, MEDICAID ==
[~2021-05-12] MED LIST changes: +CYANOCOBALAMIN (B-12) 1000 MCG/1 ML VIAL IM ONE; +CYANOCOBALAMIN (B-12) 1000 MCG/1 ML VIAL ONE
[2021-05-12 08:55] VITALS: BP 125/72
[2021-05-12 10:22] LABS: Basophils # (auto) 0.2 10 ^3/uL (0-0.2); Basophils % (auto) 4.4 % (0.0-2.0); Eosinophils # (auto) 0.1 10 ^3/uL (0-0.8); Eosinophils % (auto) 2.7 % (0.0-7.0); Hematocrit 37.5 % (36.0-46.0); Hemoglobin 12.1 g/dL (12.2-16.2); Lymphocytes # (auto) 1.3 10 ^3/uL (0.4-5.4); Lymphocytes % (auto) 34.9 % (10.0-50.0); Mean Corpuscular Hemoglobin 29.3 pg (28.0-32.0); Mean Corpuscular Hgb Conc. 32.3 g/dL (32.0-36.0); Mean Corpuscular Volume 90.5 fL (80.0-100.0); Monocytes # (auto) 0.2 10 ^3/uL (0-1.3); Nucleated Red Blood Cells % 0.1 %; Red Blood Cells 4.14 10^6/uL (4.0-5.20); Red Cell Distribution Width 14.5 % (11.8-14.3); White Blood Cell 3.8 10^3/uL (4.4-10.8)
[2021-05-12 11:32] LABS: Potassium 3.9 mmol/L (3.5-5.1)
[2021-05-12 11:47] LABS: Albumin 3.3 g/dL (3.4-5.0); Bilirubin, Total 0.5 mg/dL (0.2-1.0); Calcium 10.6 mg/dL (8.5-10.1); Total Protein 6.8 g/dL (6.4-8.2)
== END | disposition home or self-care (01) ==
LOC: CHF HDHVI 08:14
PROVIDERS: ATTEND Internal Medicine Cardiovascular Disease
DX: I13.2 Hypertensive heart and chronic kidney disease with heart failure and with stage 5 chronic kidney disease, or end stage renal disease (principal); E11.22 Type 2 diabetes mellitus with diabetic chronic kidney disease; I50.23 Acute on chronic systolic (congestive) heart failure; N18.6 End stage renal disease; I25.10 Atherosclerotic heart disease of native coronary artery without angina pectoris; J44.9 Chronic obstructive pulmonary disease, unspecified; I48.91 Unspecified atrial fibrillation; I25.2 Old myocardial infarction; E78.5 Hyperlipidemia, unspecified; F41.9 Anxiety disorder, unspecified; E66.01 Morbid (severe) obesity due to excess calories; Z68.42 Body mass index [BMI] 45.0-49.9, adult; Z79.4 Long term (current) use of insulin; Z79.899 Other long term (current) drug therapy; Z87.891 Personal history of nicotine dependence
CPT/HCPCS: 36415; 80053; 80061; 82306; 82607; 83735; 83880; 84443; 85025; 94618; 96372; G0463; J1642; J3420

== ENCOUNTER → 2021-06-30 | Outpatient (CLI) | payer MEDICARE, MEDICAID ==
[2021-06-30 09:20] VITALS: BP 153/91
[2021-06-30 11:43] LABS: Basophils # (auto) 0.1 10 ^3/uL (0-0.2); Basophils % (auto) 1.8 % (0.0-2.0); Eosinophils # (auto) 0.1 10 ^3/uL (0-0.8); Eosinophils % (auto) 3.6 % (0.0-7.0); Hematocrit 38.6 % (36.0-46.0); Hemoglobin 12.6 g/dL (12.2-16.2); Lymphocytes # (auto) 1.6 10 ^3/uL (0.4-5.4); Lymphocytes % (auto) 40.1 % (10.0-50.0); Mean Corpuscular Hemoglobin 29.6 pg (28.0-32.0); Mean Corpuscular Hgb Conc. 32.6 g/dL (32.0-36.0); Mean Corpuscular Volume 90.8 fL (80.0-100.0); Monocytes # (auto) 0.4 10 ^3/uL (0-1.3); Monocytes % (auto) 8.9 % (0.0-12.0); Neutrophils # (auto) 1.9 10 ^3/uL (1.6-8.6); Neutrophils % (auto) 45.6 % (37.0-80.0); Red Blood Cells 4.26 10^6/uL (4.0-5.20); Red Cell Distribution Width 14.5 % (11.8-14.3); White Blood Cell 4.1 10^3/uL (4.4-10.8)
[2021-06-30 11:55] LABS: Albumin 3.5 g/dL (3.4-5.0); BUN/Creatinine Ratio 19.5; Magnesium 2.5 mg/dL (1.6-2.6); Potassium 3.8 mmol/L (3.5-5.1)
[2021-06-30 11:58] LABS: Bilirubin, Total 0.4 mg/dL (0.2-1.0); Total Protein 7.1 g/dL (6.4-8.2)
== END | disposition home or self-care (01) ==
LOC: CHF HDHVI 08:45
PROVIDERS: ATTEND Internal Medicine Cardiovascular Disease
DX: D51.9 Vitamin B12 deficiency anemia, unspecified (principal); I13.2 Hypertensive heart and chronic kidney disease with heart failure and with stage 5 chronic kidney disease, or end stage renal disease; E11.22 Type 2 diabetes mellitus with diabetic chronic kidney disease; I50.23 Acute on chronic systolic (congestive) heart failure; N18.6 End stage renal disease; I25.10 Atherosclerotic heart disease of native coronary artery without angina pectoris; I25.2 Old myocardial infarction; I48.91 Unspecified atrial fibrillation; J44.9 Chronic obstructive pulmonary disease, unspecified; E78.5 Hyperlipidemia, unspecified; F41.9 Anxiety disorder, unspecified; E66.01 Morbid (severe) obesity due to excess calories; Z68.42 Body mass index [BMI] 45.0-49.9, adult; Z79.4 Long term (current) use of insulin; Z79.899 Other long term (current) drug therapy; Z87.891 Personal history of nicotine dependence
CPT/HCPCS: 36415; 80053; 83735; 83880; 85025; 96372; G0463; J1642; J3420

== ENCOUNTER → 2021-07-21 | Outpatient (CLI) | payer MEDICARE, MEDICAID ==
[2021-07-21 09:18] VITALS: BP 149/84
[2021-07-21 11:54] LABS: BUN/Creatinine Ratio 22.1; Basophils # (auto) 0 10 ^3/uL (0-0.2); Basophils % (auto) 0.9 % (0.0-2.0); Calcium 10.5 mg/dL (8.5-10.1); Eosinophils # (auto) 0.1 10 ^3/uL (0-0.8); Eosinophils % (auto) 2.3 % (0.0-7.0); Hematocrit 36.6 % (36.0-46.0); Hemoglobin 12.1 g/dL (12.2-16.2); Lymphocytes # (auto) 1.3 10 ^3/uL (0.4-5.4); Lymphocytes % (auto) 32.3 % (10.0-50.0); Magnesium 2.2 mg/dL (1.6-2.6); Mean Corpuscular Hemoglobin 29.9 pg (28.0-32.0); Mean Corpuscular Volume 90.6 fL (80.0-100.0); Monocytes # (auto) 0.3 10 ^3/uL (0-1.3); Monocytes % (auto) 8.1 % (0.0-12.0); Neutrophils # (auto) 2.2 10 ^3/uL (1.6-8.6); Neutrophils % (auto) 56.4 % (37.0-80.0); Nucleated Red Blood Cells % 0.1 %; Potassium 4.2 mmol/L (3.5-5.1); Red Blood Cells 4.03 10^6/uL (4.0-5.20); Red Cell Distribution Width 14.1 % (11.8-14.3); White Blood Cell 3.9 10^3/uL (4.4-10.8)
[2021-07-21 11:56] LABS: Bilirubin, Total 0.4 mg/dL (0.2-1.0); Total Protein 6.6 g/dL (6.4-8.2)
== END | disposition home or self-care (01) ==
LOC: CHF HDHVI 08:11
PROVIDERS: ATTEND Internal Medicine Cardiovascular Disease
DX: I50.23 Acute on chronic systolic (congestive) heart failure (principal)
CPT/HCPCS: 36415; 80053; 83735; 83880; 85025; 96372; G0463; J1642; J3420

== ENCOUNTER → 2021-08-30 | Outpatient (CLI) | payer MEDICARE, MEDICAID ==
[2021-08-30 10:30] VITALS: BP 124/79
[2021-08-30 12:46] LABS: Basophils # (auto) 0 10 ^3/uL (0-0.2); Basophils % (auto) 1.2 % (0.0-2.0); Eosinophils # (auto) 0.1 10 ^3/uL (0-0.8); Eosinophils % (auto) 2.6 % (0.0-7.0); Lymphocytes # (auto) 1.6 10 ^3/uL (0.4-5.4); Lymphocytes % (auto) 43.9 % (10.0-50.0); Mean Corpuscular Hemoglobin 28.6 pg (28.0-32.0); Mean Corpuscular Hgb Conc. 31.5 g/dL (32.0-36.0); Monocytes # (auto) 0.3 10 ^3/uL (0-1.3); Monocytes % (auto) 8.5 % (0.0-12.0); Neutrophils # (auto) 1.6 10 ^3/uL (1.6-8.6); Neutrophils % (auto) 43.8 % (37.0-80.0); Nucleated Red Blood Cells % 0.2 %; Red Blood Cells 4.18 10^6/uL (4.0-5.20); Red Cell Distribution Width 13.9 % (11.8-14.3); White Blood Cell 3.7 10^3/uL (4.4-10.8)
[2021-08-30 12:57] LABS: Albumin 2.9 g/dL (3.4-5.0); Calcium 10.1 mg/dL (8.5-10.1); Magnesium 2.3 mg/dL (1.6-2.6); Potassium 4.3 mmol/L (3.5-5.1)
[2021-08-30 13:02] LABS: BUN/Creatinine Ratio 24.3; Bilirubin, Total 0.2 mg/dL (0.2-1.0); Total Protein 6.7 g/dL (6.4-8.2)
== END | disposition home or self-care (01) ==
LOC: CHF HDHVI 10:01
PROVIDERS: ATTEND Internal Medicine Cardiovascular Disease
DX: E11.22 Type 2 diabetes mellitus with diabetic chronic kidney disease (principal); I13.2 Hypertensive heart and chronic kidney disease with heart failure and with stage 5 chronic kidney disease, or end stage renal disease; I50.23 Acute on chronic systolic (congestive) heart failure; N18.6 End stage renal disease; F41.9 Anxiety disorder, unspecified; I25.10 Atherosclerotic heart disease of native coronary artery without angina pectoris; J44.9 Chronic obstructive pulmonary disease, unspecified; E78.5 Hyperlipidemia, unspecified; I25.2 Old myocardial infarction; I48.91 Unspecified atrial fibrillation; E66.01 Morbid (severe) obesity due to excess calories; Z68.42 Body mass index [BMI] 45.0-49.9, adult; Z99.2 Dependence on renal dialysis; Z79.4 Long term (current) use of insulin; Z79.899 Other long term (current) drug therapy; Z87.891 Personal history of nicotine dependence
CPT/HCPCS: 36415; 80053; 83735; 83880; 85025; 96372; G0463; J1642; J3420

== ENCOUNTER → 2021-09-22 | Outpatient (CLI) | payer MEDICARE, MEDICAID ==
[~2021-09-22] MED LIST changes: -CYANOCOBALAMIN (B-12) 1000 MCG/1 ML VIAL IM ONE; -CYANOCOBALAMIN (B-12) 1000 MCG/1 ML VIAL ONE
== END | disposition home or self-care (01) ==
LOC: Rad HDHVI 09:31
PROVIDERS: ATTEND Internal Medicine Cardiovascular Disease
DX: I08.3 Combined rheumatic disorders of mitral, aortic and tricuspid valves (principal); R06.02 Shortness of breath
CPT/HCPCS: 93306

== ENCOUNTER → 2021-09-27 | Outpatient (CLI) | payer MEDICARE, MEDICAID ==
[~2021-09-27] MED LIST changes: +CYANOCOBALAMIN (B-12) 1000 MCG/1 ML VIAL IM ONE; +CYANOCOBALAMIN (B-12) 1000 MCG/1 ML VIAL ONE
[2021-09-27 10:20] VITALS: BP 126/82
[2021-09-27 11:37] LABS: Basophils # (auto) 0.1 10 ^3/uL (0-0.2); Basophils % (auto) 1.8 % (0.0-2.0); Eosinophils # (auto) 0.1 10 ^3/uL (0-0.8); Hematocrit 39.6 % (36.0-46.0); Hemoglobin 12.6 g/dL (12.2-16.2); Lymphocytes # (auto) 1.1 10 ^3/uL (0.4-5.4); Mean Corpuscular Hgb Conc. 31.9 g/dL (32.0-36.0); Mean Corpuscular Volume 90.9 fL (80.0-100.0); Monocytes # (auto) 0.4 10 ^3/uL (0-1.3); Monocytes % (auto) 13.1 % (0.0-12.0); Neutrophils # (auto) 1.4 10 ^3/uL (1.6-8.6); Neutrophils % (auto) 46.1 % (37.0-80.0); Nucleated Red Blood Cells % 0.4 %; Red Blood Cells 4.36 10^6/uL (4.0-5.20); Red Cell Distribution Width 14.5 % (11.8-14.3); White Blood Cell 3.1 10^3/uL (4.4-10.8)
[2021-09-27 11:55] LABS: Albumin 3.2 g/dL (3.4-5.0); Calcium 10.2 mg/dL (8.5-10.1); Magnesium 2.4 mg/dL (1.6-2.6); Potassium 4.4 mmol/L (3.5-5.1)
[2021-09-27 11:59] LABS: BUN/Creatinine Ratio 17.9; Bilirubin, Total 0.4 mg/dL (0.2-1.0); Total Protein 6.8 g/dL (6.4-8.2)
== END | disposition home or self-care (01) ==
LOC: CHF HDHVI 09:48
PROVIDERS: ATTEND Internal Medicine Cardiovascular Disease
DX: E11.22 Type 2 diabetes mellitus with diabetic chronic kidney disease (principal); I13.2 Hypertensive heart and chronic kidney disease with heart failure and with stage 5 chronic kidney disease, or end stage renal disease; I50.23 Acute on chronic systolic (congestive) heart failure; N18.6 End stage renal disease; F41.9 Anxiety disorder, unspecified; I25.10 Atherosclerotic heart disease of native coronary artery without angina pectoris; J44.9 Chronic obstructive pulmonary disease, unspecified; E78.5 Hyperlipidemia, unspecified; I25.2 Old myocardial infarction; I48.91 Unspecified atrial fibrillation; E66.01 Morbid (severe) obesity due to excess calories; Z68.42 Body mass index [BMI] 45.0-49.9, adult; Z99.2 Dependence on renal dialysis; Z79.899 Other long term (current) drug therapy; Z87.891 Personal history of nicotine dependence; Z79.4 Long term (current) use of insulin
CPT/HCPCS: 36415; 80053; 83735; 83880; 85025; 96372; G0463; J1642; J3420

== ENCOUNTER → 2021-10-25 | Outpatient (CLI) | payer MEDICARE, MEDICAID ==
[2021-10-25 09:30] VITALS: BP 137/83
[2021-10-25 17:25] LABS: Basophils # (auto) 0 10 ^3/uL (0-0.2); Basophils % (auto) 1.1 % (0.0-2.0); Eosinophils # (auto) 0.1 10 ^3/uL (0-0.8); Eosinophils % (auto) 2.3 % (0.0-7.0); Hematocrit 41.7 % (36.0-46.0); Hemoglobin 12.9 g/dL (12.2-16.2); Lymphocytes # (auto) 1.6 10 ^3/uL (0.4-5.4); Mean Corpuscular Hemoglobin 28.5 pg (28.0-32.0); Mean Corpuscular Volume 92.2 fL (80.0-100.0); Monocytes # (auto) 0.4 10 ^3/uL (0-1.3); Monocytes % (auto) 8.3 % (0.0-12.0); Neutrophils # (auto) 2.3 10 ^3/uL (1.6-8.6); Neutrophils % (auto) 52.3 % (37.0-80.0); Nucleated Red Blood Cells % 0.4 %; Red Blood Cells 4.52 10^6/uL (4.0-5.20); Red Cell Distribution Width 15.1 % (11.8-14.3); White Blood Cell 4.3 10^3/uL (4.4-10.8)
[2021-10-25 17:26] LABS: Albumin 3.3 g/dL (3.4-5.0); Magnesium 2.6 mg/dL (1.6-2.6); Potassium 4.2 mmol/L (3.5-5.1)
[2021-10-25 17:28] LABS: BUN/Creatinine Ratio 16.7
[2021-10-25 17:31] LABS: Bilirubin, Total 0.3 mg/dL (0.2-1.0); Total Protein 6.8 g/dL (6.4-8.2)
== END | disposition home or self-care (01) ==
LOC: CHF HDHVI 08:37
PROVIDERS: ATTEND Internal Medicine Cardiovascular Disease
DX: I13.2 Hypertensive heart and chronic kidney disease with heart failure and with stage 5 chronic kidney disease, or end stage renal disease (principal); E11.22 Type 2 diabetes mellitus with diabetic chronic kidney disease; N18.6 End stage renal disease; I50.23 Acute on chronic systolic (congestive) heart failure; F41.9 Anxiety disorder, unspecified; I25.10 Atherosclerotic heart disease of native coronary artery without angina pectoris; J44.9 Chronic obstructive pulmonary disease, unspecified; E78.5 Hyperlipidemia, unspecified; E66.01 Morbid (severe) obesity due to excess calories; I48.91 Unspecified atrial fibrillation; I25.2 Old myocardial infarction; Z68.42 Body mass index [BMI] 45.0-49.9, adult; Z79.4 Long term (current) use of insulin; Z79.899 Other long term (current) drug therapy; Z87.891 Personal history of nicotine dependence; Z99.2 Dependence on renal dialysis
CPT/HCPCS: 36415; 80053; 83735; 83880; 85025; 94618; 96372; G0463; J1642; J3420

== ENCOUNTER → 2021-11-22 | Outpatient (CLI) | payer MEDICARE, MEDICAID ==
[~2021-11-22] VITALS: Ht 165.1 cm; Wt 99.1 kg
[2021-11-22 09:02] VITALS: BP 93/69
[2021-11-22 12:05] LABS: Hematocrit 42.3 % (36.0-46.0); Hemoglobin 13.3 g/dL (12.2-16.2); Mean Corpuscular Hemoglobin 28.8 pg (28.0-32.0); Mean Corpuscular Hgb Conc. 31.4 g/dL (32.0-36.0); Mean Corpuscular Volume 91.7 fL (80.0-100.0); Red Blood Cells 4.61 10^6/uL (4.0-5.20); Red Cell Distribution Width 14.8 % (11.8-14.3); White Blood Cell 4.7 10^3/uL (4.4-10.8)
[2021-11-22 12:12] LABS: Potassium 4.1 mmol/L (3.5-5.1)
[2021-11-22 12:28] LABS: Albumin 3.2 g/dL (3.4-5.0); BUN/Creatinine Ratio 16.5; Bilirubin, Total 0.6 mg/dL (0.2-1.0); Calcium 9.8 mg/dL (8.5-10.1); Magnesium 2.1 mg/dL (1.6-2.6); Total Protein 6.6 g/dL (6.4-8.2)
[2021-11-22 12:30] LABS: Band Neutrophils % (manual) 0; Basophils % (manual) 0 (0.0-2.0); Blast Cells 0; Metamyelocytes % 0; Myelocytes % 0; Promyelocytes % 0; Reactive Lymphocytes 0
[2021-11-22 14:35] LABS: Eosinophils % (manual) 4 (0-7); Lymphocytes % (manual) 28 (10.0-50.0); Monocytes % (manual) 9 (0-12)
== END | disposition home or self-care (01) ==
LOC: CHF HDHVI 08:30
PROVIDERS: ATTEND Internal Medicine Cardiovascular Disease
DX: I13.2 Hypertensive heart and chronic kidney disease with heart failure and with stage 5 chronic kidney disease, or end stage renal disease (principal); E11.22 Type 2 diabetes mellitus with diabetic chronic kidney disease; N18.6 End stage renal disease; I50.23 Acute on chronic systolic (congestive) heart failure; F41.9 Anxiety disorder, unspecified; I25.10 Atherosclerotic heart disease of native coronary artery without angina pectoris; J44.9 Chronic obstructive pulmonary disease, unspecified; E78.5 Hyperlipidemia, unspecified; I25.2 Old myocardial infarction; I48.91 Unspecified atrial fibrillation; E66.01 Morbid (severe) obesity due to excess calories; Z87.891 Personal history of nicotine dependence; Z79.899 Other long term (current) drug therapy; Z68.42 Body mass index [BMI] 45.0-49.9, adult; Z99.2 Dependence on renal dialysis
CPT/HCPCS: 36415; 80053; 83735; 83880; 85007; 85027; 96372; G0463; J1642; J3420

== ENCOUNTER → 2022-01-03 | Outpatient (CLI) | payer MEDICARE, MEDICAID ==
[2022-01-03 09:55] VITALS: BP 117/71
[2022-01-03 11:46] LABS: Basophils # (auto) 0.1 10 ^3/uL (0-0.2); Basophils % (auto) 1.5 % (0.0-2.0); Eosinophils # (auto) 0.1 10 ^3/uL (0-0.8); Eosinophils % (auto) 2.5 % (0.0-7.0); Hematocrit 39.1 % (36.0-46.0); Hemoglobin 12.8 g/dL (12.2-16.2); Lymphocytes # (auto) 1.6 10 ^3/uL (0.4-5.4); Lymphocytes % (auto) 40.6 % (10.0-50.0); Mean Corpuscular Hgb Conc. 32.6 g/dL (32.0-36.0); Monocytes # (auto) 0.3 10 ^3/uL (0-1.3); Monocytes % (auto) 8.1 % (0.0-12.0); Neutrophils # (auto) 1.9 10 ^3/uL (1.6-8.6); Neutrophils % (auto) 47.3 % (37.0-80.0); Nucleated Red Blood Cells % 0.2 %; Red Blood Cells 4.25 10^6/uL (4.0-5.20); Red Cell Distribution Width 14.7 % (11.8-14.3)
[2022-01-03 11:54] LABS: Calcium 10.4 mg/dL (8.5-10.1); Magnesium 2.3 mg/dL (1.6-2.6)
[2022-01-03 11:56] LABS: BUN/Creatinine Ratio 14.3
== END | disposition home or self-care (01) ==
LOC: CHF HDHVI 08:32
PROVIDERS: ATTEND Internal Medicine Cardiovascular Disease
DX: I50.23 Acute on chronic systolic (congestive) heart failure (principal)
CPT/HCPCS: 36415; 71046; 80048; 83036; 83735; 85025; 96372; G0463; J1642

== ENCOUNTER 2022-01-07 18:32 | Inpatient (IN) | payer MEDICARE, MEDICAID ==
[~2022-01-07] VITALS: Ht 175.3 cm; Wt 91.0 kg
[~2022-01-07 18:32] MED LIST changes: -CYANOCOBALAMIN (B-12) 1000 MCG/1 ML VIAL IM ONE; -CYANOCOBALAMIN (B-12) 1000 MCG/1 ML VIAL ONE
[2022-01-07] MEDS ORDERED: ASPirin 325 MG TAB PO ONE (19:15)
[2022-01-07] MEDS ORDERED: SODIUM CHLORIDE 0.9% 1,000 ML IV ONE (19:15)
[2022-01-07 20:36] LABS: INR 0.97 (0.9-1.15); Partial Thromboplastin Time 23.8 sec (24.6-33.4)
[2022-01-07 20:50] LABS: Hematocrit 44.7 % (36.0-46.0); Hemoglobin 14.9 g/dL (12.2-16.2); Mean Corpuscular Hemoglobin 29.6 pg (28.0-32.0); Mean Corpuscular Hgb Conc. 33.4 g/dL (32.0-36.0); Mean Corpuscular Volume 88.9 fL (80.0-100.0); Red Blood Cells 5.03 10^6/uL (4.0-5.20); Red Cell Distribution Width 15.5 % (11.8-14.3); White Blood Cell 4.5 10^3/uL (4.4-10.8)
[2022-01-07 20:53] LABS: Basophils % (manual) 0 (0.0-2.0); Blast Cells 0; Metamyelocytes % 0; Myelocytes % 0; Promyelocytes % 0; Reactive Lymphocytes 0
[2022-01-07 21:05] LABS: Band Neutrophils % (manual) 1; Eosinophils % (manual) 3 (0-7); Lymphocytes % (manual) 30 (10.0-50.0); Monocytes % (manual) 2 (0-12)
[2022-01-07 21:34] LABS: Alanine Aminotransferase 29 U/L (13-56); Anion Gap 9 (5-15); Aspartate Aminotransferase 18 U/L (15-37); BUN/Creatinine Ratio 11.8; Blood Urea Nitrogen 14 mg/dL (7-18); Calcium 10.9 mg/dL (8.5-10.1); Carbon Dioxide 23 mmol/L (21-32); Chloride 110 mmol/L (98-107); GFR African American 60 mL/min; GFR Non-African American 50 mL/min; Glucose 127 mg/dL (74-106); Magnesium 2.3 mg/dL (1.6-2.6); Potassium 4.6 mmol/L (3.5-5.1); Sodium 142 mmol/L (136-145)
[2022-01-07 21:38] LABS: Alkaline Phosphatase 107 U/L (45-117); Bilirubin, Total 0.5 mg/dL (0.2-1.0); Total Protein 8.2 g/dL (6.4-8.2)
[2022-01-07] MEDS ORDERED: ACETAMINOPHEN 325 MG TAB PO PRN (21:45)
[2022-01-07] MEDS ORDERED: ONDANSETRON HCL 4 MG/2 ML VIAL IV PRN (21:45)
[2022-01-07] MEDS ORDERED: SODIUM CHLORIDE 0.9% 1,000 ML IV SCH (21:45)
[2022-01-07] MEDS ORDERED: NITROGLYCERIN 0.4 MG SL TAB SL PRN (21:45)
[2022-01-07 22:07] LABS: Cholesterol 210 mg/dL (< 200)
[2022-01-07 22:10] LABS: HDL Cholesterol 107 mg/dL (40-59); LDL Cholesterol 92 mg/dL (< 100); Triglycerides 105 mg/dL (< 150)
[2022-01-08] MEDS: SODIUM CHLORIDE 0.9% 1,000 ML IV SCH ×3 (01:05→22:26)
[2022-01-08] MEDS: MORPHINE SULFATE INJ 2 MG/ml SYRG IV PRN ×2 (01:14→06:32)
[2022-01-08 05:27] LABS: Basophils # (auto) 0.1 10 ^3/uL (0-0.2); Basophils % (auto) 1.5 % (0.0-2.0); Eosinophils # (auto) 0.1 10 ^3/uL (0-0.8); Hematocrit 38.1 % (36.0-46.0); Hemoglobin 12.6 g/dL (12.2-16.2); Lymphocytes # (auto) 1.7 10 ^3/uL (0.4-5.4); Lymphocytes % (auto) 39.7 % (10.0-50.0); Mean Corpuscular Hemoglobin 30.2 pg (28.0-32.0); Mean Corpuscular Hgb Conc. 33.1 g/dL (32.0-36.0); Mean Corpuscular Volume 91.2 fL (80.0-100.0); Monocytes # (auto) 0.4 10 ^3/uL (0-1.3); Monocytes % (auto) 9.7 % (0.0-12.0); Neutrophils % (auto) 47.1 % (37.0-80.0); Nucleated Red Blood Cells % 0.2 %; Red Blood Cells 4.17 10^6/uL (4.0-5.20); Red Cell Distribution Width 14.6 % (11.8-14.3); White Blood Cell 4.2 10^3/uL (4.4-10.8)
[2022-01-08 09:05] LABS: Urine Bacteria NONE SEEN /hpf (None Seen); Urine Blood Negative /uL (Negative); Urine Mucus FEW (None Seen); Urine Specific Gravity 1.032 (1.001-1.035); Urine WBC 1 /hpf (0 - 5)
[2022-01-08 09:07] LABS: Alcohol, Urine < 3.0 mg/dL (0-10); Amphetamine Screen, Urine NEGATIVE (NEGATIVE); Barbiturate Scree,Urine NEGATIVE (NEGATIVE); Benzodiazephine Screen, Urine POSITIVE (NEGATIVE); Cannabinoid Screen, Urine POSITIVE (NEGATIVE); Cocaine Screen, Urine NEGATIVE (NEGATIVE); Opiate Scree,Urine POSITIVE (NEGATIVE); Phencyclidine Screen, Urine NEGATIVE (NEGATIVE)
[2022-01-08] MEDS: ENOXAPARIN SOD 40 MG/0.4 ML SYRINGE SC SCH (10:15)
[2022-01-08] MEDS: ASPirin 81 mg TAB PO SCH (10:16)
[2022-01-08] MEDS ORDERED: SODIUM CHLORIDE 0.9% 1,000 ML IV ONE (11:15)
[2022-01-08] MEDS ORDERED: IPRATROPIUM BROM 0.5 MG/2.5ML INH SOL NEB PRN (11:45)
[2022-01-08] MEDS ORDERED: ALBUTEROL SULF 2.5 MG/0.5ML(0.5%) NEB SOLN NEB PRN (11:45)
[2022-01-08] MEDS ORDERED: HYDROmorphone HCL 2 MG/ML VL/or syr IV PRN (11:45)
[2022-01-08 12:02] VITALS: BP 71/44
[2022-01-08] MEDS ORDERED: PIPERACILLIN-TAZOB 2.25GM 50 ML IV SCH (14:00)
[2022-01-08] MEDS: PIPERACILLIN-TAZOB 3.375GM 100 ML IV SCH ×2 (15:03→18:00)
[2022-01-08] MEDS: DOPamine 1600MCG/ML D5W 250 ML IV SCH (17:48)
[2022-01-08] MEDS: MIDODRINE HCL 10 MG TAB PO SCH (18:21)
[2022-01-08] MEDS ORDERED: dilTIAZem 25 MG/5 ML VIAL IV ONE (21:30)
[2022-01-08] MEDS: PANTOPRAZOLE 40 MG/10 ML VIAL INJ IV SCH (22:26)
[2022-01-09] MEDS: PIPERACILLIN-TAZOB 3.375GM 100 ML IV SCH ×4 (03:13→18:00)
[2022-01-09] MEDS: HYDROcodone-ACET 5/325MG TAB PO PRN (03:43)
[2022-01-09] MEDS: MIDODRINE HCL 10 MG TAB PO SCH ×3 (06:10→18:00)
[2022-01-09 07:54] LABS: Basophils # (auto) 0.1 10 ^3/uL (0-0.2); Basophils % (auto) 1.5 % (0.0-2.0); Eosinophils # (auto) 0.2 10 ^3/uL (0-0.8); Eosinophils % (auto) 4.2 % (0.0-7.0); Hematocrit 37.2 % (36.0-46.0); Lymphocytes # (auto) 1.3 10 ^3/uL (0.4-5.4); Lymphocytes % (auto) 29.4 % (10.0-50.0); Mean Corpuscular Hemoglobin 29.4 pg (28.0-32.0); Mean Corpuscular Hgb Conc. 32.2 g/dL (32.0-36.0); Mean Corpuscular Volume 91.1 fL (80.0-100.0); Monocytes # (auto) 0.4 10 ^3/uL (0-1.3); Monocytes % (auto) 9.5 % (0.0-12.0); Neutrophils # (auto) 2.5 10 ^3/uL (1.6-8.6); Neutrophils % (auto) 55.4 % (37.0-80.0); Nucleated Red Blood Cells % 0.1 %; Red Blood Cells 4.08 10^6/uL (4.0-5.20); Red Cell Distribution Width 14.3 % (11.8-14.3); White Blood Cell 4.5 10^3/uL (4.4-10.8)
[2022-01-09] MEDS: DOPamine 1600MCG/ML D5W 250 ML IV SCH ×2 (08:13→22:56)
[2022-01-09 08:21] LABS: Albumin 2.9 g/dL (3.4-5.0); BUN/Creatinine Ratio 11.5; Bilirubin, Total 0.5 mg/dL (0.2-1.0); Calcium 10.3 mg/dL (8.5-10.1); Potassium 4.1 mmol/L (3.5-5.1); Total Protein 5.8 g/dL (6.4-8.2)
[2022-01-09] MEDS: ASPirin 81 mg TAB PO SCH (10:30)
[2022-01-09] MEDS: PANTOPRAZOLE 40 MG/10 ML VIAL INJ IV SCH (10:30)
[2022-01-09] MEDS: ENOXAPARIN SOD 40 MG/0.4 ML SYRINGE SC SCH (10:30)
[2022-01-09] MEDS ORDERED: DOPamine 1600MCG/ML D5W 250 ML IV SCH (18:00)
[2022-01-10] MEDS: PANTOPRAZOLE 40 MG/10 ML VIAL INJ IV SCH ×2 (00:13→10:00)
[2022-01-10] MEDS: PIPERACILLIN-TAZOB 3.375GM 100 ML IV SCH ×2 (00:14→06:14)
[2022-01-10] MEDS: SODIUM CHLORIDE 0.9% 1,000 ML IV SCH (00:19)
[2022-01-10] MEDS: HYDROcodone-ACET 5/325MG TAB PO PRN (00:28)
[2022-01-10] MEDS: MIDODRINE HCL 10 MG TAB PO SCH (06:15)
[2022-01-10 08:44] VITALS: BP 107/63
[2022-01-10] MEDS ORDERED: OMNIPAQUE ORAL SOLN 500ml 12mg/ml PO ONE (08:47)
[2022-01-10] MEDS: ENOXAPARIN SOD 40 MG/0.4 ML SYRINGE SC SCH (10:00)
[2022-01-10] MEDS: ASPirin 81 mg TAB PO SCH (10:00)
== END 2022-01-10 12:11 | disposition left against medical advice (07) | DRG 315 ==
LOC: ER 18:32 → TELE 21:44
PROVIDERS: ADMIT Nurse Practitioner Family; ATTEND Internal Medicine Cardiovascular Disease
DX: I42.0 Dilated cardiomyopathy (principal); I47.20 Ventricular tachycardia, unspecified; I50.42 Chronic combined systolic (congestive) and diastolic (congestive) heart failure; E78.5 Hyperlipidemia, unspecified; F17.210 Nicotine dependence, cigarettes, uncomplicated; G47.00 Insomnia, unspecified; G47.30 Sleep apnea, unspecified; Z53.29 Procedure and treatment not carried out because of patient's decision for other reasons; I11.0 Hypertensive heart disease with heart failure; Z20.822 Contact with and (suspected) exposure to COVID-19; E66.01 Morbid (severe) obesity due to excess calories; J45.909 Unspecified asthma, uncomplicated; R77.8 Other specified abnormalities of plasma proteins; I95.9 Hypotension, unspecified; K80.20 Calculus of gallbladder without cholecystitis without obstruction; Z95.810 Presence of automatic (implantable) cardiac defibrillator; Z82.49 Family history of ischemic heart disease and other diseases of the circulatory system; Z83.3 Family history of diabetes mellitus; Z68.29 Body mass index [BMI] 29.0-29.9, adult
CPT/HCPCS: 36415; 71045; 74176; 74177; 76705; 80053; 80061; 80307; 81001; 83690; 83735; 83880; 84443; 84484; 85007; 85025; 85027; 85379; 85610; 85730; 86677; 87040; 87426; 87804; 93005; 96365; 96375; C9113; G0378; J2405; J2543

== ENCOUNTER → 2022-04-04 | Outpatient (CLI) | payer MEDICARE, MEDICAID ==
[~2022-04-04] MED LIST changes: +CYANOCOBALAMIN (B-12) 1000 MCG/1 ML VIAL IM ONE; +CYANOCOBALAMIN (B-12) 1000 MCG/1 ML VIAL ONE; +KETOROLAC TROMETH 30 MG/ML 1ML VIAL IV ONE; +KETOROLAC TROMETH 60MG/2ML VIAL ONE; +ONDANSETRON HCL 4 MG/2 ML VIAL IV ONE; +ONDANSETRON HCL 4 MG/2 ML VIAL ONE; +SODIUM CHLORIDE 0.9% 250 ML IV ONE
[2022-04-04 10:12] VITALS: BP 115/76
[2022-04-04 12:01] LABS: Basophils # (auto) 0.1 10 ^3/uL (0-0.2); Basophils % (auto) 1.1 % (0.0-2.0); Eosinophils # (auto) 0.1 10 ^3/uL (0-0.8); Eosinophils % (auto) 2.1 % (0.0-7.0); Hematocrit 43.3 % (36.0-46.0); Hemoglobin 13.7 g/dL (12.2-16.2); Lymphocytes # (auto) 1.5 10 ^3/uL (0.4-5.4); Lymphocytes % (auto) 29.8 % (10.0-50.0); Mean Corpuscular Hemoglobin 29.9 pg (28.0-32.0); Mean Corpuscular Hgb Conc. 31.8 g/dL (32.0-36.0); Monocytes # (auto) 0.4 10 ^3/uL (0-1.3); Monocytes % (auto) 8.6 % (0.0-12.0); Neutrophils # (auto) 2.8 10 ^3/uL (1.6-8.6); Neutrophils % (auto) 58.4 % (37.0-80.0); Nucleated Red Blood Cells % 0.2 %; White Blood Cell 4.9 10^3/uL (4.4-10.8)
[2022-04-04 12:54] LABS: BUN/Creatinine Ratio 12.8
[2022-04-04 12:55] LABS: Albumin 3.4 g/dL (3.4-5.0); Bilirubin, Total 0.3 mg/dL (0.2-1.0); Calcium 11.2 mg/dL (8.5-10.1); Magnesium 1.9 mg/dL (1.6-2.6); Total Protein 6.7 g/dL (6.4-8.2)
== END | disposition home or self-care (01) ==
LOC: CHF HDHVI 09:10
PROVIDERS: ATTEND Internal Medicine Cardiovascular Disease
DX: I50.23 Acute on chronic systolic (congestive) heart failure (principal)
CPT/HCPCS: 36415; 80053; 83735; 83880; 85025; 96361; 96372; 96374; 96375; G0463; J1642; J1885; J2405

== ENCOUNTER → 2022-04-13 | Outpatient (CLI) | payer MEDICARE, MEDICAID ==
[~2022-04-13] MED LIST changes: -CYANOCOBALAMIN (B-12) 1000 MCG/1 ML VIAL IM ONE; -CYANOCOBALAMIN (B-12) 1000 MCG/1 ML VIAL ONE; -KETOROLAC TROMETH 30 MG/ML 1ML VIAL IV ONE; -KETOROLAC TROMETH 60MG/2ML VIAL ONE; -ONDANSETRON HCL 4 MG/2 ML VIAL IV ONE; -ONDANSETRON HCL 4 MG/2 ML VIAL ONE; -SODIUM CHLORIDE 0.9% 250 ML IV ONE
== END | disposition home or self-care (01) ==
LOC: Rad HDHVI 09:45
PROVIDERS: ATTEND Internal Medicine Cardiovascular Disease
DX: I08.1 Rheumatic disorders of both mitral and tricuspid valves (principal); I10 Essential (primary) hypertension; R06.02 Shortness of breath
CPT/HCPCS: 93306

== ENCOUNTER → 2022-09-07 | Outpatient (CLI) | payer MEDICAID, MEDICARE, OTHER ==
[~2022-09-07] MED LIST changes: +CYANOCOBALAMIN (B-12) 1000 MCG/1 ML VIAL IM ONE; +CYANOCOBALAMIN (B-12) 1000 MCG/1 ML VIAL ONE; +METR-344 PO; -METR500T14 PO
[2022-09-07 09:47] VITALS: BP 99/66
[2022-09-07 10:26] VITALS: BP 97/62
== END | disposition home or self-care (01) ==
LOC: CHF HDHVI 09:36
PROVIDERS: ATTEND Internal Medicine Cardiovascular Disease
DX: I11.0 Hypertensive heart disease with heart failure (principal); I50.23 Acute on chronic systolic (congestive) heart failure; R53.83 Other fatigue; D64.9 Anemia, unspecified; I42.0 Dilated cardiomyopathy
CPT/HCPCS: 96372; G0463; J1642; J3420

== ENCOUNTER → 2022-10-07 | Outpatient (CLI) | payer OTHER ==
[~2022-10-07] MED LIST changes: -CYANOCOBALAMIN (B-12) 1000 MCG/1 ML VIAL IM ONE; -CYANOCOBALAMIN (B-12) 1000 MCG/1 ML VIAL ONE; +READI-CAT 2 (BARIUM SULF)(VANILLA SMOOTHIE) 450ML ONE
== END | disposition home or self-care (01) ==
LOC: Rad HDHVI 09:31
PROVIDERS: ATTEND Internal Medicine Cardiovascular Disease
DX: K57.30 Diverticulosis of large intestine without perforation or abscess without bleeding (principal); K80.20 Calculus of gallbladder without cholecystitis without obstruction; R10.9 Unspecified abdominal pain; I31.39 Other pericardial effusion (noninflammatory); I70.90 Unspecified atherosclerosis; M51.36 Other intervertebral disc degeneration, lumbar region; I70.0 Atherosclerosis of aorta
CPT/HCPCS: 74176

== ENCOUNTER → 2022-11-15 | Outpatient (CLI) | payer MEDICARE, MEDICAID ==
[~2022-11-15] MED LIST changes: +BACITRACIN TOP OINT 1 UD PKG TOP ONE; +CYANOCOBALAMIN (B-12) 1000 MCG/1 ML VIAL IM ONE; +CYANOCOBALAMIN (B-12) 1000 MCG/1 ML VIAL ONE; -READI-CAT 2 (BARIUM SULF)(VANILLA SMOOTHIE) 450ML ONE
[2022-11-15 12:05] VITALS: BP 141/97; PULSE 106; RESP 20; O2SAT 98
[2022-11-15 12:54] VITALS: BP 137/84; PULSE 72; RESP 20; O2SAT 98
== END | disposition home or self-care (01) ==
LOC: CHF HDHVI 12:51
PROVIDERS: ATTEND Internal Medicine Cardiovascular Disease
DX: D64.9 Anemia, unspecified (principal); N61.1 Abscess of the breast and nipple; I11.0 Hypertensive heart disease with heart failure; I50.43 Acute on chronic combined systolic (congestive) and diastolic (congestive) heart failure; I42.0 Dilated cardiomyopathy
CPT/HCPCS: 96372; G0463; J3420

== ENCOUNTER → 2022-12-09 | Outpatient (CLI) | payer MEDICARE, MEDICAID ==
[~2022-12-09] VITALS: Ht 170.2 cm; Wt 86.2 kg
[~2022-12-09] MED LIST changes: +ADENOSINE 72 MG in GIVE UN-DILUTED 0 ML IV ONE; +ADENOSINE 90 MG/30 ML INJ IV ONE; -BACITRACIN TOP OINT 1 UD PKG TOP ONE; -CYANOCOBALAMIN (B-12) 1000 MCG/1 ML VIAL IM ONE; -CYANOCOBALAMIN (B-12) 1000 MCG/1 ML VIAL ONE
== END | disposition home or self-care (01) ==
LOC: Rad HDHVI 09:02
PROVIDERS: ATTEND Internal Medicine Cardiovascular Disease
DX: I11.0 Hypertensive heart disease with heart failure (principal); I50.43 Acute on chronic combined systolic (congestive) and diastolic (congestive) heart failure; E78.00 Pure hypercholesterolemia, unspecified; I42.0 Dilated cardiomyopathy; R06.02 Shortness of breath; R07.9 Chest pain, unspecified; E11.9 Type 2 diabetes mellitus without complications; I25.2 Old myocardial infarction; Z95.0 Presence of cardiac pacemaker
CPT/HCPCS: 78452; 93005; 96374; 96375; A9500; J0153; J1642

== ENCOUNTER → 2022-12-14 | Outpatient (CLI) | payer MEDICARE, MEDICAID ==
[~2022-12-14] MED LIST changes: -ADENOSINE 72 MG in GIVE UN-DILUTED 0 ML IV ONE; -ADENOSINE 90 MG/30 ML INJ IV ONE
== END | disposition home or self-care (01) ==
LOC: Rad HDHVI 09:16
PROVIDERS: ATTEND Internal Medicine Cardiovascular Disease
DX: I65.23 Occlusion and stenosis of bilateral carotid arteries (principal); I10 Essential (primary) hypertension
CPT/HCPCS: 93880

== ENCOUNTER → 2022-12-21 | Outpatient (CLI) | payer MEDICARE, MEDICAID ==
[~2022-12-21] VITALS: Ht 170.2 cm; Wt 86.2 kg
[~2022-12-21] MED LIST changes: +ADENOSINE 72 MG in GIVE UN-DILUTED 0 ML IV ONE; +ADENOSINE 90 MG/30 ML INJ IV ONE
== END | disposition home or self-care (01) ==
LOC: Rad HDHVI 13:01
PROVIDERS: ATTEND Internal Medicine Cardiovascular Disease
DX: I48.0 Paroxysmal atrial fibrillation (principal); I25.2 Old myocardial infarction; I10 Essential (primary) hypertension; E78.5 Hyperlipidemia, unspecified; Z82.49 Family history of ischemic heart disease and other diseases of the circulatory system; Z79.899 Other long term (current) drug therapy; Z95.0 Presence of cardiac pacemaker
CPT/HCPCS: 78452; 93005; 96374; 96375; A9500; J0153